=== PATIENT | male | born 1965 | race American Indian/Alaskan Native ===

== ENCOUNTER 2018-08-07 05:28 | Emergency (ER) | payer MEDICAID ==
[2018-08-07 07:33] LABS: Alanine Aminotransferase 23 units/L (7-56); Albumin 4.3 g/dL (3.9-5); BUN/Creatinine Ratio 7; Blood Urea Nitrogen 6 mg/dL (9-20); Calcium 9.1 mg/dL (8.4-10.2); Hemolysis Index 20
[2018-08-07 07:55] LABS: Basophils # (Auto) 0.1 K/mm3 (0.0-0.1); Basophils % (Auto) 1.2 % (0.0-1.8); Eosinophils # (Auto) 0.1 K/mm3 (0.0-0.4); Eosinophils % (Auto) 0.7 % (0.0-4.3); Hematocrit 39.9 % (35.5-45.6); Hemoglobin 13.3 gm/dl (11.8-15.2); Lymphocytes # (Auto) 1.2 K/mm3 (1.2-5.4); Mean Corpuscular HGB Conc 33 % (32-34); Mean Corpuscular Volume 82 fl (84-94); Monocytes # (Auto) 0.7 K/mm3 (0.0-0.8); Monocytes % (Auto) 10.1 % (0.0-7.3); Platelet Count 386 K/mm3 (140-440); Red Blood Count 4.86 M/mm3 (3.65-5.03); Red Cell Distribution Width 14.7 % (13.2-15.2)
[2018-08-07] MEDS ORDERED: ZOFRAN IV ONE (09:28)
[2018-08-07] MEDS ORDERED: NACL 0.9% 1000 ML 1,000 ML IV ONE ×2 (09:28→09:29)
[2018-08-07] MEDS ORDERED: ALUM-MAG HYDROX-SIMETH 200-200-20MG/5ML PO ONE (09:32)
[2018-08-07] MEDS ORDERED: LIDOCAINE VISCOUS 2% PO ONE (09:32)
[2018-08-07 09:58] VITALS: BP 166/115
--- NOTE | 2018-08-07 10:17 | Emergency Department Report ---
ED Abdominal Pain HPI - General Chief Complaint: Chest Pain Stated Complaint: CHEST PAIN Time Seen by Provider: 08/07/18 09:18 Source: patient, old records reviewed Mode of arrival: Ambulatory Limitations: No Limitations - History of Present Illness Initial Comments: 53-year-old male with past medical history of GERD, hypertension, H. pylori, esophagitis, gastritis, daily alcohol use presents to the hospital complaining of continued epigastric pain with nausea, vomiting and by mouth intolerance worse for the past 2-3 days. Pain is constant, worse with palpation. No alleviating factors. His previous his medical records were reviewed. He was admitted in June for similar symptoms. EGD is positive for esophagitis and gastritis. Patient also presented with significant hyponatremia thought to be due to excessive water intake as per nephrology. Patient is currently taking Protonix, nadolol, and folate. He recently presented to [facility] and was told to his pancreas was inflamed. Patient continues to drink alcohol daily with last drink yesterday. He denies history of alcohol withdrawal tremors, seizures, hematemesis, melena, fever, or previous abdominal surgeries. He has followed up with GI since initial hospital visit in May. Severity scale (0 -10): 9 - Related Data Previous Rx's Medication Instructions Recorded Last Taken Type Folic Acid [Folvite] 1 mg PO QDAY #30 tablet 06/22/18 Unknown Rx Nicotine [Habitrol] 21 mg TD DAILY #30 patch 06/22/18 Unknown Rx Pantoprazole [Protonix TAB] 40 mg PO BID #60 tablet 06/22/18 Unknown Rx chlorproMAZINE [Thorazine] 10 mg PO Q6H PRN #30 tablet 06/22/18 Unknown Rx HYDROcodone/APAP 5-325 [[place] 1 each PO Q6HR PRN #20 tablet 08/07/18 Unknown Rx 5/325] Ondansetron [Zofran Odt] 4 mg PO Q8HR PRN #20 tab.rapdis 08/07/18 Unknown Rx Sucralfate [Carafate] 1 gm PO ACHS #30 oral.liqd 08/07/18 Unknown Rx Allergies Allergy/AdvReac Type Severity Reaction Status Date / Time No Known Allergies Allergy Verified 06/20/18 16:22 ED Review of Systems ROS: Stated complaint: CHEST PAIN Other details as noted in HPI Comment: All other systems reviewed and negative ED Past Medical Hx - Past Medical History Previous Medical History?: Yes Hx Hypertension: Yes Hx Congestive Heart Failure: No Hx Diabetes: No Hx GERD: Yes Hx Asthma: No Hx COPD: No Additional medical history: Low sodium secondary to excessive water intake, low potassium, HERNIA H-PYLORIC, gastritis, esophagitis, daily alcohol use - Surgical History Past Surgical History?: No - Social History Smoking Status: Current Every Day Smoker Substance Use Type: Alcohol, Marijuana - Medications Home Medications: Home Medications Medication Instructions Recorded Confirmed Last Taken Type Folic Acid [Folvite] 1 mg PO QDAY #30 tablet 06/22/18 Unknown Rx Nicotine [Habitrol] 21 mg TD DAILY #30 patch 06/22/18 Unknown Rx Pantoprazole [Protonix TAB] 40 mg PO BID #60 tablet 06/22/18 Unknown Rx chlorproMAZINE [Thorazine] 10 mg PO Q6H PRN #30 tablet 06/22/18 Unknown Rx HYDROcodone/APAP 5-325 [[place] 1 each PO Q6HR PRN #20 tablet 08/07/18 Unknown Rx 5/325] Ondansetron [Zofran Odt] 4 mg PO Q8HR PRN #20 tab.rapdis 08/07/18 Unknown Rx Sucralfate [Carafate] 1 gm PO ACHS #30 oral.liqd 08/07/18 Unknown Rx ED Physical Exam - General Limitations: No Limitations - Other Other exam information: General: No limitations, patient is alert in no acute distress Head exam: Atraumatic, normocephalic Eyes exam: Normal appearance, pupils equal reactive to light, extraocular movements intact, nonicteric sclera ENT: Moist mucous membrane Neck exam: Normal inspection, full range of motion, no meningismus nontender Respiratory exam: Clear to auscultation bilateral, no wheezes, rales, crackles Cardiovascular: Normal rate and rhythm, normal heart sounds Abdomen: Soft, nondistended, epigastric tenderness, with normal bowel sounds, no rebound, or guarding Extremity: Full range of motion normal inspection no deformity Back: Normal Inspection, full range of motion, no tenderness Neurologic: Alert, oriented x3, cranial nerves intact, no motor or sensory deficit Psychiatric: normal affect, normal mood Skin: Warm, dry, intact ED Course Vital Signs 02/16/19 02/16/19 05:53 09:53 Temperature 97.9 F 98.3 F Pulse Rate 72 61 Respiratory 18 18 Rate Blood Pressure 146/105 166/115 Blood Pressure 166/115 [Right] O2 Sat by Pulse 97 99 Oximetry ED Medical Decision Making - Lab Data Result diagrams: 08/07/18 06:52 08/07/18 06:49 Lab Results 08/07/18 08/07/18 08/07/18 Range/Units 06:49 06:52 09:27 WBC 7.3 (4.5-11.0) K/mm3 RBC 4.86 (3.65-5.03) M/mm3 Hgb 13.3 (11.8-15.2) gm/dl Hct 39.9 (35.5-45.6) % MCV 82 L (84-94) fl MCH 27 L (28-32) pg MCHC 33 (32-34) % RDW 14.7 (13.2-15.2) % Plt Count 386 (140-440) K/mm3 Lymph % (Auto) 16.0 (13.4-35.0) % Reeves % (Auto) 10.1 H (0.0-7.3) % Eos % (Auto) 0.7 (0.0-4.3) % Baso % (Auto) 1.2 (0.0-1.8) % Lymph # 1.2 (1.2-5.4) K/mm3 Reeves # 0.7 (0.0-0.8) K/mm3 Eos # 0.1 (0.0-0.4) K/mm3 Baso # 0.1 (0.0-0.1) K/mm3 Seg Neutrophils % 72.0 H (40.0-70.0) % Seg Neutrophils # 5.3 (1.8-7.7) K/mm3 Sodium 126 L (137-145) mmol/L Potassium 4.3 (3.6-5.0) mmol/L Chloride 83.0 L (98-107) mmol/L Carbon Dioxide 26 (22-30) mmol/L Anion Gap 21 mmol/L BUN 6 L (9-20) mg/dL Creatinine 0.9 (0.8-1.5) mg/dL Estimated GFR > 60 ml/min BUN/Creatinine Ratio 7 % Glucose 67 L (75-100) mg/dL Calcium 9.1 (8.4-10.2) mg/dL Magnesium (1.7-2.3) mg/dL Total Bilirubin 0.70 (0.1-1.2) mg/dL AST 49 H (5-40) units/L ALT 23 (7-56) units/L Alkaline Phosphatase 86 (35-129) units/L Troponin T < 0.010 (0.00-0.029) ng/mL Total Protein 7.8 (6.3-8.2) g/dL Albumin 4.3 (3.9-5) g/dL Albumin/Globulin Ratio 1.2 % Lipase 53 (13-60) units/L 08/07/18 Range/Units 09:29 WBC (4.5-11.0) K/mm3 RBC (3.65-5.03) M/mm3 Hgb (11.8-15.2) gm/dl Hct (35.5-45.6) % MCV (84-94) fl MCH (28-32) pg MCHC (32-34) % RDW (13.2-15.2) % Plt Count (140-440) K/mm3 Lymph % (Auto) (13.4-35.0) % Reeves % (Auto) (0.0-7.3) % Eos % (Auto) (0.0-4.3) % Baso % (Auto) (0.0-1.8) % Lymph # (1.2-5.4) K/mm3 Reeves # (0.0-0.8) K/mm3 Eos # (0.0-0.4) K/mm3 Baso # (0.0-0.1) K/mm3 Seg Neutrophils % (40.0-70.0) % Seg Neutrophils # (1.8-7.7) K/mm3 Sodium (137-145) mmol/L Potassium (3.6-5.0) mmol/L Chloride (98-107) mmol/L Carbon Dioxide (22-30) mmol/L Anion Gap mmol/L BUN (9-20) mg/dL Creatinine (0.8-1.5) mg/dL Estimated GFR ml/min BUN/Creatinine Ratio % Glucose (75-100) mg/dL Calcium (8.4-10.2) mg/dL Magnesium 2.00 (1.7-2.3) mg/dL Total Bilirubin (0.1-1.2) mg/dL AST (5-40) units/L ALT (7-56) units/L Alkaline Phosphatase (35-129) units/L Troponin T (0.00-0.029) ng/mL Total Protein (6.3-8.2) g/dL Albumin (3.9-5) g/dL Albumin/Globulin Ratio % Lipase (13-60) units/L - EKG Data -: EKG Interpreted by Me EKG shows normal: sinus rhythm, axis (qrs 75), QRS complexes (qrsd 88), ST-T waves (no stemi) Rate: normal (64) - EKG Data When compared to previous EKG there are: no significant change - Medical Decision Making Was again patient does have hyponatremia although mild. He admits to drinking a lot of water because it helps his hiccups. Patient treated with 2 L of normal saline. He took his Protonix this a.m. He also received Maalox, viscous lidocaine and Zofran. Patient counseled that continued alcohol intake will continue to flare up his stomach symptoms and he should consider stopping his alcohol intake Patient continued to have pain with above treatment but symptoms further To morphine. Tolerating by mouth (including juice) prior to discharge. - Differential Diagnosis gastritis, esophagitis, pancreatitis Critical Care Time: No Critical care attestation.: If time is entered above; I have spent that time in minutes in the direct care of this critically ill patient, excluding procedure time. ED Disposition Clinical Impression: Gastritis, Alcohol abuse, daily use, Vomiting, Hyponatremia Disposition: DC- TO HOME OR SELFCARE Is pt being admited?: No Does the pt Need Aspirin: No Condition: Stable Instructions: Gastritis (ED), At-Risk Alcohol Use (ED), Acute Nausea and Vomiting (ED) Additional Instructions: Take the medication as prescribed. Follow up with your doctor or the clinic/doctor provided. Return if symptoms worsen as indicated by your discharge instructions Prescriptions: HYDROcodone/APAP 5-325 [[place] 5/325] 1 each PO Q6HR PRN #20 tablet PRN Reason: Pain Ondansetron [Zofran Odt] 4 mg PO Q8HR PRN #20 tab.rapdis PRN Reason: Nausea And Vomiting Sucralfate [Carafate] 1 gm PO ACHS #30 oral.liqd Referrals: SUSANA WESLEY MD [Staff Physician] - 3-5 Days (GI specialist ) Time of Disposition: 12:54
[2018-08-07] MEDS ORDERED: MORPHINE IV ONE (11:04)
== END 2018-08-07 13:15 | disposition home or self-care (01) ==
LOC: ED 05:28
DX: K29.70 Gastritis, unspecified, without bleeding (principal); F10.129 Alcohol abuse with intoxication, unspecified; E87.1 Hypo-osmolality and hyponatremia
CPT/HCPCS: 36415; 80053; 83690; 83735; 84484; 85025; 93005; 93010; 96361; 96374; 96375; 99283; J2270; J2405; J7030

== ENCOUNTER 2018-09-05 19:14 | Inpatient (IN) | payer MEDICAID ==
--- NOTE | 2018-09-05 19:53 | Emergency Department Report ---
Chief Complaint: Head Injury Stated Complaint: CHEST PAIN Time Seen by Provider: 09/05/18 19:49 - HPI History of Present Illness: RAMBLING IN TRIAGE MANY COMPLAINTS 1 FELL 2 DAYS AGO HEADACHE 2 KNEE PAIN 3 CHEST PAIN RX GERD MEDS PMH GERD VSS MSE COMPLETED RN NOTIFIED OF COMPLAINTS - Exam Vital Signs: Vital Signs 09/05/18 19:44 Temperature 99.8 F H Pulse Rate 87 Respiratory 16 Rate Blood Pressure 106/83 [Left] O2 Sat by Pulse 96 Oximetry MSE screening note: Focused history and physical exam performed. Due to findings the following was ordered: ED Disposition for MSE Condition: Stable
[2018-09-05 20:15] LABS: Hematocrit 31.3 % (35.5-45.6); Hemoglobin 10.2 gm/dl (11.8-15.2); Mean Corpuscular HGB Conc 33 % (32-34); Mean Corpuscular Volume 80 fl (84-94); Platelet Count 490 K/mm3 (140-440); Red Blood Count 3.94 M/mm3 (3.65-5.03); Red Cell Distribution Width 16.9 % (13.2-15.2)
[2018-09-05 20:23] LABS: Alanine Aminotransferase 21 units/L (7-56); BUN/Creatinine Ratio 8; Blood Urea Nitrogen 6 mg/dL (9-20); Calcium 8.2 mg/dL (8.4-10.2); Hemolysis Index 14
--- NOTE | 2018-09-05 20:41 | Cat Scan Report ---
PROCEDURE: CT HEAD/BRAIN WO CON TECHNIQUE: Computerized tomography of the head was performed without contrast material. CT DOSE LENGTH PRODUCT: mGycm HISTORY: PAIN SP FALL COMPARISONS: None . FINDINGS: Skull and scalp: Left parietotemporal scalp swelling is noted measuring 8 cm in diameter and 1 cm in thickness. . Paranasal sinuses: Normal . Ventricles and subarachnoid spaces: Unremarkable. . Cerebrum: No evidence of hemorrhage, acute infarction or mass . Cerebellum and brainstem: No evidence of hemorrhage, acute infarction or mass . Vasculature: Normal . Other: None . ASPECTS: 10 IMPRESSION: No acute intracranial abnormality Left parietotemporal scalp swelling is consistent with scalp hematoma.. This document is electronically signed by Adolph Park MD., September 05 2018 08:39:39 PM ET
[2018-09-05 21:20] LABS: Bilirubin,Urine NEG (Negative); Blood,Urine NEG (Negative); Color,Urine Yellow (Yellow); Protein,Urine <15 mg/dL mg/dL (Negative); RBC,Urine < 1.0 /HPF (0.0-6.0); Urobilinogen,Urine < 2.0 mg/dL (<2.0)
[2018-09-05] MEDS ORDERED: ZOFRAN IV ONE (21:21)
[2018-09-05] MEDS ORDERED: DILAUDID IV ONE (21:21)
[2018-09-05] MEDS ORDERED: NACL 0.9% 1000 ML 1,000 ML IV ONE (21:21)
--- NOTE | 2018-09-05 21:26 | Emergency Department Report ---
HPI - General Chief Complaint: Head Injury Time Seen by Provider: 09/05/18 19:49 - HPI HPI: Room 5 Patient is a 53-year-old male presenting with a chief complaint of abdominal pain and headache. The patient states 2 days ago while consuming alcohol he l ost his balance and fell striking his head. Patient states since then he is headache but he's also had pain in the midepigastric region. The patient states 2 weeks ago he was admitted to the hospital for pancreatitis and hyponatremia. Patient states his abdominal pain is sharp and burning in nature. Patient states the pain is constant and associated with nausea vomiting and diarrhea. Patient admits to occasional hiccups. Patient denies history of fever. The patient gets his pain a score of 10/10 Location: Head, mid epigastric region Duration: 2 days Quality: Pain Severity:10/10 Modifying factors: [see above] Context: [see above] Mode of transportation: [not driving] ED Past Medical Hx - Past Medical History Previous Medical History?: Yes Hx Hypertension: Yes Hx GERD: Yes Additional medical history: Low sodium secondary to excessive water intake, low potassium, HERNIA H-PYLORIC, gastritis, esophagitis, daily alcohol use - Surgical History Past Surgical History?: No - Family History Family history: no significant - Social History Smoking Status: Current Every Day Smoker (1/3 pack per day) Substance Use Type: None (denies illicit drug use), Alcohol (25 ounces of beer daily) - Medications Home Medications: Home Medications Medication Instructions Recorded Confirmed Last Taken Type Folic Acid [Folvite] 1 mg PO QDAY #30 tablet 06/22/18 Unknown Rx Nicotine [Habitrol] 21 mg TD DAILY #30 patch 06/22/18 Unknown Rx Pantoprazole [Protonix TAB] 40 mg PO BID #60 tablet 06/22/18 Unknown Rx chlorproMAZINE [Thorazine] 10 mg PO Q6H PRN #30 tablet 06/22/18 Unknown Rx HYDROcodone/APAP 5-325 [[place] 1 each PO Q6HR PRN #20 tablet 08/07/18 Unknown Rx 5/325] Ondansetron [Zofran Odt] 4 mg PO Q8HR PRN #20 tab.rapdis 08/07/18 Unknown Rx Sucralfate [Carafate] 1 gm PO ACHS #30 oral.liqd 08/07/18 Unknown Rx ED Review of Systems ROS: Stated complaint: CHEST PAIN Other details as noted in HPI Constitutional: denies: fever Eyes: denies: eye pain ENT: denies: throat pain Respiratory: no symptoms reported Cardiovascular: denies: chest pain Endocrine: no symptoms reported Gastrointestinal: abdominal pain, nausea, vomiting, diarrhea Genitourinary: denies: dysuria Musculoskeletal: denies: back pain Neurological: headache Physical Exam - Physical Exam Vital Signs: Vital Signs 09/05/18 09/05/18 19:44 19:51 Temperature 99.8 F H 99.8 F H Pulse Rate 87 87 Respiratory 16 20 Rate Blood Pressure 106/83 Blood Pressure 106/83 [Left] O2 Sat by Pulse 96 96 Oximetry Physical Exam: GENERAL: The patient is well-developed well-nourished male lying on stretcher appearing to be in mild discomfort. [] HEENT: Normocephalic. Atraumatic. Extraocular motions are intact. Patient has moist mucous membranes. NECK: Supple. Trachea midline CHEST/LUNGS: Clear to auscultation. There is no respiratory distress noted. HEART/CARDIOVASCULAR: Regular. There is no tachycardia. There is no gallop rub or murmur. ABDOMEN: Abdomen is soft, with tenderness to palpation in the midepigastric region. Patient has normal bowel sounds. There is no abdominal distention. SKIN: There is no rash. There is no edema. There is no diaphoresis. NEURO: The patient is awake, alert, and oriented. The patient is cooperative. The patient has no focal neurologic deficits. The patient has normal speech. Cranial nerves II 12 grossly intact MUSCULOSKELETAL: There is no evidence of acute injury. ED Course Vital Signs 09/05/18 09/05/18 19:44 19:51 Temperature 99.8 F H 99.8 F H Pulse Rate 87 87 Respiratory 16 20 Rate Blood Pressure 106/83 Blood Pressure 106/83 [Left] O2 Sat by Pulse 96 96 Oximetry ED Medical Decision Making - Lab Data Result diagrams: 09/05/18 19:57 09/05/18 19:57 Laboratory Tests 09/05/18 09/05/18 09/05/18 19:57 19:57 21:06 WBC 8.7 RBC 3.94 Hgb 10.2 L Hct 31.3 L MCV 80 L MCH 26 L MCHC 33 RDW 16.9 H Plt Count 490 H Sodium 127 L Potassium 4.1 Chloride 89.1 L Carbon Dioxide 24 Anion Gap 18 BUN 6 L Creatinine 0.8 Estimated GFR > 60 BUN/Creatinine Ratio 8 Glucose 89 Calcium 8.2 L Total Bilirubin 0.20 AST 36 ALT 21 Alkaline Phosphatase 76 Troponin T < 0.010 Total Protein 7.2 Albumin 4.0 Albumin/Globulin Ratio 1.3 Lipase 142 H Urine Color Yellow Urine Turbidity Clear Urine pH 6.0 Ur Specific [place] 1.004 Urine Protein <15 mg/dl Urine Glucose (UA) Neg Urine Ketones Neg Urine Blood Neg Urine Nitrite Neg Urine Bilirubin Neg Urine Urobilinogen < 2.0 Ur Leukocyte Esterase Neg Urine WBC (Auto) 1.0 Urine RBC (Auto) < 1.0 - EKG Data -: EKG Interpreted by Nm EKG shows normal: sinus rhythm Rate: normal - EKG Data When compared to previous EKG there are: previous EKG unavailable Interpretation: nonspecific ST-T wave denise (T-wave inversion in lead aVL) - Radiology Data Radiology results: report reviewed (CT abdomen and pelvis), image reviewed (CT abdomen and pelvis) [address] [address] Cat Scan Report Signed Patient: WENDI MORENO MR#: [id number] : 1965 Acct:[id number] Age/Sex: 53 / M ADM Date: 09/05/18 Loc: ED Attending Dr: Ordering Physician: RADHAMES BRICE Date of Service: 09/05/18 Procedure(s): CT head/brain wo con Accession Number(s): [id number] cc: RADHAMES BRICE PROCEDURE: CT HEAD/BRAIN WO CON TECHNIQUE: Computerized tomography of the head was performed without contrast material. CT DOSE LENGTH PRODUCT: mGycm HISTORY: PAIN SP FALL COMPARISONS: None . FINDINGS: Skull and scalp: Left parietotemporal scalp swelling is noted measuring 8 cm in diameter and 1 cm in thickness. . Paranasal sinuses: Normal . Ventricles and subarachnoid spaces: Unremarkable. . Cerebrum: No evidence of hemorrhage, acute infarction or mass . Cerebellum and brainstem: No evidence of hemorrhage, acute infarction or mass . Vasculature: Normal . Other: None . ASPECTS: 10 IMPRESSION: No acute intracranial abnormality Left parietotemporal scalp swelling is consistent with scalp hematoma.. This document is electronically signed by Darleen Park MD., September 05 2018 08:39:39 PM ET Transcribed By: [facility] [place] Dictated By: DARLEEN PARK Electronically Authenticated By: DARLEEN PARK Signed Date/Time: 09/05/182040 DD/ 20 TD/TT: 09/05/182021 - Differential Diagnosis pancreatitis, closed head injury, intracranial hemorrhage Critical care attestation.: If time is entered above; I have spent that time in minutes in the direct care of this critically ill patient, excluding procedure time. ED Disposition Clinical Impression: Acute pancreatitis, Closed head injury Disposition: DC-09 OP ADMIT IP TO THIS HOSP Is pt being admited?: Yes Does the pt Need Aspirin: No Condition: Fair Time of Disposition: 21:28 (hospitalist paged (Dr Knutson))
[2018-09-05 21:29] LABS: Amphetamine Screen,Urine PRESUMPTIVE NEGATIVE; Benzodiazepines Screen,Urine PRESUMPTIVE NEGATIVE; Cannabinoid Screen,Urine PRESUMPTIVE NEGATIVE; Cocaine Screen,Urine PRESUMPTIVE NEGATIVE; Methadone Screen,Urine PRESUMPTIVE NEGATIVE; Opiate Screen,Urine PRESUMPTIVE NEGATIVE
[2018-09-06] MEDS ORDERED: ZOFRAN IV PRN (01:20)
[2018-09-06] MEDS: DILAUDID IV PRN ×6 (01:46→21:44)
--- NOTE | 2018-09-06 03:59 | Cat Scan Report ---
PROCEDURE: CT ABDOMEN PELVIS W CON HISTORY: epigastric abdominal pain FINDINGS: Contrast-enhanced CT of the abdomen and pelvis was performed following the intravenous admi nistration of iodinated contrast. Data was reformatted into the sagittal and coronal planes. Comparis on is made to the prior examination of June 20, 2018. The examination is very limited by patient motion. The heart is normal in size. The lung bases appear clear. There is considerable wall thickening of the distal esophagus consistent with esophagitis, similar to prior examination of June 20. ABDOMEN: There is fatty infiltration of the liver without focal hepatic lesion. The spleen, adrenal glands, pancreas are within normal limits. There is no evidence of hydronephrosis . There is no small or large bowel obstruction. Pelvis: There is a normal appendix. There is no evidence of diverticulitis. The prostate and urinary bladder are within normal limits. There is no free air. IMPRESSION: Considerable wall thickening of distal esophagus consistent with esophagitis ABDOMEN: Fatty infiltration of the liver No bowel obstruction Pelvis: Normal appendix This document is electronically signed by Corona Garza MD., September 06 2018 03:56:59 AM ET
[2018-09-06] MEDS: NACL 0.9% 1000 ML 1,000 ML IV SCH ×2 (04:39→20:56)
[2018-09-06] MEDS ORDERED: TYLENOL PO PRN (05:53)
--- NOTE | 2018-09-06 07:27 | History and Physical Report ---
CHIEF COMPLAINT: Abdominal pain. HISTORY OF PRESENTING ILLNESS: The patient is a 53-year-old male who has been having epigastric abdominal pain going on for 2 days and there is history of associated nausea and vomiting. The patient also said that he lost his balance and fell and hit his head on the ground. The patient admitted to drinking alcohol regularly and said that the abdominal pain is burning in nature, does not radiate and there is also history of associated diarrhea and hiccups. There is no history of fever or chills and the patient put his pain level at 10/10. PAST MEDICAL HISTORY: Pertinent for hypertension, gastroesophageal reflux disease, hyponatremia, hypokalemia, hernia, gastritis, esophagitis, alcohol abuse and pancreatitis. PAST SURGICAL HISTORY: Unremarkable. FAMILY HISTORY: Family history is noncontributory. SOCIAL HISTORY: The patient drinks alcohol on daily basis, smokes cigarettes and denies use of illicit drugs. MEDICATIONS: The patient is on folic acid one by mouth daily, nicotine patch 21 mg transdermally daily, Protonix 40 mg by mouth twice daily, chlorpromazine 10 mg by mouth every 6 hours, [place] 5/325 mg by mouth every 6 hours, Zofran 4 mg by mouth every 8 hours as needed for nausea and vomiting, and Carafate 1 gram by mouth a.c. and at bedtime. ALLERGIES: There are no known drug allergies. REVIEW OF SYSTEMS: CONSTITUTIONAL: There is no fever, no chills, no diaphoresis. HEENT: There is no headache or sore throat. CARDIOVASCULAR SYSTEM: There is no chest pain or orthopnea. RESPIRATORY SYSTEM: There is no shortness of breath or cough. GASTROINTESTINAL SYSTEM: Epigastric abdominal pain noted. Nausea, vomiting and diarrhea noted. No constipation. NEUROLOGICAL SYSTEM: There is no numbness, no dizziness, no altered mental status. MUSCULOSKELETAL SYSTEM: There is no joint pain or swelling. DERMATOLOGICAL SYSTEM: There is no skin rash or itching. GENITOURINARY SYSTEM: There are no dysuria, hematuria or flank pain. Rest of system review is normal. PHYSICAL EXAMINATION: GENERAL: At the time of exam, the patient was found to be alert, oriented x 3 and in mild to moderate distress due to abdominal pain. VITAL SIGNS: At the initial time of presentation showed temperature of 99.8 degrees Fahrenheit, pulse of 87, respirations 16, blood pressure 106/83, O2 sat of 96% on room air. HEENT: Showed pupils to be equal, round, reactive to light and accommodating. Extraocular muscles are intact. NECK: Neck is supple with no JVD or carotid bruit. CARDIOVASCULAR SYSTEM: Showed normal first and second heart sounds with no gallops or murmur. RESPIRATORY SYSTEM: Show good air entry on both sides of the lungs with no abnormal breath sounds. GASTROINTESTINAL SYSTEM: Show abdomen to be full, soft with tenderness in the epigastric area, but no guarding and no rigidity. Bowel sounds normal. NEUROLOGICAL: Neuro exam shows no focal deficit. MUSCULOSKELETAL SYSTEM: Show no joint swelling. DERMATOLOGICAL SYSTEM: Show no skin rash. GENITOURINARY SYSTEM: Show no costovertebral angle tenderness. PERTINENT LABORATORY AND IMAGING STUDIES: The patient had CT of the head done that came back showing no acute intracranial abnormality. There is left shannan-temporal scalp swelling consistent with scalp hematoma. Also, the patient has a CT of the abdomen and pelvis done with contrast and it shows considerable wall thickening of distal esophagus consistent with esophagitis. There is also finding of fatty infiltration of the liver with no bowel obstruction and the appendix was found to be normal. Lab results; the patient's CBC showed normal white count, slightly low hemoglobin of 10.2 and low hematocrit of 31.3 with elevated platelet count of 490 and the patient's sodium level is low with a value of 127. Also, the patient's chloride level is low with a value of 89.2, potassium level came back normal. Renal function test is unremarkable. The patient's lipase level is elevated with a value of 142. The patient's urinalysis came back unremarkable. Urine drug screen was unremarkable as well. DIAGNOSES: 1. Acute pancreatitis. 2. Esophagitis. 3. Hematoma of the head. PLAN OF CARE: 1. The patient will be admitted to [facility]. 2. The patient will remain n.p.o. except for medications. 3. The patient will be on IV Dilaudid 1 mg every 4 hours as needed for pain and IV Zofran 4 mg every 8 hours as needed for nausea and vomiting. 4. The patient will be on IV Protonix 40 mg daily and will be on IV normal saline running at 125 mL an hour. Also the patient will be on p.r.n. medications like Tylenol 650 mg by mouth every 4 hours for fever and headache. 5. The patient will be on IV Levaquin 750 mg daily. JOB# [id number] OCN/NTS
[2018-09-06] MEDS: HEPARIN SUB-Q SCH ×2 (09:40→21:44)
[2018-09-06] MEDS ORDERED: PROTONIX IV SCH (10:00)
[2018-09-06] MEDS ORDERED: LEVAQUIN 750MG/150ML 750 MG/150 ML BAG IV SCH (10:00)
--- NOTE | 2018-09-06 15:57 | Progress Note ---
Assessment and Plan Assessment and plan: Patient is a 53 yo man with a history of alcohol pancreatitis, tobacco dependency and alcohol abuse who presents with abd pains. Patient last drink was 10am on 09/05/18. He drinks 3 [place] Ice Beer 25oz bottle. -Alcohol pancreatitis: ivf, bowel rest, iv pain meds -Alcohol abuse: Ciwa protocol, counseling done, -Esophagitis: ppi iv, bowel rest -Fatty liver from etoh: abstinence encouraged -Tobacco dependency: counseling to stop done, offered nicotine patch -Microcytic anemia: counseling on getting out patient c-scopy, will monitor cbc while inpatient -Hyponatremia, hypovolemia: treat with IVf and monitor bmp closely DVT/GI prophylaxis reviewed. prolonged inpatient services 35 minutes. History Interval history: Patient was seen and examined. Follow-up on current diagnosis pancreatitis. Overnight uneventful. Patient denies any chest pain, shortness breath, nausea/vomiting or severe headaches. Imaging, nursing note, chart, labs and old chart reviewed. Discussed with patient. Hospitalist Physical - Physical exam Narrative exam: Gen: WDWN, NAD, Awake, Alert, Orientated HEENT: NCAT, EOMI, PERRL, OP Clear Neck: supple, no adenopathy, no thyromegaly, no JVD CVS/Heart: RRR, normal S1S2, pulses present bilaterally Chest/Lungs: CTA B, Symmetrical chest expansion, good air entry bilaterally GI/Abdomen: soft, epigastric tenderness mild, good bowel sounds, no guarding or rebound /Bladder: no suprapubic tenderness, no CVA or paraspinal tenderness Extermity/Skin: no c/c/e, no obvious rash MSK: FROM x 4 Neuro: CN 2-12 grossly intact, no new focal deficits Psych: calm - Constitutional Vitals: Temp Pulse Resp BP Pulse Ox 98.4 F 66 20 157/102 98 09/06/18 12:21 09/06/18 12:21 09/06/18 12:21 09/06/18 12:21 09/06/18 12:21 Results - Labs CBC & Chem 7: 09/05/18 19:57 09/05/18 19:57 Labs: Laboratory Last Values WBC 8.7 K/mm3 (4.5-11.0) 09/05/18 19:57 RBC 3.94 M/mm3 (3.65-5.03) 09/05/18 19:57 Hgb 10.2 gm/dl (11.8-15.2) L 09/05/18 19:57 Hct 31.3 % (35.5-45.6) L 09/05/18 19:57 MCV 80 fl (84-94) L 09/05/18 19:57 MCH 26 pg (28-32) L 09/05/18 19:57 MCHC 33 % (32-34) 09/05/18 19:57 RDW 16.9 % (13.2-15.2) H 09/05/18 19:57 Plt Count 490 K/mm3 (140-440) H 09/05/18 19:57 Sodium 127 mmol/L (137-145) L 09/05/18 19:57 Potassium 4.1 mmol/L (3.6-5.0) 09/05/18 19:57 Chloride 89.1 mmol/L (98-107) L 09/05/18 19:57 Carbon Dioxide 24 mmol/L (22-30) 09/05/18 19:57 Anion Gap 18 mmol/L 09/05/18 19:57 BUN 6 mg/dL (9-20) L 09/05/18 19:57 Creatinine 0.8 mg/dL (0.8-1.5) 09/05/18 19:57 Estimated GFR > 60 ml/min 09/05/18 19:57 BUN/Creatinine Ratio 8 % 09/05/18 19:57 Glucose 89 mg/dL (75-100) 09/05/18 19:57 Calcium 8.2 mg/dL (8.4-10.2) L 09/05/18 19:57 Total Bilirubin 0.20 mg/dL (0.1-1.2) 09/05/18 19:57 AST 36 units/L (5-40) 09/05/18 19:57 ALT 21 units/L (7-56) 09/05/18 19:57 Alkaline Phosphatase 76 units/L (35-129) 09/05/18 19:57 Troponin T < 0.010 ng/mL (0.00-0.029) 09/05/18 19:57 Total Protein 7.2 g/dL (6.3-8.2) 09/05/18 19:57 Albumin 4.0 g/dL (3.9-5) 09/05/18 19:57 Albumin/Globulin Ratio 1.3 % 09/05/18 19:57 Lipase 142 units/L (13-60) H 09/05/18 19:57 Urine Color Yellow (Yellow) 09/05/18 21:06 Urine Turbidity Clear (Clear) 09/05/18 21:06 Urine pH 6.0 (5.0-7.0) 09/05/18 21:06 Ur Specific [place] 1.004 (1.003-1.030) 09/05/18 21:06 Urine Protein <15 mg/dl mg/dL (Negative) 09/05/18 21:06 Urine Glucose (UA) Neg mg/dL (Negative) 09/05/18 21:06 Urine Ketones Neg mg/dL (Negative) 09/05/18 21:06 Urine Blood Neg (Negative) 09/05/18 21:06 Urine Nitrite Neg (Negative) 09/05/18 21:06 Urine Bilirubin Neg (Negative) 09/05/18 21:06 Urine Urobilinogen < 2.0 mg/dL (<2.0) 09/05/18 21:06 Ur Leukocyte Esterase Neg (Negative) 09/05/18 21:06 Urine WBC (Auto) 1.0 /HPF (0.0-6.0) 09/05/18 21:06 Urine RBC (Auto) < 1.0 /HPF (0.0-6.0) 09/05/18 21:06 Urine Opiates Screen Presumptive negative 09/05/18 21:06 Urine Methadone Screen Presumptive negative 09/05/18 21:06 Ur Barbiturates Screen Presumptive negative 09/05/18 21:06 Ur Phencyclidine Scrn Presumptive negative 09/05/18 21:06 Ur Amphetamines Screen Presumptive negative 09/05/18 21:06 U Benzodiazepines Scrn Presumptive negative 09/05/18 21:06 Urine Cocaine Screen Presumptive negative 09/05/18 21:06 U Marijuana (THC) Screen Presumptive negative 09/05/18 21:06 Drugs of Abuse Note Disclamer 09/05/18 21:06 Active Medications - Current Medications Current Medications: Generic Name Dose Route Start Last Admin Trade Name Freq PRN Reason Stop Dose Admin Acetaminophen 650 mg 09/06/18 05:53 Tylenol PO Q4H PRN Fever >101 Heparin Sodium (Porcine) 5,000 unit 09/06/18 10:00 09/06/18 09:40 Heparin SUB-Q 5,000 unit Q12HR LEA Administration Hydromorphone HCl 1 mg 09/06/18 01:20 09/06/18 13:55 Dilaudid IV 1 mg Q4H PRN Administration Pain , Severe (7-10) Sodium Chloride 1,000 mls @ 125 mls/hr 09/06/18 02:00 09/06/18 12:39 Nacl 0.9% 1000 Ml IV Infused DIRECT LEA Infusion Levofloxacin/Dextrose 750 mg in 150 mls @ 100 mls/hr 09/06/18 10:00 09/06/18 09:40 Levaquin 750mg/150ml IV 100 mls/hr Q24HR LEA Administration Protocol Ondansetron HCl 4 mg 09/06/18 01:20 09/06/18 01:46 Zofran IV 4 mg Q8H PRN Administration Nausea And Vomiting Pantoprazole Sodium 40 mg 09/07/18 10:00 Protonix PO DAILY [facility]
--- NOTE | 2018-09-06 16:02 | Event Note ---
Date: 09/06/18 Patient is admitted is 53 yo man with a history
[2018-09-06] MEDS: HABITROL TD SCH (17:08)
[2018-09-06] MEDS: PROTONIX IV SCH (21:44)
[2018-09-07] MEDS: DILAUDID IV PRN ×3 (01:50→09:41)
[2018-09-07] MEDS: NACL 0.9% 1000 ML 1,000 ML IV SCH (04:36)
[2018-09-07 06:43] LABS: Hematocrit 30.9 % (35.5-45.6); Mean Corpuscular HGB Conc 33 % (32-34); Mean Corpuscular Volume 79 fl (84-94); Platelet Count 401 K/mm3 (140-440); Red Cell Distribution Width 16.7 % (13.2-15.2)
--- NOTE | 2018-09-07 07:02 | Progress Note ---
Assessment and Plan Assessment and plan: Patient is a 53 yo man with a history of alcohol pancreatitis, tobacco dependency and alcohol abuse who presents with abd pains. Patient last drink was ~ 10am on 09/05/18. He drinks 3 [place] Ice Beer 25oz bottle a day. -Alcohol pancreatitis: ivf, advance diet, iv pain meds -Alcohol abuse: Ciwa protocol, counseling done, -Esophagitis: ppi iv -Fatty liver from etoh: abstinence encouraged -Tobacco dependency: counseling to stop done, offered nicotine patch -Microcytic anemia: counseling on getting out patient c-scopy, will monitor cbc while inpatient -Hyponatremia, hypovolemia: treat with IVf and monitor bmp closely DVT/GI prophylaxis reviewed. bmp pending History Interval history: Patient was seen and examined. Follow-up on current diagnosis pancreatitis. Overnight uneventful. Patient denies any chest pain, shortness breath, nausea/vomiting or severe headaches. Imaging, nursing note, chart, labs and old chart reviewed. Discussed with patient. Hospitalist Physical - Physical exam Narrative exam: Gen: WDWN, NAD, Awake, Alert, Orientated HEENT: NCAT, EOMI, PERRL, OP Clear Neck: supple, no adenopathy, no thyromegaly, no JVD CVS/Heart: RRR, normal S1S2, pulses present bilaterally Chest/Lungs: CTA B, Symmetrical chest expansion, good air entry bilaterally GI/Abdomen: soft, epigastric tenderness mild, good bowel sounds, no guarding or rebound /Bladder: no suprapubic tenderness, no CVA or paraspinal tenderness Extermity/Skin: no c/c/e, no obvious rash MSK: FROM x 4 Neuro: CN 2-12 grossly intact, no new focal deficits Psych: calm - Constitutional Vitals: Temp Pulse Resp BP Pulse Ox 98.1 F 63 18 139/89 100 09/07/18 05:28 09/07/18 05:28 09/07/18 05:28 09/07/18 05:28 09/07/18 05:28 Results - Labs CBC & Chem 7: 09/07/18 04:31 09/05/18 19:57 Labs: Laboratory Last Values WBC 5.1 K/mm3 (4.5-11.0) 09/07/18 04:31 RBC 3.90 M/mm3 (3.65-5.03) 09/07/18 04:31 Hgb 10.0 gm/dl (11.8-15.2) L 09/07/18 04:31 Hct 30.9 % (35.5-45.6) L 09/07/18 04:31 MCV 79 fl (84-94) L 09/07/18 04:31 MCH 26 pg (28-32) L 09/07/18 04:31 MCHC 33 % (32-34) 09/07/18 04:31 RDW 16.7 % (13.2-15.2) H 09/07/18 04:31 Plt Count 401 K/mm3 (140-440) 09/07/18 04:31 Sodium 127 mmol/L (137-145) L 09/05/18 19:57 Potassium 4.1 mmol/L (3.6-5.0) 09/05/18 19:57 Chloride 89.1 mmol/L (98-107) L 09/05/18 19:57 Carbon Dioxide 24 mmol/L (22-30) 09/05/18 19:57 Anion Gap 18 mmol/L 09/05/18 19:57 BUN 6 mg/dL (9-20) L 09/05/18 19:57 Creatinine 0.8 mg/dL (0.8-1.5) 09/05/18 19:57 Estimated GFR > 60 ml/min 09/05/18 19:57 BUN/Creatinine Ratio 8 % 09/05/18 19:57 Glucose 89 mg/dL (75-100) 09/05/18 19:57 Calcium 8.2 mg/dL (8.4-10.2) L 09/05/18 19:57 Total Bilirubin 0.20 mg/dL (0.1-1.2) 09/05/18 19:57 AST 36 units/L (5-40) 09/05/18 19:57 ALT 21 units/L (7-56) 09/05/18 19:57 Alkaline Phosphatase 76 units/L (35-129) 09/05/18 19:57 Troponin T < 0.010 ng/mL (0.00-0.029) 09/05/18 19:57 Total Protein 7.2 g/dL (6.3-8.2) 09/05/18 19:57 Albumin 4.0 g/dL (3.9-5) 09/05/18 19:57 Albumin/Globulin Ratio 1.3 % 09/05/18 19:57 Lipase 142 units/L (13-60) H 09/05/18 19:57 Urine Color Yellow (Yellow) 09/05/18 21:06 Urine Turbidity Clear (Clear) 09/05/18 21:06 Urine pH 6.0 (5.0-7.0) 09/05/18 21:06 Ur Specific [place] 1.004 (1.003-1.030) 09/05/18 21:06 Urine Protein <15 mg/dl mg/dL (Negative) 09/05/18 21:06 Urine Glucose (UA) Neg mg/dL (Negative) 09/05/18 21:06 Urine Ketones Neg mg/dL (Negative) 09/05/18 21:06 Urine Blood Neg (Negative) 09/05/18 21:06 Urine Nitrite Neg (Negative) 09/05/18 21:06 Urine Bilirubin Neg (Negative) 09/05/18 21:06 Urine Urobilinogen < 2.0 mg/dL (<2.0) 09/05/18 21:06 Ur Leukocyte Esterase Neg (Negative) 09/05/18 21:06 Urine WBC (Auto) 1.0 /HPF (0.0-6.0) 09/05/18 21:06 Urine RBC (Auto) < 1.0 /HPF (0.0-6.0) 09/05/18 21:06 Urine Opiates Screen Presumptive negative 09/05/18 21:06 Urine Methadone Screen Presumptive negative 09/05/18 21:06 Ur Barbiturates Screen Presumptive negative 09/05/18 21:06 Ur Phencyclidine Scrn Presumptive negative 09/05/18 21:06 Ur Amphetamines Screen Presumptive negative 09/05/18 21:06 U Benzodiazepines Scrn Presumptive negative 09/05/18 21:06 Urine Cocaine Screen Presumptive negative 09/05/18 21:06 U Marijuana (THC) Screen Presumptive negative 09/05/18 21:06 Drugs of Abuse Note Disclamer 09/05/18 21:06 Active Medications - Current Medications Current Medications: Generic Name Dose Route Start Last Admin Trade Name Freq PRN Reason Stop Dose Admin Acetaminophen 650 mg 09/06/18 05:53 Tylenol PO Q4H PRN Fever >101 Heparin Sodium (Porcine) 5,000 unit 09/06/18 10:00 09/06/18 21:44 Heparin SUB-Q 5,000 unit Q12HR LEA Administration Hydromorphone HCl 1 mg 09/06/18 01:20 09/07/18 05:54 Dilaudid IV 1 mg Q4H PRN Administration Pain , Severe (7-10) Sodium Chloride 1,000 mls @ 125 mls/hr 09/06/18 02:00 09/07/18 04:36 Nacl 0.9% 1000 Ml IV 125 mls/hr DIRECT LEA Administration Levofloxacin/Dextrose 750 mg in 150 mls @ 100 mls/hr 09/06/18 10:00 09/06/18 09:40 Levaquin 750mg/150ml IV 100 mls/hr Q24HR LEA Administration Protocol Nicotine 21 mg 09/06/18 16:00 09/06/18 17:08 Habitrol TD 21 mg QDAY LEA Administration Ondansetron HCl 4 mg 09/06/18 01:20 09/06/18 01:46 Zofran IV 4 mg Q8H PRN Administration Nausea And Vomiting Pantoprazole Sodium 40 mg 09/06/18 22:00 09/06/18 21:44 Protonix IV 40 mg BID LEA Administration Nutrition/Malnutrition Assess - Dietary Evaluation Nutrition/Malnutrition Findings: Nutrition Notes Start: 09/06/18 16:31 Freq: Status: Active Protocol: Document 09/06/18 16:31 RM (Rec: 09/06/18 16:41 RM [id number]) Nutrition Notes Need for Assessment generated from: MST Initial or Follow up Assessment Current Diagnosis Hypertension Other Pertinent Diagnosis GERD, Hx gastritis, Hx ETOH abuse, Pancreatitis, Esophagitis Current Diet NPO Labs/Tests Reviewed Pertinent Medications Reviewed Height 6 ft 1 in Weight 77.6 kg Usual Body Weight 85.91 kg [place] Body Weight (kg) 83.63 BMI 22.6 Weight change and time frame 9.7% wt loss X 5 months Subjective/Other Information Screened for malnutrition. Pt NPO for bowel rest. Pt does not appear to have BMI of 38. 3. Wt in record corrected using admission wt. Pt stated that [employer] his appetite was poor and that he ate 1 meal daily for a couple months. Stated that his appetite is good now and that he would like to eat. Stated UBW was 188-190 lbs 5 months ago. No temporal or obrital wasting . Burn Absent Trauma Absent #1 Nutrition Diagnosis Inadequate oral intake Etiology pancreatitis,esophagitis As Evidenced by Signs and Symptoms pt NPO status Is patient on ventilator? No Is Patient Ambulatory and/or Out of Bed Yes REE-([facility]-ambulatory/OOB) [ 2183.844 [id number]] Calculation Used for Recommendations [facility] Additional Notes Protein Needs: 62-78g (0.8-1g/ kg) Fluid Needs: 1 ml/kcal Nutrition Intervention Change Diet Order: Advance diet when medically able Add Supplement/Snack (indicate name/kcal Ensure Enlive 1 daily once /protein ) diet advanced Provides kCal: 350 Provides Protein (gm) 20 Goal #1 Diet advancement Anticipated Discharge Needs: Unable to determine at this time Follow-Up By: 09/08/18 Additional Comments Follow for diet advancement, PO and ONS intakes
[2018-09-07 07:19] LABS: BUN/Creatinine Ratio 11; Blood Urea Nitrogen 8 mg/dL (9-20); Calcium 8.2 mg/dL (8.4-10.2); Hemolysis Index 1
[2018-09-07] MEDS: HABITROL TD SCH (09:40)
[2018-09-07] MEDS: PROTONIX IV SCH (09:41)
[2018-09-07] MEDS: HEPARIN SUB-Q SCH (09:41)
[2018-09-07] MEDS ORDERED: PROTONIX PO SCH (10:00)
[2018-09-07 12:42] VITALS: BP 144/109
--- NOTE | 2018-09-07 14:50 | Discharge Summary ---
Providers - Providers Date of Admission: 09/06/18 01:48 Date of discharge: 09/07/18 Attending physician: MATT PHOENIX [facility] Hospital[facility] Condition: Stable Hospital course: Patient is a 53 yo man with a history of alcohol pancreatitis, tobacco dependency and alcohol abuse who presents with abd pains. Patient last drink was ~ 10am on 09/05/18. He drinks 3 [place] Ice Beer 25oz bottle a day. -Alcohol pancreatitis: ivf, advance diet and he tolerated and asking to go home because he is pain free -Alcohol abuse: Ciwa protocol, counseling done, -Esophagitis: ppi iv -Fatty liver from etoh: abstinence encouraged -Tobacco dependency: counseling to stop done, offered nicotine patch -Microcytic anemia: counseling on getting out patient c-scopy, will monitor cbc while inpatient -Hyponatremia, hypovolemia: treat with IVf and monitor bmp closely DVT/GI prophylaxis reviewed. Disposition: DC-01 TO HOME OR SELFCARE Time spent for discharge: 32 minutes Core Measure Documentation - Palliative Care Palliative Care/ Comfort Measures: Not Applicable - Core Measures Any of the following diagnoses?: none - VTE Discharge Requirements Deep Vein Thrombosis/Pulmonary Embolism Present on Admission: No Has pt received <5 days of overlap therapy or INR<2.0: No Anticoagulant overlap therapy prescribed at discharge: No Contraindication No Overlap Therapy order at DC: Not Indicated Exam - Physical Exam Narrative exam: Gen: WDWN, NAD, Awake, Alert, Orientated HEENT: NCAT, EOMI, PERRL, OP Clear Neck: supple, no adenopathy, no thyromegaly, no JVD CVS/Heart: RRR, normal S1S2, pulses present bilaterally Chest/Lungs: CTA B, Symmetrical chest expansion, good air entry bilaterally GI/Abdomen: soft, no epigastric tenderness, good bowel sounds, no guarding or rebound /Bladder: no suprapubic tenderness, no CVA or paraspinal tenderness Extermity/Skin: no c/c/e, no obvious rash MSK: FROM x 4 Neuro: CN 2-12 grossly intact, no new focal deficits Psych: calm - Constitutional Vitals: Temp Pulse Resp BP Pulse Ox 97.9 F 78 16 144/109 98 09/07/18 12:40 09/07/18 12:40 09/07/18 12:40 09/07/18 12:40 09/07/18 12:40 Plan Activity: other (no strenous activity) Diet: advance as tolerated Additional Instructions: No alcohol/beer drinking Follow up with: KENDELL ALDRICH MD [Primary Care Provider] - 7 Days Prescriptions: Nicotine [Habitrol] 21 mg TD DAILY #30 patch Thiamine [Vitamin B-1] 100 mg PO QDAY #30 tablet
== END 2018-09-07 17:15 | disposition home or self-care (01) | DRG 391 ==
LOC: ED 19:14 → 3A 09-06 01:48
PROVIDERS: ADMIT Internal Medicine; ATTEND Internal Medicine
DX: K21.0 Gastro-esophageal reflux disease with esophagitis (principal); K85.20 Alcohol induced acute pancreatitis without necrosis or infection; E87.1 Hypo-osmolality and hyponatremia; F10.10 Alcohol abuse, uncomplicated; E86.1 Hypovolemia; S00.93XA Contusion of unspecified part of head, initial encounter; F17.210 Nicotine dependence, cigarettes, uncomplicated; Y90.0 Blood alcohol level of less than 20 mg/100 ml; K70.0 Alcoholic fatty liver; D50.9 Iron deficiency anemia, unspecified; W18.30XA Fall on same level, unspecified, initial encounter; Y93.89 Activity, other specified; Y92.098 Other place in other non-institutional residence as the place of occurrence of the external cause; Y99.8 Other external cause status; Z71.89 Other specified counseling; Z71.6 Tobacco abuse counseling; Z71.41 Alcohol abuse counseling and surveillance of alcoholic
CPT/HCPCS: 36415; 70450; 74177; 80048; 80053; 80307; 81001; 83690; 84484; 85027; 87116; 93005; 93010; 96374; 96375; G0378; C9113; J1170; J1644; J1956; J2405; J7030; Q9967

== ENCOUNTER 2018-09-27 17:37 | Emergency (ER) | payer MEDICAID ==
--- NOTE | 2018-09-27 18:47 | Emergency Department Report ---
Blank Doc - Documentation Documentation: This is a 53-year-old male that presents with chest pain and SOB x1 week. Den ies any radiation. Stated is in midsternum. This initial assessment/diagnostic orders/clinical plan/treatment(s) is/are subject to change based on patient's health status, clinical progression and re- assessment by fellow clinical providers in the ED. Further treatment and workup at subsequent clinical providers discretion. Patient/guardians urged not to elope from the ED as their condition may be serious if not clinically assessed and managed. Initial orders include: 1- Patient sent to [facility] for further evaluation and treatment 2- labs 3- CXR 4- EKG
--- NOTE | 2018-09-27 18:55 | Emergency Department Report ---
Blank Doc - Documentation Documentation: Patient is to be seen in the main ED.
[2018-09-27 19:34] LABS: Basophils # (Auto) 0.1 K/mm3 (0.0-0.1); Eosinophils # (Auto) 0.3 K/mm3 (0.0-0.4); Eosinophils % (Auto) 2.4 % (0.0-4.3); Hematocrit 31.3 % (35.5-45.6); Hemoglobin 10.2 gm/dl (11.8-15.2); Lymphocytes # (Auto) 3.3 K/mm3 (1.2-5.4); Lymphocytes % (Auto) 29.7 % (13.4-35.0); Mean Corpuscular HGB Conc 33 % (32-34); Mean Corpuscular Volume 77 fl (84-94); Monocytes # (Auto) 0.6 K/mm3 (0.0-0.8); Monocytes % (Auto) 5.2 % (0.0-7.3); Platelet Count 377 K/mm3 (140-440); Red Blood Count 4.07 M/mm3 (3.65-5.03); Red Cell Distribution Width 18.3 % (13.2-15.2)
[2018-09-27 19:45] LABS: INR 0.98 (0.87-1.13)
[2018-09-27 19:46] LABS: Partial Thromboplastin Time 30.6 Sec. (24.2-36.6)
[2018-09-27 20:02] LABS: Alanine Aminotransferase 12 units/L (7-56); Albumin 4.1 g/dL (3.9-5); BUN/Creatinine Ratio 12; Blood Urea Nitrogen 12 mg/dL (9-20); Calcium 8.3 mg/dL (8.4-10.2); Hemolysis Index 8
--- NOTE | 2018-09-27 21:04 | XRay Report ---
PROCEDURE: XR CHEST ROUTINE 2V TECHNIQUE: PA and lateral chest radiographs were obtained. HISTORY: Chest Pain COMPARISONS: None. FINDINGS: Heart: Normal. Mediastinum/Vessels: Normal. Lungs/Pleural space: Normal. Bony thorax: No acute osseous abnormality. IMPRESSION: Normal examination. This document is electronically signed by Adolph Park MD., September 27 2018 09:02:31 PM ET
[2018-09-27 22:03] VITALS: BP 128/86
[2018-09-28] MEDS ORDERED: ZOFRAN IV ONE (00:13)
[2018-09-28] MEDS ORDERED: MORPHINE IV ONE (00:13)
[2018-09-28] MEDS ORDERED: NACL 0.9% 1000 ML 1,000 ML IV ONE (00:13)
[2018-09-28] MEDS ORDERED: PEPCID IV ONE (00:13)
--- NOTE | 2018-09-28 01:58 | Cat Scan Report ---
PROCEDURE: CT ABDOMEN W CON TECHNIQUE: Routine axial imaging was obtained of the abdomen following the intravenous injection of IV contrast. Sagittal and coronal reconstructions were reviewed. HISTORY: epigastric pain and tenderness COMPARISONS: 09/06/2018 FINDINGS: Images through the lung bases do not show infiltrates or effusions. There is circumferential mucosal thickening in the distal esophagus. Esophagitis cannot be excluded. The liver, gallbladder, biliary tree, pancreas, spleen, and adrenal glands appear normal. The kidneys enhance normally. There is no evidence of hydronephrosis. The abdominal aorta is normal in caliber. The bowel loops appear normal. There is no evidence of free fluid or adenopathy. The skeletal structu res do not show any acute changes. IMPRESSION: Stable circumferential mucosal thickening in the distal esophagus. Esophagitis cannot be excluded. No acute process in the upper abdomen otherwise.. This document is electronically signed by Porter Epstein MD., September 28 2018 01:56:10 AM ET
--- NOTE | 2018-09-28 03:13 | Emergency Department Report ---
ED Abdominal Pain HPI - General Chief Complaint: Chest Pain Stated Complaint: CHEST PAIN/WEAK Time Seen by Provider: 09/27/18 18:44 Source: patient Mode of arrival: Ambulatory Limitations: No Limitations - History of Present Illness Initial Comments: 53-year-old -[place] male with a past medical history of GERD, pancreatitis comes in today presenting with epigastric pain and shortness of breathing for 2-3 days. Patient states he has been out of his medication. Patient does admit to drinking alcohol today. Patient reports his vomiting and nausea. MD Complaint: abdominal pain -: days(s) (2-3 days) Location: epigastric Radiation: none Migration to: no migration Severity scale (0 -10): 9 - Related Data Previous Rx's Medication Instructions Recorded Last Taken Type Folic Acid [Folvite] 1 mg PO QDAY #30 tablet 06/22/18 Unknown Rx Ondansetron [Zofran ODT TAB] 4 mg PO Q8HR PRN #20 tab.rapdis 08/07/18 Unknown Rx Nicotine [Habitrol] 21 mg TD DAILY #30 patch 09/07/18 Unknown Rx Pantoprazole [Protonix TAB] 40 mg PO DAILY #30 tablet 09/07/18 Unknown Rx Thiamine [Vitamin B-1] 100 mg PO QDAY #30 tablet 09/07/18 Unknown Rx Ondansetron [Zofran Odt] 4 mg PO Q8HR #10 tab.rapdis 09/11/18 Unknown Rx oxyCODONE /ACETAMINOPHEN [Percocet 1 tab PO Q6HR PRN #10 tablet 09/11/18 Unknown Rx 5/325] Esomeprazole Magnesium [Nexium] 40 mg PO QDAY #30 capsule. 09/28/18 Unknown Rx Famotidine [Pepcid] 20 mg PO BID #60 tablet 09/28/18 Unknown Rx Sucralfate [Carafate] 1 gm PO Q6HR 15 Days udc 09/28/18 Unknown Rx Allergies Allergy/AdvReac Type Severity Reaction Status Date / Time No Known Allergies Allergy Verified 09/11/18 15:00 ED Review of Systems ROS: Stated complaint: CHEST PAIN/WEAK Other details as noted in HPI ED Past Medical Hx - Past Medical History Previous Medical History?: Yes Hx Hypertension: Yes Hx Heart Attack/AMI: No Hx Congestive Heart Failure: No Hx Deep Vein Thrombosis: No Hx GERD: Yes Hx Renal Disease: No Hx Sickle Cell Disease: No Hx Kidney Stones: No Hx Asthma: No Hx COPD: No Hx Tuberculosis: No Hx HIV: No Additional medical history: Low sodium secondary to excessive water intake, low potassium, HERNIA H-PYLORIC, gastritis, esophagitis, daily alcohol use - Surgical History Past Surgical History?: No Hx Coronary Stent: No Hx Pacemaker: No Hx Internal Defibrillator: No - Social History Smoking Status: Current Every Day Smoker Substance Use Type: Alcohol - Medications Home Medications: Home Medications Medication Instructions Recorded Confirmed Last Taken Type Folic Acid [Folvite] 1 mg PO QDAY #30 tablet 06/22/18 09/06/18 Unknown Rx Ondansetron [Zofran ODT TAB] 4 mg PO Q8HR PRN #20 tab.rapdis 08/07/18 09/06/18 Unknown Rx Nicotine [Habitrol] 21 mg TD DAILY #30 patch 09/07/18 Unknown Rx Pantoprazole [Protonix TAB] 40 mg PO DAILY #30 tablet 09/07/18 09/06/18 Unknown Rx Thiamine [Vitamin B-1] 100 mg PO QDAY #30 tablet 09/07/18 Unknown Rx Ondansetron [Zofran Odt] 4 mg PO Q8HR #10 tab.rapdis 09/11/18 Unknown Rx oxyCODONE /ACETAMINOPHEN [Percocet 1 tab PO Q6HR PRN #10 tablet 09/11/18 Unknown Rx 5/325] Esomeprazole Magnesium [Nexium] 40 mg PO QDAY #30 capsule.dr 09/28/18 Unknown Rx Famotidine [Pepcid] 20 mg PO BID #60 tablet 09/28/18 Unknown Rx Sucralfate [Carafate] 1 gm PO Q6HR 15 Days udc 09/28/18 Unknown Rx ED Physical Exam - General Limitations: No Limitations ED Course Vital Signs 09/27/18 09/27/18 18:45 22:02 Temperature 97.6 F 97.7 F Pulse Rate 82 70 Respiratory 16 16 Rate Blood Pressure 97/58 128/86 Blood Pressure 97/58 [Right] O2 Sat by Pulse 97 100 Oximetry ED Medical Decision Making - Lab Data Result diagrams: 09/27/18 19:19 09/27/18 19:19 - Radiology Data Radiology results: report reviewed Patient: TARA MORENO MR#: [id number] 2 : 1965 Acct:[id number] Age/Sex: 53 / M ADM Date: 09/27/18 Loc: ED Attending Dr: Ordering Physician: MARC IBRAHIM Date of Service: 09/28/18 Procedure(s): CT abdomen w con Accession Number(s): [id number] cc: MARC IBRAHIM PROCEDURE: CT ABDOMEN W CON TECHNIQUE: Routine axial imaging was obtained of the abdomen following the intravenous injection of IV contrast. Sagittal and coronal reconstructions were reviewed. HISTORY: epigastric pain and tenderness COMPARISONS: 09/06/2018 FINDINGS: Images through the lung bases do not show infiltrates or effusions. There is circumferential mucosal thickening in the distal esophagus. Esophagitis cannot be excluded. The liver, gallbladder, biliary tree, pancreas, spleen, and adrenal glands appear normal. The kidneys enhance normally. There is no evidence of hydronephrosis. The abdominal aorta is normal in caliber. The bowel loops appear normal. There is no evidence of free fluid or adenopathy. The skeletal structures do not show any acute changes. IMPRESSION: Stable circumferential mucosal thickening in the distal esophagus. Esophagitis cannot be excluded. No acute process in the upper abdomen otherwise.. This document is electronically signed by Carolann Epstein MD., September 28 2018 01:56:10 AM ET Transcribed By: RB Dictated By: CAROLANN EPSTEIN MD Electronically Authenticated By: CAROLANN EPSTEIN MD Signed Date/Time: 09/28/18 0158 DD/ 0011 TD/TT: 09/28/18 015 Critical care attestation.: If time is entered above; I have spent that time in minutes in the direct care of this critically ill patient, excluding procedure time. ED Disposition Clinical Impression: Esophagitis Disposition: DC-01 TO HOME OR SELFCARE Is pt being admited?: No Does the pt Need Aspirin: No Condition: Stable Prescriptions: Sucralfate [Carafate] 1 gm PO Q6HR 15 Days udc Esomeprazole Magnesium [Nexium] 40 mg PO QDAY #30 capsule. Famotidine [Pepcid] 20 mg PO BID #60 tablet Referrals: SANJAY CHUNG MD [Primary Care Provider] - 3-5 Days
== END 2018-09-28 03:20 | disposition home or self-care (01) ==
LOC: ED 17:37
DX: K20.9 Esophagitis, unspecified (principal); I10 Essential (primary) hypertension; K21.9 Gastro-esophageal reflux disease without esophagitis; F17.200 Nicotine dependence, unspecified, uncomplicated
CPT/HCPCS: 36415; 71046; 74160; 80053; 83690; 84484; 85025; 85610; 85730; 93005; 93010; 96361; 96374; 96375; 99284; G0480; J2270; J2405; J7030; Q9967; 80320

== ENCOUNTER 2019-01-27 13:35 | Emergency (ER) | payer MEDICAID ==
[2019-01-27 13:42] VITALS: BP 148/88
--- NOTE | 2019-01-27 13:42 | Emergency Department Report ---
Blank Doc - Documentation Documentation: This is a 53-year-old male that presents with n/v and abdominal pain. This initial assessment/diagnostic orders/clinical plan/treatment(s) is/are subject to change based on patient's health status, clinical progression and re- assessment by fellow clinical providers in the ED. Further treatment and workup at subsequent clinical providers discretion. Patient/guardians urged not to elope from the ED as their condition may be serious if not clinically assessed and managed. Initial orders include: 1- Patient sent to [facility] for further evaluation and treatment 2- labs 3- UA
[2019-01-27 13:58] LABS: Hematocrit 29.6 % (35.5-45.6); Hemoglobin 9.5 gm/dl (11.8-15.2); Mean Corpuscular HGB Conc 32 % (32-34); Mean Corpuscular Volume 76 fl (84-94); Platelet Count 387 K/mm3 (140-440)
[2019-01-27 14:12] LABS: Red Cell Distribution Width 21.8 % (13.2-15.2)
[2019-01-27 14:18] LABS: Alanine Aminotransferase 9 units/L (7-56); Albumin 4.3 g/dL (3.9-5); BUN/Creatinine Ratio 9; Blood Urea Nitrogen 8 mg/dL (9-20); Calcium 8.8 mg/dL (8.4-10.2); Hemolysis Index 3
[2019-01-27 14:44] LABS: Bilirubin,Urine NEG (Negative); Blood,Urine NEG (Negative); Color,Urine Straw (Yellow); Mucus,Urine FEW /HPF; Protein,Urine <15 mg/dL mg/dL (Negative); Urobilinogen,Urine < 2.0 mg/dL (<2.0)
[2019-01-27] MEDS ORDERED: PEPCID IV ONE (15:03)
[2019-01-27] MEDS ORDERED: NACL 0.9% 1000 ML 1,000 ML IV ONE (15:05)
[2019-01-27] MEDS ORDERED: ZOFRAN IV ONE (15:05)
[2019-01-27] MEDS ORDERED: MORPHINE IV ONE (15:05)
[2019-01-27 15:08] LABS: Basophils % (Manual) 0 % (0.0-1.8); Eosinophils % (Manual) 0 % (0.0-4.3); Platelet Estimate Consistent w Auto; RBC Morphology Normal; Total Cells Counted 100
--- NOTE | 2019-01-27 15:42 | Emergency Department Report ---
HPI - General Chief Complaint: Abdominal Pain Time Seen by Provider: 01/27/19 13:41 - HPI HPI: 53-year-old -Algerian male presents to the emergency department with a complaint of a 2 to three-day history of some upper abdominal and epigastric abdominal pain and burning. He was seen for similar symptoms back on 01/15 at [facility] and says he was diagnosed with GERD. He has a past medical history of GERD, hypertension, hyponatremia, hypokalemia, gastritis, esophagitis and some regular alcohol use. The patient was here in September for similar symptoms and had a CT scan that showed some distal thickening and possible esophagitis. He has not taken anything for her symptoms prior to presentation today. ED Past Medical Hx - Past Medical History Hx Hypertension: Yes Hx Heart Attack/AMI: No Hx Congestive Heart Failure: No Hx Deep Vein Thrombosis: No Hx GERD: Yes Hx Renal Disease: No Hx Sickle Cell Disease: No Hx Kidney Stones: No Hx Asthma: No Hx COPD: No Hx Tuberculosis: No Hx HIV: No Additional medical history: Low sodium secondary to excessive water intake, low potassium, HERNIA H-PYLORIC, gastritis, esophagitis, daily alcohol use - Surgical History Hx Coronary Stent: No Hx Pacemaker: No Hx Internal Defibrillator: No - Social History Smoking Status: Current Every Day Smoker Substance Use Type: Alcohol - Medications Home Medications: Home Medications Medication Instructions Recorded Confirmed Last Taken Type Folic Acid [Folvite] 1 mg PO QDAY #30 tablet 06/22/18 09/06/18 Unknown Rx Ondansetron [Zofran ODT TAB] 4 mg PO Q8HR PRN #20 tab.rapdis 08/07/18 09/06/18 Unknown Rx Nicotine [Habitrol] 21 mg TD DAILY #30 patch 09/07/18 Unknown Rx Pantoprazole [Protonix TAB] 40 mg PO DAILY #30 tablet 09/07/18 09/06/18 Unknown Rx Thiamine [Vitamin B-1] 100 mg PO QDAY #30 tablet 09/07/18 Unknown Rx Ondansetron [Zofran Odt] 4 mg PO Q8HR #10 tab.rapdis 09/11/18 Unknown Rx oxyCODONE /ACETAMINOPHEN [Percocet 1 tab PO Q6HR PRN #10 tablet 09/11/18 Unknown Rx 5/325] Esomeprazole Magnesium [Nexium] 40 mg PO QDAY #30 capsule. 09/28/18 Unknown Rx Famotidine [Pepcid] 20 mg PO BID #60 tablet 09/28/18 Unknown Rx Sucralfate [Carafate] 1 gm PO Q6HR 15 Days udc 09/28/18 Unknown Rx Omeprazole 40 mg PO QDAY #30 capsule. 01/27/19 Unknown Rx ED Review of Systems ROS: Stated complaint: ABD PAIN X 3 DAYS Other details as noted in HPI Comment: All other systems reviewed and negative Constitutional: denies: chills, fever Eyes: denies: eye pain, vision change ENT: denies: ear pain, throat pain Respiratory: denies: cough, shortness of breath Cardiovascular: denies: chest pain, palpitations Gastrointestinal: abdominal pain, nausea. denies: vomiting Genitourinary: denies: dysuria, frequency Musculoskeletal: denies: back pain, arthralgia Skin: denies: rash, lesions Neurological: denies: headache, weakness Physical Exam - Physical Exam Vital Signs: Vital Signs 01/27/19 01/27/19 13:41 14:27 Temperature 97.9 F Pulse Rate 104 H Respiratory 18 18 Rate Blood Pressure 148/88 O2 Sat by Pulse 100 Oximetry Physical Exam: GENERAL: The patient is well-developed well-nourished. HENT: Normocephalic. Atraumatic. Patient has moist mucous membranes. EYES: Extraocular motions are intact. Pupils equal reactive to light bilaterally. NECK: Supple. Trachea is midline. CHEST/LUNGS: Clear to auscultation. There is no respiratory distress noted. HEART/CARDIOVASCULAR: Regular. There is no tachycardia. There is no murmur. ABDOMEN: Abdomen is soft. There is some epigastric tenderness to palpation. No guarding. Patient has normal bowel sounds. There is no abdominal distention. SKIN: Skin is warm and dry. NEURO: The patient is awake, alert, and oriented. The patient is cooperative. The patient has no focal neurologic deficits. The patient has normal speech. MUSCULOSKELETAL: There is no tenderness or deformity. There is no limitation range of motion. There is no evidence of acute injury. ED Course Vital Signs 01/27/19 01/27/19 13:41 14:27 Temperature 97.9 F Pulse Rate 104 H Respiratory 18 18 Rate Blood Pressure 148/88 O2 Sat by Pulse 100 Oximetry ED Medical Decision Making - Lab Data Result diagrams: 01/27/19 13:45 01/27/19 13:45 - Radiology Data Radiology results: report reviewed, image reviewed interpreted by me: abdominal x-ray shows nonspecific nonobstructive bowel gas. ULTRASOUND ABDOMEN, LIMITED (RIGHT UPPER QUADRANT) INDICATION: Upper abdominal pain. COMPARISON: None available. FINDINGS: Pancreas: Visualized portion shows no significant abnormality. Liver: Normal. Gallbladder: Normal. Bile ducts: Normal. Common Bile Duct measures 3 mm. Free fluid: None. Additional Findings: None. IMPRESSION: 1. No sonographic abnormality of the right upper quadrant. - Medical Decision Making This patient presents to the emergency department with some upper abdominal pain and nausea without vomiting. The patient has a history of daily alcohol use but he does not currently appear intoxicated and does not appear to be going through any withdrawals. He was recently seen at [facility] for similar symptoms and was diagnosed once again with GERD. The patient was here in September and was found to have esophagitis. His labs today show some hyponatremia, hypochloremia. He has a history of this in the past. I believe this is partly because of his daily beer drinking as well as him drinking water to try and treat his reflux symptoms. The patient also admits that he never filled his PPI because his insurance would not cover it but apparently they will cover omeprazole. Patient was given some IV fluid resuscitation with normal saline. His abdominal x-ray shows nonspecific nonproductive bowel gas. He had an ultrasound that showed no acute abnormalities in the pancreas, liver, gallbladder or bile ducts and no free fluid. The patient was given some PPI, Zofran and pain medication. Upon reevaluation he is feeling improved. Vital signs stable throughout his ED course. He appears safe for discharge home at this time. He has been given a prescription for the omeprazole. He has been given a referral for [place] [facility]. He will return to the ER with any worsening of his symptoms or any acute distress. - Differential Diagnosis GERD, esophagitis, gastritis, food poisoning Critical Care Time: No Critical care attestation.: If time is entered above; I have spent that time in minutes in the direct care of this critically ill patient, excluding procedure time. ED Disposition Clinical Impression: Hyponatremia, History of esophagitis GERD (gastroesophageal reflux disease) Qualifiers: Esophagitis presence: esophagitis presence not specified Qualified Code(s): K21.9 - Gastro-esophageal reflux disease without esophagitis Anemia Qualifiers: Anemia type: unspecified type Qualified Code(s): D64.9 - Anemia, unspecified Disposition: TO HOME OR SELFCARE Is pt being admited?: No Condition: Stable Instructions: Diet for Ulcers and Gastritis (ED), Hyponatremia (ED), Dalia roesophageal Reflux Disease (ED), At-Risk Alcohol Use (ED), Abdominal Pain (ED) Additional Instructions: Please follow-up with your primary care physician. I am giving you a referral for [place] [facility] to follow up regarding your abdominal pains, acid reflux and history of esophagitis. Please quit drinking alcohol. Take your medications as prescribed. Return to the emergency Department with any worsening of your symptoms or any acute distress. Prescriptions: Omeprazole 40 mg PO QDAY #30 capsule. Referrals: MAXIM GARCIA DO [Staff Physician] - 2-3 Days [facility] [Outside] - 2-3 Days [facility] [Provider Group] - 2-3 Days Time of Disposition: 16:29
--- NOTE | 2019-01-27 16:12 | Ultrasound Report ---
ULTRASOUND ABDOMEN, LIMITED (RIGHT UPPER QUADRANT) INDICATION: Upper abdominal pain. COMPARISON: None available. FINDINGS: Pancreas: Visualized portion shows no significant abnormality. Liver: Normal. Gallbladder: Normal. Bile ducts: Normal. Common Bile Duct measures 3 mm. Free fluid: None. Additional Findings: None. IMPRESSION: 1. No sonographic abnormality of the right upper quadrant. Signer Name: Hernan Palacios MD Signed: 01/27/2019 4:07 PM Workstation Name: [id number]
--- NOTE | 2019-01-27 16:12 | XRay Report ---
ABDOMEN 4 VIEW(S) INDICATION / CLINICAL INFORMATION: Abd pain. COMPARISON: Gallbladder ultrasound performed today FINDINGS: TUBES / LINES: None. BOWEL GAS PATTERN: No significant abnormality. FREE AIR / EXTRALUMINAL GAS: None seen. ADDITIONAL FINDINGS: No significant additional findings. IMPRESSION: 1. No significant abnormality. Signer Name: Hernan Palacios MD Signed: 01/27/2019 4:08 PM Workstation Name: [id number]
== END 2019-01-27 16:58 | disposition home or self-care (01) ==
LOC: ED 13:35
DX: K21.9 Gastro-esophageal reflux disease without esophagitis (principal); E87.1 Hypo-osmolality and hyponatremia; D64.9 Anemia, unspecified; I10 Essential (primary) hypertension; E87.6 Hypokalemia; F17.200 Nicotine dependence, unspecified, uncomplicated; Z79.899 Other long term (current) drug therapy; Z88.6 Allergy status to analgesic agent
CPT/HCPCS: 36415; 74019; 76705; 80053; 81001; 83690; 85007; 85025; 96374; 96375; 99285; J2270; J2405; J7030

== ENCOUNTER 2019-05-13 18:15 | Inpatient (IN) | payer MEDICAID ==
--- NOTE | 2019-05-13 18:37 | Event Note ---
ED Screening Note Date of service: 05/13/19 Time: 18:35 ED Screening Note: 53 y o male presents with ground emesis and blood in stool This initial assessment/diagnostic orders/clinical plan/treatment(s) is/are subject to change based on patients health status, clinical progression and re-assessment by fellow clinical providers in the ED. Further treatment and workup at subsequent clinical providers discretion. Patient/guardian urged not to elope from the ED as their condition may be serious if not clinically assessed and managed. Initial orders include: labs
[2019-05-13 19:28] LABS: Basophils # (Auto) 0.1 K/mm3 (0.0-0.1); Basophils % (Auto) 0.5 % (0.0-1.8); Eosinophils % (Auto) 0.2 % (0.0-4.3); Hematocrit 37.1 % (35.5-45.6); Hemoglobin 11.6 gm/dl (11.8-15.2); Lymphocytes # (Auto) 1.8 K/mm3 (1.2-5.4); Lymphocytes % (Auto) 14.2 % (13.4-35.0); Mean Corpuscular HGB Conc 31 % (32-34); Mean Corpuscular Volume 76 fl (84-94); Monocytes # (Auto) 1.1 K/mm3 (0.0-0.8); Monocytes % (Auto) 8.7 % (0.0-7.3); Platelet Count 257 K/mm3 (140-440); Red Blood Count 4.87 M/mm3 (3.65-5.03)
[2019-05-13 19:34] LABS: INR 1.09 (0.87-1.13)
[2019-05-13 19:35] LABS: Partial Thromboplastin Time 31.4 Sec. (24.2-36.6)
[2019-05-13 19:36] LABS: BUN/Creatinine Ratio 7; Blood Urea Nitrogen 8 mg/dL (9-20); Calcium 9.2 mg/dL (8.4-10.2); Hemolysis Index 11
[2019-05-13] MEDS ORDERED: PANTOPRAZOLE 40 MG INJ IV ONE (22:35)
[2019-05-13] MEDS ORDERED: THIAMINE 100 MG, FOLIC ACID 1 MG, MULTIPLE VITAMIN INJ, ADULT 10 ML in SODIUM CHLORIDE ... IV ONE (22:35)
[2019-05-13] MEDS ORDERED: SODIUM CHLORIDE 0.9% 1000 ML 1,000 ML IV ONE (22:36)
[2019-05-13] MEDS ORDERED: diphenhydrAMINE 50 MG/ML VIAL IV ONE (22:37)
[2019-05-13] MEDS ORDERED: METOCLOPRAMIDE 10 MG/2 ML INJ IV ONE (22:37)
--- NOTE | 2019-05-13 22:41 | Emergency Department Report ---
ED GI Bleed HPI - General Chief complaint: GI Bleed Stated complaint: CHEST PAIN/VOMITING/BLACK STOOL Time Seen by Provider: 05/13/19 22:24 Source: patient Mode of arrival: Ambulatory Limitations: No Limitations - History of Present Illness Initial comments: 53-year-old male with a past medical history of alcohol abuse, hypertension, peptic ulcer disease, H. pylori, and hyponatremia due to excessive water intake presents to the hospital with complaints of abdominal pain, nausea, vomiting, and hematemesis 2-3 days. Patient complains of constant burning epigastric pain radiating to his chest. Pain is rated 10/10 intensity, constant with palpation and by mouth intake. Patient having coffee ground emesis and vomiting dark red blood. He had 6 episodes vomting today. He started to have black stool today. He states his last drink was yesterday but he could not tolerated the alcohol due to vomiting. Las po intake 2-3 days. He denies history of alcohol withdrawal tremors or seizures. He reports he had an endoscopy in fall that showed peptic ulcer disease and complete a course of treatment for H. pylori. He is currently taking Protonix. He states he had a colonoscopy September 2018 and had 2 polyps removed. He denies current NSAID or aspirin use. GI doctor: Dr. Colon - Related Data Previous Rx's Medication Instructions Recorded Last Taken Type Folic Acid [Folvite] 1 mg PO QDAY #30 tablet 06/22/18 Unknown Rx Ondansetron [Zofran ODT TAB] 4 mg PO Q8HR PRN #20 tab.rapdis 08/07/18 Unknown Rx Nicotine [Habitrol] 21 mg TD DAILY #30 patch 09/07/18 Unknown Rx Pantoprazole [Protonix TAB] 40 mg PO DAILY #30 tablet 09/07/18 Unknown Rx Thiamine [Vitamin B-1] 100 mg PO QDAY #30 tablet 09/07/18 Unknown Rx Ondansetron [Zofran Odt] 4 mg PO Q8HR #10 tab.rapdis 09/11/18 Unknown Rx oxyCODONE /ACETAMINOPHEN [Percocet 1 tab PO Q6HR PRN #10 tablet 09/11/18 Unknown Rx 5/325] Esomeprazole Magnesium [Nexium] 40 mg PO QDAY #30 capsule. 09/28/18 Unknown Rx Famotidine [Pepcid] 20 mg PO BID #60 tablet 09/28/18 Unknown Rx Sucralfate [Carafate] 1 gm PO Q6HR 15 Days udc 09/28/18 Unknown Rx Omeprazole 40 mg PO QDAY #30 capsule. 01/27/19 Unknown Rx Allergies Allergy/AdvReac Type Severity Reaction Status Date / Time aspirin Allergy Bleeding Verified 05/13/19 18:16 ED Review of Systems ROS: Stated complaint: CHEST PAIN/VOMITING/BLACK STOOL Other details as noted in HPI Comment: All other systems reviewed and negative ED Past Medical Hx - Past Medical History Hx Hypertension: Yes Hx Heart Attack/AMI: No Hx Congestive Heart Failure: No Hx Deep Vein Thrombosis: No Hx GERD: Yes Hx Renal Disease: No Hx Sickle Cell Disease: No Hx Kidney Stones: No Hx Asthma: No Hx COPD: No Hx Tuberculosis: No Hx HIV: No Additional medical history: Low sodium secondary to excessive water intake, low potassium, HERNIA H-PYLORIC, gastritis, esophagitis, daily alcohol use - Surgical History Hx Coronary Stent: No Hx Pacemaker: No Hx Internal Defibrillator: No - Social History Smoking Status: Current Every Day Smoker Substance Use Type: Alcohol - Medications Home Medications: Home Medications Medication Instructions Recorded Confirmed Last Taken Type Folic Acid [Folvite] 1 mg PO QDAY #30 tablet 06/22/18 09/06/18 Unknown Rx Ondansetron [Zofran ODT TAB] 4 mg PO Q8HR PRN #20 tab.rapdis 08/07/18 09/06/18 Unknown Rx Nicotine [Habitrol] 21 mg TD DAILY #30 patch 09/07/18 Unknown Rx Pantoprazole [Protonix TAB] 40 mg PO DAILY #30 tablet 09/07/18 09/06/18 Unknown Rx Thiamine [Vitamin B-1] 100 mg PO QDAY #30 tablet 09/07/18 Unknown Rx Ondansetron [Zofran Odt] 4 mg PO Q8HR #10 tab.rapdis 09/11/18 Unknown Rx oxyCODONE /ACETAMINOPHEN [Percocet 1 tab PO Q6HR PRN #10 tablet 09/11/18 Unknow n Rx 5/325] Esomeprazole Magnesium [Nexium] 40 mg PO QDAY #30 capsule. 09/28/18 Unknown R x Famotidine [Pepcid] 20 mg PO BID #60 tablet 09/28/18 Unknown Rx Sucralfate [Carafate] 1 gm PO Q6HR 15 Days udc 09/28/18 Unknown Rx Omeprazole 40 mg PO QDAY #30 capsule. 01/27/19 Unknown Rx ED Physical Exam - General Limitations: No Limitations - Other Other exam information: General: No acute distress Head: Atraumatic Eyes: normal appearance ENT: Moist mucous membranes Neck: Normal appearance, no midline tenderness Chest: Clear to auscultation bilaterally CV: Regular rate and rhythm Abdomen: Soft, normal bowel sounds, epigastric tenderness, nondistended, no r ebound or guarding, frequent hiccups Rectal: Brown stool guaiac positive Back: Normal inspection Extremity: Normal inspection infection, full range of motion Neuro: Alert O x 3, no facial asymmetry, speech clear, no gross motor sensory deficit Psych: Appropriate behavior Skin: No rash ED Course Vital Signs 05/13/19 05/13/19 05/13/19 18:33 22:32 22:46 Temperature 98.3 F 98.1 F Pulse Rate 105 H 74 83 Respiratory 20 24 22 Rate Blood Pressure 172/103 148/92 Blood Pressure 148/92 [Left] O2 Sat by Pulse 97 94 99 Oximetry 05/13/19 05/13/19 05/13/19 23:00 23:16 23:30 Temperature Pulse Rate 71 73 75 Respiratory 19 21 26 H Rate Blood Pressure 151/97 151/97 140/89 Blood Pressure [Left] O2 Sat by Pulse 95 98 Oximetry - Consultations Consultation #1: 05/13/19 23:43 case d/w Dr mao, gi, will admit for workup and eval ED Medical Decision Making - Lab Data Result diagrams: 05/13/19 19:02 05/13/19 19:02 Lab Results 05/13/19 05/13/19 05/13/19 Range/Units 19:02 19:02 19:02 WBC 12.8 H (4.5-11.0) K/mm3 RBC 4.87 (3.65-5.03) M/mm3 Hgb 11.6 L (11.8-15.2) gm/dl Hct 37.1 (35.5-45.6) % MCV 76 L (84-94) fl MCH 24 L (28-32) pg MCHC 31 L (32-34) % RDW 20.0 H (13.2-15.2) % Plt Count 257 (140-440) K/mm3 Lymph % (Auto) 14.2 (13.4-35.0) % Jay % (Auto) 8.7 H (0.0-7.3) % Eos % (Auto) 0.2 (0.0-4.3) % Baso % (Auto) 0.5 (0.0-1.8) % Lymph # 1.8 (1.2-5.4) K/mm3 Jay # 1.1 H (0.0-0.8) K/mm3 Eos # 0.0 (0.0-0.4) K/mm3 Baso # 0.1 (0.0-0.1) K/mm3 Seg Neutrophils % 76.4 H (40.0-70.0) % Seg Neutrophils # 9.8 H (1.8-7.7) K/mm3 PT 14.0 (12.2-14.9) Sec. INR 1.09 (0.87-1.13) APTT 31.4 (24.2-36.6) Sec. Sodium 124 L (137-145) mmol/L Potassium 3.4 L (3.6-5.0) mmol/L Chloride 82.0 L (98-107) mmol/L Carbon Dioxide 24 (22-30) mmol/L Anion Gap 21 mmol/L BUN 8 L (9-20) mg/dL Creatinine 1.1 (0.8-1.5) mg/dL Estimated GFR > 60 ml/min BUN/Creatinine Ratio 7 % Glucose 88 (75-100) mg/dL Calcium 9.2 (8.4-10.2) mg/dL Magnesium (1.7-2.3) mg/dL Total Bilirubin (0.1-1.2) mg/dL Direct Bilirubin (0-0.2) mg/dL Indirect Bilirubin mg/dL AST (5-40) units/L ALT (7-56) units/L Alkaline Phosphatase (35-129) units/L Total Protein (6.3-8.2) g/dL Albumin (3.9-5) g/dL Albumin/Globulin Ratio % Lipase (13-60) units/L 05/13/19 05/13/19 Range/Units 19:02 22:53 WBC (4.5-11.0) K/mm3 RBC (3.65-5.03) M/mm3 Hgb (11.8-15.2) gm/dl Hct (35.5-45.6) % MCV (84-94) fl MCH (28-32) pg MCHC (32-34) % RDW (13.2-15.2) % Plt Count (140-440) K/mm3 Lymph % (Auto) (13.4-35.0) % Jay % (Auto) (0.0-7.3) % Eos % (Auto) (0.0-4.3) % Baso % (Auto) (0.0-1.8) % Lymph # (1.2-5.4) K/mm3 Jay # (0.0-0.8) K/mm3 Eos # (0.0-0.4) K/mm3 Baso # (0.0-0.1) K/mm3 Seg Neutrophils % (40.0-70.0) % Seg Neutrophils # (1.8-7.7) K/mm3 PT 14.1 (12.2-14.9) Sec. INR 1.10 (0.87-1.13) APTT 33.0 (24.2-36.6) Sec. Sodium (137-145) mmol/L Potassium (3.6-5.0) mmol/L Chloride (98-107) mmol/L Carbon Dioxide (22-30) mmol/L Anion Gap mmol/L BUN (9-20) mg/dL Creatinine (0.8-1.5) mg/dL Estimated GFR ml/min BUN/Creatinine Ratio % Glucose (75-100) mg/dL Calcium (8.4-10.2) mg/dL Magnesium 1.90 (1.7-2.3) mg/dL Total Bilirubin 0.50 (0.1-1.2) mg/dL Direct Bilirubin < 0.2 (0-0.2) mg/dL Indirect Bilirubin 0.3 mg/dL AST 30 (5-40) units/L ALT 15 (7-56) units/L Alkaline Phosphatase 96 (35-129) units/L Total Protein 8.1 (6.3-8.2) g/dL Albumin 4.4 (3.9-5) g/dL Albumin/Globulin Ratio 1.2 % Lipase 35 (13-60) units/L - Medical Decision Making pt started on protonix bolus + drip case d/w DR mao gi hg/hct normal at this time Vitals stable mild hypokalemia and hyponatremia tx: IV kcl, Iv protonix + drip, banana bag, normal saline, Reglan, Benadryl, and morphine Hospitalist informed for admission - Differential Diagnosis GERD, peptic ulcer disease, gastritis, esophageal varices Critical Care Time: No Critical care attestation.: If time is entered above; I have spent that time in minutes in the direct care of this critically ill patient, excluding procedure time. ED Disposition Clinical Impression: Hyponatremia, EtOH dependence, Hypokalemia, Hiccough, Hematemesis, Hx of ulcer disease Disposition: OP ADMIT IP TO THIS HOSP Is pt being admited?: Yes Condition: Stable Time of Disposition: 00:14 (Dr Arguelles/hosp)
[2019-05-13] MEDS: POTASSIUM CHLORIDE 10 MEQ 10 MEQ/100 ML BAG IV SCH (23:05)
[2019-05-13] MEDS ORDERED: MORPHINE 4 MG/1 ML INJ IV ONE (23:17)
[2019-05-13 23:59] LABS: INR 1.1 (0.87-1.13)
[2019-05-14 00:09] LABS: Alanine Aminotransferase 15 units/L (7-56); Albumin 4.4 g/dL (3.9-5)
[2019-05-14 00:10] LABS: Bilirubin,Direct < 0.2 mg/dL (0-0.2)
[2019-05-14] MEDS ORDERED: SODIUM CHLORIDE 0.9% 500 ML 500 ML ONE (00:11)
[2019-05-14] MEDS: POTASSIUM CHLORIDE 10 MEQ 10 MEQ/100 ML BAG IV SCH (00:13)
[2019-05-14] MEDS ORDERED: SODIUM CHLORIDE 0.9% 500 ML 500 ML IV ONE (00:15)
[2019-05-14] MEDS ORDERED: ONDANSETRON 4 MG/2 ML INJ IV PRN (00:47)
[2019-05-14] MEDS ORDERED: ACETAMINOPHEN 325 MG TAB PO PRN (00:47)
[2019-05-14] MEDS: PANTOPRAZOLE 80 MG in SODIUM CHLORIDE 0.9% 100 ML IV SCH ×3 (00:53→23:03)
--- NOTE | 2019-05-14 00:55 | History and Physical Report ---
History of Present Illness Date of examination: 05/14/19 History of present illness: 53-year-old man with a history of hypertension, GERD, peptic ulcer disease, emergency room complaints of vomiting black material 7 times today, also complaining of black stool. He has a history of alcohol abuse, last drink yesterday, +NSAID use Review of systems Constitutional: no weight loss, chills, fever Ears, eyes, nose, mouth and throat: no nasal congestion, no nasal discharge, no sinus pressure, no vision change, no red eye. Neck: No neck pain or rigidity. Cardiovascular: no chest pain, palpitations Respiratory: no cough, shortness of breath Gastrointestinal: no abdominal pain hematochezia Genitourinary : no frequency , no hematuria Musculoskeletal: no joint swelling or muscle ache Integumentary: no rash, no pruritis Neurological: no parathesias, no numbness, no focal weakness Endocrine: no cold or heat intolerance, no polyuria or polydipsia Hematologic/Lymphatic: no easy bruising, no easy bleeding, no gland swelling Allergic/Immunologic: no urticaria, no angioedema. PAST MEDICAL HISTORY: hypertension, GERD, peptic ulcer disease PAST SURGICAL HISTORY: None SOCIAL HISTORY: No drugs, tobacco, + beers/day FAMILY HISTORY: Hypertension Medications and Allergies Allergies Allergy/AdvReac Type Severity Reaction Status Date / Time aspirin Allergy Bleeding Verified 05/13/19 18:16 Home Medications Medication Instructions Recorded Confirmed Last Taken Type Folic Acid [Folvite] 1 mg PO QDAY #30 tablet 06/22/18 09/06/18 Unknown Rx Ondansetron [Zofran ODT TAB] 4 mg PO Q8HR PRN #20 tab.rapdis 08/07/18 09/06/18 Unknown Rx Nicotine [Habitrol] 21 mg TD DAILY #30 patch 09/07/18 Unknown Rx Pantoprazole [Protonix TAB] 40 mg PO DAILY #30 tablet 09/07/18 09/06/18 Unknown Rx Thiamine [Vitamin B-1] 100 mg PO QDAY #30 tablet 09/07/18 Unknown Rx Ondansetron [Zofran Odt] 4 mg PO Q8HR #10 tab.rapdis 09/11/18 Unknown Rx oxyCODONE /ACETAMINOPHEN [Percocet 1 tab PO Q6HR PRN #10 tablet 09/11/18 Unknown Rx 5/325] Esomeprazole Magnesium [Nexium] 40 mg PO QDAY #30 capsule. 09/28/18 Unknown Rx Famotidine [Pepcid] 20 mg PO BID #60 tablet 09/28/18 Unknown Rx Sucralfate [Carafate] 1 gm PO Q6HR 15 Days udc 09/28/18 Unknown Rx Omeprazole 40 mg PO QDAY #30 capsule. 01/27/19 Unknown Rx Active Meds: Active Medications Acetaminophen (Tylenol) 650 mg PO Q4H PRN PRN Reason: Pain MILD(1-3)/Fever >100.5/MURPHY Potassium Chloride (Kcl 10meq/100ml) 10 meq in 100 mls @ 100 mls/hr IV Q1H LEA Stop: 05/14/19 00:59 Last Admin: 05/14/19 00:13 Dose: 100 mls/hr Documented by: Pantoprazole Sodium 80 mg/ (Sodium Chloride) 100 mls @ 10 mls/hr IV DIRECT LEA Octreotide Acetate 500 mcg/ (Sodium Chloride) 101 mls @ 5.05 mls/hr IV TITR LEA; Protocol Sodium Chloride (Nacl 0.9% 1000 Ml) 1,000 mls @ 150 mls/hr IV DIRECT LEA Morphine Sulfate (Morphine) 2 mg IV Q4H PRN PRN Reason: Pain, Moderate (4-6) Ondansetron HCl (Zofran) 4 mg IV Q8H PRN PRN Reason: Nausea And Vomiting Sodium Chloride (Sodium Chloride Flush Syringe 10 Ml) 10 ml IV BID LEA Sodium Chloride (Sodium Chloride Flush Syringe 10 Ml) 10 ml IV PRN PRN PRN Reason: LINE FLUSH Exam - Physical Exam Narrative exam: Gen. appearance: Patient lying in bed, no apparent distress HEENT: Normocephalic, atraumatic, pupils equally round and reactive to light, extraocular movement intact, and no sclericterus,. No JVD or thyromegaly or nodule,neck supple, no carotid bruit ,mucous membranes moist, no exudate or erythema Heart: S1, S2, regular rate and rhythm Lungs: Clear bilaterally, breathing comfortable Abdomen: Positive bowel sounds, non-tender, nondistended, no organomegaly Extremity:no edema cyanosis, clubbing Skin: no rash, dry, warm Neuro: Oriented 3, cranial nerves II-12 intact, speech is fluent, motor and sensory intact - Constitutional Vitals: Temp Pulse Resp BP Pulse Ox 98.1 F 75 26 H 140/89 98 05/13/19 22:32 05/13/19 23:30 05/13/19 23:30 05/13/19 23:30 05/13/19 23:30 Results - Labs CBC & Chem 7: 05/14/19 00:55 05/13/19 19:02 Labs: Abnormal lab results 05/13/19 05/13/19 Range/Units 19:02 19:02 WBC 12.8 H (4.5-11.0) K/mm3 Hgb 11.6 L (11.8-15.2) gm/dl MCV 76 L (84-94) fl MCH 24 L (28-32) pg MCHC 31 L (32-34) % RDW 20.0 H (13.2-15.2) % Arroyo % (Auto) 8.7 H (0.0-7.3) % Arroyo # 1.1 H (0.0-0.8) K/mm3 Seg Neutrophils % 76.4 H (40.0-70.0) % Seg Neutrophils # 9.8 H (1.8-7.7) K/mm3 Sodium 124 L (137-145) mmol/L Potassium 3.4 L (3.6-5.0) mmol/L Chloride 82.0 L (98-107) mmol/L BUN 8 L (9-20) mg/dL Assessment and Plan Assessment Upper GI bleed, rule out ulcer Hyponatremia Hypokalemia History of peptic ulcer disease GERD Alcohol abuse Plan Admit to medicine Start IV fluids, Protonix and octreotide drip GI was consulted to see the patient, check serial hemoglobin potassium was repleted,start CIWA protocol with IV Ativan DVT prophylaxis, check xray abdomen and chest
[2019-05-14] MEDS ORDERED: LORazepam 2 MG/ML VIAL IV PRN (01:00)
[2019-05-14 01:07] LABS: Hematocrit 32.2 % (35.5-45.6); Hemoglobin 10.3 gm/dl (11.8-15.2)
[2019-05-14] MEDS: SODIUM CHLORIDE 0.9% 1000 ML 1,000 ML IV SCH ×4 (01:23→21:14)
[2019-05-14] MEDS: OCTREOTIDE 500 MCG in SODIUM CHLORIDE 0.9% 100 ML IV SCH ×2 (01:30→17:42)
[2019-05-14] MEDS ORDERED: SODIUM CHLORIDE 0.9% 1000 ML 1,000 ML ONE (01:31)
--- NOTE | 2019-05-14 01:44 | XRay Report ---
CHEST 1 VIEW, 05/14/2019 12:55 AM CLINICAL INFORMATION/INDICATION: Chest pain COMPARISON: Chest radiograph, 09/27/2018 FINDINGS: SUPPORT DEVICES: None. HEART: Cardiac silhouette is normal in size LUNGS/PLEURA: There is no focal airspace disease or significant pleural effusion ADDITIONAL FINDINGS: No additional acute findings. IMPRESSION: 1. No evidence of acute cardiopulmonary process Signer Name: Carmelina Hensley MD Signed: 05/14/2019 1:40 AM Workstation Name: [email or web address]
--- NOTE | 2019-05-14 01:48 | XRay Report ---
ABDOMEN 1 VIEW(S) INDICATION / CLINICAL INFORMATION: Abdominal distention. COMPARISON: Abdominal radiograph, 01/27/2019 FINDINGS: TUBES / LINES: None. BOWEL GAS PATTERN: The bowel gas pattern appears nonobstructive FREE AIR / EXTRALUMINAL GAS: None seen. ADDITIONAL FINDINGS: Evaluation of bony structures show no evidence of focal bony abnormality IMPRESSION: 1. No radiographic evidence of acute intra-abdominal process. Signer Name: Carmelina Hensley MD Signed: 05/14/2019 1:43 AM Workstation Name: [id number]
[2019-05-14] MEDS: LORazepam 2 MG/ML VIAL IV PRN ×2 (03:50→21:16)
[2019-05-14 05:14] LABS: Hematocrit 33.1 % (35.5-45.6); Hemoglobin 10.6 gm/dl (11.8-15.2)
[2019-05-14 09:33] LABS: Hematocrit 34.1 % (35.5-45.6); Hemoglobin 10.8 gm/dl (11.8-15.2)
--- NOTE | 2019-05-14 10:46 | Consultation ---
REFERRING PHYSICIAN: Samantha Castellano MD. INDICATION: 1. Nausea, vomiting. 2. Coffee emesis. HISTORY OF PRESENT ILLNESS: The patient is a 53-year-old white male with history of reflux, peptic ulcer disease, hypertension and chronic alcohol abuse. The patient reports last drink was yesterday. The patient presents with nausea, vomiting coffee emesis with reported black stool. The patient does report some NSAID use. Denies any bright red blood from either upper or lower gastrointestinal source. The patient subsequently came to the Emergency Room, was evaluated and admitted and GI consulted. PAST MEDICAL HISTORY: 1. Hypertension. 2. GERD. 3. Peptic ulcer disease. PAST SURGICAL HISTORY: No surgical history. MEDICATIONS: Reviewed and updated in chart. ALLERGIES: ASPIRIN. SOCIAL HISTORY: Chronic alcohol use. FAMILY HISTORY: Negative for colon cancer, IBD, or liver disease. REVIEW OF SYSTEMS: GENERAL: Reports mild weakness. HEENT: No visual complaints or tinnitus. PULMONARY: No shortness of breath. No cough. No chest pain. GASTROINTESTINAL: Reports emesis. All points of 13-point review of systems otherwise negative. PHYSICAL EXAMINATION: VITAL SIGNS: Temperature of 97.9, pulse 70, respirations 20, blood pressure 130/88. GENERAL: Fairly nourished male in no acute distress. HEENT: Pupils equal, round and reactive. PULMONARY: Clear to auscultation bilaterally. CARDIOVASCULAR: Regular rate and rhythm. Normal S1, S2. ABDOMEN: Positive bowel sounds, soft. SKIN: No obvious rashes. LABORATORY DATA: Pertinent for white count of 12.8, hemoglobin and hematocrit 11.6 and 37.1, platelet count 257. Chem-7 within normal limits except for sodium of 124. Coags within normal limits. ASSESSMENT AND PLAN: A 53-year-old male with history of chronic alcohol abuse, now presents with coffee emesis with history of peptic ulcer disease. The patient subsequently reports that since admission, he has had no further bleeding. His H and H have remained stable. Management is noted below. PLAN: 1. Follow hematocrit and transfuse as needed. 2. PPI IV drip. 3. CIWA protocol as ordered per primary team. 4. Clear liquid diet with n.p.o. after midnight. 5. We will plan for EGD in a.m. 6. Further recommendation based on progress. JOB# [id number] CAB/NTS
[2019-05-14 11:10] LABS: BUN/Creatinine Ratio 7; Blood Urea Nitrogen 5 mg/dL (9-20); Calcium 8.1 mg/dL (8.4-10.2); Hemolysis Index 11
[2019-05-14] MEDS: MORPHINE 2 MG/1 ML INJ IV PRN ×3 (11:44→23:36)
--- NOTE | 2019-05-14 12:07 | Event Note ---
Date: 05/14/19 patient seen and examined presented with upper GI bleed GI consulted, will follow recommendation
[2019-05-14 13:14] LABS: Hematocrit 34.3 % (35.5-45.6); Hemoglobin 10.7 gm/dl (11.8-15.2)
[2019-05-15] MEDS: SODIUM CHLORIDE 0.9% 1000 ML 1,000 ML IV SCH (05:56)
[2019-05-15] MEDS ORDERED: LIDOCAINE MPF (2%) 20 MG/1 ML VIAL 5 ML ONE (07:30)
[2019-05-15] MEDS ORDERED: SODIUM CHLORIDE 0.9% 1000 ML 1,000 ML ONE (07:39)
[2019-05-15] MEDS ORDERED: WATER FOR IRRIG STERILE 1,000 ML BOTTLE ONE (07:39)
[2019-05-15] MEDS ORDERED: WATER FOR IRRIG STERILE 250 ML BOTTLE IR ONE (07:39)
--- NOTE | 2019-05-15 07:59 | Anesthesia Consultation ---
Anesthesia Consult and Med Hx Date of service: 05/15/19 - Airway Anesthetic Teeth Evaluation: Good ROM Head & Neck: Adequate Mental/Hyoid Distance: Adequate Mallampati Class: Class II Intubation Access Assessment: Good - Pulmonary Exam CTA: Yes - Cardiac Exam Cardiac Exam: RRR - Pre-Operative Health Status ASA Pre-Surgery Classification: ASA3 Proposed Anesthetic Plan: MAC - Pulmonary Hx Smoking: Yes (current) Hx Asthma: No COPD: No Hx Pneumonia: No - Cardiovascular System Hx Hypertension: Yes Hx Coronary Artery Disease: No Hx Heart Attack/AMI: No Hx Angina: No Hx Percutaneous Transluminal Coronary Angioplasty (PTCA): No Hx Pacemaker: No Hx Internal Defibrillator: No Hx Valvular Heart Disease: No Hx Heart Murmur: No Hx Peripheral Vascular Disease: No - Central Nervous System Hx Psychiatric Problems: No - Endocrine Hx Renal Disease: No Hx End Stage Renal Disease: No - Hematic Hx Anemia: Yes Hx Sickle Cell Disease: No - Other Systems Hx Cancer: No
--- NOTE | 2019-05-15 07:59 | Anesthesia Day of Surgery ---
Anesthesia Day of Surgery - Day of Surgery Patient Examined: Yes Patient H&P Reviewed: Yes Patient is NPO: Yes
[2019-05-15] MEDS ORDERED: SODIUM CHLORIDE 0.9% 1000 ML 1,000 ML IV SCH (08:00)
[2019-05-15] MEDS ORDERED: PROPOFOL 200 MG/20 ML VIAL IV ONE (08:10)
--- NOTE | 2019-05-15 09:17 | Post Operative Note ---
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
--- NOTE | 2019-05-15 10:10 | Post Anesthesia Evaluation ---
- Post Anesthesia Evaluation Patient Participated: Yes Airway Patent: Yes Stable Respiratory Function: Yes Nausea/Vomiting: No Temp > 96.8F: Yes Pain Manageable: Yes Adequeate Hydration: Yes Anesthesia Complications: No Block Receding Appropriately: Not Applicable Patient on Ventilator: No
--- NOTE | 2019-05-15 10:13 | Operative Report ---
PROCEDURE: EGD with cold biopsy. INDICATION: 1. Nausea, vomiting. 2. Coffee emesis. MEDICATIONS: Propofol per BOBBIN TRUCKER. COMPLICATIONS: None. DESCRIPTION OF PROCEDURE: The patient was brought to procedure suite. The patient had the procedure discussed with him at length. All risks, complications and benefits were discussed, after which the patient signed for the procedure to be performed. The patient was placed in left lateral decubitus position. Mouth block was placed in the patient's oral cavity. After adequate sedation medication as above, endoscope was introduced into the mouth and brought to level of the second portion of duodenum. Retroflexion view was performed. The patient's vital signs remained stable throughout the procedure. FINDINGS: There was grade 2 esophagitis with long segment Patterson's approximately 5-6 cm noted in the distal third of the esophagus. Biopsies were taken and sent to pathology. There was a medium hiatal hernia noted at GE junction. Esophagus otherwise appeared to be normal. There was mild to moderate antral gastritis noted. Biopsies were taken and sent to pathology. Remaining stomach otherwise appeared to be normal. The duodenum appeared to be normal. Retroflexion view was performed in the stomach showed no other pathology other than noted above. The patient tolerated the procedure well. No complications during the procedure. IMPRESSION: 1. Hiatal hernia. 2. Long segment Patterson's with esophagitis as noted above with biopsies taken and sent to pathology. 3. The remaining esophagus otherwise appeared to be normal. 4. Gastritis, biopsies performed. 5. Otherwise normal esophagogastroduodenoscopy. RECOMMENDATIONS: 1. Follow up biopsy results. 2. If H. pylori positive, treat. 3. PPI daily. 4. Alcohol abstinence. 5. Okay to discharge from GI standpoint with followup as an outpatient in 6-12 weeks. 6. The patient will require further biopsies for Patterson's in the future. JOB# [id number] CAB/NTS
[2019-05-15 10:26] VITALS: BP 119/84
[2019-05-15 12:23] LABS: Basophils % (Auto) 0.4 % (0.0-1.8); Eosinophils # (Auto) 0.1 K/mm3 (0.0-0.4); Eosinophils % (Auto) 1.1 % (0.0-4.3); Hematocrit 34.8 % (35.5-45.6); Hemoglobin 10.8 gm/dl (11.8-15.2); Lymphocytes # (Auto) 1.2 K/mm3 (1.2-5.4); Mean Corpuscular HGB Conc 31 % (32-34); Mean Corpuscular Volume 77 fl (84-94); Monocytes # (Auto) 0.9 K/mm3 (0.0-0.8); Monocytes % (Auto) 8.8 % (0.0-7.3); Platelet Count 236 K/mm3 (140-440); Red Cell Distribution Width 19.7 % (13.2-15.2)
[2019-05-15 12:44] LABS: BUN/Creatinine Ratio 4; Blood Urea Nitrogen 3 mg/dL (9-20); Calcium 8.3 mg/dL (8.4-10.2); Hemolysis Index 8
--- NOTE | 2019-05-15 13:50 | Discharge Summary ---
Providers - Providers Date of Admission: 05/14/19 00:47 Date of discharge: 05/15/19 Attending physician: ERIC SERNA 05/13/19 23:42 Consult to Physician [CONS] Urgent Comment: Consulting Provider: CHAPARRITA LOONEY Physician Instructions: Reason For Exam: vomiting blood, hx of pud, etoh Primary care physician: GEAR LAPPER Hospitalization Condition: Stable Hospital course: Discharge daignosis: Upper GI bleed, rule out ulcer Hyponatremia Hypokalemia History of peptic ulcer disease GERD Alcohol abuse Disposition: DC-01 TO HOME OR SELFCARE Time spent for discharge: 34 minutes Core Measure Documentation - Palliative Care Palliative Care/ Comfort Measures: Not Applicable - Core Measures Any of the following diagnoses?: history only Exam - Constitutional Vitals: Temp Pulse Resp BP Pulse Ox 98.4 F 59 L 17 119/84 97 05/15/19 08:30 05/15/19 09:00 05/15/19 09:00 05/15/19 09:00 05/15/19 09:00 General appearance: Present: no acute distress, well-nourished - EENT Eyes: Present: PERRL ENT: hearing intact, clear oral mucosa - Neck Neck: Present: supple, normal ROM - Respiratory Respiratory effort: normal Respiratory: bilateral: CTA - Cardiovascular Heart Sounds: Present: S1 & S2. Absent: rub, click - Extremities Extremities: pulses symmetrical, No edema Peripheral Pulses: within normal limits - Abdominal General gastrointestinal: Present: soft, non-tender, non-distended, normal bowel sounds - Integumentary Integumentary: Present: clear, warm, dry - Musculoskeletal Musculoskeletal: gait normal, strength equal bilaterally - Psychiatric Psychiatric: appropriate mood/affect, intact judgment & insight - Neurologic Neurologic: CNII-XII intact, moves all extremities Plan Activity: advance as tolerated Weight Bearing Status: Weight Bear as Tolerated Diet: advance as tolerated Special Instructions: other (alcohol cessation ) Follow up with: CRUZITO FELIX MD [Primary Care Provider] - 7 Days CHAPARRITA LOONEY MD [Staff Physician] - 7 Days Prescriptions: Folic Acid [Folvite] 1 mg PO QDAY #30 tablet Omeprazole 40 mg PO QDAY #30 capsule. Thiamine [Vitamin B-1] 100 mg PO QDAY #30 tablet
== END 2019-05-15 14:23 | disposition home or self-care (01) | DRG 378 ==
LOC: ED 18:15 → CC1 05-14 00:47 → 4A 05-14 02:09
PROVIDERS: ADMIT Internal Medicine; ATTEND Internal Medicine
PROC: 0DB38ZX Excision of Lower Esophagus, Via Natural or Artificial Opening Endoscopic, Diagnostic (ICD-10-PCS; principal; 2019-05-15)
PROC: 0DB68ZX Excision of Stomach, Via Natural or Artificial Opening Endoscopic, Diagnostic (ICD-10-PCS; 2019-05-15)
DX: K29.71 Gastritis, unspecified, with bleeding (principal); E87.1 Hypo-osmolality and hyponatremia; E87.6 Hypokalemia; F17.210 Nicotine dependence, cigarettes, uncomplicated; K22.70 Barrett's esophagus without dysplasia; K21.0 Gastro-esophageal reflux disease with esophagitis; K44.9 Diaphragmatic hernia without obstruction or gangrene; Y90.9 Presence of alcohol in blood, level not specified; F10.20 Alcohol dependence, uncomplicated; I10 Essential (primary) hypertension; Z79.899 Other long term (current) drug therapy; Z71.6 Tobacco abuse counseling; Z88.8 Allergy status to other drugs, medicaments and biological substances; Z87.11 Personal history of peptic ulcer disease; Z82.49 Family history of ischemic heart disease and other diseases of the circulatory system
CPT/HCPCS: 36415; 71045; 74018; 80048; 80076; 82271; 82962; 83690; 83735; 85014; 85018; 85025; 85610; 85730; 86850; 86900; 86901; 88305; 88312; 88342; 93005; 93010; 96365; 96366; 96367; 96375; 99406; G0378; C9113; J1200; J2060; J2270; J2354; J2704; J2765; J3411; J3480; J7030; J7040

== ENCOUNTER 2019-10-15 13:31 | Emergency (ER) | payer MEDICAID ==
[2019-10-15] MEDS ORDERED: SODIUM CHLORIDE 0.9% 1000 ML 1,000 ML IV ONE (14:09)
[2019-10-15] MEDS ORDERED: MORPHINE 2 MG/1 ML INJ IV ONE (14:09)
[2019-10-15] MEDS ORDERED: PANTOPRAZOLE 40 MG INJ IV ONE (14:09)
[2019-10-15] MEDS ORDERED: ONDANSETRON 4 MG/2 ML INJ IV ONE (14:09)
--- NOTE | 2019-10-15 14:12 | Emergency Department Report ---
ED Abdominal Pain HPI - General Chief Complaint: Chest Pain Stated Complaint: CHEST PAIN Time Seen by Provider: 10/15/19 14:07 Source: EMS Mode of arrival: Stretcher Limitations: No Limitations - History of Present Illness Initial Comments: 54-year-old male with history of alcohol abuse presents to ED with chest pain, nausea and vomiting. Patient states it feels like previous episodes of pancreatitis that he has experienced in the past. He reports onset of pain this morning. Patient reports that he drinks daily. States his emesis was dark in color and he has been having dark-colored stools as well. Patient has history of GI bleeding. MD Complaint: abdominal pain -: This morning Location: epigastric Radiation: other (diffuse abdomen) Migration to: no migration Severity: moderate Severity scale (0 -10): 1 Quality: sharp Consistency: constant Improves With: nothing Worsens With: nothing Context: other (alcohol abuse) Associated Symptoms: nausea, vomiting, melena - Related Data Previous Rx's Medication Instructions Recorded Last Taken Type Pantoprazole [Protonix] 40 mg PO BID #60 tablet 09/13/19 Unknown Rx Dicyclomine [Bentyl] 20 mg PO QID PRN #20 tablet 10/15/19 Unknown Rx Ondansetron [Zofran Odt] 4 mg PO Q8HR PRN #20 tab.rapdis 10/15/19 Unknown Rx Allergies Allergy/AdvReac Type Severity Reaction Status Date / Time aspirin Allergy Bleeding Verified 10/15/19 13:58 ED Review of Systems ROS: Stated complaint: CHEST PAIN Other details as noted in HPI Comment: All other systems reviewed and negative Constitutional: denies: chills, fever Gastrointestinal: abdominal pain, vomiting, melena ED Past Medical Hx - Past Medical History Previous Medical History?: Yes Hx Hypertension: Yes Hx Heart Attack/AMI: No Hx Congestive Heart Failure: No Hx Deep Vein Thrombosis: No Hx GERD: Yes Hx Renal Disease: No Hx Sickle Cell Disease: No Hx Kidney Stones: No Hx Asthma: No Hx COPD: No Hx Tuberculosis: No Hx HIV: No Additional medical history: Low sodium secondary to excessive water intake, low potassium, HERNIA H-PYLORIC, gastritis, esophagitis, daily alcohol use, pancreatitis - Surgical History Hx Coronary Stent: No Hx Pacemaker: No Hx Internal Defibrillator: No - Social History Smoking Status: Never Smoker - Medications Home Medications: Home Medications Medication Instructions Recorded Confirmed Last Taken Type Pantoprazole [Protonix] 40 mg PO BID #60 tablet 09/13/19 Unknown Rx Dicyclomine [Bentyl] 20 mg PO QID PRN #20 tablet 10/15/19 Unknown Rx Ondansetron [Zofran Odt] 4 mg PO Q8HR PRN #20 tab.rapdis 10/15/19 Unknown Rx ED Physical Exam - General Limitations: No Limitations General appearance: alert, in no apparent distress, appears intoxicated - Head Head exam: Present: atraumatic, normocephalic - Eye Eye exam: Present: normal appearance - ENT ENT exam: Present: mucous membranes moist - Neck Neck exam: Present: normal inspection - Respiratory Respiratory exam: Present: normal lung sounds bilaterally. Absent: respiratory distress - Cardiovascular Cardiovascular Exam: Present: regular rate, normal rhythm - GI/Abdominal GI/Abdominal exam: Present: soft, tenderness (diffuse tenderness, worse in epigastric area). Absent: distended - Rectal Rectal exam: Present: heme (+) stool, other (stool is brown) - Extremities Exam Extremities exam: Present: normal inspection - Neurological Exam Neurological exam: Present: alert, oriented X3 - Psychiatric Psychiatric exam: Present: normal affect, normal mood - Skin Skin exam: Present: warm, dry, intact, normal color ED Course Vital Signs 10/15/19 10/15/19 10/15/19 13:48 14:00 14:06 Temperature 98.2 F Pulse Rate 75 72 Respiratory 21 15 Rate Blood Pressure 139/87 Blood Pressure 139/87 [Right] O2 Sat by Pulse 95 95 95 Oximetry 10/15/19 10/15/19 10/15/19 14:15 14:31 14:41 Temperature Pulse Rate 79 68 Respiratory 23 12 18 Rate Blood Pressure 139/87 139/87 Blood Pressure [Right] O2 Sat by Pulse 94 90 Oximetry 10/15/19 10/15/19 10/15/19 14:45 15:01 15:11 Temperature Pulse Rate 70 74 Respiratory 16 25 H 18 Rate Blood Pressure 139/87 139/87 Blood Pressure [Right] O2 Sat by Pulse 86 86 Oximetry 10/15/19 10/15/19 10/15/19 15:15 15:31 15:45 Temperature Pulse Rate 81 70 71 Respiratory 25 H 27 H 17 Rate Blood Pressure 139/87 139/87 134/86 Blood Pressure [Right] O2 Sat by Pulse 88 92 81 L Oximetry 10/15/19 10/15/19 10/15/19 16:01 16:15 16:31 Temperature Pulse Rate 68 67 83 Respiratory 21 18 21 Rate Blood Pressure 134/86 134/86 134/86 Blood Pressure [Right] O2 Sat by Pulse 91 94 95 Oximetry 10/15/19 10/15/19 10/15/19 16:45 17:01 17:15 Temperature Pulse Rate 69 70 Respiratory 23 14 Rate Blood Pressure 141/89 141/89 141/89 Blood Pressure [Right] O2 Sat by Pulse 92 93 90 Oximetry 10/15/19 10/15/19 10/15/19 17:30 17:45 18:01 Temperature Pulse Rate 84 71 71 Respiratory 17 14 24 Rate Blood Pressure 134/92 134/92 143/76 Blood Pressure [Right] O2 Sat by Pulse 87 93 87 Oximetry 10/15/19 18:15 Temperature Pulse Rate 69 Respiratory 14 Rate Blood Pressure 143/76 Blood Pressure [Right] O2 Sat by Pulse 93 Oximetry ED Medical Decision Making - Lab Data Result diagrams: 10/15/19 14:48 10/15/19 14:48 - EKG Data -: EKG Interpreted by [facility] EKG shows normal: sinus rhythm, axis, intervals, QRS complexes, ST-T waves Rate: normal - EKG Data Interpretation: no acute changes - Radiology Data Radiology results: report reviewed, image reviewed - Medical Decision Making - CT A/P from 1 month ago shows thickening of distal esophagus and gastric fundus - abdominal series unremarkable today - current symptoms likely due to alcoholic gastritis and mild pancreatitis, lipase mild elevation of 83 - no gross melena on exam, but stool guiac is trace positive - hemoglobin is stable - vitals are stable, pt not tachycardic or hypotensive - sodium likely low due to pt's alcohol abuse; pt given 1L bolus NS and banana bag; states his sodium has been low in the past and he has sodium tablets at h ome that he can take; pt instructed to do so - no emesis while here in the ED - EKG shows no ST changes; troponin negative x 2 - will d/c home at this time; states he will call someone to pick him up - 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 ED Disposition Clinical Impression: Gastritis, Hyponatremia syndrome Disposition: TO HOME OR SELFCARE Is pt being admited?: No Condition: Stable Instructions: Gastritis (ED), Hyponatremia (ED), Abuse of Alcohol (ED) Prescriptions: Dicyclomine [Bentyl] 20 mg PO QID PRN #20 tablet PRN Reason: abdominal pain Ondansetron [Zofran Odt] 4 mg PO Q8HR PRN #20 tab.rapdis PRN Reason: Vomiting Referrals: YAN COLON MD [Staff Physician] - 2-3 Days Time of Disposition: 18:50
--- NOTE | 2019-10-15 14:33 | XRay Report ---
CHEST 1 VIEW INDICATION / CLINICAL INFORMATION: chest pain. COMPARISON: 05/14/2019 FINDINGS: SUPPORT DEVICES: None. HEART / MEDIASTINUM: No significant abnormality. LUNGS / PLEURA: No significant pulmonary or pleural abnormality. No pneumothorax. ADDITIONAL FINDINGS: No significant additional findings. IMPRESSION: 1. No acute findings. Signer Name: Ibrahima Singh MD Signed: 10/15/2019 2:29 PM Workstation Name: [id number]
[2019-10-15 15:33] LABS: INR 1.08 (0.87-1.13)
[2019-10-15 15:34] LABS: Partial Thromboplastin Time 32.6 Sec. (24.2-36.6)
[2019-10-15 15:38] LABS: Alanine Aminotransferase 47 units/L (7-56); Albumin 4.3 g/dL (3.9-5); BUN/Creatinine Ratio 7; Blood Urea Nitrogen 5 mg/dL (9-20); Calcium 8.2 mg/dL (8.4-10.2); Hemolysis Index 2
[2019-10-15 15:45] LABS: Bilirubin,Direct < 0.2 mg/dL (0-0.2); Hematocrit 33.3 % (35.5-45.6); Hemoglobin 10.6 gm/dl (11.8-15.2); Mean Corpuscular HGB Conc 32 % (32-34); Mean Corpuscular Volume 73 fl (84-94); Platelet Count 280 K/mm3 (140-440); Red Blood Count 4.56 M/mm3 (3.65-5.03); Red Cell Distribution Width 19.7 % (13.2-15.2)
[2019-10-15 16:33] LABS: Basophils % (Manual) 0 % (0.0-1.8); Eosinophils % (Manual) 0 % (0.0-4.3); Total Cells Counted 100
[2019-10-15 16:34] LABS: Hypochromasia 1+; Platelet Estimate Consistent w Auto; Target Cells 1+
--- NOTE | 2019-10-15 16:59 | XRay Report ---
SUPINE ABDOMEN 10/15/2019 INDICATION / CLINICAL INFORMATION: abd pain. COMPARISON: None available. FINDINGS: Intestinal gas pattern is normal in appearance. No evidence of pneumoperitoneum. Vascular calcifications are identified in the left side of the pelvis. Lung bases are clear. Signer Name: Ibrahima Singh MD Signed: 10/15/2019 4:54 PM Workstation Name: [id number]
[2019-10-15] MEDS ORDERED: THIAMINE 100 MG, FOLIC ACID 1 MG, MULTIPLE VITAMIN INJ, ADULT 10 ML in SODIUM CHLORIDE ... IV ONE (17:00)
[2019-10-15 19:28] VITALS: BP 133/85
== END 2019-10-15 19:28 | disposition home or self-care (01) ==
LOC: ED 13:31
DX: K29.70 Gastritis, unspecified, without bleeding (principal); E87.1 Hypo-osmolality and hyponatremia; I10 Essential (primary) hypertension; K21.9 Gastro-esophageal reflux disease without esophagitis; Z79.899 Other long term (current) drug therapy; Z88.8 Allergy status to other drugs, medicaments and biological substances
CPT/HCPCS: 36415; 71045; 74018; 80048; 80076; 83690; 84484; 85007; 85025; 85610; 85730; 93005; 96361; 96365; 96375; 99284; C9113; J2270; J2405; J3411; J7030

== ENCOUNTER 2019-11-16 20:15 | Observation (INO) | payer MEDICAID ==
--- NOTE | 2019-11-16 21:20 | XRay Report ---
CHEST 2 VIEWS INDICATION / CLINICAL INFORMATION: Chest Pain. COMPARISON: 10/15/2019 FINDINGS: SUPPORT DEVICES: None. HEART / MEDIASTINUM: No significant abnormality. LUNGS / PLEURA: No significant pulmonary or pleural abnormality. No pneumothorax. ADDITIONAL FINDINGS: No significant additional findings. IMPRESSION: No significant abnormality or change from 10/15/2019 Signer Name: Sergio Parry MD FACR Signed: 11/16/2019 9:15 PM Workstation Name: [id number]
[2019-11-16] MEDS ORDERED: MORPHINE 4 MG/1 ML INJ IV ONE (21:37)
[2019-11-16] MEDS ORDERED: ONDANSETRON 4 MG/2 ML INJ IV ONE (21:37)
[2019-11-16] MEDS ORDERED: SODIUM CHLORIDE 0.9% 1000 ML 1,000 ML IV ONE (21:37)
[2019-11-16] MEDS ORDERED: PANTOPRAZOLE 40 MG INJ IV ONE (21:37)
--- NOTE | 2019-11-16 21:42 | Emergency Department Report ---
<KLEVER COLE - Last Filed: 11/17/19 01:00> ED General Adult HPI - General Chief complaint: Chest Pain Stated complaint: CHEST BURNING Time Seen by Provider: 11/16/19 21:31 Source: patient Mode of arrival: Ambulatory Limitations: No Limitations - History of Present Illness Initial comments: 54-year-old -[place] male presents to the emergency room for reporting that chest hurts and back burning x2 days. Patient states that he is ran out of his Protonix and had a beer today which made it worse. Patient states that he has been vomiting up black emesis. Patient states that he is currently takes iron. Patient reports he has had a decreased appetite and is had some bright red stool. Patient has a history of GERD pancreatitis esophagitis low potassium H pyloric and daily alcohol use. Onset/Timin -: days(s) Location: chest, back Radiation: back Severity scale (0 -10): 10 Quality: burning, sharp Consistency: constant Improves with: none Worsens with: none Associated Symptoms: loss of appetite, nausea/vomiting Treatments Prior to Arrival: none - Related Data Previous Rx's Medication Instructions Recorded Last Taken Type Pantoprazole [Protonix] 40 mg PO BID #60 tablet 09/13/19 Unknown Rx Dicyclomine [Bentyl] 20 mg PO QID PRN #20 tablet 10/15/19 Unknown Rx Ondansetron [Zofran Odt] 4 mg PO Q8HR PRN #20 tab.rapdis 10/15/19 Unknown Rx Allergies Allergy/AdvReac Type Severity Reaction Status Date / Time aspirin Allergy Bleeding Verified 10/15/19 13:58 ED Past Medical Hx - Past Medical History Previous Medical History?: Yes Hx Hypertension: Yes Hx Heart Attack/AMI: No Hx Congestive Heart Failure: No Hx Deep Vein Thrombosis: No Hx GERD: Yes Hx Renal Disease: No Hx Sickle Cell Disease: No Hx Kidney Stones: No Hx Asthma: No Hx COPD: No Hx Tuberculosis: No Hx HIV: No Additional medical history: Low sodium secondary to excessive water intake, low potassium, HERNIA H-PYLORIC, gastritis, esophagitis, daily alcohol use, pancreatitis - Surgical History Past Surgical History?: No Hx Coronary Stent: No Hx Pacemaker: No Hx Internal Defibrillator: No - Social History Smoking Status: Current Every Day Smoker Substance Use Type: Alcohol - Medications Home Medications: Home Medications Medication Instructions Recorded Confirmed Last Taken Type Pantoprazole [Protonix] 40 mg PO BID #60 tablet 09/13/19 Unknown Rx Dicyclomine [Bentyl] 20 mg PO QID PRN #20 tablet 10/15/19 Unknown Rx Ondansetron [Zofran Odt] 4 mg PO Q8HR PRN #20 tab.rapdis 10/15/19 Unknown Rx ED Physical Exam - General Limitations: No Limitations General appearance: alert, in distress - Head Head exam: Present: atraumatic, normocephalic - Eye Eye exam: Present: normal appearance - Neck Neck exam: Present: normal inspection - Respiratory Respiratory exam: Present: normal lung sounds bilaterally. Absent: respiratory distress - Cardiovascular Cardiovascular Exam: Present: regular rate, normal rhythm. Absent: systolic murmur, diastolic murmur, rubs, gallop - GI/Abdominal GI/Abdominal exam: Present: soft, tenderness, normal bowel sounds - Rectal Rectal exam: Present: deferred - Extremities Exam Extremities exam: Present: normal inspection - Back Exam Back exam: Present: normal inspection - Neurological Exam Neurological exam: Present: alert, oriented X3, normal gait - Psychiatric Psychiatric exam: Present: normal affect, normal mood - Skin Skin exam: Present: warm, dry, intact, normal color. Absent: rash ED Medical Decision Making - Lab Data Result diagrams: 11/16/19 21:31 11/16/19 21:31 - Radiology Data Radiology results: report reviewed Referring Physician:JOSH MARCOSPatient Name:TARA MORENOPatient ID:[id number] of :[id number]:MaleAccession:[id number] Date:6788-48-17Xqvvsq Status:Finalized Findings [facility] [address] [place] [address] XRay Report Signed Patient: TARA MORENO MR#: [id number] 2 : 1965 Acct:[id number] Age/Sex: 54 / M ADM Date: 11/16/19 Loc: ED Attending Dr: Ordering Physician: JOSH MARCOS MD Date of Service: 11/16/19 Procedure(s): XR chest routine 2V Accession Number(s): [id number] cc: JOSH MARCOS MD Fluoro Time In Minutes: CHEST 2 VIEWS INDICATION / CLINICAL INFORMATION: Chest Pain. COMPARISON: 10/15/2019 FINDINGS: SUPPORT DEVICES: None. HEART / MEDIASTINUM: No significant abnormality. LUNGS / PLEURA: No significant pulmonary or pleural abnormality. No pneumothorax. ADDITIONAL FINDINGS: No significant additional findings. IMPRESSION: No significant abnormality or change from 10/15/2019 Signer Name: Sergio Parry MD FACR Signed: 11/16/2019 9:15 PM Workstation Name: [id number] Transcribed By: MS Dictated By: Sergio Parry MD Electronically Authenticated By: Sergio Parry MD Signed Date/Time: 11/16/192114 DD/ 14 TD/TT: Print Report Referring Physician:KLEVER COLEPatient Name:TARA MORENOPatient ID:[id number] of :[id number]:MaleAccession:[id number] Date:4457-42-24Depcwe Status:[place] [address] Cat Scan Report Signed Patient: TARA MORENO MR#: [id number] 2 : 1965 Acct:[id number] Age/Sex: 54 / M ADM Date: 11/16/19 Loc: ED Attending Dr: Ordering Physician: MARC IBRAHIM Date of Service: 11/16/19 Procedure(s): CT abdomen pelvis w con Accession Number(s): [id number] cc: MARC IBRAHIM CT CHEST, ABDOMEN AND PELVIS WITH IV CONTRAST INDICATION: Midepigastric pain. Chest pain. TECHNIQUE: Following the administration of intravenous contrast, multiple axial CT images of the abdomen and pelvis were acquired. Sagittal and coronal reformats were obtained. All CT performed at this facility utilize dose reduction techniques including automated exposure control, iterative reconstruction and weight based dosing when appropriate to reduce patient radiation dose to as low as reasonably achievable. COMPARISON: CT of the abdomen and pelvis, 09/13/2019. Chest radiograph, 11/16/2019 FINDINGS: Chest: The heart is normal in size. There are a few moderately prominent but not pathologically enlarged pretracheal lymph nodes. There is diffuse concentric thickening of the mid and distal esophagus, appearing similar to the previous study. Evaluation of the lung parenchyma demonstrates mild emphysematous change. There is no focal airspace disease or pleural effusion. Abdomen: The appearance of the stomach is abnormal with diffuse wall thickening and multiple foci of air within the wall of the fundus. No extraluminal air is identified. The liver, gallbladder, spleen, pancreas, bilateral adrenal glands and bilateral kidneys show no evidence of acute abnormality. There is mild fluid-filled distention and hyperenhancement of the duodenum. There also appears to be mild compression of the third portion of the duodenum by the proximal superior mesenteric artery. The abdominal aorta is normal in caliber with scattered atherosclerotic calcification. The appendix is visualized and appears normal. Pelvis: No free fluid is seen within the pelvis. The urinary bladder is distended but appears within normal limits. Bones and Soft Tissues: Evaluation of bony structures demonstrates a nonspecific 1.1 cm lytic lesion in the right ilium. Evaluation of soft tissue structures demonstrates no evidence of acute soft tissue abnormality. IMPRESSION: 1. Abnormal appearance of the stomach with diffuse gastric wall thickening and scattered foci of air within the fundal wall. Findings are suggestive of emphysematous gastritis or gastric ulcer. There is also diffuse concentric thickening of the distal esophagus. 2. Moderate fluid-filled distention and enhancement of the duodenum that may be suggestive of duodenitis. There is focal caliber narrowing of the third portion of the duodenum. While this could be secondary to transient bowel narrowing, this configuration could suggest possible superior mesenteric compression syndrome. Short-term follow-up is suggested. Signer Name: Carmelina Hensley MD Signed: 11/16/2019 11:08 PM Workstation Name: [id number] - Medical Decision Making 54-year-old -[place] male presents to the emergency room for reporting that chest hurts and back burning x2 days. Patient states that he is ran out of his Protonix and had a beer today which made it worse. Patient states that he has been vomiting up black emesis. Patient states that he is currently takes iron. Patient reports he has had a decreased appetite and is had some bright red stool. Patient has a history of GERD pancreatitis esophagitis low potassium H pyloric and daily alcohol use. CBC, CMP, lipase, troponin, blood alcohol and PT PTT. CT of chest abdomen and pelvis to rule out a AAA. Patient will be started on normal saline, IV Protonix IV Zofran IV morphine. - Differential Diagnosis Esophagitis, AAA, TN, exacerbation of GERD ED Disposition Clinical Impression: Hyponatremia, Emphysematous gastritis, Abdominal pain, Elevated lipase, Hyponatremia syndrome EtOH dependence Qualifiers: Substance use status: unspecified alcohol-induced disorder Qualified Code(s): F10.29 - Alcohol dependence with unspecified alcohol-induced disorder Gastric ulcer Qualifiers: Gastric ulcer chronicity: acute Gastric ulcer complication status: unspecified whether hemorrhage or perforation present Qualified Code(s): K25.3 - Acute gastric ulcer without hemorrhage or perforation Anemia Qualifiers: Anemia type: unspecified type Qualified Code(s): D64.9 - Anemia, unspecified HTN (hypertension) Qualifiers: Hypertension type: essential hypertension Qualified Code(s): I10 - Essential (primary) hypertension Gastritis Qualifiers: Gastritis type: alcoholic Chronicity: acute Gastritis bleeding: with bleeding Qualified Code(s): K29.21 - Alcoholic gastritis with bleeding Acute alcohol intoxication Qualifiers: Complication of substance-induced condition: uncomplicated Qualified Code(s): F10.920 - Alcohol use, unspecified with intoxication, uncomplicated Hematemesis Qualifiers: Nausea presence: with nausea Qualified Code(s): K92.0 - Hematemesis Disposition: DC-09 OP ADMIT IP TO THIS HOSP Is pt being admited?: Yes Does the pt Need Aspirin: No Condition: Critical Time of Disposition: 00:07 <JERRY ROSE III - Last Filed: 11/17/19 01:01> ED Review of Systems ROS: Stated complaint: CHEST BURNING Other details as noted in HPI ED Physical Exam - General General appearance: alert, in no apparent distress - Head Head exam: Present: atraumatic, normocephalic - Eye Eye exam: Present: normal appearance - ENT ENT exam: Present: mucous membranes moist - Neck Neck exam: Present: normal inspection - Respiratory Respiratory exam: Present: normal lung sounds bilaterally. Absent: respiratory distress - Cardiovascular Cardiovascular Exam: Present: regular rate, normal rhythm. Absent: systolic murmur, diastolic murmur, rubs, gallop - GI/Abdominal GI/Abdominal exam: Present: soft, tenderness, normal bowel sounds - Rectal Rectal exam: Present: deferred - Extremities Exam Extremities exam: Present: normal inspection - Back Exam Back exam: Present: normal inspection - Neurological Exam Neurological exam: Present: alert, oriented X3 - Psychiatric Psychiatric exam: Present: normal affect, normal mood - Skin Skin exam: Present: warm, dry, intact, normal color. Absent: rash ED Course Vital Signs 11/16/19 11/17/19 20:38 00:51 Temperature 98.3 F 98.1 F Pulse Rate 104 H 75 Respiratory 18 18 Rate Blood Pressure 165/119 Blood Pressure 142/97 [Left] O2 Sat by Pulse 97 97 Oximetry - Reevaluation(s) Reevaluation #1: I examined the patient. Patient has epigastric tenderness to palpation. I discussed all results with patient. I discussed plan of care with patient. Patient agrees with plan of care and admission. Patient to be admitted to the hospitalist service. 11/17/19 00:37 - Consultations Consultation #1: I discussed case with Dr. Palafox, gastroenterology. Dr. Palafox wants patient to have a proton pump inhibitor drip and n.p.o. and admitted to the hospitalist service. 11/17/19 00:01 Consultation #2: Hospitalist consulted for admission. Hospitalist to admit patient. 11/17/19 00:37 ED Medical Decision Making - Lab Data Result diagrams: 11/16/19 21:31 11/16/19 21:31 Critical care attestation.: If time is entered above; I have spent that time in minutes in the direct care of this critically ill patient, excluding procedure time. ED Disposition Is pt being admited?: Yes Does the pt Need Aspirin: No ()
[2019-11-16 21:57] LABS: Hematocrit 32.1 % (35.5-45.6); Hemoglobin 10.3 gm/dl (11.8-15.2); Mean Corpuscular HGB Conc 32 % (32-34); Mean Corpuscular Volume 77 fl (84-94); Platelet Count 333 K/mm3 (140-440); Red Cell Distribution Width 21.8 % (13.2-15.2)
[2019-11-16 22:00] LABS: INR 1.09 (0.87-1.13)
[2019-11-16 22:01] LABS: Partial Thromboplastin Time 32.5 Sec. (24.2-36.6)
[2019-11-16 22:15] LABS: Alanine Aminotransferase 15 units/L (7-56); Albumin 4.1 g/dL (3.9-5); BUN/Creatinine Ratio 10; Blood Urea Nitrogen 9 mg/dL (9-20); Calcium 8.6 mg/dL (8.4-10.2); Hemolysis Index 0
[2019-11-16 22:31] LABS: Anisocytosis 1+; Eosinophils % (Manual) 0 % (0.0-4.3); Hypochromasia 1+; Total Cells Counted 100
[2019-11-16 22:32] LABS: Macrocytosis Few; Platelet Estimate Consistent w Auto; Target Cells Few
--- NOTE | 2019-11-16 23:13 | Cat Scan Report ---
CT CHEST, ABDOMEN AND PELVIS WITH IV CONTRAST INDICATION: Midepigastric pain. Chest pain. TECHNIQUE: Following the administration of intravenous contrast, multiple axial CT images of the abdo men and pelvis were acquired. Sagittal and coronal reformats were obtained. All CT performed at this facility utilize dose reduction techniques including automated exposure control, iterative reconstru ction and weight based dosing when appropriate to reduce patient radiation dose to as low as reasonab ly achievable. COMPARISON: CT of the abdomen and pelvis, 09/13/2019. Chest radiograph, 11/16/2019 FINDINGS: Chest: The heart is normal in size. There are a few moderately prominent but not pathologically enlar ged pretracheal lymph nodes. There is diffuse concentric thickening of the mid and distal esophagus, appearing similar to the previous study. Evaluation of the lung parenchyma demonstrates mild emphysem atous change. There is no focal airspace disease or pleural effusion. Abdomen: The appearance of the stomach is abnormal with diffuse wall thickening and multiple foci of air within the wall of the fundus. No extraluminal air is identified. The liver, gallbladder, spleen, pancreas, bilateral adrenal glands and bilateral kidneys show no evidence of acute abnormality. Ther e is mild fluid-filled distention and hyperenhancement of the duodenum. There also appears to be mild compression of the third portion of the duodenum by the proximal superior mesenteric artery. The abd ominal aorta is normal in caliber with scattered atherosclerotic calcification. The appendix is visua lized and appears normal. Pelvis: No free fluid is seen within the pelvis. The urinary bladder is distended but appears within normal limits. Bones and Soft Tissues: Evaluation of bony structures demonstrates a nonspecific 1.1 cm lytic lesion in the right ilium. Evaluation of soft tissue structures demonstrates no evidence of acute soft tissu e abnormality. IMPRESSION: 1. Abnormal appearance of the stomach with diffuse gastric wall thickening and scattered foci of air within the fundal wall. Findings are suggestive of emphysematous gastritis or gastric ulcer. There is also diffuse concentric thickening of the distal esophagus. 2. Moderate fluid-filled distention and enhancement of the duodenum that may be suggestive of duodeni tis. There is focal caliber narrowing of the third portion of the duodenum. While this could be secon chacho to transient bowel narrowing, this configuration could suggest possible superior mesenteric comp ression syndrome. Short-term follow-up is suggested. Signer Name: Carmelina Hensley MD Signed: 11/16/2019 11:08 PM Workstation Name: [id number]
[2019-11-17] MEDS ORDERED: PIPERACILLIN/TAZOBACTAM 3.375 3.375 GM/50 ML BAG IV ONE (00:02)
[2019-11-17] MEDS ORDERED: PANTOPRAZOLE 80 MG in SODIUM CHLORIDE 0.9% 100 ML IV SCH (01:00)
[2019-11-17] MEDS ORDERED: ACETAMINOPHEN 325 MG TAB PO PRN (01:23)
--- NOTE | 2019-11-17 01:39 | History and Physical Report ---
History of Present Illness Date of examination: 11/17/19 Date of admission: 11/17/19 00:39 Chief complaint: Nausea and vomiting Abdominal pain History of present illness: 54-year-old -Citizen Of The [place] male presenting to the emergency room today complaining of abdominal pain. Abdominal pain is said to be more in the epigastric region and radiating towards the mid chest. He has known history of GERD , hypertension, gastritis and pancreatitis in the past. He also indicates that he ran out of his Protonix and had some beer today which made his abdominal pain worse. He has been having some nausea and vomiting. Emesis is said to be coffee-ground. He also had some bright red blood in his stool. He denies any diarrhea, no fever or chills, no headache or dizziness. Review of his record shows a significant drop in his hemoglobin in the past few months. Work-up in the emergency room including CT scan of the abdomen shows emphysematous gastritis. [employer] Dr. Palafox was notified by the ER physician and recommendation was to place patient on IV Protonix. He is also made to be made n.p.o. Past History Past Medical History: GERD, hypertension, other (History of H. pylori, gastritis) Past Surgical History: No surgical history Social history: smoking (Daily smoker), alcohol abuse (Daily alcohol use) Medications and Allergies Allergies Allergy/AdvReac Type Severity Reaction Status Date / Time aspirin Allergy Bleeding Verified 10/15/19 13:58 Home Medications Medication Instructions Recorded Confirmed Last Taken Type Pantoprazole [Protonix] 40 mg PO BID #60 tablet 09/13/19 11/17/19 Unknown Rx Dicyclomine [Bentyl] 20 mg PO QID PRN #20 tablet 10/15/19 11/17/19 Unknown Rx Ondansetron [Zofran Odt] 4 mg PO Q8HR PRN #20 tab.rapdis 10/15/19 11/17/19 Unknown Rx Active Meds: Active Medications Acetaminophen (Tylenol) 650 mg PO Q4H PRN PRN Reason: Pain MILD(1-3)/Fever >100.5/MURPHY Pantoprazole Sodium 80 mg/ (Sodium Chloride) 100 mls @ 10 mls/hr IV DIRECT LEA Sodium Chloride (Nacl 0.9% 1000 Ml) 1,000 mls @ 125 mls/hr IV DIRECT LEA Morphine Sulfate (Morphine) 2 mg IV Q4H PRN PRN Reason: Pain, Moderate (4-6) Ondansetron HCl (Zofran) 4 mg IV Q8H PRN PRN Reason: Nausea And Vomiting Sodium Chloride (Sodium Chloride Flush Syringe 10 Ml) 10 ml IV BID LEA Sodium Chloride (Sodium Chloride Flush Syringe 10 Ml) 10 ml IV PRN PRN PRN Reason: LINE FLUSH Review of Systems Constitutional: no fever, no chills, no weakness Cardiovascular: chest pain, no palpitations Respiratory: no cough, no shortness of breath Gastrointestinal: abdominal pain, nausea, vomiting, hematemesis, coffee ground emesis, hematochezia Genitourinary Male: no dysuria, no hematuria Musculoskeletal: no neck pain, no low back pain Integumentary: no rash, no pruritis Neurological: no headaches, no confusion Exam - Constitutional Vitals: Temp Pulse Resp BP Pulse Ox 98.1 F 75 18 142/97 97 11/17/19 00:51 11/17/19 00:51 11/17/19 00:51 11/17/19 00:51 11/17/19 00:51 General appearance: Present: no acute distress, well-nourished - EENT Eyes: Present: PERRL, EOM intact ENT: hearing intact, clear oral mucosa, dentition normal - Neck Neck: Present: supple, normal ROM - Respiratory Respiratory effort: normal Respiratory: bilateral: CTA - Cardiovascular Rhythm: regular Heart Sounds: Present: S1 & S2 - Extremities Extremities: no ischemia, pulses intact, pulses symmetrical, No edema, Full ROM Peripheral Pulses: within normal limits - Abdominal General gastrointestinal: Present: soft, tender (Tenderness in the epigastric region with minimal guarding, no rebound tenderness), non-distended, normal bowel sounds - Integumentary Integumentary: Present: clear, warm, dry - Musculoskeletal Musculoskeletal: strength equal bilaterally - Psychiatric Psychiatric: appropriate mood/affect, intact judgment & insight, cooperative - Neurologic Neurologic: CNII-XII intact, moves all extremities HEART Score - HEART Score Troponin: Troponin T < 0.010 ng/mL (0.00-0.029) 11/16/19 23:36 Results - Labs CBC & Chem 7: 11/16/19 21:31 11/16/19 21:31 Labs: Abnormal lab results 11/16/19 11/16/19 11/16/19 Range/Units 21:31 21:31 21:31 WBC 11.8 H (4.5-11.0) K/mm3 Hgb 10.3 L (11.8-15.2) gm/dl Hct 32.1 L (35.5-45.6) % MCV 77 L (84-94) fl MCH 25 L (28-32) pg RDW 21.8 H (13.2-15.2) % Seg Neuts % (Manual) 83.0 H (40.0-70.0) % Lymphocytes % (Manual) 12.0 L (13.4-35.0) % Nucleated RBC % 1.0 H (0.0-0.9) % Seg Neutrophils # Man 9.8 H (1.8-7.7) K/mm3 Sodium (137-145) mmol/L Chloride (98-107) mmol/L Lipase 101 H (13-60) units/L Plasma/Serum Alcohol 0.12 H (0-0.07) % 11/16/19 Range/Units 21:31 WBC (4.5-11.0) K/mm3 Hgb (11.8-15.2) gm/dl Hct (35.5-45.6) % MCV (84-94) fl MCH (28-32) pg RDW (13.2-15.2) % Seg Neuts % (Manual) (40.0-70.0) % Lymphocytes % (Manual) (13.4-35.0) % Nucleated RBC % (0.0-0.9) % Seg Neutrophils # Man (1.8-7.7) K/mm3 Sodium 130 L (137-145) mmol/L Chloride 85.1 L (98-107) mmol/L Lipase (13-60) units/L Plasma/Serum Alcohol (0-0.07) % Assessment and Plan - Patient Problems (1) Emphysematous gastritis Current Visit: Yes Status: Acute Plan to address problem: Patient placed on Protonix drip and will be promptly evaluated by the alcohol and drug counselor. Meanwhile he is made n.p.o. (2) Anemia Current Visit: Yes Status: Acute Qualifiers: Anemia type: unspecified type Qualified Code(s): D64.9 - Anemia, unspecified Plan to address problem: Probably secondary to GI bleed. Will monitor CBC. (3) EtOH dependence Current Visit: Yes Status: Acute Qualifiers: Substance use status: unspecified alcohol-induced disorder Qualified Code(s): F10.29 - Alcohol dependence with unspecified alcohol-induced disorder Plan to address problem: Counseled on quitting alcohol abuse. (4) DVT prophylaxis Current Visit: No Status: Acute Plan to address problem: Patient placed on sequential compression device. (5) Full code status Current Visit: Yes Status: Acute
[2019-11-17] MEDS: MORPHINE 2 MG/1 ML INJ IV PRN ×3 (02:03→15:36)
[2019-11-17] MEDS: ONDANSETRON 4 MG/2 ML INJ IV PRN ×2 (02:04→10:19)
[2019-11-17] MEDS: SODIUM CHLORIDE 0.9% 1000 ML 1,000 ML IV SCH ×2 (02:04→22:16)
[2019-11-17] MEDS: metroNIDAZOLE/NS 500 MG/100 ML 500 MG/100 ML BAG IV SCH ×3 (10:20→22:17)
--- NOTE | 2019-11-17 13:11 | Event Note ---
Date: 11/17/19 Patient seen and examined, No new complaints, Awaiting GI. Continue Abx
[2019-11-17] MEDS ORDERED: MORPHINE 2 MG/1 ML INJ IV PRN (17:41)
[2019-11-17] MEDS ORDERED: DICYCLOMINE 10 MG CAP PO PRN (17:41)
--- NOTE | 2019-11-17 17:46 | Gastroenterology Progress Note ---
Assessment and Plan - Patient Problems (1) Emphysematous gastritis Current Visit: Yes Status: Acute Plan to address problem: - Generally benign, and can be seen with severe retching (EtOH pancreatitis) and underlying gastropathy. - OK to advance diet, and resume PO protonix. - If tolerates PO diet, and no further emesis, OK to d/c home without EGD. - Patient should avoid all NSAIDs at home, and refrain from smoking. Subjective Date of service: 11/17/19 Principal diagnosis: Gastritis (emphysematous) Interval history: The patient was admitted with sharp epigastric pain, causing N/V, after an EtOH binge. This pain was similar to an admit in April, when he was dx with gastritis/esophagitis at EGD by Dr Funez. The patient had run out of his dicyclomine and protonix in the last 4 days. Of note, his lipase was also mildly elevated both times (both occurred after EtOH binge). Imaging shows no chronic pancreatitis. The patient has no CP or SOB, and his N/V/abdominal pain now has resolved and he wants to eat. He denies excess NSAID use. Objective - Constitutional Vitals: Temp Pulse Resp BP Pulse Ox 98.0 F 64 18 146/100 99 11/17/19 11:23 11/17/19 11:23 11/17/19 11:23 11/17/19 11:23 11/17/19 11:23 General appearance: no acute distress - EENT Eyes: PERRL, EOM intact ENT: hearing intact, clear oral mucosa, no thrush - Neck Neck: supple, normal ROM - Respiratory Respiratory effort: normal Respiratory: bilateral: CTA - Cardiovascular Rhythm: regular Heart Sounds: Present: S1 & S2 - Extremities Extremities: no ischemia, No edema - Gastrointestinal General gastrointestinal: Present: soft, non-tender, non-distended - Integumentary Integumentary: Present: clear, warm, dry - Labs CBC & Chem 7: 11/16/19 21:31 11/16/19 21:31 Labs: Laboratory Results - last 24 hr 11/16/19 11/16/19 11/16/19 21:31 21:31 21:31 WBC 11.8 H RBC 4.20 Hgb 10.3 L Hct 32.1 L MCV 77 L MCH 25 L MCHC 32 RDW 21.8 H Plt Count 333 Add Manual Diff Complete Total Counted 100 Seg Neuts % (Manual) 83.0 H Band Neutrophils % 0 Lymphocytes % (Manual) 12.0 L Reactive Lymphs % (Man) 0 Monocytes % (Manual) 4.0 Eosinophils % (Manual) 0 Basophils % (Manual) 1.0 Metamyelocytes % 0 Myelocytes % 0 Promyelocytes % 0 Blast Cells % 0 Nucleated RBC % 1.0 H Seg Neutrophils # Man 9.8 H Band Neutrophils # 0.0 Lymphocytes # (Manual) 1.4 Abs React Lymphs (Man) 0.0 Monocytes # (Manual) 0.5 Eosinophils # (Manual) 0.0 Basophils # (Manual) 0.1 Metamyelocytes # 0.0 Myelocytes # 0.0 Promyelocytes # 0.0 Blast Cells # 0.0 WBC Morphology Not Reportable Hypersegmented Neuts Not Reportable Hyposegmented Neuts Not Reportable Hypogranular Neuts Not Reportable Smudge Cells Not Reportable Toxic Granulation Not Reportable Toxic Vacuolation Not Reportable Dohle Bodies Not Reportable Pelger-Huet Anomaly Not Reportable [place] Rods Not Reportable Platelet Estimate Consistent w auto Clumped Platelets Not Reportable Plt Clumps, EDTA Not Reportable Large Platelets Not Reportable Giant Platelets Not Reportable Platelet Satelliting Not Reportable Plt Morphology Comment Not Reportable RBC Morphology Not Reportable Dimorphic RBCs Not Reportable Polychromasia Rare Hypochromasia 1+ Poikilocytosis Not Reportable Anisocytosis 1+ Microcytosis 1+ Macrocytosis Few Spherocytes Not Reportable Pappenheimer Bodies Not Reportable Sickle Cells Not Reportable Target Cells Few Tear Drop Cells Not Reportable Ovalocytes Not Reportable Helmet Cells Not Reportable Can[place]pe Bodies Not Reportable Arley Rings Not Reportable Hutto Cells Not Reportable Bite Cells Not Reportable Crenated Cell Not Reportable Elliptocytes Not Reportable Acanthocytes (Spur) Not Reportable Rouleaux Not Reportable Hemoglobin C Crystals Not Reportable Schistocytes Not Reportable Malaria parasites Not Reportable Osiel Bodies Not Reportable Hem Pathologist Commnt No PT INR APTT Sodium Potassium Chloride Carbon Dioxide Anion Gap BUN Creatinine Estimated GFR BUN/Creatinine Ratio Glucose POC Glucose Calcium Total Bilirubin AST ALT Alkaline Phosphatase Troponin T < 0.010 Total Protein Albumin Albumin/Globulin Ratio Lipase 101 H Plasma/Serum Alcohol Blood Type Antibody Screen 11/16/19 11/16/19 11/16/19 21:31 21:31 21:36 WBC RBC Hgb Hct MCV MCH MCHC RDW Plt Count Add Manual Diff Total Counted Seg Neuts % (Manual) Band Neutrophils % Lymphocytes % (Manual) Reactive Lymphs % (Man) Monocytes % (Manual) Eosinophils % (Manual) Basophils % (Manual) Metamyelocytes % Myelocytes % Promyelocytes % Blast Cells % Nucleated RBC % Seg Neutrophils # Man Band Neutrophils # Lymphocytes # (Manual) Abs React Lymphs (Man) Monocytes # (Manual) Eosinophils # (Manual) Basophils # (Manual) Metamyelocytes # Myelocytes # Promyelocytes # Blast Cells # WBC Morphology Hypersegmented Neuts Hyposegmented Neuts Hypogranular Neuts Smudge Cells Toxic Granulation Toxic Vacuolation Dohle Bodies Pelger-Huet Anomaly Ninos[place] Rods Platelet Estimate Clumped Platelets Plt Clumps, EDTA Large Platelets Giant Platelets Platelet Satelliting Plt Morphology Comment RBC Morphology Dimorphic RBCs Polychromasia Hypochromasia Poikilocytosis Anisocytosis Microcytosis Macrocytosis Spherocytes Pappenheimer Bodies Sickle Cells Target Cells Tear Drop Cells Ovalocytes Helmet Cells [place] Bodies Arley Rings Hutto Cells Bite Cells Crenated Cell Elliptocytes Acanthocytes (Spur) Rouleaux Hemoglobin C Crystals Schistocytes Malaria parasites Osiel Bodies Hem Pathologist Commnt PT 13.9 INR 1.09 APTT 32.5 Sodium 130 L Potassium 4.1 Chloride 85.1 L Carbon Dioxide 26 Anion Gap 23 BUN 9 Creatinine 0.9 Estimated GFR > 60 BUN/Creatinine Ratio 10 Glucose 85 POC Glucose Calcium 8.6 Total Bilirubin 0.20 AST 29 ALT 15 Alkaline Phosphatase 91 Troponin T Total Protein 7.9 Albumin 4.1 Albumin/Globulin Ratio 1.1 Lipase Plasma/Serum Alcohol 0.12 H Blood Type Antibody Screen 11/16/19 11/17/19 11/17/19 23:36 02:17 02:20 WBC RBC Hgb Hct MCV MCH MCHC RDW Plt Count Add Manual Diff Total Counted Seg Neuts % (Manual) Band Neutrophils % Lymphocytes % (Manual) Reactive Lymphs % (Man) Monocytes % (Manual) Eosinophils % (Manual) Basophils % (Manual) Metamyelocytes % Myelocytes % Promyelocytes % Blast Cells % Nucleated RBC % Seg Neutrophils # Man Band Neutrophils # Lymphocytes # (Manual) Abs React Lymphs (Man) Monocytes # (Manual) Eosinophils # (Manual) Basophils # (Manual) Metamyelocytes # Myelocytes # Promyelocytes # Blast Cells # WBC Morphology Hypersegmented Neuts Hyposegmented Neuts Hypogranular Neuts Smudge Cells Toxic Granulation Toxic Vacuolation Dohle Bodies Pelger-Huet Anomaly Ninoska Rods Platelet Estimate Clumped Platelets Plt Clumps, EDTA Large Platelets Giant Platelets Platelet Satelliting Plt Morphology Comment RBC Morphology Dimorphic RBCs Polychromasia Hypochromasia Poikilocytosis Anisocytosis Microcytosis Macrocytosis Spherocytes Pappenheimer Bodies Sickle Cells Target Cells Tear Drop Cells Ovalocytes Helmet Cells Can[place]pe Bodies Arley Rings Hutto Cells Bite Cells Crenated Cell Elliptocytes Acanthocytes (Spur) Rouleaux Hemoglobin C Crystals Schistocytes Malaria parasites Osiel Bodies Hem Pathologist Commnt PT INR APTT Sodium Potassium Chloride Carbon Dioxide Anion Gap BUN Creatinine Estimated GFR BUN/Creatinine Ratio Glucose POC Glucose Calcium Total Bilirubin AST ALT Alkaline Phosphatase Troponin T < 0.010 < 0.010 Total Protein Albumin Albumin/Globulin Ratio Lipase Plasma/Serum Alcohol Blood Type O POSITIVE Antibody Screen Negative 11/17/19 11/17/19 12:26 17:21 WBC RBC Hgb Hct MCV MCH MCHC RDW Plt Count Add Manual Diff Total Counted Seg Neuts % (Manual) Band Neutrophils % Lymphocytes % (Manual) Reactive Lymphs % (Man) Monocytes % (Manual) Eosinophils % (Manual) Basophils % (Manual) Metamyelocytes % Myelocytes % Promyelocytes % Blast Cells % Nucleated RBC % Seg Neutrophils # Man Band Neutrophils # Lymphocytes # (Manual) Abs React Lymphs (Man) Monocytes # (Manual) Eosinophils # (Manual) Basophils # (Manual) Metamyelocytes # Myelocytes # Promyelocytes # Blast Cells # WBC Morphology Hypersegmented Neuts Hyposegmented Neuts Hypogranular Neuts Smudge Cells Toxic Granulation Toxic Vacuolation Dohle Bodies Pelger-Huet Anomaly Ninoska Rods Platelet Estimate Clumped Platelets Plt Clumps, EDTA Large Platelets Giant Platelets Platelet Satelliting Plt Morphology Comment RBC Morphology Dimorphic RBCs Polychromasia Hypochromasia Poikilocytosis Anisocytosis Microcytosis Macrocytosis Spherocytes Pappenheimer Bodies Sickle Cells Target Cells Tear Drop Cells Ovalocytes Helmet Cells Canas-[place]rappe Bodies Arley Rings Deshawn Cells Bite Cells Crenated Cell Elliptocytes Acanthocytes (Spur) Rouleaux Hemoglobin C Crystals Schistocytes Malaria parasites Osiel Bodies Hem Pathologist Commnt PT INR APTT Sodium Potassium Chloride Carbon Dioxide Anion Gap BUN Creatinine Estimated GFR BUN/Creatinine Ratio Glucose POC Glucose 83 73 Calcium Total Bilirubin AST ALT Alkaline Phosphatase Troponin T Total Protein Albumin Albumin/Globulin Ratio Lipase Plasma/Serum Alcohol Blood Type Antibody Screen
[2019-11-17] MEDS ORDERED: hydrALAZINE 20 MG/1 ML INJ IV PRN (21:23)
[2019-11-17] MEDS ORDERED: PANTOPRAZOLE 40 MG INJ IV SCH (22:00)
[2019-11-18 04:37] LABS: Hematocrit 32.5 % (35.5-45.6); Hemoglobin 10.3 gm/dl (11.8-15.2); Mean Corpuscular HGB Conc 32 % (32-34); Mean Corpuscular Volume 78 fl (84-94); Platelet Count 306 K/mm3 (140-440); Red Blood Count 4.18 M/mm3 (3.65-5.03)
[2019-11-18 04:39] LABS: Red Cell Distribution Width 21.6 % (13.2-15.2)
[2019-11-18 04:49] LABS: INR 1.15 (0.87-1.13)
[2019-11-18 04:54] LABS: BUN/Creatinine Ratio 11; Blood Urea Nitrogen 9 mg/dL (9-20); Calcium 8.8 mg/dL (8.4-10.2); Hemolysis Index 2
[2019-11-18] MEDS: metroNIDAZOLE/NS 500 MG/100 ML 500 MG/100 ML BAG IV SCH ×2 (05:52→13:20)
[2019-11-18 05:55] LABS: Anisocytosis 1+; Basophils % (Manual) 0 % (0.0-1.8); Hypochromasia Few; Target Cells Few; Total Cells Counted 100
[2019-11-18 05:56] LABS: Platelet Estimate Consistent w Auto
[2019-11-18] MEDS: SODIUM CHLORIDE 0.9% 1000 ML 1,000 ML IV SCH (05:57)
[2019-11-18] MEDS ORDERED: hydrALAZINE 20 MG/1 ML INJ IV PRN (07:58)
[2019-11-18] MEDS: hydrALAZINE 25 MG TAB PO SCH ×2 (09:55→13:20)
[2019-11-18] MEDS ORDERED: PANTOPRAZOLE 40 MG TAB PO SCH (10:00)
--- NOTE | 2019-11-18 12:00 | Discharge Summary ---
Providers - Providers Date of Admission: 11/17/19 00:39 Attending physician: SULTANA PIZANO MD 11/17/19 00:36 Consult to Physician [CONS] Routine Comment: Consulting Provider: CHRISTOPHER PALAFOX Physician Instructions: Reason For Exam: gi bleed Primary care physician: MEDICAL BILLING COORDINATOR Hospitalization Reason for admission: abdominal pain Condition: Stable Hospital course: 54-year-old -[place] male presenting to the emergency room today complaining of abdominal pain. Abdominal pain is said to be more in the epigastric region and radiating towards the mid chest. He has known history of GERD , hypertension, gastritis and pancreatitis in the past. He also indicates that he ran out of his Protonix and had some beer today which made his abdominal pain worse. He has been having some nausea and vomiting. Emesis is said to be coffee-ground. He also had some bright red blood in his stool. He denies any diarrhea, no fever or chills, no headache or dizziness. Review of his record shows a significant drop in his hemoglobin in the past few months. Work-up in the emergency room including CT scan of the abdomen shows emphysem atous gastritis. Truck Manager Dr. Palafox was notified by the ER physician and recommendation was to place patient on IV Protonix. He is also made to be made n.p.o. He was evaluated by GI and per GI The patient was admitted with sharp epigastric pain, causing N/V, after an EtOH binge. This pain was similar to an admit in April, when he was dx with gastritis/esophagitis at EGD by Dr Funez. The patient had run out of his dicyclomine and protonix in the last 4 days. Of note, his lipase was also mildly elevated both times (both occurred after EtOH binge). Imaging shows no chronic pancreatitis. The patient has no CP or SOB, and his N/V/abdominal pain now has resolved and he wants to eat. He denies excess NSAID use. (1) Emphysematous gastritis Current Visit: Yes Status: Acute Plan to address problem: - Generally benign, and can be seen with severe retching (EtOH pancreatitis) and underlying gastropathy. - OK to advance diet, and resume PO protonix. - If tolerates PO diet, and no further emesis, OK to d/c home without EGD. - Patient should avoid all NSAIDs at home, and refrain from smoking. (2) Anemia Current Visit: Yes Status: Acute Qualifiers: Anemia type: unspecified type Qualified Code(s): D64.9 - Anemia, unspecified Plan to address problem: Probably secondary to GI bleed. Will monitor CBC. (3) EtOH dependence Current Visit: Yes Status: Acute Qualifiers: Substance use status: unspecified alcohol-induced disorder Qualified Code(s): F10.29 - Alcohol dependence with unspecified alcohol-induced disorder Plan to address problem: Counseled on quitting alcohol abuse. Disposition: - TO HOME OR SELFCARE Time spent for discharge: 35 mins Core Measure Documentation - Palliative Care Palliative Care/ Comfort Measures: Not Applicable - Core Measures Any of the following diagnoses?: none Exam - Physical Exam Narrative exam: VITAL SIGNS: Reviewed. GENERAL: The patient appears normally developed, Vital signs as documented. HEAD: No signs of head trauma. EYES: Pupils are equal. Extraocular motions intact. EARS: Hearing grossly intact. MOUTH: Oropharynx is normal. NECK: No adenopathy, no JVD. CHEST: Chest with clear breath sounds bilaterally. No wheezes, rales, or rhonchi. CARDIAC: Regular rate and rhythm. S1 and S2, without murmurs, gallops, or rubs. VASCULAR: No Edema. Peripheral pulses normal and equal in all extremities. ABDOMEN: Soft, non tender and non distended. No rebound or guarding, and no masses palpated. Bowel Sounds normal. MUSCULOSKELETAL: Good range of motion of all major joints. Extremities without clubbing, cyanosis or edema. NEUROLOGIC EXAM: Alert and oriented x 3 No focal sensory or strength deficits. Speech normal. Follows commands. PSYCHIATRIC: Mood normal. SKIN: detial exam as documented in skin assessment - Constitutional Vitals: Temp Pulse Resp BP Pulse Ox 98.7 F 67 20 140/99 99 11/18/19 07:04 11/18/19 09:55 11/18/19 07:04 11/18/19 09:55 11/18/19 07:04 Plan Activity: advance as tolerated, fall precautions Diet: low fat, no red dye, no straws, no carbonated beverages, advance as tolerated (Following GIs guidance.) Special Instructions: smoking cessation Durable Medical Equipment Needed Upon Discharge: other (quit ETOH) Follow up with: CRUZITO FELIX MD [Primary Care Provider] - 3-5 Days DIANE STEWART MD [Staff Physician] - 7 Days Prescriptions: hydrALAZINE [Apresoline TAB] 50 mg PO Q8HR #90 tablet Dicyclomine [Bentyl] 20 mg PO QID PRN #20 tablet PRN Reason: abdominal pain Pantoprazole [Protonix TAB] 40 mg PO BID #60 tablet Ondansetron [Zofran ODT TAB] 4 mg PO Q8HR PRN #20 tab.rapdis PRN Reason: Vomiting
[2019-11-18 12:42] VITALS: BP 147/101
== END 2019-11-18 15:20 | disposition home or self-care (01) ==
LOC: ED 20:15 → 4A 11-17 00:39 → INTOOBSV 11-17 00:39 → 4A 11-17 02:07
PROVIDERS: ADMIT Internal Medicine Geriatric Medicine; ATTEND Internal Medicine
DX: K29.60 Other gastritis without bleeding (principal); K25.3 Acute gastric ulcer without hemorrhage or perforation; D64.9 Anemia, unspecified; F10.20 Alcohol dependence, uncomplicated; Y90.9 Presence of alcohol in blood, level not specified; R11.2 Nausea with vomiting, unspecified; I10 Essential (primary) hypertension; K21.9 Gastro-esophageal reflux disease without esophagitis; F17.210 Nicotine dependence, cigarettes, uncomplicated; E87.1 Hypo-osmolality and hyponatremia; E78.41 Elevated Lipoprotein(a); Z79.899 Other long term (current) drug therapy
CPT/HCPCS: 36415; 71046; 71260; 74177; 80048; 80053; 82962; 83690; 84484; 85007; 85025; 85610; 85730; 86850; 86900; 86901; 93005; 96361; 96365; 96366; 96367; 96368; 96375; 96376; 99285; 99406; C9113; G0378; J0360; J1956; J2270; J2405; J2543; J7030; Q9967; 80320; G0480

== ENCOUNTER 2019-12-19 15:54 | Emergency (ER) | payer MEDICAID ==
[2019-12-19 17:18] VITALS: BP 123/88
--- NOTE | 2019-12-19 17:19 | Event Note ---
ED Screening Note Date of service: 12/19/19 Time: 17:17 ED Screening Note: Patient complains of burning epigastric pain x3 days. Patient has history of pancreatitis, PUD, and heavy alcohol use States next GI appointment is 01/11/2020, patient unsure of GI doctors name He rates his pain as a 10/10 in severity +melena Denies hematemesis/coffee-ground emesis This initial assessment/diagnostic orders/clinical plan/treatment(s) is/are subject to change based on patients health status, clinical progression and re- assessment by fellow clinical providers in the ED. Further treatment and workup at subsequent clinical providers discretion. Patient/guardian urged not to elope from the ED as their condition may be serious if not clinically assessed and managed. Initial orders include: labs
[2019-12-19 17:36] LABS: Bilirubin,Urine NEG (Negative); Blood,Urine NEG (Negative); Color,Urine Yellow (Yellow); Protein,Urine <15 mg/dL mg/dL (Negative); RBC,Urine < 1.0 /HPF (0.0-6.0); Urobilinogen,Urine < 2.0 mg/dL (<2.0)
[2019-12-19 18:21] LABS: Hematocrit 42.8 % (35.5-45.6); Hemoglobin 13.9 gm/dl (11.8-15.2); Mean Corpuscular HGB Conc 32 % (32-34); Mean Corpuscular Volume 87 fl (84-94); Platelet Count 313 K/mm3 (140-440); Red Blood Count 4.91 M/mm3 (3.65-5.03)
[2019-12-19 18:23] LABS: Red Cell Distribution Width 24.7 % (13.2-15.2)
[2019-12-19 18:30] LABS: INR 1.11 (0.87-1.13)
[2019-12-19 18:31] LABS: Partial Thromboplastin Time 30.5 Sec. (24.2-36.6)
[2019-12-19 18:55] LABS: BUN/Creatinine Ratio 10; Blood Urea Nitrogen 8 mg/dL (9-20)
[2019-12-19 18:56] LABS: Alanine Aminotransferase 10 units/L (7-56); Albumin 4.3 g/dL (3.9-5); Calcium 9.3 mg/dL (8.4-10.2)
[2019-12-19 19:07] LABS: Anisocytosis 1+; Band Neutrophils # (Manual) 0.6 K/mm3; Hypochromasia 1+; Target Cells Few; Total Cells Counted 100
[2019-12-19] MEDS ORDERED: SODIUM CHLORIDE 0.9% 1000 ML 1,000 ML IV ONE (19:48)
--- NOTE | 2019-12-19 19:53 | Emergency Department Report ---
HPI - General Chief Complaint: Abdominal Pain Time Seen by Provider: 12/19/19 17:16 - HPI HPI: 54-year-old male presents to the emergency department with complaint of a 3 days of upper abdominal and epigastric pain. He says it is mostly a burning sensati on but will occasionally have some sharp pains. The pains worsen with eating or drinking. He had one episode of nausea with vomiting earlier today. He denies any constipation, diarrhea, fever, dysuria. The patient does have a history of acid reflux and has been out of his Protonix. He has not taken anything for his symptoms prior to presentation. No recent travel or sick contacts at home. ED Past Medical Hx - Past Medical History Previous Medical History?: Yes Hx Hypertension: Yes Hx Heart Attack/AMI: No Hx Congestive Heart Failure: No Hx Diabetes: No Hx Deep Vein Thrombosis: No Hx GERD: Yes Hx Renal Disease: No Hx Sickle Cell Disease: No Hx Kidney Stones: No Hx Asthma: No Hx COPD: No Hx Tuberculosis: No Hx HIV: No Additional medical history: Low sodium secondary to excessive water intake, low potassium, HERNIA H-PYLORIC, gastritis, esophagitis, daily alcohol use, pancreatitis - Surgical History Hx Coronary Stent: No Hx Pacemaker: No Hx Internal Defibrillator: No - Social History Smoking Status: Current Every Day Smoker Substance Use Type: Alcohol - Medications Home Medications: Home Medications Medication Instructions Recorded Confirmed Last Taken Type Pantoprazole [Protonix TAB] 40 mg PO BID #60 tablet 11/18/19 Unknown Rx hydrALAZINE [Apresoline TAB] 50 mg PO Q8HR #90 tablet 11/18/19 Unknown Rx Dicyclomine [Bentyl] 20 mg PO QID PRN #20 tablet 11/21/19 Unknown Rx Ondansetron [Zofran ODT TAB] 4 mg PO Q8HR PRN #20 tab.rapdis 11/21/19 Unknown Rx Pantoprazole [Protonix] 40 mg PO QDAY #20 tablet 12/19/19 Unknown Rx ED Review of Systems ROS: Stated complaint: ABD PAIN Other details as noted in HPI Comment: All other systems reviewed and negative Constitutional: denies: chills, fever Eyes: denies: eye pain, vision change ENT: denies: ear pain, throat pain Respiratory: denies: cough, shortness of breath Cardiovascular: denies: chest pain, palpitations Gastrointestinal: abdominal pain, nausea, vomiting Genitourinary: denies: dysuria, discharge Musculoskeletal: denies: back pain, arthralgia Skin: denies: rash, lesions Neurological: denies: headache, weakness Physical Exam - Physical Exam Vital Signs: Vital Signs 12/19/19 17:15 Temperature 98 F Pulse Rate 98 H Respiratory 18 Rate Blood Pressure 123/88 O2 Sat by Pulse 98 Oximetry Physical Exam: GENERAL: The patient is well-developed well-nourished. HENT: Normocephalic. Atraumatic. Patient has moist mucous membranes. EYES: Extraocular motions are intact. NECK: Supple. Trachea is midline. CHEST/LUNGS: Clear to auscultation. There is no respiratory distress noted. HEART/CARDIOVASCULAR: Regular. There is no tachycardia. ABDOMEN: Abdomen is soft. Upper abdominal tenderness to palpation. No guarding. No rebound tenderness. Patient has normal bowel sounds. There is no abdominal distention. SKIN: Skin is warm and dry. NEURO: The patient is awake, alert, and oriented. The patient is cooperative. The patient has no focal neurologic deficits. Normal speech. MUSCULOSKELETAL: There is no tenderness or deformity. There is no evidence of acute injury. ED Course Vital Signs 12/19/19 17:15 Temperature 98 F Pulse Rate 98 H Respiratory 18 Rate Blood Pressure 123/88 O2 Sat by Pulse 98 Oximetry ED Medical Decision Making - Lab Data Result diagrams: 12/19/19 17:38 12/19/19 17:38 - Radiology Data Radiology results: report reviewed CT ABDOMEN AND PELVIS WITH CONTRAST INDICATION: Epigastric pain, uncontrollable hiccups CONTRAST: 100 cc Omnipaque 300 IV COMPARISON: 11/16/[address] scans at this location are performed using CT dose reduction for ALARA by means of automated exposure control. Note: Study is noticeably marred by artifact from motion. FINDINGS: Lung bases are blurred by motion but no obvious acute infiltrates are seen. No obvious pneumoperitoneum is seen. Moderate hiatal hernia is noted and is more noticeable. Distal esophageal wall thickening is not obvious in the minimal portion of the esophagus seen today compared with prior study. Gastric wall thickening is difficult to assess due to lack of distention but does not appear to be as prominent as prior study. There is a question of mild thickening in the antral wall similar to prior study. No duodenal dilatation is noted. No evidence of bowel obstruction is seen. Appendix appears within normal limits. No urinary obstructive changes are seen. Hepatomegaly is noted. Hepatic length measures 20.3 cm. Spleen appears within normal limits. Gallbladder and bile ducts show no abnormalities. No lymphadenopathy is seen. No definite focal inflammatory changes are noted. No pelvic masses are seen. No free fluid is noted. IMPRESSION: No definite new findings are seen in a somewhat compromised study due to motion. Appearance of the stomach and duodenum is improved from prior study with possible mild wall thickening remaining in the distal stomach. The esophagus is not well seen but no wall thickening is noted which is improved from prior examination. The moderate hiatal hernia is mildly more prominent today. No other acute findings are noted. - Medical Decision Making This patient presents to the emergency department with a complaint of some epigastric and/or upper abdominal pain, as well as one episode of nausea and vomiting. He says that this is been going on since the patient ran out of his Protonix. Labs have been mostly unremarkable except for some elevation in the lipase level. On examination he does have reproducible tenderness to palpation but his abdomen is soft, nondistended and nontoxic in appearance. He was given some IV fluid resuscitation and a dose of IV analgesia. CT of the abdomen and pelvis shows a chronic hiatal hernia, signs of gastritis, but mostly everything is unchanged from previous studies and there are no other acute findings noted. Vital signs been stable throughout his ED course. The patient is feeling improved and able to pass an oral challenge. He has good outpatient follow-up with both primary care and gastroenterology. We discussed smoking and alcohol cessation. He has been given a refill of his Protonix. He will return to the ER with any worsening of his symptoms or any acute distress. Critical Care Time: No Critical care attestation.: If time is entered above; I have spent that time in minutes in the direct care of this critically ill patient, excluding procedure time. ED Disposition Clinical Impression: Hiatal hernia Gastritis Qualifiers: Gastritis type: unspecified gastritis Chronicity: unspecified Gastritis bleeding: without bleeding Qualified Code(s): K29.70 - Gastritis, unspecified, without bleeding Abdominal pain Qualifiers: Abdominal location: epigastric Qualified Code(s): R10.13 - Epigastric pain Disposition: TO HOME OR SELFCARE Is pt being admited?: No Condition: Stable Instructions: Hiatal Hernia (ED), Gastritis (ED), Diet for Ulcers and Gastritis (ED), Abdominal Pain (ED) Additional Instructions: Please follow-up with your guest relations agent in the next few days. Please follow-up with a primary care physician. Please try to avoid any tobacco or alcohol use. Take your medications as prescribed. Return to the emergency department with any worsening of your symptoms or any acute distress. Prescriptions: Pantoprazole [Protonix] 40 mg PO QDAY #20 tablet Referrals: [facility] [Provider Group] - 3-5 Days Time of Disposition: 21:57
--- NOTE | 2019-12-19 21:15 | Cat Scan Report ---
CT ABDOMEN AND PELVIS WITH CONTRAST INDICATION: Epigastric pain, uncontrollable hiccups CONTRAST: 100 cc Omnipaque 300 IV COMPARISON: 11/16/[address] scans at this location are performed using CT dose reduction for ALARA by means of automated e xposure control. Note: Study is noticeably marred by artifact from motion. FINDINGS: Lung bases are blurred by motion but no obvious acute infiltrates are seen. No obvious pneu moperitoneum is seen. Moderate hiatal hernia is noted and is more noticeable. Distal esophageal wall thickening is not obvious in the minimal portion of the esophagus seen today compared with prior stud y. Gastric wall thickening is difficult to assess due to lack of distention but does not appear to be as prominent as prior study. There is a question of mild thickening in the antral wall similar to pr ior study. No duodenal dilatation is noted. No evidence of bowel obstruction is seen. Appendix appear s within normal limits. No urinary obstructive changes are seen. Hepatomegaly is noted. Hepatic lengt h measures 20.3 cm. Spleen appears within normal limits. Gallbladder and bile ducts show no abnormali ties. No lymphadenopathy is seen. No definite focal inflammatory changes are noted. No pelvic masses are seen. No free fluid is noted. IMPRESSION: No definite new findings are seen in a somewhat compromised study due to motion. Appearan ce of the stomach and duodenum is improved from prior study with possible mild wall thickening remain ing in the distal stomach. The esophagus is not well seen but no wall thickening is noted which is im proved from prior examination. The moderate hiatal hernia is mildly more prominent today. No other ac circle findings are noted. Signer Name: Hernan Cole MD Signed: 12/19/2019 9:11 PM Workstation Name: [id number]
[2019-12-19] MEDS ORDERED: LIDOCAINE VISCOUS 2% 15 ML ORAL LIQD PO ONE (21:20)
[2019-12-19] MEDS ORDERED: ALUM-MAG HYDROXIDE-SIMETHICONE 200-200-20MG/5ML ORAL LIQD 30 ML PO ONE (21:20)
== END 2019-12-19 22:32 | disposition home or self-care (01) ==
LOC: EDUNIT# → ED 15:54
DX: K44.9 Diaphragmatic hernia without obstruction or gangrene (principal); K29.70 Gastritis, unspecified, without bleeding; R10.13 Epigastric pain; R11.2 Nausea with vomiting, unspecified; I10 Essential (primary) hypertension; K21.9 Gastro-esophageal reflux disease without esophagitis; F17.200 Nicotine dependence, unspecified, uncomplicated; Z79.899 Other long term (current) drug therapy; Z88.8 Allergy status to other drugs, medicaments and biological substances
CPT/HCPCS: 36415; 74177; 80053; 81001; 83690; 84484; 85007; 85025; 85610; 85730; 96360; 96361; 99284; J7030; Q9967

== ENCOUNTER 2019-12-28 03:50 | Observation (INO) | payer MEDICAID ==
--- NOTE | 2019-12-28 04:32 | XRay Report ---
CHEST 1 VIEW 4:25 AM INDICATION / CLINICAL INFORMATION: Chest pain/pressure. Difficulty breathing and cough. COMPARISON: 11/16/19. FINDINGS: SUPPORT DEVICES: None. HEART / MEDIASTINUM: The heart size and pulmonary vasculature are normal. The aorta is normal in alethea bhavana. LUNGS / PLEURA: The lungs are mildly hyperinflated, but clear. No pneumothorax. ADDITIONAL FINDINGS: No significant additional findings. IMPRESSION: Emphysema. No acute abnormality or significant change. Signer Name: Porter Gonzalez MD Signed: 12/28/2019 4:28 AM Workstation Name: [id number]
[2019-12-28 06:30] LABS: Basophils % (Auto) 0.8 % (0.0-1.8); Eosinophils % (Auto) 0.7 % (0.0-4.3); Hematocrit 41.5 % (35.5-45.6); Hemoglobin 13.6 gm/dl (11.8-15.2); Lymphocytes # (Auto) 1.3 K/mm3 (1.2-5.4); Lymphocytes % (Auto) 21.6 % (13.4-35.0); Mean Corpuscular HGB Conc 33 % (32-34); Mean Corpuscular Volume 86 fl (84-94); Monocytes # (Auto) 0.8 K/mm3 (0.0-0.8); Monocytes % (Auto) 12.7 % (0.0-7.3); Platelet Count 268 K/mm3 (140-440); Red Blood Count 4.81 M/mm3 (3.65-5.03)
[2019-12-28 06:35] LABS: Red Cell Distribution Width 21.2 % (13.2-15.2)
[2019-12-28] MEDS ORDERED: FAMOTIDINE 20 MG/2 ML INJ IV ONE (06:41)
[2019-12-28] MEDS ORDERED: SODIUM CHLORIDE 0.9% 1000 ML 1,000 ML IV ONE ×2 (06:41→07:25)
[2019-12-28] MEDS ORDERED: ONDANSETRON 4 MG/2 ML INJ IV ONE (06:41)
[2019-12-28] MEDS ORDERED: DICYCLOMINE 20 MG/2 ML INJ IM ONE (06:42)
--- NOTE | 2019-12-28 06:43 | Emergency Department Report ---
ED General Adult HPI - General Chief complaint: Chest Pain Stated complaint: NECK AND ABDOMINAL PAIN PUI?: No Time Seen by Provider: 12/28/19 06:12 Source: patient, EMS ( EMS documentation not available at time of chart d ictation ), RN notes reviewed, old records reviewed Mode of arrival: Ambulatory Limitations: No Limitations - History of Present Illness Initial comments: This is a 54-year-old gentleman. He has a history of endoscopically proven emphysematous gastritis, anemia, alcoholism and alcohol dependence. He presents to the ER today with 3 to 4 days of central and left-sided chest pain, left-sided neck pain, left-sided trapezius pain, and diffuse abdominal pain, and reports nausea, vomiting and diarrhea. Denies headache and neck pain. Denies irritative and obstructive urinary symptoms. Denies muscle cramps. Denies homicidality and suicidality. States last alcoholic beverage was within the past 24 hours. Chest pain neck pain and back pain throbbing and intermittent, achy. Abdominal pain throbbing and achy. -: Gradual, days(s) Location: neck, chest, back, abdomen Quality: aching Consistency: intermittent Improves with: none Worsens with: none - Related Data Previous Rx's Medication Instructions Recorded Last Taken Type Pantoprazole [Protonix TAB] 40 mg PO BID #60 tablet 11/18/19 Unknown Rx hydrALAZINE [Apresoline TAB] 50 mg PO Q8HR #90 tablet 11/18/19 Unknown Rx Dicyclomine [Bentyl] 20 mg PO QID PRN #20 tablet 11/21/19 Unknown Rx Ondansetron [Zofran ODT TAB] 4 mg PO Q8HR PRN #20 tab.rapdis 11/21/19 Unknown Rx Pantoprazole [Protonix] 40 mg PO QDAY #20 tablet 12/19/19 Unknown Rx Allergies Allergy/AdvReac Type Severity Reaction Status Date / Time aspirin Allergy Bleeding Verified 10/15/19 13:58 ED Review of Systems ROS: Stated complaint: NECK AND ABDOMINAL PAIN Other details as noted in HPI Constitutional: denies: fever Eyes: denies: eye discharge ENT: denies: epistaxis Respiratory: denies: cough Cardiovascular: chest pain Gastrointestinal: abdominal pain, nausea, vomiting, diarrhea Genitourinary: denies: dysuria Musculoskeletal: arthralgia, myalgia Neurological: weakness Psychiatric: anxiety. denies: homicidal thoughts, suicidal thoughts ED Past Medical Hx - Past Medical History Previous Medical History?: Yes Hx Hypertension: Yes Hx Heart Attack/AMI: No Hx Congestive Heart Failure: No Hx Diabetes: No Hx Deep Vein Thrombosis: No Hx GERD: Yes Hx Renal Disease: No Hx Sickle Cell Disease: No Hx Kidney Stones: No Hx Asthma: No Hx COPD: No Hx Tuberculosis: No Hx HIV: No Additional medical history: Low sodium secondary to excessive water intake, low potassium, HERNIA H-PYLORIC, gastritis, esophagitis, daily alcohol use, pa ncreatitis - Surgical History Past Surgical History?: No Hx Coronary Stent: No Hx Pacemaker: No Hx Internal Defibrillator: No - Social History Smoking Status: Current Every Day Smoker Substance Use Type: Alcohol - Medications Home Medications: Home Medications Medication Instructions Recorded Confirmed Last Taken Type Pantoprazole [Protonix TAB] 40 mg PO BID #60 tablet 11/18/19 Unknown Rx hydrALAZINE [Apresoline TAB] 50 mg PO Q8HR #90 tablet 11/18/19 Unknown Rx Dicyclomine [Bentyl] 20 mg PO QID PRN #20 tablet 11/21/19 Unknown Rx Ondansetron [Zofran ODT TAB] 4 mg PO Q8HR PRN #20 tab.rapdis 11/21/19 Unknown Rx Pantoprazole [Protonix] 40 mg PO QDAY #20 tablet 12/19/19 Unknown Rx ED Physical Exam - General Limitations: No Limitations General appearance: alert, anxious - Head Head exam: Present: atraumatic, normocephalic - Eye Eye exam: Present: normal appearance, EOMI - ENT ENT exam: Present: normal exam, normal orophraynx, mucous membranes moist, normal external ear exam - Neck Neck exam: Present: normal inspection, full ROM. Absent: tenderness, meningismus - Respiratory Respiratory exam: Present: normal lung sounds bilaterally. Absent: respiratory distress, chest wall tenderness - Cardiovascular Cardiovascular Exam: Present: regular rate, normal rhythm, normal heart sounds. Absent: bradycardia, tachycardia, irregular rhythm, systolic murmur, diastolic murmur, rubs, gallop - GI/Abdominal GI/Abdominal exam: Present: soft, tenderness, normal bowel sounds. Absent: dis tended, guarding, rebound, rigid, pulsatile mass - Rectal Rectal exam: Present: deferred - Extremities Exam Extremities exam: Present: normal inspection, full ROM, other (2+ pulses noted in the bilateral upper and lower extremities. There is no palpable cord. negative Homans sign. Muscular compartments are soft. The pelvis is stable.). Absent: pedal edema, calf tenderness - Back Exam Back exam: Present: normal inspection, full ROM, paraspinal tenderness. Absent: tenderness, CVA tenderness (R), CVA tenderness (L), vertebral tenderness - Neurological Exam Neurological exam: Present: alert, oriented X3, other (No facial droop. Tongue midline. Extraocular movements intact bilaterally. Facial sensation intact to light touch in V1, V2, V3 distribution bilaterally. 5 and a 5 strength in 4 extremities. Sensation intact to light touch in 4 extremities.). Absent: motor sensory deficit - Psychiatric Psychiatric exam: Present: anxious. Absent: homicidal ideation, suicidal ideation - Skin Skin exam: Present: warm, dry, intact, normal color. Absent: rash ED Course Vital Signs 12/28/19 12/28/19 12/28/19 03:54 07:03 08:38 Temperature 97.9 F Pulse Rate 88 73 74 Respiratory 18 18 12 Rate Blood Pressure 134/88 Blood Pressure 138/96 119/76 [Left] O2 Sat by Pulse 100 97 100 Oximetry - Reevaluation(s) Reevaluation #1: 12/28/19 07:23 Differential diagnosis, including but not limited to: GERD, gastritis, hiatal hernia, Jaz-Tee tear, Boerhaave syndrome, pulmonary embolism, acute coronary syndrome, pancreatitis, colitis, diverticulitis, alcoholism, electrolyte derangement Assessment and plan: 54-year-old gentleman with complaint of chest pain, neck pain, back trapezius pain, diffuse abdominal pain, known history of emp hysematous gastritis, alcoholism On my initial assessment the patient is afebrile with reassuring vital signs, resting comfortably in his stretcher, and playing on a cellular phone. Given his numerous complaints, and concomitant medical comorbidities, we will obtain CT scan of the chest to exclude emergent pathology. Patient reports no DVT or pulmonary embolism risk factors, and I find her to be low risk by Wells criteria. CT scan of the abdomen pelvis will be obtained given history, mild di ffuse abdominal tenderness, and known pancreatitis. Laboratory studies today demonstrate new onset hyponatremia, new onset hypochloremia. I suspect that this is a hypovolemic hyponatremia, likely se condary to beer podomania. Contacted nephrology on-call, Dr. Moiz Cole, and discussed the p atient's history, physical, and pertinent laboratory studies. He recommends normal saline at 75 cc/h, and indicates he will evaluate the patient and make further recommendations. Hyponatremia labs ordered. We will reassess after initial data points, anticipate admission for hyponatremia. EKG unchanged from prior. This is unlikely to be acute coronary syndrome. Assuming negative troponin, I find the patient to be low risk for major adverse cardiac event as per heart score. He presents frequently with chest pain to this department. 12/28/19 07:26 12/28/19 07:29 Reevaluation #2: 12/28/19 09:31 CT scan of the chest negative for acute pathology. CT scan of the abdomen pelvis is reviewed and appreciated. Do not suspect any significant clinical significance to reported potential intussusception No active vomiting at this time. Hospital physician, Dr. Pantera Castellano to admit - Consultations Consultation #1: 12/28/19 09:41 CT scan abdomen pelvis is reviewed and appreciated. No active vomiting at this time. Patient resting comfortably at this time, and in no acute distress. I contacted our general surgeon on-call, Dr. Elliott, and we discussed the patient's history, physical, pertinent laboratory studies and imaging findings. We are of the opinion that the suspected potential intussusception on CT scan a bdomen pelvis is likely an incidental finding, and unlikely to be the causative diagnosis for the patient's initial presentation. We both agree that no emergent surgical intervention or consultation is recommended. Supportive care by the medical team will be continued. Dr. Elliott indicates that the patient has a change in his clinical condition, or if the patient's medical team has a specific question, the general surgery team can be contacted if the inpatient team so desires ED Medical Decision Making - Lab Data Result diagrams: 12/28/19 04:54 12/28/19 04:54 Vital Signs 12/28/19 12/28/19 03:54 07:03 Temperature 97.9 F Pulse Rate 88 73 Respiratory 18 18 Rate Blood Pressure 134/88 Blood Pressure 138/96 [Left] O2 Sat by Pulse 100 97 Oximetry Lab Results 12/28/19 12/28/19 12/28/19 Range/Units 04:54 04:54 04:54 WBC 5.9 (4.5-11.0) K/mm3 RBC 4.81 (3.65-5.03) M/mm3 Hgb 13.6 (11.8-15.2) gm/dl Hct 41.5 (35.5-45.6) % MCV 86 (84-94) fl MCH 28 (28-32) pg MCHC 33 (32-34) % RDW 21.2 H (13.2-15.2) % Plt Count 268 (140-440) K/mm3 Lymph % (Auto) 21.6 (13.4-35.0) % Kemper % (Auto) 12.7 H (0.0-7.3) % Eos % (Auto) 0.7 (0.0-4.3) % Baso % (Auto) 0.8 (0.0-1.8) % Lymph # 1.3 (1.2-5.4) K/mm3 Kemper # 0.8 (0.0-0.8) K/mm3 Eos # 0.0 (0.0-0.4) K/mm3 Baso # 0.0 (0.0-0.1) K/mm3 Seg Neutrophils % 64.2 (40.0-70.0) % Seg Neutrophils # 3.8 (1.8-7.7) K/mm3 Sodium 118 L* (137-145) mmol/L Potassium 4.2 (3.6-5.0) mmol/L Chloride 76.5 L (98-107) mmol/L Carbon Dioxide 23 (22-30) mmol/L Anion Gap 23 mmol/L BUN 3 L (9-20) mg/dL Creatinine 0.6 L (0.8-1.5) mg/dL Estimated GFR > 60 ml/min BUN/Creatinine Ratio 5 % Glucose 77 (75-100) mg/dL Calcium 8.7 (8.4-10.2) mg/dL Total Bilirubin 0.40 (0.1-1.2) mg/dL AST 54 H (5-40) units/L ALT 28 (7-56) units/L Alkaline Phosphatase 78 (35-129) units/L Troponin T < 0.010 (0.00-0.029) ng/mL Total Protein 7.1 (6.3-8.2) g/dL Albumin 4.4 (3.9-5) g/dL Albumin/Globulin Ratio 1.6 % - EKG Data -: EKG Interpreted by Me EKG shows normal: sinus rhythm Rate: normal - EKG Data 12/28/19 07:22 This is a sinus rhythm, 84 bpm, normal axis, left ventricular hypertrophy, repolarization changes, motion artifact, abnormal EKG, not a STEMI, SC interval, QTC within normal limits, grossly unchanged from prior EKG from October 2019 - Radiology Data Radiology results: pending, report reviewed, image reviewed Print Report Referring Physician: KATJA CHAUDHRY Patient Name: TARA MORENO Date of : 1965 Sex: Male Report Date: 2019-12-19 Report Status: Finalized Findings [facility] [address] [place] [address] Cat Scan Report Signed Patient: TARA MORENO MR#: [id number] 2 : 1965 Acct:[id number] Age/Sex: 54 / M ADM Date: 12/19/19 Loc: ED Attending Dr: Ordering Physician: KATJA CHAUDHRY DO Date of Service: 12/19/19 Procedure(s): CT abdomen pelvis w con Accession Number(s): [id number] cc: KATJA CHAUDHRY DO CT ABDOMEN AND PELVIS WITH CONTRAST INDICATION: Epigastric pain, uncontrollable hiccups CONTRAST: 100 cc Omnipaque 300 IV COMPARISON: 11/16/[address] scans at this location are performed using CT dose reduction for ALARA by means of automated exposure control. Note: Study is noticeably marred by artifact from motion. FINDINGS: Lung bases are blurred by motion but no obvious acute infiltrates are seen. No obvious pneumoperitoneum is seen. Moderate hiatal hernia is noted and is more noticeable. Distal esophageal wall thickening is not obvious in the minimal portion of the esophagus seen today compared with prior study. Gastric wall thickening is difficult to assess due to lack of distention but does not appear to be as prominent as prior study. There is a question of mild thickening in the antral wall similar to prior study. No duodenal dilatation is noted. No evidence of bowel obstruction is seen. Appendix appears within normal limits. No urinary obstructive changes are seen. Hepatomegaly is noted. Hepatic length measures 20.3 cm. Spleen appears within normal limits. Gallbladder and bile ducts show no abnormalities. No lymphadenopathy is seen. No definite focal inflammatory changes are noted. No pelvic masses are seen. No free fluid is noted. IMPRESSION: No definite new findings are seen in a somewhat compromised study due to motion. Appearance of the stomach and duodenum is improved from prior study with possible mild wall thickening remaining in the distal stomach. The esophagus is not well seen but no wall thickening is noted which is improved from prior examination. The moderate hiatal hernia is mildly more prominent today. No other acute findings are noted. Signer Name: Hernan Cole MD Signed: 12/19/2019 9:11 PM Workstation Name: [id number] Transcribed By: GJ Dictated By: Hernan Cole MD Electronically Authenticated By: Hernan Cole MD Signed Date/Time: 12/19/192110 DD/ 04 TD/TT: Print Report Referring Physician: MUSHTAQ GAGE Patient Name: TARA MROENO Date of : 1965 Sex: Male Report Date: 2019-12-28 Report Status: Finalized Findings [facility] [address] [place] [address] Cat Scan Report Signed Patient: TARA MORENO MR#: [id number] 2 : 1965 Acct:[id number] Age/Sex: 54 / M ADM Date: 12/28/19 Loc: ED Attending Dr: Ordering Physician: MUSHTAQ GAGE MD Date of Service: 12/28/19 Procedure(s): CT angio chest Accession Number(s): [id number] cc: MUSHTAQ GAGE MD CTA CHEST WITH IV CONTRAST INDICATION: cp back pain neck pain, known hx of gastropathy. TECHNIQUE: Axial CT images were obtained through the chest after injection of 100 cc Omnipaque 350 IV contrast. 3 plane MIP reconstructions were produced. All CT scans at this location are performed using CT dose reduction for ALARA by means of automated exposure control. COMPARISON: None available. FINDINGS: Images degraded by respiratory motion. PULMONARY ARTERIES: No pulmonary emboli. THORACIC AORTA: No acute abnormality. HEART: Normal. CORONARY ARTERIES: No significant calcification. PLEURA: No pleural effusion. No pneumothorax. LYMPH NODES: No significant adenopathy. LUNGS: No acute air space or interstitial disease. Mild subpleural emphysema. ADDITIONAL FINDINGS: Slightly dilated thoracic esophagus with air-fluid level. UPPER ABDOMEN: No acute findings. SKELETAL STRUCTURES: No significant osseous abnormality. IMPRESSION: 1. No CT evidence for pulmonary embolism. 2. Slightly dilated thoracic esophagus containing air-fluid level characteristic for known history of gastropathy. Signer Name: Hernan Palacios MD Signed: 12/28/2019 9:12 AM Workstation Name: [id number] Transcribed By: TL Dictated By: Hernan Palacios MD Electronically Authenticated By: Hernan Palacios MD Signed Date/Time: 12/28/19911 DD/ 7 TD/TT: Print Report Referring Physician: MUSHTAQ GAGE Patient Name: TARA MORENO Date of : 1965 Sex: Male Report Date: 2019-12-28 Report Status: [place] [address] Cat Scan Report Signed Patient: TARA MORENO MR#: [id number] 2 : 1965 Acct:[id number] Age/Sex: 54 / M ADM Date: 12/28/19 Loc: ED Attending Dr: Ordering Physician: MUSHTAQ GAGE MD Date of Service: 12/28/19 Procedure(s): CT abdomen pelvis w con Accession Number(s): [id number] cc: MUSHTAQ GAGE MD CT ABDOMEN AND PELVIS WITH CONTRAST INDICATION: acute abd pain poancreatitis. TECHNIQUE: Axial CT images were obtained through the abdomen and pelvis after 100 cc Omnipaque [address] scans at this location are performed using CT dose reduction for ALARA by means of automated exposure control. COMPARISON: CT abdomen pelvis 12/19/2019 FINDINGS: LOWER CHEST: No significant abnormality. LIVER: No significant abnormality. GALLBLADDER: No significant abnormality. BILE DUCTS: No significant abnormality. PANCREAS: No significant abnormality. SPLEEN: No significant abnormality. ADRENALS: No significant abnormality. RIGHT KIDNEY and URETER: No significant abnormality. LEFT KIDNEY and URETER: No significant abnormality. STOMACH and SMALL BOWEL: Small sliding hiatal hernia, decreased in size since previous study. Enteroenteric intussusception within the proximal to mid jejunum images 68 through 74 likely transient, commonly seen and of doubtful clinical significance No significant abnormality. COLON: No significant abnormality. APPENDIX: No significant abnormality. PERITONEUM: No free fluid. No free air. No fluid collection. LYMPH NODES: No significant adenopathy. AORTA and ARTERIES: No significant abnormality. IVC and VEINS: No significant abnormality. URINARY BLADDER: No significant abnormality. REPRODUCTIVE ORGANS: No significant abnormality. ADDITIONAL FINDINGS: None. SKELETAL SYSTEM: No significant abnormality. IMPRESSION: 1. No significant abnormality. Signer Name: Hernan Palacios MD Signed: 12/28/2019 9:17 AM Workstation Name: [id number] Transcribed By: TL Dictated By: Hernan Palacios MD Electronically Authenticated By: Hernan Palacios MD Signed Date/Time: 12/28/19916 DD/ 1 Critical Care Time: Yes Critical care time in (mins) excluding proc time.: 35 Critical care attestation.: If time is entered above; I have spent that time in minutes in the direct care of this critically ill patient, excluding procedure time. ED Disposition Clinical Impression: Acute abdominal pain, Acute chest pain, Acute hyponatremia, Alcohol dependence Disposition: OP ADMIT IP TO THIS HOSP Is pt being admited?: Yes Does the pt Need Aspirin: No (Aspirin to be held given history of gastritis and upper GI bleed) Condition: Stable Instructions: Chest Pain (ED) Referrals: PRIMARY CARE, [Primary Care Provider] - 3-5 Days
[2019-12-28 06:45] LABS: Alanine Aminotransferase 28 units/L (7-56); Albumin 4.4 g/dL (3.9-5); BUN/Creatinine Ratio 5; Blood Urea Nitrogen 3 mg/dL (9-20); Calcium 8.7 mg/dL (8.4-10.2); Hemolysis Index 3
[2019-12-28] MEDS ORDERED: D5W/0.45% NACL 1,000 ML IV SCH (07:00)
[2019-12-28] MEDS ORDERED: diazePAM 10 MG/2 ML SYRINGE IV ONE ×3 (07:20→12:00)
[2019-12-28] MEDS ORDERED: DEXTROSE 50% IN WATER (25GM) 50 ML VIAL IV PRN (07:28)
[2019-12-28] MEDS ORDERED: THIAMINE 100 MG, FOLIC ACID 1 MG, MULTIPLE VITAMIN INJ, ADULT 10 ML in SODIUM CHLORIDE ... IV ONE (08:30)
--- NOTE | 2019-12-28 08:49 | Consultation ---
History of Present Illness - Reason for Consult Consult date: 12/28/19 hypokalemia Requesting physician: MUSHTAQ GAGE - History of Present Illness This is a 54-year-old gentleman. He has a history of endoscopically proven emphysematous gastritis, anemia, alcoholism and alcohol dependence. He presents to the ER today with 3 to 4 days of central and left-sided chest pain, left-sided neck pain, left-sided trapezius pain, and diffuse abdominal pain, and reports nausea, vomiting and diarrhea. Denies headache and neck pain. Denies irritative and obstructive urinary symptoms. Denies muscle cramps. Denies homicidality and suicidality. States last alcoholic beverage was within the past 24 hours. Chest pain neck pain and back pain throbbing and intermittent, achy. Abdominal pain throbbing and achy. -: Gradual, days(s) Location: neck, chest, back, abdomen Quality: aching Consistency: intermittent Improves with: none Worsens with: none ROS: Stated complaint: NECK AND ABDOMINAL PAIN Other details as noted in HPI Constitutional: denies: fever Eyes: denies: eye discharge ENT: denies: epistaxis Respiratory: denies: cough Cardiovascular: chest pain Gastrointestinal: abdominal pain, nausea, vomiting, diarrhea Genitourinary: denies: dysuria Musculoskeletal: arthralgia, myalgia Neurological: weakness Psychiatric: anxiety. denies: homicidal thoughts, suicidal thoughts - Past Medical History Previous Medical History?: Yes Hx Hypertension: Yes Hx Heart Attack/AMI: No Hx Congestive Heart Failure: No Hx Diabetes: No Hx Deep Vein Thrombosis: No Hx GERD: Yes Hx Renal Disease: No Hx Sickle Cell Disease: No Hx Kidney Stones: No Hx Asthma: No Hx COPD: No Hx Tuberculosis: No Hx HIV: No Additional medical history: Low sodium secondary to excessive water intake, low potassium, HERNIA H-PYLORIC, gastritis, esophagitis, daily alcohol use, pancreatitis - Surgical History Past Surgical History?: No Hx Coronary Stent: No Hx Pacemaker: No Hx Internal Defibrillator: No - Social History Smoking Status: Current Every Day Smoker Substance Use Type: Alcohol Medications and Allergies Allergies Allergy/AdvReac Type Severity Reaction Status Date / Time aspirin Allergy Bleeding Verified 10/15/19 13:58 Home Medications Medication Instructions Recorded Confirmed Last Taken Type Pantoprazole [Protonix TAB] 40 mg PO BID #60 tablet 05/29/20 Unknown Rx hydrALAZINE [Apresoline TAB] 50 mg PO Q8HR #90 tablet 11/18/19 Unknown Rx Dicyclomine [Bentyl] 20 mg PO QID PRN #20 tablet 11/21/19 Unknown Rx Ondansetron [Zofran ODT TAB] 4 mg PO Q8HR PRN #20 tab.rapdis 11/21/19 Unknown Rx Pantoprazole [Protonix] 40 mg PO QDAY #20 tablet 12/19/19 Unknown Rx Active Meds: Active Medications Dextrose (D50w (25gm) Vial) 50 gm IV Q30MIN PRN; Protocol PRN Reason: Hypoglycemia Thiamine HCl 100 mg/ Folic Acid 1 mg/ Multivitamins/Minerals 10 ml/ Sodium Chloride 1,011.2 mls @ 250 mls/hr IV ONCE ONE Stop: 12/28/19 12:32 Dextrose/Sodium Chloride (D5ns) 1,000 mls @ 75 mls/hr IV DIRECT LEA Sodium Chloride (Sodium Chloride) 1 gm PO TID LEA Exam - Vital Signs Vital signs: Vital Signs Temp Pulse Resp BP Pulse Ox 97.9 F 88 18 134/88 100 12/28/19 03:54 12/28/19 03:54 12/28/19 03:54 12/28/19 03:54 12/28/19 03:54 - Physical Exam Narrative exam: - General Limitations: No Limitations General appearance: alert, anxious - Head Head exam: Present: atraumatic, normocephalic - Eye Eye exam: Present: normal appearance, EOMI - ENT ENT exam: Present: normal exam, normal orophraynx, mucous membranes moist, javier l external ear exam - Neck Neck exam: Present: normal inspection, full ROM. Absent: tenderness, meningismus - Respiratory Respiratory exam: Present: normal lung sounds bilaterally. Absent: respiratory distress, chest wall tenderness - Cardiovascular Cardiovascular Exam: Present: regular rate, normal rhythm, normal heart sounds. Absent: bradycardia, tachycardia, irregular rhythm, systolic murmur, diastolic murmur, rubs, gallop - GI/Abdominal GI/Abdominal exam: Present: soft, tenderness, normal bowel sounds. Absent: distended, guarding, rebound, rigid, pulsatile mass - Rectal Rectal exam: Present: deferred - Extremities Exam Extremities exam: Present: normal inspection, full ROM, other (2+ pulses noted in the bilateral upper and lower extremities. There is no palpable cord. negative Homans sign. Muscular compartments are soft. The pelvis is stable.). Absent: pedal edema, calf tenderness - Back Exam Back exam: Present: normal inspection, full ROM, paraspinal tenderness. Absent: tenderness, CVA tenderness (R), CVA tenderness (L), vertebral tenderness - Neurological Exam Neurological exam: Present: alert, oriented X3, other (No facial droop. Tongue midline. Extraocular movements intact bilaterally. Facial sensation intact to light touch in V1, V2, V3 distribution bilaterally. 5 and a 5 strength in 4 extremities. Sensation intact to light touch in 4 extremities.). Absent: motor sensory deficit - Psychiatric Psychiatric exam: Present: anxious. Absent: homicidal ideation, suicidal ideation - Skin Skin exam: Present: warm, dry, intact, normal color. Absent: rash Results - Lab Results 12/28/19 04:54 12/28/19 04:54 Most recent lab results Calcium 8.7 mg/dL (8.4-10.2) 12/28/19 04:54 Magnesium 1.90 mg/dL (1.7-2.3) 12/28/19 07:51 Assessment and Plan Impression: * Hyponatremia * Etoh abuse * Hypoglycemia * Volume depletion Plan: * gentle isotonic ivfs * give salt tabs * follow up Na levels q 6 hrs * ok to dc once Na greater than 30 * hyponatremia due to potomania and siadh * vaptans contraindicated in liver disease
--- NOTE | 2019-12-28 09:17 | Cat Scan Report ---
CTA CHEST WITH IV CONTRAST INDICATION: cp back pain neck pain, known hx of gastropathy. TECHNIQUE: Axial CT images were obtained through the chest after injection of 100 cc Omnipaque 350 IV contrast. 3 plane MIP reconstructions were produced. All CT scans at this location are performed using CT dose reduction for ALARA by means of automated exposure control. COMPARISON: None available. FINDINGS: Images degraded by respiratory motion. PULMONARY ARTERIES: No pulmonary emboli. THORACIC AORTA: No acute abnormality. HEART: Normal. CORONARY ARTERIES: No significant calcification. PLEURA: No pleural effusion. No pneumothorax. LYMPH NODES: No significant adenopathy. LUNGS: No acute air space or interstitial disease. Mild subpleural emphysema. ADDITIONAL FINDINGS: Slightly dilated thoracic esophagus with air-fluid level. UPPER ABDOMEN: No acute findings. SKELETAL STRUCTURES: No significant osseous abnormality. IMPRESSION: 1. No CT evidence for pulmonary embolism. 2. Slightly dilated thoracic esophagus containing air-fluid level characteristic for known history of gastropathy. Signer Name: Hernan Palacios MD Signed: 12/28/2019 9:12 AM Workstation Name: [id number]
--- NOTE | 2019-12-28 09:21 | Cat Scan Report ---
CT ABDOMEN AND PELVIS WITH CONTRAST INDICATION: acute abd pain poancreatitis. TECHNIQUE: Axial CT images were obtained through the abdomen and pelvis after 100 cc Omnipaque [address] scans at this location are performed using CT dose reduction for ALARA by means of automated exposure control. COMPARISON: CT abdomen pelvis 12/19/2019 FINDINGS: LOWER CHEST: No significant abnormality. LIVER: No significant abnormality. GALLBLADDER: No significant abnormality. BILE DUCTS: No significant abnormality. PANCREAS: No significant abnormality. SPLEEN: No significant abnormality. ADRENALS: No significant abnormality. RIGHT KIDNEY and URETER: No significant abnormality. LEFT KIDNEY and URETER: No significant abnormality. STOMACH and SMALL BOWEL: Small sliding hiatal hernia, decreased in size since previous study. Enteroe nteric intussusception within the proximal to mid jejunum images 68 through 74 likely transient, comm only seen and of doubtful clinical significance No significant abnormality. COLON: No significant abnormality. APPENDIX: No significant abnormality. PERITONEUM: No free fluid. No free air. No fluid collection. LYMPH NODES: No significant adenopathy. AORTA and ARTERIES: No significant abnormality. IVC and VEINS: No significant abnormality. URINARY BLADDER: No significant abnormality. REPRODUCTIVE ORGANS: No significant abnormality. ADDITIONAL FINDINGS: None. SKELETAL SYSTEM: No significant abnormality. IMPRESSION: 1. No significant abnormality. Signer Name: Hernan Palacios MD Signed: 12/28/2019 9:17 AM Workstation Name: [id number]
--- NOTE | 2019-12-28 09:45 | History and Physical Report ---
History of Present Illness Date of examination: 12/28/19 Date of admission: 12/28/19 History of present illness: This is a 54-year-old gentleman. He has a history of endoscopically proven emp hysematous gastritis, anemia, alcoholism and alcohol dependence. He presents to the ER today with 3 to 4 days of central and left-sided chest pain, left-sided neck pain, left-sided trapezius pain, and diffuse abdominal pain, and reports nausea, vomiting and diarrhea. Denies headache and neck pain. Denies irritative and obstructive urinary symptoms. Denies muscle cramps. Denies homicidality and suicidality. States last alcoholic beverage was within the past 24 hours. Past History Past Medical History: GERD, hypertension, other (PUD) Past Surgical History: No surgical history, Other (EGD) Social history: single, + smoking, + alcohol abuse Family history: hypertension Review of System: Constitutional: no fever, no chills, no weight loss Ears, eyes, nose, mouth and throat: no nasal congestion, no nasal discharge, no sinus pressure, no vision change, no red eye. Neck: + neck pain, no rigidity. Cardiovascular: + Heartburn, no orthopnea, no palpitations, no leg swelling Respiratory: No shortness of breath, no cough, no congestion, no wheezing Gastrointestinal: no abdominal pain, no nausea, no vomiting Genitourinary : no dysuria, no hematuria Musculoskeletal: no joint swelling, + muscle ache Integumentary: no rash, no pruritis Neurological: no parathesias, no numbness, no tingling Endocrine: no cold or heat intolerance, no polyuria or polydipsia Hematologic/Lymphatic: no easy bruising, no easy bleeding, no gland swelling Allergic/Immunologic: no urticaria, no angioedema. Medications and Allergies Allergies Allergy/AdvReac Type Severity Reaction Status Date / Time aspirin Allergy Bleeding Verified 10/15/19 13:58 Home Medications Medication Instructions Recorded Confirmed Last Taken Type hydrALAZINE [Apresoline TAB] 50 mg PO Q8HR #90 tablet 11/18/19 12/28/19 12/27/19 09:00 Rx Dicyclomine [Bentyl] 20 mg PO QID PRN #20 tablet 11/21/19 12/28/19 12/27/19 09:00 Rx Ondansetron [Zofran ODT TAB] 4 mg PO Q8HR PRN #20 tab.rapdis 11/21/19 12/28/19 12/27/19 09:00 Rx Pantoprazole [Protonix] 40 mg PO QDAY #20 tablet 12/19/19 12/28/19 12/27/19 09: 00 Rx Active Meds: Active Medications Dextrose (D50w (25gm) Vial) 50 gm IV Q30MIN PRN; Protocol PRN Reason: Hypoglycemia Thiamine HCl 100 mg/ Folic Acid 1 mg/ Multivitamins/Minerals 10 ml/ Sodium Chloride 1,011.2 mls @ 250 mls/hr IV ONCE ONE Stop: 12/28/19 12:32 Dextrose/Sodium Chloride (D5ns) 1,000 mls @ 75 mls/hr IV DIRECT LEA Sodium Chloride (Sodium Chloride) 1 gm PO TID LEA Exam - Constitutional Vitals: Temp Pulse Resp BP Pulse Ox 97.9 F 74 12 119/76 100 12/28/19 03:54 12/28/19 08:38 12/28/19 08:38 12/28/19 08:38 12/28/19 08:38 HEART Score - HEART Score Troponin: Troponin T < 0.010 ng/mL (0.00-0.029) 12/28/19 07:51 Results - Labs CBC & Chem 7: 12/28/19 04:54 12/29/19 07:03 Labs: Abnormal lab results 12/28/19 12/28/19 Range/Units 04:54 04:54 RDW 21.2 H (13.2-15.2) % [place] % (Auto) 12.7 H (0.0-7.3) % Sodium 118 L* (137-145) mmol/L Chloride 76.5 L (98-107) mmol/L BUN 3 L (9-20) mg/dL Creatinine 0.6 L (0.8-1.5) mg/dL AST 54 H (5-40) units/L Assessment and Plan Hyponatremia Tobacco abuse Alcohol abuse Volume depletion with severe dehydration -Continue IV fluid hydration, nephrology consulted -Follow BMP, monitor for alcohol withdrawal -DVT prophylaxis with Lovenox
[2019-12-28 10:07] LABS: Bilirubin,Urine NEG (Negative); Blood,Urine NEG (Negative); Color,Urine Colorless (Yellow); Protein,Urine <15 mg/dL mg/dL (Negative); Urobilinogen,Urine < 2.0 mg/dL (<2.0); WBC,Urine < 1.0 /HPF (0.0-6.0)
[2019-12-28 10:10] LABS: RBC,Urine < 1.0 /HPF (0.0-6.0)
[2019-12-28] MEDS: SODIUM CHLORIDE 1 GM TAB PO SCH ×3 (10:44→21:26)
[2019-12-28] MEDS: PANTOPRAZOLE 40 MG INJ IV SCH (10:49)
[2019-12-28] MEDS ORDERED: MIDAZOLAM 5 MG/5 ML INJ MDV IV ONE (10:55)
[2019-12-28] MEDS ORDERED: D5W/0.9% NACL 1,000 ML IV ONE (15:36)
[2019-12-28] MEDS: D5W/0.9% NACL 1,000 ML IV SCH (15:39)
[2019-12-28 16:35] LABS: Creatinine,Urine 15.2 mg/dL (0.1-20.0)
[2019-12-29] MEDS: D5W/0.9% NACL 1,000 ML IV SCH (05:41)
[2019-12-29 06:38] VITALS: BP 127/88
[2019-12-29] MEDS ORDERED: LORazepam 2 MG/ML VIAL IV PRN (07:26)
[2019-12-29 07:58] LABS: BUN/Creatinine Ratio 8; Blood Urea Nitrogen 5 mg/dL (9-20); Calcium 8.4 mg/dL (8.4-10.2); Hemolysis Index 20
[2019-12-29] MEDS: PANTOPRAZOLE 40 MG INJ IV SCH (09:54)
[2019-12-29] MEDS: SODIUM CHLORIDE 1 GM TAB PO SCH (09:54)
--- NOTE | 2019-12-29 10:22 | Progress Note ---
Assessment and Plan Impression: * Hyponatremia * Etoh abuse * Hypoglycemia * Volume depletion Plan: * gentle isotonic ivfs * stop salt tabs today * NA is 132 and better * follow up Na levels q 6 hrs * ok to dc once since Na greater than 130 * hyponatremia due to potomania and siadh * vaptans contraindicated in liver disease * ok to dc home, will see prn Subjective Date of service: 12/29/19 Principal diagnosis: hyponatremia Interval history: resting in bed Objective - Exam Narrative Exam: - General Limitations: No Limitations General appearance: alert, anxious - Head Head exam: Present: atraumatic, normocephalic - Eye Eye exam: Present: normal appearance, EOMI - ENT ENT exam: Present: normal exam, normal orophraynx, mucous membranes moist, normal external ear exam - Neck Neck exam: Present: normal inspection, full ROM. Absent: tenderness, meningismus - Respiratory Respiratory exam: Present: normal lung sounds bilaterally. Absent: respiratory distress, chest wall tenderness - Cardiovascular Cardiovascular Exam: Present: regular rate, normal rhythm, normal heart sounds. Absent: bradycardia, tachycardia, irregular rhythm, systolic murmur, diastolic murmur, rubs, gallop - GI/Abdominal GI/Abdominal exam: Present: soft, tenderness, normal bowel sounds. Absent: distended, guarding, rebound, rigid, pulsatile mass - Rectal Rectal exam: Present: deferred - Extremities Exam Extremities exam: Present: normal inspection, full ROM, other (2+ pulses noted in the bilateral upper and lower extremities. There is no palpable cord. negative Homans sign. Muscular compartments are soft. The pelvis is stable.). Absent: pedal edema, calf tenderness - Back Exam Back exam: Present: normal inspection, full ROM, paraspinal tenderness. Absent: tenderness, CVA tenderness (R), CVA tenderness (L), vertebral tenderness - Neurological Exam Neurological exam: Present: alert, oriented X3, other (No facial droop. Tongue midline. Extraocular movements intact bilaterally. Facial sensation intact to light touch in V1, V2, V3 distribution bilaterally. 5 and a 5 strength in 4 extremities. Sensation intact to light touch in 4 extremities.). Absent: motor sensory deficit - Psychiatric Psychiatric exam: Present: anxious. Absent: homicidal ideation, suicidal ideation - Skin Skin exam: Present: warm, dry, intact, normal color. Absent: rash - Vital Signs Vital signs: Vital Signs - 12hr 12/29/19 12/29/19 01:27 05:08 Temperature 98.0 F Pulse Rate 65 Respiratory 18 19 Rate Blood Pressure 127/88 O2 Sat by Pulse 97 Oximetry - Lab 12/28/19 04:54 12/29/19 07:03 Most recent lab results Calcium 8.4 mg/dL (8.4-10.2) 12/29/19 07:03 Magnesium 1.90 mg/dL (1.7-2.3) 12/28/19 07:51 Urine Creatinine 15.2 mg/dL (0.1-20.0) 12/28/19 08:48 Urine Sodium 10 mmol/L 12/28/19 08:48 Medications & Allergies - Medications Allergies/Adverse Reactions: Allergies aspirin Allergy (Verified 10/15/19 13:58) Bleeding Home Medications: Home Medications Medication Instructions Recorded Confirmed Last Taken Type hydrALAZINE [Apresoline TAB] 50 mg PO Q8HR #90 tablet 11/18/19 12/28/19 12/27/19 09:00 Rx Dicyclomine [Bentyl] 20 mg PO QID PRN #20 tablet 11/21/19 12/28/19 12/27/19 09:00 Rx Ondansetron [Zofran ODT TAB] 4 mg PO Q8HR PRN #20 tab.rapdis 11/21/19 12/28/19 12/27/19 09:00 Rx Pantoprazole [Protonix] 40 mg PO QDAY #20 tablet 12/19/19 12/28/19 12/27/19 09:00 Rx Active Medications: Generic Name Dose Route Start Last Admin Trade Name Freq PRN Reason Stop Dose Admin Dextrose 50 gm 12/28/19 07:28 D50w (25gm) Vial IV Q30MIN PRN Hypoglycemia Protocol Enoxaparin Sodium 40 mg 12/29/19 22:00 Enoxaparin SUB-Q QDAY@2200 LEA Dextrose/Sodium Chloride 1,000 mls @ 75 mls/hr 12/28/19 09:00 12/29/19 05:41 D5ns IV 75 mls/hr DIRECT LEA Administration Lorazepam 2 mg 12/29/19 07:26 Ativan IV Q1H PRN Agitation Pantoprazole Sodium 40 mg 12/28/19 10:00 12/29/19 09:54 Protonix IV 12/29/19 13:00 40 mg QDAY LEA Administration Pantoprazole Sodium 40 mg 12/30/19 10:00 Protonix PO DAILY LEA
--- NOTE | 2019-12-29 10:43 | Discharge Summary ---
Providers - Providers Date of Admission: 12/28/19 09:33 Date of discharge: 12/29/19 Attending physician: ERIC SERNA 12/28/19 07:10 Consult to Physician [CONS] Urgent Comment: HE PAULO Gonzalez/DR DHALIWAL @0723 Consulting Provider: JONAH DEL CID Physician Instructions: Reason For Exam: hyponatremia Primary care physician: COUNTER CONTROL OPERATOR Hospitalization Condition: Stable Hospital course: Discharge diagnosis: Atypical chest pain, likely due to GERD Hyponatremia, repleted with IV fluid History of peptic ulcer disease and GERD, continue PPI Alcohol abuse, counseled for cessation Disposition: DC-01 TO HOME OR SELFCARE Time spent for discharge: 32 minutes Core Measure Documentation - Palliative Care Palliative Care/ Comfort Measures: Not Applicable - Core Measures Any of the following diagnoses?: none Exam - Physical Exam Narrative exam: GENERAL: well-developed and well-nourished -Serbian male lying on bed appeared to be in no discomfort. HEENT: Normocephalic. Atraumatic. No conjunctival congestion or icterus. Patient has moist mucous membranes. NECK: Supple. Trachea midline. CHEST/LUNGS: Clear to auscultated bilaterally, breathing nonlabored. No wheezes crackles or rhonchi. HEART/CARDIOVASCULAR: Regular in rate and rhythm. S1 and S2 positive. ABDOMEN: Abdomen is soft, nontender. Patient has normal bowel sounds. SKIN: There is no rash. Warm and dry. NEURO: No focal motor deficit. Follows command. MUSCULOSKELETAL: No joint effusion or tenderness. EXTRIMITY: No edema, no cyanosis or clubbing. PSYCH: Cooperative. - Constitutional Vitals: Temp Pulse Resp BP Pulse Ox 98.0 F 65 19 127/88 97 12/29/19 05:08 12/29/19 05:08 12/29/19 05:08 12/29/19 05:08 12/29/19 05:08 Plan Activity: advance as tolerated Weight Bearing Status: Weight Bear as Tolerated Diet: low fat Special Instructions: smoking cessation, other (Abstinence from alcohol) Follow up with: CRUZITO FELIX MD [Primary Care Provider] - 3-5 Days WESLEY EMERY MD [Staff Physician] - 7 Days Prescriptions: Pantoprazole [Protonix TAB] 40 mg PO QDAY #30 tablet Ondansetron [Zofran ODT TAB] 4 mg PO Q8HR PRN #20 tab.rapdis PRN Reason: Vomiting
[2019-12-29] MEDS ORDERED: ENOXAPARIN 40 MG/0.4 ML INJ SUB-Q SCH (22:00)
[2019-12-30] MEDS ORDERED: PANTOPRAZOLE 40 MG TAB PO SCH (10:00)
== END 2019-12-29 13:50 | disposition home or self-care (01) ==
LOC: ED 03:50 → INTOOBSV 09:33 → 3A 09:33
PROVIDERS: ADMIT Internal Medicine; ATTEND Internal Medicine
DX: E87.1 Hypo-osmolality and hyponatremia (principal); E86.0 Dehydration; R11.2 Nausea with vomiting, unspecified; R19.7 Diarrhea, unspecified; E16.2 Hypoglycemia, unspecified; E87.70 Fluid overload, unspecified; K21.9 Gastro-esophageal reflux disease without esophagitis; I10 Essential (primary) hypertension; F17.200 Nicotine dependence, unspecified, uncomplicated; F10.10 Alcohol abuse, uncomplicated; Z71.6 Tobacco abuse counseling; Z87.11 Personal history of peptic ulcer disease; Z79.899 Other long term (current) drug therapy; Z88.6 Allergy status to analgesic agent
CPT/HCPCS: 36415; 71045; 71275; 74177; 80048; 80053; 81001; 82550; 82570; 83690; 83735; 83935; 84300; 84443; 84484; 84550; 85025; 85379; 93005; 96361; 96365; 96366; 96372; 96375; 96376; 99291; 99406; C9113; G0378; J0500; J2405; J3360; J3411; J7030; J7042; Q9967; 80320; G0480; J2250; J7050

== ENCOUNTER 2020-03-03 17:10 | Emergency (ER) | payer MEDICAID ==
[2020-03-03 17:18] VITALS: BP 117/79
[2020-03-03] MEDS ORDERED: KETOROLAC 30 MG/1 ML INJ IM ONE (20:37)
[2020-03-03] MEDS ORDERED: dexAMETHasone 20 MG/5 ML VIAL IM ONE (20:37)
--- NOTE | 2020-03-03 20:41 | Emergency Department Report ---
ED Back Pain/Injury HPI - General Chief Complaint: Back Pain/Injury Stated Complaint: LOWER BACK PAIN Time Seen by Provider: 03/03/20 20:36 Source: patient Limitations: No Limitations - History of Present Illness Initial Comments: 54-year-old -Guyanese male presents to the emergency room complaining of back pain and rib pain on the right side status post moving furniture. Patient states that the pain is burning and it travels up and down his right side. Patient denies any urinary or bowel incontinent. Patient states that he took Advil 600 mg around 12:00. MD Complaint: back pain - Related Data Home Medications Medication Instructions Recorded Confirmed Last Taken Famotidine [Acid Controller] 20 mg PO DAILY 01/13/20 01/13/20 Unknown Ferrous Sulfate [Iron 325 MG] 325 mg PO DAILY 01/13/20 01/13/20 Unknown Folic Acid [Folvite] 1 mg PO QDAY 01/13/20 01/13/20 Unknown Multivitamin with Folic Acid [[facility] 400 mcg PO DAILY 01/13/20 01/13/20 Unknown One Daily Essential Tablet] NIFEdipine [Nifedipine ER] 60 mg PO DAILY 01/13/20 01/13/20 Unknown Sucralfate [Carafate] 1 gm PO QID 01/13/20 01/13/20 Unknown Thiamine Mononitrate (Vit B1) 100 gm PO DAILY 01/13/20 01/13/20 Unknown [Cyto B-1] Previous Rx's Medication Instructions Recorded Last Taken Type HYDROcodone/APAP 5-325 [[place] 1 each PO Q6HR PRN #14 tablet 01/13/20 Unknown Rx 5/325] Ondansetron [Zofran ODT TAB] 4 mg PO Q6HR PRN #30 tab.rapdis 01/26/20 Unknown Rx Pantoprazole [Protonix TAB] 40 mg PO BID 15 Days #30 tablet 01/26/20 Unknown Rx Methocarbamol [Robaxin] 500 mg PO Q8H PRN #15 tablet 03/03/20 Unknown Rx Allergies Allergy/AdvReac Type Severity Reaction Status Date / Time aspirin Allergy Bleeding Verified 03/03/20 17:14 ED Review of Systems ROS: Stated complaint: LOWER BACK PAIN Other details as noted in HPI ED Past Medical Hx - Past Medical History Hx Hypertension: Yes Hx Heart Attack/AMI: No Hx Congestive Heart Failure: No Hx Diabetes: No Hx Deep Vein Thrombosis: No Hx GERD: Yes Hx Renal Disease: No Hx Sickle Cell Disease: No Hx Kidney Stones: No Hx Asthma: No Hx COPD: No Hx Tuberculosis: No Hx HIV: No Additional medical history: Low sodium secondary to excessive water intake, low potassium, HERNIA H-PYLORIC, gastritis, esophagitis, daily alcohol use, pancreatitis - Surgical History Hx Coronary Stent: No Hx Pacemaker: No Hx Internal Defibrillator: No - Social History Smoking Status: Current Every Day Smoker Substance Use Type: None - Medications Home Medications: Home Medications Medication Instructions Recorded Confirmed Last Taken Type Famotidine [Acid Controller] 20 mg PO DAILY 01/13/20 01/13/20 Unknown History Ferrous Sulfate [Iron 325 MG] 325 mg PO DAILY 01/13/20 01/13/20 Unknown History Folic Acid [Folvite] 1 mg PO QDAY 01/13/20 01/13/20 Unknown History HYDROcodone/APAP 5-325 [[place] 1 each PO Q6HR PRN #14 tablet 01/13/20 Unknown Rx 5/325] Multivitamin with Folic Acid [[facility] 400 mcg PO DAILY 01/13/20 01/13/20 Unknown History One Daily Essential Tablet] NIFEdipine [Nifedipine ER] 60 mg PO DAILY 01/13/20 01/13/20 Unknown History Sucralfate [Carafate] 1 gm PO QID 01/13/20 01/13/20 Unknown History Thiamine Mononitrate (Vit B1) 100 gm PO DAILY 01/13/20 01/13/20 Unknown History [Cyto B-1] Ondansetron [Zofran ODT TAB] 4 mg PO Q6HR PRN #30 tab.rapdis 01/26/20 Unknown Rx Pantoprazole [Protonix TAB] 40 mg PO BID 15 Days #30 tablet 01/26/20 Unknown Rx Methocarbamol [Robaxin] 500 mg PO Q8H PRN #15 tablet 03/03/20 Unknown Rx ED Physical Exam - General Limitations: No Limitations General appearance: alert, in no apparent distress - Head Head exam: Present: atraumatic, normocephalic - Eye Eye exam: Present: normal appearance - ENT ENT exam: Present: mucous membranes moist - Respiratory Respiratory exam: Present: normal lung sounds bilaterally, chest wall tenderness (right side flank) - Cardiovascular Cardiovascular Exam: Present: regular rate - GI/Abdominal GI/Abdominal exam: Present: soft. Absent: distended, tenderness - Rectal Rectal exam: Present: deferred - Back Exam Back exam: Present: full ROM, tenderness, muscle spasm - Neurological Exam Neurological exam: Present: alert, oriented X3, normal gait - Psychiatric Psychiatric exam: Present: normal affect, normal mood - Skin Skin exam: Present: warm, dry, intact, normal color. Absent: rash ED Course Vital Signs 03/03/20 17:16 Temperature 98.1 F Pulse Rate 103 H Respiratory 18 Rate Blood Pressure 117/79 O2 Sat by Pulse 96 Oximetry ED Medical Decision Making - Medical Decision Making 54-year-old -Guyanese male presents to the emergency room complaining of back pain and rib pain on the right side status post moving furniture. Patient states that the pain is burning and it travels up and down his right side. Patient denies any urinary or bowel incontinent. Patient states that he took Advil 600 mg around 12:00. Patient be given Toradol 30 mg dexamethasone 10 mg and discharged home on Robaxin and recommendation take [id number] Tylenol or ibuprofen for pain. Critical care attestation.: If time is entered above; I have spent that time in minutes in the direct care of this critically ill patient, excluding procedure time. ED Disposition Clinical Impression: Back strain Disposition: DC-01 TO HOME OR SELFCARE Is pt being admited?: No Does the pt Need Aspirin: No Condition: Stable Instructions: Muscle Strain (ED) Additional Instructions: Take [id number] ibuprofen or Tylenol for pain management. Take the Robaxin for muscle strain and spasm. Increase your water intake. Continue to stay away from alcohol. Follow-up with your primary care provider if symptoms persist or gets worse Prescriptions: Methocarbamol [Robaxin] 500 mg PO Q8H PRN #15 tablet PRN Reason: Muscle Spasm Referrals: KENDELL ALDRICH MD [Primary Care Provider] - 3-5 Days Forms: Work/School Release Form(ED)
== END 2020-03-03 21:58 | disposition home or self-care (01) ==
LOC: ED 17:10
DX: S39.012A Strain of muscle, fascia and tendon of lower back, initial encounter (principal); I10 Essential (primary) hypertension; K21.9 Gastro-esophageal reflux disease without esophagitis; F17.200 Nicotine dependence, unspecified, uncomplicated; Z79.899 Other long term (current) drug therapy; Z88.6 Allergy status to analgesic agent; X58.XXXA Exposure to other specified factors, initial encounter; Y93.89 Activity, other specified; Y92.89 Other specified places as the place of occurrence of the external cause; Y99.8 Other external cause status
CPT/HCPCS: 96372; 99282; J1100; J1885

== ENCOUNTER 2020-07-08 18:21 | Emergency (ER) | payer MEDICAID ==
[2020-07-08] MEDS ORDERED: FAMOTIDINE 20 MG/2 ML INJ IV ONE (19:59)
[2020-07-08] MEDS ORDERED: SODIUM CHLORIDE 0.9% 1000 ML 1,000 ML IV ONE (19:59)
[2020-07-08] MEDS ORDERED: ONDANSETRON 4 MG/2 ML INJ IV ONE (20:05)
--- NOTE | 2020-07-08 20:05 | Event Note ---
ED Screening Note Date of service: 07/08/20 Time: 20:03 ED Screening Note: 54-year-old -[place] male presents to the emergency room for severe epigastric pain that radiates to his chest. Patient reports he has bad heartburn. Patient states that this started today. He denies any fever no chills but admits to nausea and vomiting up black coffee ground emesis. Patient has a history of chronic alcohol use, pancreatitis, H pyloric, gastritis. Patient also has a history of diabetes. Patient complains of burping. Reports that the epigastric and chest pain is worse with lying down. Patient is noted to have tachycardic of 119. This initial assessment/diagnostic orders/clinical plan/treatment(s) is/are subject to change based on patients health status, clinical progression and re- assessment by fellow clinical providers in the ED. Further treatment and workup at subsequent clinical providers discretion. Patient/guardian urged not to elope from the ED as their condition may be serious if not clinically assessed and managed. Initial orders include: CBC CMP lipase chest x-ray troponin IV, normal saline, Pepcid and Zofran.
--- NOTE | 2020-07-08 20:34 | XRay Report ---
CHEST 2 VIEWS INDICATION / CLINICAL INFORMATION: sob,cough and rales. COMPARISON: 01/25/2020. FINDINGS: SUPPORT DEVICES: None. HEART / MEDIASTINUM: No significant abnormality. LUNGS / PLEURA: No significant pulmonary or pleural abnormality. No pneumothorax. ADDITIONAL FINDINGS: No significant additional findings. IMPRESSION: 1. No acute findings. No significant interval change since 01/25/2020. Signer Name: Charli George MD Signed: 07/08/2020 8:29 PM Workstation Name: [id number]
[2020-07-08 20:56] LABS: Basophils % (Auto) 0.4 % (0.0-1.8); Eosinophils % (Auto) 0.4 % (0.0-4.3); Hematocrit 43.4 % (35.5-45.6); Hemoglobin 14.5 gm/dl (11.8-15.2); Lymphocytes # (Auto) 1.8 K/mm3 (1.2-5.4); Lymphocytes % (Auto) 16.5 % (13.4-35.0); Mean Corpuscular HGB Conc 33 % (32-34); Mean Corpuscular Volume 94 fl (84-94); Monocytes # (Auto) 0.7 K/mm3 (0.0-0.8); Monocytes % (Auto) 6.7 % (0.0-7.3); Platelet Count 310 K/mm3 (140-440); Red Blood Count 4.64 M/mm3 (3.65-5.03)
[2020-07-08 21:07] LABS: Alanine Aminotransferase 24 units/L (7-56); Albumin 4.6 g/dL (3.9-5); BUN/Creatinine Ratio 13; Blood Urea Nitrogen 14 mg/dL (9-20); Calcium 9.3 mg/dL (8.4-10.2); Hemolysis Index 31
--- NOTE | 2020-07-08 22:57 | Cat Scan Report ---
CT ABDOMEN AND PELVIS WITH CONTRAST INDICATION / CLINICAL INFORMATION: Epigastric pain coffee-ground emesis. TECHNIQUE: Axial CT images were obtained through the abdomen and pelvis after IV contrast. All CT scans at this location are performed using CT dose reduction for ALARA by means of automated exposure control. COMPARISON: 01/26/2020. FINDINGS: LOWER CHEST: No significant abnormality. LIVER: Mild hepatic steatosis and hepatomegaly stable since prior exam. GALLBLADDER: No significant abnormality. BILE DUCTS: No significant abnormality. PANCREAS: No significant abnormality. SPLEEN: No significant abnormality. ADRENALS: No significant abnormality. RIGHT KIDNEY / URETER: No significant abnormality. LEFT KIDNEY / URETER: No significant abnormality. STOMACH / SMALL BOWEL: Minimally limited evaluation of the distal stomach and proximal small bowel se condary to motion artifact. Moderate hiatal hernia. No definitive mechanical bowel obstruction. COLON: No significant abnormality. APPENDIX: No significant abnormality. PERITONEUM: No free fluid. No free air. No fluid collection. LYMPH NODES: No significant adenopathy. AORTA / ARTERIES: Mild atherosclerotic calcification without acute abnormality. IVC / VEINS: No significant abnormality. URINARY BLADDER: No significant abnormality. REPRODUCTIVE ORGANS: No significant abnormality. ADDITIONAL FINDINGS: Persistent small fat-containing umbilical hernia. SKELETAL SYSTEM: Moderate multilevel degenerative changes are again noted. Sacralization is again not ed of L5 level. No aggressive osseous lesions. IMPRESSION: 1. No definite acute process of the abdomen or pelvis on this minimally limited exam. Specifically, n o definitive pneumoperitoneum. 2. Persistent hiatal hernia unchanged from prior exam. 3. Persistent mild hepatic steatosis and hepatomegaly. Signer Name: Charli George MD Signed: 07/08/2020 10:52 PM Workstation Name: [id number]
[2020-07-09 03:09] VITALS: BP 150/107
--- NOTE | 2020-07-09 09:35 | Emergency Department Report ---
ED Chest Pain HPI - General Chief Complaint: Abdominal Pain Stated Complaint: CHEST PAIN Time Seen by Provider: 07/09/20 09:31 Source: patient Mode of arrival: Ambulatory Limitations: No Limitations - History of Present Illness Initial Comments: This is a 54-year-old male who complains of epigastric pain which does somewhat radiate like heartburn to his chest. He states "I have bad heartburn". He has had previous endoscopy by Dr. Funez demonstrating Patterson's esophagus. He states he is followed up with Ramila MOSELEY on his esophageal and stomach biopsies which "came out all right". He states he was last seen by Ramila MOSELEY in March. He is run out of his Protonix. He states he is given samples of something else that starts with an L. However, Medicaid did not approve it. 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 His symptoms are quite recurrent and include hiccuping. He has presented to this facility and been admitted at least twice for similar symptoms. He does not actually complain of chest pain per se nor dyspnea nor sweating nor nausea or vomiting. 11/09 Hospitalization: Hospitalization Reason for admission: abdominal pain Condition: Stable Hospital course: 54-year-old -[place] male presenting to the emergency room today complaining of abdominal pain. Abdominal pain is said to be more in the epigastric region and radiating towards the mid chest. He has known history of GERD , hypertension, gastritis and pancreatitis in the past. He also indicates that he ran out of his Protonix and had some beer today which made his abdominal pain worse. He has been having some nausea and vomiting. Emesis is said to be coffee-ground. He also had some bright red blood in his stool. He denies any diarrhea, no fever or chills, no headache or dizziness. Review of his record shows a significant drop in his hemoglobin in the past few months. Work-up in the emergency room including CT scan of the abdomen shows emphysematous gastritis. Director Of Fundraising Dr. Palafox was notified by the ER physician and recommendation was to place patient on IV Protonix. He is also made to be made n.p.o. He was evaluated by GI and per GI The patient was admitted with sharp epigastric pain, causing N/V, after an EtOH binge. This pain was similar to an admit in April, when he was dx with gastritis/esophagitis at EGD by Dr Funez. The patient had run out of his dicyc lomine and protonix in the last 4 days. Of note, his lipase was also mildly elevated both times (both occurred after EtOH binge). Imaging shows no chronic pancreatitis. The patient has no CP or SOB, and his N/V/abdominal pain now has resolved and he wants to eat. He denies excess NSAID use. (1) Emphysematous gastritis Current Visit: Yes Status: Acute Plan to address problem: - Generally benign, and can be seen with severe retching (EtOH pancreatitis) and underlying gastropathy. - OK to advance diet, and resume PO protonix. - If tolerates PO diet, and no further emesis, OK to d/c home without EGD. - Patient should avoid all NSAIDs at home, and refrain from smoking. (2) Anemia Current Visit: Yes Status: Acute Qualifiers: Anemia type: unspecified type Qualified Code(s): D64.9 - Anemia, unspecified Plan to address problem: Probably secondary to GI bleed. Will monitor CBC. (3) EtOH dependence Current Visit: Yes Status: Acute Qualifiers: Substance use status: unspecified alcohol-induced disorder Qualified Code(s): F10.29 - Alcohol dependence with unspecified alcohol-induced disorder Plan to address problem: Counseled on quitting alcohol abuse. MD Complaint: other ("Heartburn" hiccuping and epigastric pain) -: month(s) Onset: during rest Pain Location: epigastric Pain Radiation: none (Above indicated) Severity: moderate Quality: other (Burning) Consistency: intermittent Improves With: nothing Worsens With: nothing re: other (Hiccuping). denies: nausea, vomting, diaphoresis, dyspnea, sense of impending doom Other Symptoms: denies: cough, fever, syncope Treatments Prior to Arrival: none - Related Data Home Medications Medication Instructions Recorded Confirmed Last Taken Famotidine [Acid Controller] 20 mg PO DAILY 01/13/20 01/13/20 Unknown Ferrous Sulfate [Iron 325 MG] 325 mg PO DAILY 01/13/20 01/13/20 Unknown Folic Acid [Folvite] 1 mg PO QDAY 01/13/20 01/13/20 Unknown Multivitamin with Folic Acid [[facility] 400 mcg PO DAILY 01/13/20 01/13/20 Unknown One Daily Essential Tablet] NIFEdipine [Nifedipine ER] 60 mg PO DAILY 01/13/20 01/13/20 Unknown Thiamine Mononitrate (Vit B1) 100 gm PO DAILY 01/13/20 01/13/20 Unknown [Cyto B-1] Previous Rx's Medication Instructions Recorded Last Taken Type HYDROcodone/APAP 5-325 [[place] 1 each PO Q6HR PRN #14 tablet 01/13/20 Unknown Rx 5/325] Ondansetron [Zofran ODT TAB] 4 mg PO Q6HR PRN #30 tab.rapdis 01/26/20 Unknown Rx Methocarbamol [Robaxin] 500 mg PO Q8H PRN #15 tablet 03/03/20 Unknown Rx Pantoprazole [Protonix TAB] 40 mg PO BID 60 Days #30 tablet 07/09/20 Unknown Rx Sucralfate [Carafate] 1 gm PO QID #120 07/09/20 Unknown Rx traMADoL [Ultram] 50 mg PO Q6HR PRN #10 tablet 07/09/20 Unknown Rx Allergies Allergy/AdvReac Type Severity Reaction Status Date / Time aspirin Allergy Bleeding Verified 07/09/20 10:24 Heart Score - HEART Score History: Slightly suspicious EKG: Normal Age: < 45 Risk factors: 1-2 risk factors Troponin: < normal limit HEART Score: 1 - Critical Actions Critical Actions: 0-3 pts:0.9-1.7%risk of adverse cardiac event.Candidate for discharge ED Review of Systems ROS: Stated complaint: CHEST PAIN Other details as noted in HPI Constitutional: denies: chills, fever Eyes: denies: eye pain, eye discharge, vision change ENT: denies: ear pain, throat pain Respiratory: denies: cough, shortness of breath, wheezing Cardiovascular: denies: chest pain, palpitations Endocrine: no symptoms reported Gastrointestinal: abdominal pain, other (Reflux symptoms, hiccuping). denies: nausea, vomiting, diarrhea Genitourinary: denies: urgency, dysuria Musculoskeletal: denies: back pain, joint swelling, arthralgia Skin: denies: rash, lesions Neurological: denies: headache, weakness, paresthesias Psychiatric: denies: anxiety, depression Hematological/Lymphatic: denies: easy bleeding, easy bruising ED Past Medical Hx - Past Medical History Previous Medical History?: Yes Hx Hypertension: Yes Hx Heart Attack/AMI: No Hx Congestive Heart Failure: No Hx Diabetes: No Hx Deep Vein Thrombosis: No Hx GERD: Yes Hx Renal Disease: No Hx Sickle Cell Disease: No Hx Kidney Stones: No Hx Asthma: No Hx COPD: No Hx Tuberculosis: No Hx HIV: No Additional medical history: Low sodium secondary to excessive water intake, low potassium, HERNIA H-PYLORIC, gastritis, esophagitis, daily alcohol use, pancreatitis - Surgical History Past Surgical History?: No Hx Coronary Stent: No Hx Pacemaker: No Hx Internal Defibrillator: No - Social History Smoking Status: Current Every Day Smoker Substance Use Type: Alcohol, Prescribed - Medications Home Medications: Home Medications Medication Instructions Recorded Confirmed Last Taken Type Famotidine [Acid Controller] 20 mg PO DAILY 01/13/20 01/13/20 Unknown History Ferrous Sulfate [Iron 325 MG] 325 mg PO DAILY 01/13/20 01/13/20 Unknown History Folic Acid [Folvite] 1 mg PO QDAY 01/13/20 01/13/20 Unknown History HYDROcodone/APAP 5-325 [[place] 1 each PO Q6HR PRN #14 tablet 01/13/20 Unknown Rx 5/325] Multivitamin with Folic Acid [[facility] 400 mcg PO DAILY 01/13/20 01/13/20 Unknown History One Daily Essential Tablet] NIFEdipine [Nifedipine ER] 60 mg PO DAILY 01/13/20 01/13/20 Unknown History Thiamine Mononitrate (Vit B1) 100 gm PO DAILY 01/13/20 01/13/20 Unknown History [Cyto B-1] Ondansetron [Zofran ODT TAB] 4 mg PO Q6HR PRN #30 tab.rapdis 01/26/20 Unknown Rx Methocarbamol [Robaxin] 500 mg PO Q8H PRN #15 tablet 03/03/20 Unknown Rx Pantoprazole [Protonix TAB] 40 mg PO BID 60 Days #30 tablet 07/09/20 Unknown Rx Sucralfate [Carafate] 1 gm PO QID #120 07/09/20 Unknown Rx traMADoL [Ultram] 50 mg PO Q6HR PRN #10 tablet 07/09/20 Unknown Rx ED Physical Exam - General Limitations: No Limitations General appearance: alert, in no apparent distress - Head Head exam: Present: atraumatic, normocephalic - Eye Eye exam: Present: normal appearance. Absent: scleral icterus - ENT ENT exam: Present: mucous membranes moist - Neck Neck exam: Present: normal inspection - Respiratory Respiratory exam: Present: normal lung sounds bilaterally. Absent: respiratory distress - Cardiovascular Cardiovascular Exam: Present: regular rate, normal rhythm. Absent: systolic murmur, diastolic murmur, rubs, gallop - GI/Abdominal GI/Abdominal exam: Present: soft, normal bowel sounds. Absent: distended, tenderness, guarding, rebound - Rectal Rectal exam: Present: deferred - Extremities Exam Extremities exam: Present: normal inspection - Back Exam Back exam: Present: normal inspection - Neurological Exam Neurological exam: Present: alert, oriented X3, CN II-XII intact. Absent: motor sensory deficit - Psychiatric Psychiatric exam: Present: normal affect, normal mood - Skin Skin exam: Present: warm, dry, intact, normal color. Absent: rash ED Course Vital Signs 07/08/20 07/09/20 18:37 03:08 Temperature 98.2 F 98.2 F Pulse Rate 119 H 88 Respiratory 20 18 Rate Blood Pressure 134/94 150/107 O2 Sat by Pulse 98 98 Oximetry ED Medical Decision Making - Lab Data Result diagrams: 07/08/20 20:04 07/08/20 20:04 Laboratory Results - last 24 hr 07/08/20 07/08/20 07/08/20 20:04 20:04 20:04 WBC 10.9 RBC 4.64 Hgb 14.5 Hct 43.4 MCV 94 MCH 31 MCHC 33 RDW 14.0 Plt Count 310 Lymph % (Auto) 16.5 [place] % (Auto) 6.7 Eos % (Auto) 0.4 Baso % (Auto) 0.4 Lymph # (Auto) 1.8 [place] # (Auto) 0.7 Eos # (Auto) 0.0 Baso # (Auto) 0.0 Seg Neutrophils % 76.0 H Seg Neutrophils # 8.3 H Sodium 134 L Potassium 4.4 Chloride 93.3 L Carbon Dioxide 25 Anion Gap 20 BUN 14 Creatinine 1.1 Estimated GFR > 60 BUN/Creatinine Ratio 13 Glucose 70 L Calcium 9.3 Total Bilirubin 0.20 AST 38 ALT 24 Alkaline Phosphatase 105 Troponin T < 0.010 Total Protein 7.5 Albumin 4.6 Albumin/Globulin Ratio 1.6 Lipase 30 - EKG Data -: EKG Interpreted by Al EKG shows normal: sinus rhythm, axis, intervals, QRS complexes, ST-T waves Rate: normal - EKG Data Interpretation: other (Possible left atrial abnormality) - Radiology Data Radiology results: report reviewed (CT shows nothing acute) Critical care attestation.: If time is entered above; I have spent that time in minutes in the direct care of this critically ill patient, excluding procedure time. ED Disposition Clinical Impression: Hiccoughs Barretts esophagus Qualifiers: Patterson's esophagus type: with dysplasia of unspecified degree Qualified Code(s): K22.719 - Patterson's esophagus with dysplasia, unspecified; K22.71 - Patterson's esophagus with dysplasia GERD (gastroesophageal reflux disease) Qualifiers: Esophagitis presence: with esophagitis Esophagitis bleeding: without hemorrhage Qualified Code(s): K21.00 - Gastro-esophageal reflux disease with esophagitis, without bleeding Disposition: TO HOME OR SELFCARE Is pt being admited?: No Does the pt Need Aspirin: No Condition: Stable Additional Instructions: Avoid alcohol. Avoid aspirin and [id number] nonsteroidal anti- inflammatory medications. Rx as directed. Follow-up with your GI doctor. Return any acute change or problem. Prescriptions: Sucralfate [Carafate] 1 gm PO QID #120 Pantoprazole [Protonix TAB] 40 mg PO BID 60 Days #30 tablet traMADoL [Ultram] 50 mg PO Q6HR PRN #10 tablet PRN Reason: Pain Referrals: PRIMARY CARE, [Primary Care Provider] - 3-5 Days [facility] [Provider Group] - 3-5 Days Time of Disposition: 10:28
[2020-07-09] MEDS ORDERED: PANTOPRAZOLE 40 MG TAB PO ONE (10:21)
[2020-07-09] MEDS ORDERED: diphenhydrAMINE 25 MG CAP PO ONE (10:21)
[2020-07-09] MEDS ORDERED: chlorproMAZINE 25 MG TAB PO ONE (10:21)
== END 2020-07-09 11:05 | disposition home or self-care (01) ==
LOC: ED 18:21
DX: K22.70 Barrett's esophagus without dysplasia (principal); R06.6 Hiccough; K21.9 Gastro-esophageal reflux disease without esophagitis; I10 Essential (primary) hypertension; F17.200 Nicotine dependence, unspecified, uncomplicated; Z79.899 Other long term (current) drug therapy; Z88.6 Allergy status to analgesic agent
CPT/HCPCS: 36415; 71046; 74177; 80053; 83690; 84484; 85025; 93005; 96361; 96374; 96375; 99284; J2405; J7030; Q0161; Q9967

== ENCOUNTER 2020-08-18 18:22 | Emergency (ER) | payer MEDICAID ==
--- NOTE | 2020-08-18 19:14 | Event Note ---
ED Screening Note Date of service: 08/18/20 Time: 19:11 ED Screening Note: Pt c/o coffeeground emesis and abdominal chronic alcoholism hx of pancreatitis This initial assessment/diagnostic orders/clinical plan/treatment(s) is/are subject to change based on patients health status, clinical progression and re- assessment by fellow clinical providers in the ED. Further treatment and workup at subsequent clinical providers discretion. Patient/guardian urged not to elope from the ED as their condition may be serious if not clinically assessed and managed. Initial orders include: labs CT
[2020-08-18 19:45] LABS: Basophils % (Auto) 0.9 % (0.0-1.8); Eosinophils # (Auto) 0.1 K/mm3 (0.0-0.4); Eosinophils % (Auto) 1.4 % (0.0-4.3); Hemoglobin 13.5 gm/dl (11.8-15.2); Lymphocytes % (Auto) 39.4 % (13.4-35.0); Mean Corpuscular HGB Conc 34 % (32-34); Mean Corpuscular Volume 92 fl (84-94); Monocytes # (Auto) 0.5 K/mm3 (0.0-0.8); Monocytes % (Auto) 9.7 % (0.0-7.3); Platelet Count 227 K/mm3 (140-440); Red Blood Count 4.34 M/mm3 (3.65-5.03); Red Cell Distribution Width 14.2 % (13.2-15.2)
[2020-08-18 19:55] LABS: INR 1.02 (0.87-1.13)
[2020-08-18 19:56] LABS: Partial Thromboplastin Time 34.1 Sec. (24.2-36.6)
[2020-08-18] MEDS ORDERED: ONDANSETRON 4 MG/2 ML INJ IV ONE (19:57)
[2020-08-18] MEDS ORDERED: MORPHINE 4 MG/1 ML INJ IV ONE ×3 (19:57→23:43)
[2020-08-18] MEDS ORDERED: PANTOPRAZOLE 40 MG INJ IV ONE (19:57)
[2020-08-18] MEDS ORDERED: SODIUM CHLORIDE 0.9% 1000 ML 1,000 ML IV ONE ×2 (19:57→20:29)
[2020-08-18 20:02] LABS: Alanine Aminotransferase 24 units/L (7-56); Albumin 4.2 g/dL (3.9-5); BUN/Creatinine Ratio 8; Blood Urea Nitrogen 7 mg/dL (9-20); Calcium 8.3 mg/dL (8.4-10.2); Hemolysis Index 5
--- NOTE | 2020-08-18 20:44 | Cat Scan Report ---
CT ABDOMEN AND PELVIS WITH IV CONTRAST INDICATION: abdominal pain, coffee ground emesis. COMPARISON: CT 07/08/2020. TECHNIQUE: All CT scans at this facility use dose modulation, automated exposure control, iterative reconstructi on or weight based dosing, when appropriate, to reduce radiation dose to as low as reasonably achieva ble. FINDINGS: Lung Bases: No significant abnormality. Skeletal System: No acute abnormality. ABDOMEN: Liver: Mild steatosis. Gallbladder: No significant abnormality. Bile Ducts: No significant abnormality. Pancreas: No significant abnormality. Spleen: No significant abnormality. Adrenals: No significant abnormality. Right Kidney: No significant abnormality. Left Kidney: No significant abnormality. Upper GI tract: Small hiatal hernia is again noted. There is thickening of the included distal esopha trixie. There is mild gastric wall thickening. Upper GI tract is otherwise unremarkable. Lymph Nodes: No significant adenopathy. Aorta: No significant abnormality. Additional Findings: No significant abnormality. PELVIS: Colon: No acute abnormality. Diverticulosis is noted. Urinary Bladder and Distal Ureters: No significant abnormality. Appendix: No significant abnormality. Lymph Nodes: No significant adenopathy. Additional Findings: None. IMPRESSION: 1. Probable gastritis. The included distal esophagus is thick-walled suggesting esophagitis. Endosco py should be considered. Findings are similar to the prior CT. 2. Incidental findings, as above. Signer Name: Justin Allen MD Signed: 08/18/2020 8:39 PM Workstation Name: [id number]
[2020-08-18] MEDS ORDERED: chlorproMAZINE 25 MG TAB PO ONE (22:29)
[2020-08-18] MEDS ORDERED: ALUM-MAG HYDROXIDE-SIMETHICONE 200-200-20MG/5ML ORAL LIQD 30 ML PO ONE (22:29)
[2020-08-18] MEDS ORDERED: LIDOCAINE VISCOUS 2% 15 ML ORAL LIQD PO ONE (22:29)
--- NOTE | 2020-08-18 22:41 | Emergency Department Report ---
ED GI Bleed HPI - General Chief complaint: GI Bleed Stated complaint: ABD PAIN/GI BLEED Time Seen by Provider: 08/18/20 19:11 Source: patient Mode of arrival: Ambulatory Limitations: No Limitations - History of Present Illness Initial comments: Chief complaint: I hurt so bad. I have the hiccups. I'm throwing up blood." HPI: This is a 55-year-old male with history of esophagitis, gastritis, alcohol dependence, hyponatremia, H. pylori, pancreatitis, hypertension, intractable hiccups who presents with heartburn, hiccups, bloody vomitus. Symptoms began yesterday. Burning in his chest worsened with vomiting. He has dark emesis without gross blood. Patient's PCP attempted to prescribe Prevacid. Without Medicaid prior authorization, the prescription was not affordable. He has ran out of his PPI medication. He was initially given samples. He denies bloody stools. He drinks approximately 120 ounces of beer per day. He states that he wakes up in the morning and begins to drink beer. He notes that "smoking and drinking" make his symptoms worse. He had establish care with a new PCP. Patient has had multiple CT scans of the abdomen pelvis all revealing esophagitis gastritis. Patient has had a total of 7 CT scans over the past year. 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 Patient has had mostly stable hemoglobin hematocrit over his several ED encounters. However he has had 3 occasions over the years where his hemoglobin had dropped from 13-10. Patient had EGD as an inpatient while admitted to this hospital. EGD revealed gastritis, esophagitis and Patterson's esophagus. MD complaint: coffee ground emesis -: Gradual, days(s) (1) Severity scale (0 -10): 0 Quality: burning Consistency: constant, now resolved Improves with: none Worsens with: movement Context: history of GI bleed, alcohol abuse Associated Symptoms: other (Heartburn, hiccups, vomiting) - Related Data Home Medications Medication Instructions Recorded Confirmed Last Taken Famotidine [Acid Controller] 20 mg PO DAILY 01/13/20 01/13/20 Unknown Ferrous Sulfate [Iron 325 MG] 325 mg PO DAILY 01/13/20 01/13/20 Unknown Folic Acid [Folvite] 1 mg PO QDAY 01/13/20 01/13/20 Unknown Multivitamin with Folic Acid [[facility] 400 mcg PO DAILY 01/13/20 01/13/20 Unknown One Daily Essential Tablet] NIFEdipine [Nifedipine ER] 60 mg PO DAILY 01/13/20 01/13/20 Unknown Thiamine Mononitrate (Vit B1) 100 gm PO DAILY 01/13/20 01/13/20 Unknown [Cyto B-1] Previous Rx's Medication Instructions Recorded Last Taken Type HYDROcodone/APAP 5-325 [[place] 1 each PO Q6HR PRN #14 tablet 01/13/20 Unknown Rx 5/325] Ondansetron [Zofran ODT TAB] 4 mg PO Q6HR PRN #30 tab.rapdis 01/26/20 Unknown Rx Methocarbamol [Robaxin] 500 mg PO Q8H PRN #15 tablet 03/03/20 Unknown Rx Pantoprazole [Protonix TAB] 40 mg PO BID 60 Days #30 tablet 07/09/20 Unknown Rx Sucralfate [Carafate] 1 gm PO QID #120 07/09/20 Unknown Rx traMADoL [Ultram] 50 mg PO Q6HR PRN #10 tablet 07/09/20 Unknown Rx Pantoprazole [Protonix] 40 mg PO BID 90 Days #180 tablet 08/18/20 Unknown Rx Allergies Allergy/AdvReac Type Severity Reaction Status Date / Time aspirin Allergy Bleeding Verified 07/09/20 10:24 ED Review of Systems ROS: Stated complaint: ABD PAIN/GI BLEED Other details as noted in HPI Comment: All other systems reviewed and negative Constitutional: denies: chills, fever, malaise Respiratory: denies: cough, shortness of breath Cardiovascular: chest pain Gastrointestinal: nausea, vomiting. denies: abdominal pain ED Past Medical Hx - Past Medical History Previous Medical History?: Yes Hx Hypertension: Yes Hx Heart Attack/AMI: No Hx Congestive Heart Failure: No Hx Diabetes: No Hx Deep Vein Thrombosis: No Hx GERD: Yes Hx Renal Disease: No Hx Sickle Cell Disease: No Hx Kidney Stones: No Hx Asthma: No Hx COPD: No Hx Tuberculosis: No Hx HIV: No Additional medical history: Low sodium secondary to excessive water intake, low potassium, HERNIA H-PYLORIC, gastritis, esophagitis, daily alcohol use, pancreatitis - Surgical History Past Surgical History?: Yes Hx Coronary Stent: No Hx Pacemaker: No Hx Internal Defibrillator: No Additional Surgical History: Left index finger surgery - Social History Smoking Status: Current Every Day Smoker Substance Use Type: Alcohol - Medications Home Medications: Home Medications Medication Instructions Recorded Confirmed Last Taken Type Famotidine [Acid Controller] 20 mg PO DAILY 01/13/20 01/13/20 Unknown History Ferrous Sulfate [Iron 325 MG] 325 mg PO DAILY 01/13/20 01/13/20 Unknown History Folic Acid [Folvite] 1 mg PO QDAY 01/13/20 01/13/20 Unknown History HYDROcodone/APAP 5-325 [[place] 1 each PO Q6HR PRN #14 tablet 01/13/20 Unknown Rx 5/325] Multivitamin with Folic Acid [[facility] 400 mcg PO DAILY 01/13/20 01/13/20 Unknown History One Daily Essential Tablet] NIFEdipine [Nifedipine ER] 60 mg PO DAILY 01/13/20 01/13/20 Unknown History Thiamine Mononitrate (Vit B1) 100 gm PO DAILY 01/13/20 01/13/20 Unknown History [Cyto B-1] Ondansetron [Zofran ODT TAB] 4 mg PO Q6HR PRN #30 tab.rapdis 01/26/20 Unknown Rx Methocarbamol [Robaxin] 500 mg PO Q8H PRN #15 tablet 03/03/20 Unknown Rx Pantoprazole [Protonix TAB] 40 mg PO BID 60 Days #30 tablet 07/09/20 Unknown Rx Sucralfate [Carafate] 1 gm PO QID #120 07/09/20 Unknown Rx traMADoL [Ultram] 50 mg PO Q6HR PRN #10 tablet 07/09/20 Unknown Rx Pantoprazole [Protonix] 40 mg PO BID 90 Days #180 tablet 08/18/20 Unknown Rx ED Physical Exam - General Limitations: No Limitations General appearance: alert, in no apparent distress - Head Head exam: Present: atraumatic, normocephalic - Eye Eye exam: Present: conjunctival injection - ENT ENT exam: Present: mucous membranes moist - Neck Neck exam: Present: normal inspection, full ROM - Respiratory Respiratory exam: Present: normal lung sounds bilaterally. Absent: respiratory distress, wheezes, rales, rhonchi - Cardiovascular Cardiovascular Exam: Present: regular rate, normal rhythm, normal heart sounds. Absent: systolic murmur, diastolic murmur, rubs, gallop - GI/Abdominal GI/Abdominal exam: Present: soft, normal bowel sounds. Absent: distended, tenderness, guarding, rebound - Rectal Rectal exam: Present: deferred, normal rectal tone, heme (-) stool, other (Brown stool no gross blood) - Extremities Exam Extremities exam: Present: normal inspection - Neurological Exam Neurological exam: Present: alert, oriented X3 - Psychiatric Psychiatric exam: Present: normal affect, normal mood - Skin Skin exam: Present: warm, dry, intact, normal color. Absent: rash ED Course Vital Signs 08/18/20 08/18/20 08/18/20 18:24 18:27 20:26 Temperature 98.3 F 98.3 F Pulse Rate 106 H 100 H 82 Respiratory 20 20 18 Rate Blood Pressure 153/111 153/111 Blood Pressure 145/100 [Left] O2 Sat by Pulse 98 98 100 Oximetry 08/18/20 22:30 Temperature Pulse Rate 88 Respiratory 18 Rate Blood Pressure Blood Pressure 144/88 [Left] O2 Sat by Pulse 100 Oximetry ED Medical Decision Making - Lab Data Result diagrams: 08/18/20 19:25 08/18/20 19:25 Laboratory Results - last 24 hr 08/18/20 08/18/20 08/18/20 19:25 19:25 19:25 WBC 5.0 RBC 4.34 Hgb 13.5 Hct 40.0 MCV 92 MCH 31 MCHC 34 RDW 14.2 Plt Count 227 Lymph % (Auto) 39.4 H Darke % (Auto) 9.7 H Eos % (Auto) 1.4 Baso % (Auto) 0.9 Lymph # (Auto) 2.0 Darke # (Auto) 0.5 Eos # (Auto) 0.1 Baso # (Auto) 0.0 Seg Neutrophils % 48.6 Seg Neutrophils # 2.4 PT 13.3 INR 1.02 APTT 34.1 Sodium 127 L Potassium 3.7 Chloride 89.4 L Carbon Dioxide 28 Anion Gap 13 BUN 7 L Creatinine 0.9 Estimated GFR > 60 BUN/Creatinine Ratio 8 Glucose 80 Calcium 8.3 L Total Bilirubin 0.20 AST 37 ALT 24 Alkaline Phosphatase 98 Troponin T < 0.010 Total Protein 7.4 Albumin 4.2 Albumin/Globulin Ratio 1.3 Lipase 134 H - Radiology Data Radiology results: report reviewed, image reviewed CT ABDOMEN AND PELVIS WITH IV CONTRAST INDICATION: abdominal pain, coffee ground emesis. COMPARISON: CT 07/08/2020. TECHNIQUE: All CT scans at this facility use dose modulation, automated exposure control, iterative reconstruction or weight based dosing, when appropriate, to reduce radiation dose to as low as reasonably achievable. FINDINGS: Lung Bases: No significant abnormality. Skeletal System: No acute abnormality. ABDOMEN: Liver: Mild steatosis. Gallbladder: No significant abnormality. Bile Ducts: No significant abnormality. Pancreas: No significant abnormality. Spleen: No significant abnormality. Adrenals: No significant abnormality. Right Kidney: No significant abnormality. Left Kidney: No significant abnormality. Upper GI tract: Small hiatal hernia is again noted. There is thickening of the included distal esophagus. There is mild gastric wall thickening. Upper GI tract is otherwise unremarkable. Lymph Nodes: No significant adenopathy. Aorta: No significant abnormality. Additional Findings: No significant abnormality. PELVIS: Colon: No acute abnormality. Diverticulosis is noted. Urinary Bladder and Distal Ureters: No significant abnormality. Appendix: No significant abnormality. Lymph Nodes: No significant adenopathy. Additional Findings: None. IMPRESSION: 1. Probable gastritis. The included distal esophagus is thick-walled suggesting esophagitis. Endoscopy should be considered. Findings are similar to the prior CT. [facility] [address] [place] [address] P [phone] F [phone] [facility] - Report exported on Sat, Aug 18, 2020 22:45:56 -0600 - Page 2 of 2 2. Incidental findings, as above. - Medical Decision Making 1. Hematemesis: Suspect blood-streaked emesis due to known esophagitis. No vomiting occurred in the emergency department. Normal hemoglobin hematocrit. No cardiovascular instability. Patient received IV PPI Protonix. 2. Heartburn chest discomfort due to known esophagitis GERD: Patient given IV PPI IV with Zofran to prevent vomiting, gastritis esophagitis again seen on CT ordered by physician in triage 3. Mild hyponatremia due to beer potomania: Patient given normal saline boluses 4. Recurrent hiccups Can be attributed to reflux esophagitis given Thorazine in the emergency department. Recommended compliance with PPI. Patient did not have any vomiting emergency department. He did have nausea and continued hiccups. I have prescribed Reglan address hiccups in vomiting. 5. Medication refill: Patient was unable to receive Prevacid due to require Medicaid prior authorization by PCP.On previous occasion patient was prescribed Protonix 40 mg p.o. twice daily. I have provided 90-day prescription. 6. Alcohol dependence. Patient is well aware that his symptoms are related to tobacco and alcohol use. He has attempted to stop drinking in the morning. I asked him to at least cut down his intake. Critical care attestation.: If time is entered above; I have spent that time in minutes in the direct care of this critically ill patient, excluding procedure time. ED Disposition Clinical Impression: Intractable hiccups, Gastritis, EtOH dependence, Hyponatremia, Esophagitis Disposition: TO HOME OR SELFCARE Is pt being admited?: No Does the pt Need Aspirin: No Condition: Stable Instructions: Hiccups, Esophagitis, Gastritis, Adult, [id number], Alcohol Abuse and Dependence Information, Adult, Finding Treatment for Addiction Prescriptions: Pantoprazole [Protonix] 40 mg PO BID 90 Days #180 tablet Referrals: PRIMARY CARE, [Primary Care Provider] - 3-5 Days
[2020-08-18] MEDS ORDERED: METOCLOPRAMIDE 10 MG/2 ML INJ IV ONE (23:43)
[2020-08-19 01:05] VITALS: BP 136/76
== END 2020-08-19 01:08 | disposition home or self-care (01) ==
LOC: ED 18:22
DX: K20.90 Esophagitis, unspecified without bleeding (principal); K29.70 Gastritis, unspecified, without bleeding; F10.20 Alcohol dependence, uncomplicated; E87.1 Hypo-osmolality and hyponatremia; R06.6 Hiccough; I10 Essential (primary) hypertension; K21.9 Gastro-esophageal reflux disease without esophagitis; F17.200 Nicotine dependence, unspecified, uncomplicated; Z98.890 Other specified postprocedural states; Z79.899 Other long term (current) drug therapy; Z88.6 Allergy status to analgesic agent
CPT/HCPCS: 36415; 74177; 80053; 83690; 84484; 85025; 85610; 85730; 96361; 96374; 96375; 96376; 99284; C9113; J2270; J2405; J2765; J7030; Q0161; Q9967

== ENCOUNTER 2020-10-12 09:28 | Emergency (ER) | payer MEDICAID ==
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
[2020-10-12] MEDS ORDERED: HYDROcodone/ACETAMINOPHEN 5-325 MG TAB PO ONE (11:58)
[2020-10-12 12:53] VITALS: BP 128/69
== END 2020-10-12 12:53 | disposition home or self-care (01) ==
LOC: ED 09:28
DX: S27.0XXA Traumatic pneumothorax, initial encounter (principal); S22.32XA Fracture of one rib, left side, initial encounter for closed fracture; S09.92XA Unspecified injury of nose, initial encounter; I10 Essential (primary) hypertension; K21.9 Gastro-esophageal reflux disease without esophagitis; F17.200 Nicotine dependence, unspecified, uncomplicated; Z98.890 Other specified postprocedural states; Z79.899 Other long term (current) drug therapy; Z88.8 Allergy status to other drugs, medicaments and biological substances; Y04.8XXA Assault by other bodily force, initial encounter; Y93.89 Activity, other specified; Y92.89 Other specified places as the place of occurrence of the external cause; Y99.8 Other external cause status
CPT/HCPCS: 70150

== ENCOUNTER 2020-10-12 22:06 | Inpatient (IN) | payer MEDICAID ==
--- NOTE | 2020-10-12 23:49 | Event Note ---
ED Screening Note ED Screening Note: Patient diagnosed with a rib fracture and small apical pneumothorax presents for worsening pain and shortness of breath He states he was given a prescription for Tylenol 3 but it is not helping He states his pain is increased with laying on that side, coughing, burping This initial assessment/diagnostic orders/clinical plan/treatment(s) is/are subject to change based on patients health status, clinical progression and re- assessment by fellow clinical providers in the ED. Further treatment and workup at subsequent clinical providers discretion. Patient/guardian urged not to elope from the ED as their condition may be serious if not clinically assessed and managed. Initial orders include: xr, labs
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
[2020-10-13 00:53] LABS: Hematocrit 38.1 % (35.5-45.6); Hemoglobin 12.8 gm/dl (11.8-15.2); Mean Corpuscular HGB Conc 34 % (32-34); Mean Corpuscular Volume 94 fl (84-94); Platelet Count 285 K/mm3 (140-440); Red Blood Count 4.05 M/mm3 (3.65-5.03); Red Cell Distribution Width 14.6 % (13.2-15.2)
[2020-10-13 01:18] LABS: Alanine Aminotransferase 18 units/L (7-56); Albumin 4.6 g/dL (3.9-5); Blood Urea Nitrogen 7 mg/dL (9-20); Calcium 8.5 mg/dL (8.4-10.2); Hemolysis Index 49
[2020-10-13 01:36] LABS: BUN/Creatinine Ratio 12
[2020-10-13] MEDS ORDERED: ONDANSETRON 4 MG/2 ML INJ IV ONE (03:50)
[2020-10-13] MEDS ORDERED: SODIUM CHLORIDE 0.9% 1000 ML 1,000 ML IV ONE (03:50)
[2020-10-13] MEDS ORDERED: fentaNYL 100 MCG/2 ML INJ IV ONE (03:50)
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
[2020-10-13 04:00] LABS: Total Cells Counted 100
[2020-10-13 04:01] LABS: Anisocytosis 1+; Platelet Estimate Consistent w Auto
[2020-10-13] MEDS ORDERED: ACETAMINOPHEN 325 MG TAB PO PRN (04:36)
[2020-10-13] MEDS ORDERED: ONDANSETRON 4 MG/2 ML INJ IV PRN (04:36)
[2020-10-13] MEDS ORDERED: hydrALAZINE 20 MG/1 ML INJ IV PRN (04:37)
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
[2020-10-13] MEDS ORDERED: SODIUM CHLORIDE 0.9% 1000 ML 1,000 ML IV SCH (04:45)
[2020-10-13] MEDS: MORPHINE 2 MG/1 ML INJ IV PRN ×4 (06:36→20:06)
[2020-10-13] MEDS: HEPARIN 5,000 UNIT/1 ML VIAL SUB-Q SCH ×3 (06:37→21:54)
[2020-10-13] MEDS: IPRATROPIUM/ALBUTEROL SULFATE 3 ML AMPUL.NEB IH SCH ×3 (08:43→20:37)
[2020-10-13 08:58] LABS: BUN/Creatinine Ratio 8; Blood Urea Nitrogen 6 mg/dL (9-20); Calcium 8.3 mg/dL (8.4-10.2); Hemolysis Index 5
[2020-10-13] MEDS: FOLIC ACID 1 MG TAB PO SCH (08:59)
[2020-10-13] MEDS: NIFEdipine XL 60 MG TAB PO SCH (08:59)
[2020-10-13] MEDS: SUCRALFATE 1 GM TAB PO SCH ×4 (09:00→21:54)
[2020-10-13] MEDS: THIAMINE 100 MG TAB PO SCH (09:00)
[2020-10-13] MEDS: PANTOPRAZOLE 40 MG TAB PO SCH ×2 (09:00→21:54)
[2020-10-13] MEDS: FERROUS SULFATE 325 MG TAB PO SCH (09:00)
[2020-10-13] MEDS: MULTIVITAMINS ,THERAPEUTIC TAB PO SCH (09:00)
[2020-10-13] MEDS ORDERED: NON-FORMULARY EACH (Nifedipine [Nifedipine Er] 60 MG Tablet.Er) PO SCH (10:00)
[2020-10-13] MEDS ORDERED: FAMOTIDINE 20 MG TAB PO SCH (10:00)
[2020-10-13] MEDS ORDERED: THIAMINE MONONITRATE PO SCH (10:00)
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
--- NOTE | 2020-10-13 13:17 | Consultation ---
History of Present Illness - Reason for Consult Consult date: 10/13/20 hyponatremia - History of Present Illness 55 year old M with PMH of hypertension, GERD, history of hyponatremia low potassium gastritis esophagitis Daily alcohol abuse and pancreatitis admitted with left rib pain and found to have rib fractures and hyponatremia. Pt's Na level is 116. Pt has had some SHOB. He currently denies fever, chills. ROS: As in HPI otherwise 12 point review of systems -ve Past History Past Medical History: GERD, hypertension, other (Hyponatremia low potassium pancreatitis gastritis) Medications and Allergies Allergies Allergy/AdvReac Type Severity Reaction Status Date / Time aspirin Allergy Bleeding Verified 07/09/20 10:24 Home Medications Medication Instructions Recorded Confirmed Last Taken Type Famotidine [Acid Controller] 20 mg PO DAILY 01/13/20 01/13/20 Unknown History Ferrous Sulfate [Iron 325 MG] 325 mg PO DAILY 01/13/20 01/13/20 Unknown History Folic Acid [Folvite] 1 mg PO QDAY 01/13/20 01/13/20 Unknown History HYDROcodone/APAP 5-325 [[place] 1 each PO Q6HR PRN #14 tablet 01/13/20 Unknown Rx 5/325] Multivitamin with Folic Acid [[facility] 400 mcg PO DAILY 01/13/20 01/13/20 Unknown History One Daily Essential Tablet] NIFEdipine [Nifedipine ER] 60 mg PO DAILY 01/13/20 01/13/20 Unknown History Thiamine Mononitrate (Vit B1) 100 gm PO DAILY 01/13/20 01/13/20 Unknown History [Cyto B-1] Ondansetron [Zofran ODT TAB] 4 mg PO Q6HR PRN #30 tab.rapdis 01/26/20 Unknown Rx Methocarbamol [Robaxin] 500 mg PO Q8H PRN #15 tablet 03/03/20 Unknown Rx Pantoprazole [Protonix TAB] 40 mg PO BID 60 Days #30 tablet 07/09/20 Unknown Rx Sucralfate [Carafate] 1 gm PO QID #120 07/09/20 Unknown Rx traMADoL [Ultram] 50 mg PO Q6HR PRN #10 tablet 07/09/20 Unknown Rx Pantoprazole [Protonix] 40 mg PO BID 90 Days #180 tablet 08/18/20 Unknown Rx Metoclopramide [Reglan] 10 mg PO TID 10 Days #30 tab 02/28/21 Unknown Rx Acetaminophen/Codeine [Tylenol 1 tab PO Q8H PRN #10 tab 10/12/20 Unknown Rx /Codeine # 3 tab] Active Meds: Active Medications Acetaminophen (Acetaminophen 325 Mg Tab) 650 mg PO Q4H PRN PRN Reason: Pain MILD(1-3)/Fever >100.5/MURPHY Albuterol/Ipratropium (Ipratropium/Albuterol Sulfate 3 Ml Ampul.Neb) 1 ampul IH Q6HRT [facility] Last Admin: 10/13/20 08:43 Dose: 1 ampul Documented by: Ferrous Sulfate (Ferrous Sulfate 325 Mg Tab) 325 mg PO DAILY [facility] Last Admin: 10/13/20 09:00 Dose: 325 mg Documented by: Folic Acid (Folic Acid 1 Mg Tab) 1 mg PO QDAY [facility] Last Admin: 10/13/20 08:59 Dose: 1 mg Documented by: Heparin Sodium (Porcine) (Heparin 5,000 Unit/1 Ml Vial) 5,000 unit SUB-Q Q8HR [facility] Last Admin: 10/13/20 06:37 Dose: 5,000 unit Documented by: Hydralazine HCl (Hydralazine 20 Mg/1 Ml Inj) 10 mg IV Q6H PRN PRN Reason: htn Sodium Chloride (Nacl 0.9% 1000 Ml) 1,000 mls @ 50 mls/hr IV DIRECT [facility] Methocarbamol (Methocarbamol 500 Mg Tab) 500 mg PO Q8H PRN PRN Reason: Muscle Spasm Morphine Sulfate (Morphine 2 Mg/1 Ml Inj) 2 mg IV Q4H PRN PRN Reason: Pain, Moderate (4-6) Last Admin: 10/13/20 10:58 Dose: 2 mg Documented by: Multivitamins (Multivitamins ,Therapeutic Tab) 1 each PO DAILY [facility] Last Admin: 10/13/20 09:00 Dose: 1 each Documented by: Nifedipine (Nifedipine Xl 60 Mg Tab) 60 mg PO QDAY [facility] Last Admin: 10/13/20 08:59 Dose: 60 mg Documented by: Ondansetron HCl (Ondansetron 4 Mg/2 Ml Inj) 4 mg IV Q8H PRN PRN Reason: Nausea And Vomiting Pantoprazole Sodium (Pantoprazole 40 Mg Tab) 40 mg PO BID [facility] Last Admin: 10/13/20 09:00 Dose: 40 mg Documented by: Sodium Chloride (Sodium Chloride 0.9% 10 Ml Flush Syringe) 10 ml IV BID [facility] Last Admin: 10/13/20 09:00 Dose: 10 ml Documented by: Sodium Chloride (Sodium Chloride 0.9% 10 Ml Flush Syringe) 10 ml IV PRN PRN PRN Reason: LINE FLUSH Sucralfate (Sucralfate 1 Gm Tab) 1 gm PO QID [facility] Last Admin: 10/13/20 09:00 Dose: 1 gm Documented by: Thiamine HCl (Thiamine 100 Mg Tab) 100 mg PO QDAY [facility] Last Admin: 10/13/20 09:00 Dose: 100 mg Documented by: Tramadol HCl (Tramadol 50 Mg Tab) 50 mg PO Q6HR PRN PRN Reason: PAIN Exam - Vital Signs Vital signs: Vital Signs Temp Pulse Resp BP Pulse Ox 98.1 F 87 18 147/116 100 10/12/20 23:05 10/12/20 23:05 10/12/20 23:05 10/12/20 23:05 10/12/20 23:05 - Physical Exam Narrative exam: General appearance: Present: no acute distress, well-nourished - EENT Eyes: Present: PERRL ENT: hearing intact, clear oral mucosa - Neck Neck: Present: supple, normal ROM - Respiratory Respiratory effort: normal Respiratory: bilateral: diminished - Cardiovascular Heart Sounds: Present: S1 & S2. Absent: rub, click - Extremities Extremities: pulses symmetrical, No edema Peripheral Pulses: within normal limits - Abdominal General gastrointestinal: Present: soft, non-tender, non-distended, normal bowel sounds Male genitourinary: Present: normal - Integumentary Integumentary: Present: clear, warm, dry - Musculoskeletal Musculoskeletal: gait normal, strength equal bilaterally - Psychiatric Psychiatric: appropriate mood/affect, intact judgment & insight - Neurologic Neurologic: CNII-XII intact, moves all extremities Results - Lab Results 10/13/20 00:21 10/13/20 13:24 Most recent lab results Calcium 8.3 mg/dL (8.4-10.2) L 10/13/20 08:08 Assessment and Plan Hyponatremia: Rib fractures: Alcoholism: HTN: Gastritis: -Admitted with Na of 116 -D/C NS, D5W 1L bolus and then D5W at 150 cc/hr to prevent Na overcorrection -Monitor BMP q4H -Target rise in Na <8 meq/24 hours to prevent ODS -Strict I/Os Charlie Patel MD [phone]
[2020-10-13 14:30] LABS: BUN/Creatinine Ratio 8; Blood Urea Nitrogen 6 mg/dL (9-20); Calcium 8.4 mg/dL (8.4-10.2); Hemolysis Index 5
[2020-10-13] MEDS ORDERED: DEXTROSE 5% IN WATER 1,000 ML IV SCH ×2 (16:00→22:00)
[2020-10-13 18:54] LABS: BUN/Creatinine Ratio 8; Blood Urea Nitrogen 6 mg/dL (9-20); Calcium 8.1 mg/dL (8.4-10.2); Hemolysis Index 10
[2020-10-13] MEDS: LOSARTAN 50 MG TAB PO SCH (20:09)
[2020-10-13 21:25] LABS: Blood Urea Nitrogen 6 mg/dL (9-20); Calcium 8.2 mg/dL (8.4-10.2); Hemolysis Index 2
[2020-10-13 21:26] LABS: BUN/Creatinine Ratio 9
[2020-10-14] MEDS: MORPHINE 2 MG/1 ML INJ IV PRN ×5 (00:15→19:06)
[2020-10-14] MEDS: IPRATROPIUM/ALBUTEROL SULFATE 3 ML AMPUL.NEB IH SCH ×3 (01:29→15:33)
[2020-10-14 02:30] LABS: Blood Urea Nitrogen 5 mg/dL (9-20); Calcium 8.4 mg/dL (8.4-10.2); Hemolysis Index 8
[2020-10-14 02:36] LABS: BUN/Creatinine Ratio 7
[2020-10-14] MEDS: HEPARIN 5,000 UNIT/1 ML VIAL SUB-Q SCH ×3 (06:01→22:01)
[2020-10-14 06:13] LABS: Basophils % (Auto) 0.5 % (0.0-1.8); Eosinophils % (Auto) 0.2 % (0.0-4.3); Hematocrit 37.2 % (35.5-45.6); Hemoglobin 12.5 gm/dl (11.8-15.2); Lymphocytes # (Auto) 0.7 K/mm3 (1.2-5.4); Lymphocytes % (Auto) 9.3 % (13.4-35.0); Mean Corpuscular HGB Conc 34 % (32-34); Mean Corpuscular Volume 95 fl (84-94); Monocytes # (Auto) 0.9 K/mm3 (0.0-0.8); Monocytes % (Auto) 12.1 % (0.0-7.3); Platelet Count 235 K/mm3 (140-440); Red Blood Count 3.93 M/mm3 (3.65-5.03); Red Cell Distribution Width 14.4 % (13.2-15.2)
[2020-10-14 06:32] LABS: Blood Urea Nitrogen 4 mg/dL (9-20); Calcium 8.4 mg/dL (8.4-10.2); Hemolysis Index 14
[2020-10-14 06:33] LABS: BUN/Creatinine Ratio 6
[2020-10-14] MEDS: DEXTROSE 5% IN WATER 1,000 ML IV SCH ×3 (07:00→21:59)
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
[2020-10-14] MEDS: MULTIVITAMINS ,THERAPEUTIC TAB PO SCH (10:28)
[2020-10-14] MEDS: FERROUS SULFATE 325 MG TAB PO SCH (10:41)
[2020-10-14] MEDS: PANTOPRAZOLE 40 MG TAB PO SCH ×2 (10:41→22:00)
[2020-10-14] MEDS: LOSARTAN 50 MG TAB PO SCH (10:42)
[2020-10-14] MEDS: NIFEdipine XL 60 MG TAB PO SCH (10:42)
[2020-10-14] MEDS: FOLIC ACID 1 MG TAB PO SCH (10:42)
[2020-10-14] MEDS: THIAMINE 100 MG TAB PO SCH (10:42)
[2020-10-14] MEDS: SUCRALFATE 1 GM TAB PO SCH ×4 (10:43→22:00)
--- NOTE | 2020-10-14 13:38 | Progress Note ---
Assessment and Plan Hyponatremia: Rib fractures: Alcoholism: HTN: Gastritis: -Admitted with Na of 116 -Has been on D5W to prevent Na overcorrection -Monitor BMP q6H -Target rise in Na <8 meq/24 hours to prevent ODS -Strict I/Os Charlie Patel MD [phone] Subjective Date of service: 10/14/20 Interval history: Making urine. Objective - Exam Narrative Exam: General appearance: Present: no acute distress, well-nourished - EENT Eyes: Present: PERRL ENT: hearing intact, clear oral mucosa - Neck Neck: Present: supple, normal ROM - Respiratory Respiratory effort: normal Respiratory: bilateral: diminished - Cardiovascular Heart Sounds: Present: S1 & S2. Absent: rub, click - Extremities Extremities: pulses symmetrical, No edema Peripheral Pulses: within normal limits - Abdominal General gastrointestinal: Present: soft, non-tender, non-distended, normal bowel sounds Male genitourinary: Present: normal - Integumentary Integumentary: Present: clear, warm, dry - Musculoskeletal Musculoskeletal: gait normal, strength equal bilaterally - Psychiatric Psychiatric: appropriate mood/affect, intact judgment & insight - Neurologic Neurologic: CNII-XII intact, moves all extremities - Vital Signs Vital signs: Vital Signs - 12hr 10/14/20 10/14/20 10/14/20 05:46 06:02 07:07 Temperature 97.7 F 98.0 F Pulse Rate 70 81 Pulse Rate [ Anterior Bilateral Throughout] Respiratory 20 20 20 Rate Respiratory Rate [Anterior Bilateral Throughout] Blood Pressure 136/88 147/94 O2 Sat by Pulse 97 96 Oximetry 10/14/20 10/14/20 08:00 10:55 Temperature 98.2 F Pulse Rate 78 Pulse Rate [ 54 L Anterior Bilateral Throughout] Respiratory 18 Rate Respiratory 18 Rate [Anterior Bilateral Throughout] Blood Pressure 133/94 O2 Sat by Pulse 97 Oximetry - Lab 10/14/20 05:28 10/14/20 16:58 Most recent lab results Calcium 8.4 mg/dL (8.4-10.2) 10/14/20 05:28 Medications & Allergies - Medications Allergies/Adverse Reactions: Allergies aspirin Allergy (Verified 07/09/20 10:24) Bleeding Home Medications: Home Medications Medication Instructions Recorded Confirmed Last Taken Type Famotidine [Acid Controller] 20 mg PO DAILY 01/13/20 01/13/20 Unknown History Ferrous Sulfate [Iron 325 MG] 325 mg PO DAILY 01/13/20 01/13/20 Unknown History Folic Acid [Folvite] 1 mg PO QDAY 01/13/20 01/13/20 Unknown History HYDROcodone/APAP 5-325 [[place] 1 each PO Q6HR PRN #14 tablet 01/13/20 Unknown Rx 5/325] Multivitamin with Folic Acid [[facility] 400 mcg PO DAILY 01/13/20 01/13/20 Unknown History One Daily Essential Tablet] NIFEdipine [Nifedipine ER] 60 mg PO DAILY 01/13/20 01/13/20 Unknown History Thiamine Mononitrate (Vit B1) 100 gm PO DAILY 01/13/20 01/13/20 Unknown History [Cyto B-1] Ondansetron [Zofran ODT TAB] 4 mg PO Q6HR PRN #30 tab.rapdis 01/26/20 Unknown Rx Methocarbamol [Robaxin] 500 mg PO Q8H PRN #15 tablet 03/03/20 Unknown Rx Pantoprazole [Protonix TAB] 40 mg PO BID 60 Days #30 tablet 07/09/20 Unknown Rx Sucralfate [Carafate] 1 gm PO QID #120 07/09/20 Unknown Rx traMADoL [Ultram] 50 mg PO Q6HR PRN #10 tablet 07/09/20 Unknown Rx Pantoprazole [Protonix] 40 mg PO BID 90 Days #180 tablet 08/18/20 Unknown Rx Metoclopramide [Reglan] 10 mg PO TID 10 Days #30 tab 08/19/20 Unknown Rx Acetaminophen/Codeine [Tylenol 1 tab PO Q8H PRN #10 tab 10/12/20 Unknown Rx /Codeine # 3 tab] Active Medications: Generic Name Dose Route Start Last Admin Trade Name Freq PRN Reason Stop Dose Admin Acetaminophen 650 mg 10/13/20 04:36 Acetaminophen 325 Mg Tab PO Q4H PRN Pain MILD(1-3)/Fever >100.5/MURPHY Albuterol/Ipratropium 1 ampul 10/13/20 08:00 10/14/20 11:20 Ipratropium/Albuterol Sulfate 3 Ml Ampul.Neb IH 1 ampul Q6HRT LEA Administration Ferrous Sulfate 325 mg 10/13/20 10:00 10/14/20 10:41 Ferrous Sulfate 325 Mg Tab PO 325 mg DAILY LEA Administration Folic Acid 1 mg 10/13/20 08:00 10/14/20 10:42 Folic Acid 1 Mg Tab PO 1 mg QDAY LEA Administration Heparin Sodium (Porcine) 5,000 unit 10/13/20 06:00 10/14/20 06:01 Heparin 5,000 Unit/1 Ml Vial SUB-Q 5,000 unit Q8HR LEA Administration Hydralazine HCl 10 mg 10/13/20 04:37 Hydralazine 20 Mg/1 Ml Inj IV Q6H PRN htn Dextrose 1,000 mls @ 150 mls/hr 10/14/20 07:00 10/14/20 10:20 D5w IV 150 mls/hr DIRECT LEA Administration Losartan Potassium 50 mg 10/13/20 19:00 10/14/20 10:42 Losartan 50 Mg Tab PO 50 mg QDAY LEA Administration Methocarbamol 500 mg 10/13/20 04:34 Methocarbamol 500 Mg Tab PO Q8H PRN Muscle Spasm Morphine Sulfate 2 mg 10/13/20 04:36 10/14/20 10:18 Morphine 2 Mg/1 Ml Inj IV 2 mg Q4H PRN Administration Pain, Moderate (4-6) Multivitamins 1 each 10/13/20 10:00 10/13/20 09:00 Multivitamins ,Therapeutic Tab PO 1 each DAILY LEA Administration Nifedipine 60 mg 10/13/20 08:00 10/14/20 10:42 Nifedipine Xl 60 Mg Tab PO 60 mg QDAY LEA Administration Ondansetron HCl 4 mg 10/13/20 04:36 Ondansetron 4 Mg/2 Ml Inj IV Q8H PRN Nausea And Vomiting Pantoprazole Sodium 40 mg 10/13/20 08:00 10/14/20 10:41 Pantoprazole 40 Mg Tab PO 40 mg BID LEA Administration Sodium Chloride 10 ml 10/13/20 08:00 10/14/20 10:43 Sodium Chloride 0.9% 10 Ml Flush Syringe IV 10 ml BID LEA Administration Sodium Chloride 10 ml 10/13/20 04:36 Sodium Chloride 0.9% 10 Ml Flush Syringe IV PRN PRN LINE FLUSH Sucralfate 1 gm 10/13/20 10:00 10/14/20 10:43 Sucralfate 1 Gm Tab PO 1 gm QID LEA Administration Thiamine HCl 100 mg 10/13/20 08:00 10/14/20 10:42 Thiamine 100 Mg Tab PO 100 mg QDAY LEA Administration Tramadol HCl 50 mg 10/13/20 04:34 Tramadol 50 Mg Tab PO Q6HR PRN PAIN
[2020-10-14 14:39] LABS: BUN/Creatinine Ratio 6; Blood Urea Nitrogen 5 mg/dL (9-20); Calcium 8.3 mg/dL (8.4-10.2); Hemolysis Index 2
[2020-10-14] MEDS: LIDOCAINE 5% 1 EACH PATCH TD SCH (15:12)
[2020-10-14 18:23] LABS: Blood Urea Nitrogen 5 mg/dL (9-20); Calcium 8.7 mg/dL (8.4-10.2); Hemolysis Index 78
[2020-10-14 18:25] LABS: BUN/Creatinine Ratio 7
[2020-10-14] MEDS: traMADol 50 MG TAB PO PRN (22:00)
[2020-10-14 22:02] LABS: Blood Urea Nitrogen 4 mg/dL (9-20); Calcium 7.3 mg/dL (8.4-10.2); Hemolysis Index 6
[2020-10-14 22:25] LABS: BUN/Creatinine Ratio 6
[2020-10-14 23:44] LABS: Blood Urea Nitrogen 5 mg/dL (9-20); Calcium 8.3 mg/dL (8.4-10.2); Hemolysis Index 0
[2020-10-14 23:45] LABS: BUN/Creatinine Ratio 7
[2020-10-15] MEDS: MORPHINE 2 MG/1 ML INJ IV PRN ×2 (02:36→08:32)
[2020-10-15] MEDS: DEXTROSE 5% IN WATER 1,000 ML IV SCH (02:39)
[2020-10-15] MEDS: IPRATROPIUM/ALBUTEROL SULFATE 3 ML AMPUL.NEB IH SCH (03:13)
[2020-10-15] MEDS ORDERED: ALBUTEROL 2.5 MG/3 ML NEBU IH PRN (03:38)
[2020-10-15] MEDS: traMADol 50 MG TAB PO PRN (05:39)
[2020-10-15] MEDS: HEPARIN 5,000 UNIT/1 ML VIAL SUB-Q SCH (05:41)
[2020-10-15 06:09] LABS: Blood Urea Nitrogen 4 mg/dL (9-20); Calcium 8.4 mg/dL (8.4-10.2); Hemolysis Index 4
[2020-10-15 06:17] LABS: BUN/Creatinine Ratio 6
[2020-10-15] MEDS: LOSARTAN 50 MG TAB PO SCH (08:35)
[2020-10-15] MEDS: FOLIC ACID 1 MG TAB PO SCH (08:35)
[2020-10-15] MEDS: LIDOCAINE 5% 1 EACH PATCH TD SCH (08:35)
[2020-10-15] MEDS: NIFEdipine XL 60 MG TAB PO SCH (08:36)
[2020-10-15] MEDS: THIAMINE 100 MG TAB PO SCH (08:36)
[2020-10-15] MEDS: PANTOPRAZOLE 40 MG TAB PO SCH (08:36)
[2020-10-15 08:37] VITALS: BP 118/83
[2020-10-15] MEDS: SUCRALFATE 1 GM TAB PO SCH (09:00)
[2020-10-15] MEDS: FERROUS SULFATE 325 MG TAB PO SCH (09:00)
[2020-10-15] MEDS: MULTIVITAMINS ,THERAPEUTIC TAB PO SCH (09:00)
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
[2020-10-15 10:58] LABS: Blood Urea Nitrogen 4 mg/dL (9-20); Calcium 8.3 mg/dL (8.4-10.2); Hemolysis Index 30
[2020-10-15 10:59] LABS: BUN/Creatinine Ratio 6
--- NOTE | 2020-10-15 11:54 | Progress Note ---
Assessment and Plan Assessment: Hyponatremia: Rib fractures: Alcoholism: HTN: Gastritis: Plan: -Recent sodium level today was 131, yesterday's was 132Admitted with Na of 116 -Has been on D5W@ 150 ml/hr to prevent sodium overcorrection -Target rise in Na <8 meq/24 hours to prevent ODS -Now on BMP checks daily -Strict I/O's monitoring -Obtain daily weights -F/u in office in 7 days of discharge for outpatient monitoring Subjective Date of service: 10/15/20 Principal diagnosis: Hyponatremia Interval history: Patient seen walking in room. Reviewed sodium levels. Objective - Vital Signs Vital signs: Vital Signs - 12hr 10/15/20 10/15/20 10/15/20 05:54 07:23 08:32 Temperature 98.3 F 98.0 F Pulse Rate 62 67 Respiratory 18 16 10 L Rate Blood Pressure 119/80 Blood Pressure 118/77 [Left] O2 Sat by Pulse 97 95 Oximetry 10/15/20 10/15/20 08:35 10:34 Temperature Pulse Rate 68 Respiratory 18 Rate Blood Pressure 118/83 Blood Pressure [Left] O2 Sat by Pulse Oximetry - General Appearance General appearance: well-developed, appears stated age EENT: ATNC, PERRL, hearing intact, vision intact Neck: no JVD, supple Respiratory: Present: Decreased Breath Sounds Cardiology: S1S2 Gastrointestinal: normoactive bowel sounds Integumentary: warm and dry Neurologic: alert and oriented x3 Musculoskeletal: other (No edema) - Lab 10/14/20 05:28 10/15/20 10:09 Most recent lab results Calcium 8.3 mg/dL (8.4-10.2) L 10/15/20 10:09 Medications & Allergies - Medications Allergies/Adverse Reactions: Allergies aspirin Allergy (Verified 07/09/20 10:24) Bleeding Home Medications: Home Medications Medication Instructions Recorded Confirmed Last Taken Type Famotidine [Acid Controller] 20 mg PO DAILY 01/13/20 01/13/20 Unknown History Ferrous Sulfate [Iron 325 MG] 325 mg PO DAILY 01/13/20 01/13/20 Unknown History Folic Acid [Folvite] 1 mg PO QDAY 01/13/20 01/13/20 Unknown History Multivitamin with Folic Acid [[facility] 400 mcg PO DAILY 01/13/20 01/13/20 Unknown History One Daily Essential Tablet] NIFEdipine [Nifedipine ER] 60 mg PO DAILY 01/13/20 01/13/20 Unknown History Thiamine Mononitrate (Vit B1) 100 gm PO DAILY 01/13/20 01/13/20 Unknown History [Cyto B-1] Ondansetron [Zofran ODT TAB] 4 mg PO Q6HR PRN #30 tab.rapdis 01/26/20 Unknown Rx Methocarbamol [Robaxin] 500 mg PO Q8H PRN #15 tablet 03/03/20 Unknown Rx Pantoprazole [Protonix TAB] 40 mg PO BID 60 Days #30 tablet 07/09/20 Unknown Rx Sucralfate [Carafate] 1 gm PO QID #120 07/09/20 Unknown Rx Pantoprazole [Protonix TAB] 40 mg PO BID 90 Days #180 tablet 08/18/20 Unknown Rx Metoclopramide [Reglan TAB] 10 mg PO TID 10 Days #30 tab 08/19/20 Unknown Rx HYDROcodone/APAP 5-325 [[place] 1 each PO Q6HR PRN #14 tablet 10/15/20 Unknown Rx 5-325 mg TAB] Losartan [Cozaar] 50 mg PO QDAY #30 tablet 10/15/20 Unknown Rx Active Medications: Generic Name Dose Route Start Last Admin Trade Name Freq PRN Reason Stop Dose Admin Acetaminophen 650 mg 10/13/20 04:36 Acetaminophen 325 Mg Tab PO Q4H PRN Pain MILD(1-3)/Fever >100.5/MURPHY Albuterol 2.5 mg 10/15/20 03:38 Albuterol 2.5 Mg/3 Ml Nebu IH Q4HRT PRN Shortness Of Breath Ferrous Sulfate 325 mg 10/13/20 10:00 10/15/20 09:00 Ferrous Sulfate 325 Mg Tab PO 325 mg DAILY LEA Administration Folic Acid 1 mg 10/13/20 08:00 10/15/20 08:35 Folic Acid 1 Mg Tab PO 1 mg QDAY LEA Administration Heparin Sodium (Porcine) 5,000 unit 10/13/20 06:00 10/15/20 05:41 Heparin 5,000 Unit/1 Ml Vial SUB-Q 5,000 unit Q8HR LEA Administration Hydralazine HCl 10 mg 10/13/20 04:37 Hydralazine 20 Mg/1 Ml Inj IV Q6H PRN htn Dextrose 1,000 mls @ 150 mls/hr 10/14/20 07:00 10/15/20 02:39 D5w IV 150 mls/hr DIRECT LEA Administration Lidocaine 1 each 10/14/20 15:00 10/15/20 08:35 Lidocaine 5% 1 Each Patch TD 1 each QDAY LEA Administration Losartan Potassium 50 mg 10/13/20 19:00 10/15/20 08:35 Losartan 50 Mg Tab PO Not Given QDAY LEA Methocarbamol 500 mg 10/13/20 04:34 Methocarbamol 500 Mg Tab PO Q8H PRN Muscle Spasm Morphine Sulfate 2 mg 10/13/20 04:36 10/15/20 08:32 Morphine 2 Mg/1 Ml Inj IV 2 mg Q4H PRN Administration Pain, Moderate (4-6) Multivitamins 1 each 10/13/20 10:00 10/15/20 09:00 Multivitamins ,Therapeutic Tab PO 1 each DAILY LEA Administration Nifedipine 60 mg 10/13/20 08:00 10/15/20 08:36 Nifedipine Xl 60 Mg Tab PO Not Given QDAY LEA Ondansetron HCl 4 mg 10/13/20 04:36 10/14/20 22:01 Ondansetron 4 Mg/2 Ml Inj IV 4 mg Q8H PRN Administration Nausea And Vomiting Pantoprazole Sodium 40 mg 10/13/20 08:00 10/15/20 08:36 Pantoprazole 40 Mg Tab PO 40 mg BID LEA Administration Sodium Chloride 10 ml 10/13/20 08:00 10/15/20 08:36 Sodium Chloride 0.9% 10 Ml Flush Syringe IV 10 ml BID LEA Administration Sodium Chloride 10 ml 10/13/20 04:36 Sodium Chloride 0.9% 10 Ml Flush Syringe IV PRN PRN LINE FLUSH Sucralfate 1 gm 10/13/20 10:00 10/15/20 09:00 Sucralfate 1 Gm Tab PO 1 gm QID LEA Administration Thiamine HCl 100 mg 10/13/20 08:00 10/15/20 08:36 Thiamine 100 Mg Tab PO 100 mg QDAY LEA Administration Tramadol HCl 50 mg 10/13/20 04:34 10/15/20 05:39 Tramadol 50 Mg Tab PO 50 mg Q6HR PRN Administration PAIN
== END 2020-10-15 14:13 | disposition home or self-care (01) | DRG 200 ==
LOC: ED 22:06 → 3B 10-13 03:56
PROVIDERS: ADMIT Hospitalist; ATTEND Internal Medicine
DX: S27.0XXA Traumatic pneumothorax, initial encounter (principal); E87.1 Hypo-osmolality and hyponatremia; S22.32XA Fracture of one rib, left side, initial encounter for closed fracture; X58.XXXA Exposure to other specified factors, initial encounter; F17.210 Nicotine dependence, cigarettes, uncomplicated; K29.70 Gastritis, unspecified, without bleeding; I10 Essential (primary) hypertension; F10.20 Alcohol dependence, uncomplicated; Y93.89 Activity, other specified; Y92.89 Other specified places as the place of occurrence of the external cause; Y99.8 Other external cause status; Z79.899 Other long term (current) drug therapy; Z87.898 Personal history of other specified conditions; Z88.8 Allergy status to other drugs, medicaments and biological substances
CPT/HCPCS: 36415; 70150; 71046; 80048; 80053; 82962; 85007; 85025; 94640; 96365; 96375; G0378; J1644; J2270; J2405; J3010; J7030; J7070

== ENCOUNTER 2020-10-27 12:27 | Emergency (ER) | payer MEDICAID ==
[2020-10-27 13:14] VITALS: BP 137/99
--- NOTE | 2020-10-27 14:16 | Emergency Department Report ---
Chief Complaint: Pain General Stated Complaint: RIB PAIN Time Seen by Provider: 10/27/20 14:01 - HPI History of Present Illness: This is a 55-year-old male who presents to the ED today complaining of left- sided arm pain with lifting his arm. Patient states he was seen here couple weeks ago for left-sided rib fracture. Patient states since then he has been taking his medication and using the spirometer. Patient states that he is feeling pain with movement and lifting his arm up. Patient states he was not sure where he was from so he presents here for evaluation. Patient denies any new or recent injuries. Denies chest pain or shortness of breath. Patient sta amari he ran out of his pain medication. - ROS Review of Systems: As noted in HPI. All systems reviewed and negative - Exam Vital Signs: Vital Signs 10/27/20 13:10 Temperature 98.4 F Pulse Rate 107 H Respiratory 15 Rate Blood Pressure 137/99 O2 Sat by Pulse 99 Oximetry Physical Exam: GENERAL: Alert and oriented x3, no apparent distress, Normal Gait, atraumatic. HEAD: Head is normocephalic and a-traumatic. LUNGS: Symetrical with respiration, No wheezing, no rales or crackles, CTAB. Nontender to palpation EXTREMITIES/MUSCULOSKELETAL: No cyanosis, clubbing, rash, lesions or edema. Full ROM bilaterally. UE/LE Pulses 2+ bilaterally. LE and UE 5+ strength bilat erally, straight leg raise negative bilaterally NEUROLOGIC: The patient is cooperative with no focal neurologic deficits. Cranial nerves II through XII are grossly intact. Normal speech. Normal sens ation in bilateral upper and lower extremities, No loss of sensation, No facial droop, Negative rhomberg. SKIN: Warm and dry, No lesions, No ulceration or induration present. MSE screening note: Focused history and physical exam performed. Due to findings the following was ordered: ED Medical Decision Making - Medical Decision Making 55-year-old male presents with referred pain of the arm. Patient was in no acute or respiratory distress throughout ED stay. Discussed with patient that pain is experiencing is from chest wall pain. Patient is in no life-threatening injuries and will follow up with the primary care physician. Patient states that he has an appointment on Thursday. Discussed with follow-up ED Disposition for MSE Clinical Impression: Myalgia Disposition: TO HOME OR SELFCARE Is pt being admited?: No Does the pt Need Aspirin: No Condition: Stable Instructions: Musculoskeletal Pain Prescriptions: Acetaminophen/Codeine [Tylenol /Codeine # 3 tab] 1 tab PO Q6H #12 tab Forms: Work/School Release Form(ED) Time of Disposition: 14:21
== END 2020-10-27 14:50 | disposition home or self-care (01) ==
LOC: ED 12:27
DX: M79.10 Myalgia, unspecified site (principal); Z88.6 Allergy status to analgesic agent
CPT/HCPCS: 99282

== ENCOUNTER 2020-11-18 20:10 | Emergency (ER) | payer MEDICAID ==
--- NOTE | 2020-11-18 22:00 | XRay Report ---
LEFT SHOULDER 3 VIEWS INDICATION / CLINICAL INFORMATION: Left shoulder pain. COMPARISON: None available. FINDINGS: BONES / JOINT(S): There are mild degenerative changes involving the acromioclavicular joint. There is mild irregularity of the superolateral margin of the humeral head on the externally rotated view whi ch could be related to posttraumatic change rather than degenerative change. SOFT TISSUES: No significant abnormality. ADDITIONAL FINDINGS: The visualized left lung is clear. Signer Name: Porter Gonzalez MD Signed: 11/18/2020 9:56 PM Workstation Name: [id number]
[2020-11-19] MEDS ORDERED: ACETAMINOPHEN 500 MG TAB PO ONE (01:53)
[2020-11-19] MEDS ORDERED: IBUPROFEN 600 MG TAB PO ONE (01:53)
[2020-11-19] MEDS ORDERED: FAMOTIDINE 20 MG TAB PO ONE (01:55)
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
[2020-11-19 04:08] VITALS: BP 118/76
== END 2020-11-19 03:20 | disposition home or self-care (01) ==
LOC: ED 20:10
DX: S43.492A Other sprain of left shoulder joint, initial encounter (principal); S46.812A Strain of other muscles, fascia and tendons at shoulder and upper arm level, left arm, initial encounter; M19.012 Primary osteoarthritis, left shoulder; I10 Essential (primary) hypertension; F17.200 Nicotine dependence, unspecified, uncomplicated; K21.9 Gastro-esophageal reflux disease without esophagitis; Z72.89 Other problems related to lifestyle; Z88.6 Allergy status to analgesic agent; Z79.899 Other long term (current) drug therapy; Y04.8XXA Assault by other bodily force, initial encounter; Y93.89 Activity, other specified; Y92.89 Other specified places as the place of occurrence of the external cause; Y99.8 Other external cause status
CPT/HCPCS: 99283

== ENCOUNTER 2020-12-31 15:03 | Observation (INO) | payer MEDICAID ==
[2020-12-31 18:10] LABS: Bilirubin,Urine NEG (Negative); Blood,Urine SM (Negative); Color,Urine Straw (Yellow); Mucus,Urine FEW /HPF; Protein,Urine <15 mg/dL mg/dL (Negative); Urobilinogen,Urine < 2.0 mg/dL (<2.0)
[2020-12-31] MEDS ORDERED: MORPHINE 4 MG/1 ML INJ IV ONE (18:37)
[2020-12-31] MEDS ORDERED: ONDANSETRON 4 MG/2 ML INJ IV ONE (18:37)
[2020-12-31] MEDS ORDERED: SODIUM CHLORIDE 0.9% 1000 ML 1,000 ML IV ONE ×2 (18:37→18:52)
[2020-12-31 18:42] LABS: Alanine Aminotransferase 18 units/L (7-56); Albumin 4.6 g/dL (3.9-5); BUN/Creatinine Ratio 8; Blood Urea Nitrogen 6 mg/dL (9-20); Calcium 8.6 mg/dL (8.4-10.2); Hemolysis Index 15
[2020-12-31] MEDS ORDERED: SODIUM CHLORIDE 0.9% 1000 ML 2,000 ML IV ONE (18:47)
[2020-12-31 18:55] LABS: Basophils % (Auto) 0.8 % (0.0-1.8); Eosinophils % (Auto) 0.6 % (0.0-4.3); Hematocrit 42.8 % (35.5-45.6); Hemoglobin 14.9 gm/dl (11.8-15.2); Lymphocytes # (Auto) 1.3 K/mm3 (1.2-5.4); Lymphocytes % (Auto) 22.2 % (13.4-35.0); Mean Corpuscular HGB Conc 35 % (32-34); Mean Corpuscular Volume 91 fl (84-94); Monocytes # (Auto) 0.6 K/mm3 (0.0-0.8); Monocytes % (Auto) 9.8 % (0.0-7.3); Platelet Count 307 K/mm3 (140-440); Red Blood Count 4.71 M/mm3 (3.65-5.03); Red Cell Distribution Width 12.8 % (13.2-15.2)
[2020-12-31 19:35] LABS: INR 0.92 (0.87-1.13); Partial Thromboplastin Time 36.3 Sec. (24.2-36.6)
--- NOTE | 2020-12-31 19:35 | Emergency Department Report ---
ED Abdominal Pain HPI - General Chief Complaint: Abdominal Pain Stated Complaint: LT SHOULDER/ABDOMINAL PAIN/VOMITING Time Seen by Provider: 12/31/20 18:03 Source: patient Mode of arrival: Ambulatory Limitations: No Limitations - History of Present Illness Initial Comments: This is a 55-year-old male nontoxic, well nourished in appearance, no acute sign s of distress presents to the ED with c/o of nausea and vomiting and abdominal pain several days. Patient has history of alcohol induced pancreatitis. Patient stated still drinks alcohol daily with last alcohol consumption was earlier today. Patient describes vomiting as food content and yellow gastric acid. Patient describes abdominal pain as cramping and aching with level of 8/10 diffuse with worse to right lower abdomen area. Patient denies chest pain, short of breath, fever, hemoptysis, blood in stool, chills, headache, stiff neck, numbness or tingling. Patient denies any diarrhea or constipation. Denies any blood in stool. Patient denies any recent travels. Patient stated allergies to aspirin. MD Complaint: abdominal pain -: days(s) Location: diffuse Radiation: none Migration to: no migration Severity: mild Severity scale (0 -10): 8 Quality: cramping, aching Consistency: constant Improves With: nothing Worsens With: nothing Associated Symptoms: nausea, vomiting. denies: diarrhea, fever, chills, constipation, dysuria, hematemesis, hematochezia, melena, hematuria, anorexia, syncope - Related Data Home Medications Medication Instructions Recorded Confirmed Last Taken Famotidine [Acid Controller] 20 mg PO DAILY 01/13/20 01/13/20 Unknown Ferrous Sulfate [Iron 325 MG] 325 mg PO DAILY 01/13/20 01/13/20 Unknown Folic Acid [Folvite] 1 mg PO QDAY 01/13/20 01/13/20 Unknown Multivitamin with Folic Acid [[facility] 400 mcg PO DAILY 01/13/20 01/13/20 Unknown One Daily Essential Tablet] NIFEdipine [Nifedipine ER] 60 mg PO DAILY 01/13/20 01/13/20 Unknown Thiamine Mononitrate (Vit B1) 100 gm PO DAILY 01/13/20 01/13/20 Unknown [Cyto B-1] Previous Rx's Medication Instructions Recorded Last Taken Type Ondansetron [Zofran ODT TAB] 4 mg PO Q6HR PRN #30 tab.rapdis 01/26/20 Unknown Rx Methocarbamol [Robaxin] 500 mg PO Q8H PRN #15 tablet 03/03/20 Unknown Rx Pantoprazole [Protonix TAB] 40 mg PO BID 60 Days #30 tablet 07/09/20 Unknown Rx Sucralfate [Carafate] 1 gm PO QID #120 07/09/20 Unknown Rx Pantoprazole [Protonix TAB] 40 mg PO BID 90 Days #180 tablet 08/18/20 Unknown Rx Metoclopramide [Reglan TAB] 10 mg PO TID 10 Days #30 tab 08/19/20 Unknown Rx HYDROcodone/APAP 5-325 [[place] 1 each PO Q6HR PRN #14 tablet 10/15/20 Unknown Rx 5-325 mg TAB] Losartan [Cozaar] 50 mg PO QDAY #30 tablet 10/15/20 Unknown Rx Acetaminophen/Codeine [Tylenol 1 tab PO Q6H #12 tab 10/27/20 Unknown Rx /Codeine # 3 tab] Baclofen 20 mg PO Q12H PRN #20 tablet 11/19/20 Unknown Rx Ibuprofen [Motrin] 600 mg PO Q8H PRN #30 tablet 11/19/20 Unknown Rx traMADoL [Ultram] 50 mg PO Q6HR PRN #12 tablet 11/19/20 Unknown Rx Allergies Allergy/AdvReac Type Severity Reaction Status Date / Time aspirin Allergy Bleeding Verified 07/09/20 10:24 ED Review of Systems ROS: Stated complaint: LT SHOULDER/ABDOMINAL PAIN/VOMITING Other details as noted in HPI Comment: All other systems reviewed and negative Constitutional: denies: chills, fever Eyes: denies: eye pain, eye discharge, vision change ENT: denies: ear pain, throat pain Respiratory: denies: cough, shortness of breath, wheezing Cardiovascular: denies: chest pain, palpitations Endocrine: no symptoms reported Gastrointestinal: abdominal pain, nausea, vomiting. denies: diarrhea, constipation, hematemesis, melena, hematochezia Genitourinary: denies: urgency, dysuria Musculoskeletal: denies: back pain, joint swelling, arthralgia Skin: denies: rash, lesions Neurological: denies: headache, weakness, paresthesias Psychiatric: denies: anxiety, depression Hematological/Lymphatic: denies: easy bleeding, easy bruising ED Past Medical Hx - Past Medical History Hx Hypertension: Yes Hx Heart Attack/AMI: No Hx Congestive Heart Failure: No Hx Diabetes: No Hx Deep Vein Thrombosis: No Hx GERD: Yes Hx Renal Disease: No Hx Sickle Cell Disease: No Hx Kidney Stones: No Hx Asthma: No Hx COPD: No Hx Tuberculosis: No Hx HIV: No Additional medical history: Low sodium secondary to excessive water intake, low potassium, HERNIA H-PYLORIC, gastritis, esophagitis, daily alcohol use, pancreatitis - Surgical History Hx Coronary Stent: No Hx Pacemaker: No Hx Internal Defibrillator: No Additional Surgical History: Left index finger surgery - Social History Smoking Status: Current Every Day Smoker - Medications Home Medications: Home Medications Medication Instructions Recorded Confirmed Last Taken Type Famotidine [Acid Controller] 20 mg PO DAILY 01/13/20 01/13/20 Unknown History Ferrous Sulfate [Iron 325 MG] 325 mg PO DAILY 01/13/20 01/13/20 Unknown History Folic Acid [Folvite] 1 mg PO QDAY 01/13/20 01/13/20 Unknown History Multivitamin with Folic Acid [[facility] 400 mcg PO DAILY 01/13/20 01/13/20 Unknown Hi story One Daily Essential Tablet] NIFEdipine [Nifedipine ER] 60 mg PO DAILY 01/13/20 01/13/20 Unknown History Thiamine Mononitrate (Vit B1) 100 gm PO DAILY 01/13/20 01/13/20 Unknown History [Cyto B-1] Ondansetron [Zofran ODT TAB] 4 mg PO Q6HR PRN #30 tab.rapdis 01/26/20 Unknown Rx Methocarbamol [Robaxin] 500 mg PO Q8H PRN #15 tablet 03/03/20 Unknown Rx Pantoprazole [Protonix TAB] 40 mg PO BID 60 Days #30 tablet 07/09/20 Unknown Rx Sucralfate [Carafate] 1 gm PO QID #120 07/09/20 Unknown Rx Pantoprazole [Protonix TAB] 40 mg PO BID 90 Days #180 tablet 08/18/20 Unknown Rx Metoclopramide [Reglan TAB] 10 mg PO TID 10 Days #30 tab 08/19/20 Unknown Rx HYDROcodone/APAP 5-325 [R[place] 1 each PO Q6HR PRN #14 tablet 10/15/20 Unknown Rx 5-325 mg TAB] Losartan [Cozaar] 50 mg PO QDAY #30 tablet 10/15/20 Unknown Rx Acetaminophen/Codeine [Tylenol 1 tab PO Q6H #12 tab 10/27/20 Unknown Rx /Codeine # 3 tab] Baclofen 20 mg PO Q12H PRN #20 tablet 11/19/20 Unknown Rx Ibuprofen [Motrin] 600 mg PO Q8H PRN #30 tablet 11/19/20 Unknown Rx traMADoL [Ultram] 50 mg PO Q6HR PRN #12 tablet 11/19/20 Unknown Rx ED Physical Exam - General Limitations: No Limitations General appearance: alert, in no apparent distress - Head Head exam: Present: atraumatic, normocephalic - Eye Eye exam: Present: normal appearance, PERRL, EOMI - Neck Neck exam: Present: normal inspection, full ROM. Absent: tenderness, meningismus, lymphadenopathy - Respiratory Respiratory exam: Present: normal lung sounds bilaterally. Absent: respiratory distress, wheezes, rales, rhonchi, stridor, chest wall tenderness, accessory mu scle use, decreased breath sounds, prolonged expiratory - Cardiovascular Cardiovascular Exam: Present: regular rate, normal rhythm, normal heart sounds. Absent: bradycardia, tachycardia, irregular rhythm, systolic murmur, diastolic murmur, rubs, gallop - GI/Abdominal GI/Abdominal exam: Present: soft, tenderness (diffuse to primarily right lower abdomen), normal bowel sounds. Absent: distended, guarding, rebound, rigid, diminished bowel sounds - Extremities Exam Extremities exam: Present: normal inspection, full ROM - Back Exam Back exam: Present: normal inspection, full ROM. Absent: tenderness, CVA tenderness (R), CVA tenderness (L), muscle spasm, paraspinal tenderness, vertebral tenderness, rash noted - Neurological Exam Neurological exam: Present: alert, oriented X3, normal gait - Psychiatric Psychiatric exam: Present: normal affect, normal mood - Skin Skin exam: Present: warm, dry, intact, normal color. Absent: rash ED Course Vital Signs 12/31/20 16:48 Temperature 98.4 F Pulse Rate 90 Respiratory 20 Rate Blood Pressure 149/101 O2 Sat by Pulse 99 Oximetry - Reevaluation(s) Reevaluation #1: 12/31/20 19:35 Patient is speaking in full sentences with no signs of distress noted. - Consultations Consultation #1: 12/31/20 19:35 Patient has been consulted with John Otero about patient history, physical exam, and labs and agrees to the ED plan of care and admission. ED Medical Decision Making - Lab Data Result diagrams: 12/31/20 18:08 12/31/20 18:08 Lab Results 12/31/20 12/31/20 12/31/20 Range/Units 17:50 18:08 18:08 WBC 5.8 (4.5-11.0) K/mm3 RBC 4.71 (3.65-5.03) M/mm3 Hgb 14.9 (11.8-15.2) gm/dl Hct 42.8 (35.5-45.6) % MCV 91 (84-94) fl MCH 32 (28-32) pg MCHC 35 H (32-34) % RDW 12.8 L (13.2-15.2) % Plt Count 307 (140-440) K/mm3 Lymph % (Auto) 22.2 (13.4-35.0) % [place] % (Auto) 9.8 H (0.0-7.3) % Eos % (Auto) 0.6 (0.0-4.3) % Baso % (Auto) 0.8 (0.0-1.8) % Lymph # (Auto) 1.3 (1.2-5.4) K/mm3 [place] # (Auto) 0.6 (0.0-0.8) K/mm3 Eos # (Auto) 0.0 (0.0-0.4) K/mm3 Baso # (Auto) 0.0 (0.0-0.1) K/mm3 Seg Neutrophils % 66.6 (40.0-70.0) % Seg Neutrophils # 3.9 (1.8-7.7) K/mm3 PT (12.2-14.9) Sec. INR (0.87-1.13) APTT (24.2-36.6) Sec. Sodium 116 L* (137-145) mmol/L Potassium 4.4 (3.6-5.0) mmol/L Chloride 75.2 L (98-107) mmol/L Carbon Dioxide 23 (22-30) mmol/L Anion Gap 22 mmol/L BUN 6 L (9-20) mg/dL Creatinine 0.8 (0.8-1.3) mg/dL Estimated GFR > 60 ml/min BUN/Creatinine Ratio 8 % Glucose 74 L (75-100) mg/dL Calcium 8.6 (8.4-10.2) mg/dL Total Bilirubin 0.60 (0.1-1.2) mg/dL AST 29 (5-40) units/L ALT 18 (7-56) units/L Alkaline Phosphatase 131 H (35-129) units/L Troponin T (0.00-0.029) ng/mL Total Protein 8.1 (6.3-8.2) g/dL Albumin 4.6 (3.9-5) g/dL Albumin/Globulin Ratio 1.3 % Lipase 32 (13-60) units/L Urine Color Straw (Yellow) Urine Turbidity Clear (Clear) Urine pH 6.0 (5.0-7.0) Ur Specific [place] 1.003 (1.003-1.030) Urine Protein <15 mg/dl (Negative) mg/dL Urine Glucose (UA) Neg (Negative) mg/dL Urine Ketones Tr (Negative) mg/dL Urine Blood Sm (Negative) Urine Nitrite Neg (Negative) Urine Bilirubin Neg (Negative) Urine Urobilinogen < 2.0 (<2.0) mg/dL Ur Leukocyte Esterase Neg (Negative) Urine WBC (Auto) 1.0 (0.0-6.0) /HPF Urine RBC (Auto) 1.0 (0.0-6.0) /HPF Urine Mucus Few /HPF 12/31/20 12/31/20 Range/Units 19:07 19:07 WBC (4.5-11.0) K/mm3 RBC (3.65-5.03) M/mm3 Hgb (11.8-15.2) gm/dl Hct (35.5-45.6) % MCV (84-94) fl MCH (28-32) pg MCHC (32-34) % RDW (13.2-15.2) % Plt Count (140-440) K/mm3 Lymph % (Auto) (13.4-35.0) % [place] % (Auto) (0.0-7.3) % Eos % (Auto) (0.0-4.3) % Baso % (Auto) (0.0-1.8) % Lymph # (Auto) (1.2-5.4) K/mm3 [place] # (Auto) (0.0-0.8) K/mm3 Eos # (Auto) (0.0-0.4) K/mm3 Baso # (Auto) (0.0-0.1) K/mm3 Seg Neutrophils % (40.0-70.0) % Seg Neutrophils # (1.8-7.7) K/mm3 PT 12.9 (12.2-14.9) Sec. INR 0.92 (0.87-1.13) APTT 36.3 (24.2-36.6) Sec. Sodium (137-145) mmol/L Potassium (3.6-5.0) mmol/L Chloride (98-107) mmol/L Carbon Dioxide (22-30) mmol/L Anion Gap mmol/L BUN (9-20) mg/dL Creatinine (0.8-1.3) mg/dL Estimated GFR ml/min BUN/Creatinine Ratio % Glucose (75-100) mg/dL Calcium (8.4-10.2) mg/dL Total Bilirubin (0.1-1.2) mg/dL AST (5-40) units/L ALT (7-56) units/L Alkaline Phosphatase (35-129) units/L Troponin T < 0.010 (0.00-0.029) ng/mL Total Protein (6.3-8.2) g/dL Albumin (3.9-5) g/dL Albumin/Globulin Ratio % Lipase (13-60) units/L Urine Color (Yellow) Urine Turbidity (Clear) Urine pH (5.0-7.0) Ur Specific [place] (1.003-1.030) Urine Protein (Negative) mg/dL Urine Glucose (UA) (Negative) mg/dL Urine Ketones (Negative) mg/dL Urine Blood (Negative) Urine Nitrite (Negative) Urine Bilirubin (Negative) Urine Urobilinogen (<2.0) mg/dL Ur Leukocyte Esterase (Negative) Urine WBC (Auto) (0.0-6.0) /HPF Urine RBC (Auto) (0.0-6.0) /HPF Urine Mucus /HPF - Radiology Data [facility] [address] [place] [address] Cat Scan Report Signed Patient: WENDI MORENO MR#: [id number] : 1965 Acct:[id number] Age/Sex: 55 / M ADM Date: 12/31/20 Loc: ED Attending Dr: Taryn heck Physician: CAROLYN SHANE NP Date of Service: 12/31/20 Procedure(s): CT abdomen pelvis w con Accession Number(s): [id number] cc: CAROLYN SHANE NP CT ABDOMEN AND PELVIS WITH CONTRAST INDICATION / CLINICAL INFORMATION: RLQ pain with n/v--PO AND IV CONTRAST PLS. TECHNIQUE: Axial CT images were obtained through the abdomen and pelvis after 100 cc of Omnipaque [address] scans at this location are performed using CT dose reduction for ALARA by means of automated exposure control. COMPARISON: 08/18/2020 FINDINGS: LOWER CHEST: There is a hiatal hernia. LIVER: No significant abnormality. GALLBLADDER: No significant abnormality. BILE DUCTS: No significant abnormality. PANCREAS: No significant abnormality. SPLEEN: No significant abnormality. ADRENALS: No significant abnormality. RIGHT KIDNEY / URETER: No significant abnormality. LEFT KIDNEY / URETER: No significant abnormality. STOMACH / SMALL BOWEL: No significant abnormality. COLON: No significant abnormality. APPENDIX: No signif icant abnormality. PERITONEUM: No free fluid. No free air. No fluid collection. LYMPH NODES: No significant adenopathy. AORTA / ARTERIES: Mild atherosclerotic calcification without acute abnormality. IVC / VEINS: No significant abnormality. URINARY BLADDER: No significant abnormality. REPRODUCTIVE ORGANS: No significant abnormality. ADDITIONAL FINDINGS: None. SKELETAL SYSTEM: No acute abnormality IMPRESSION: 1. There is no obstruction, inflammation, or free air. There are no abnormal fluid collections. The appendix is unremarkable. Signer Name: Robby Santiago MD Signed: 12/31/2020 7:48 PM Workstation Name: [id number] Transcribed By: Dictated By: Robby Santiago MD Electronically Authent icated By: Robby Santiago MD Signed Date/Time: 12/31/201947 DD/ 44 TD/TT: - Medical Decision Making This is a 55-year-old male that presents with abdominal pain, n/v and hyponatremia. Patient is stable and was examined by me. Labs obtained. UA obtained. CT of abdomen obtained and dictated by the radiologist. Patient is notified of the report with no questions noted by the patient. Vital signs are stable prior to admission. Patient consulted with my attending which agrees for admission for hyponatremia. Patient received medical treatment in the ED which patient stated symptoms has improved. Patient admitted to hospitalist Dr. Valenzuela. At time of admission, the patient does not seem toxic or ill in appearance. No acute signs of distress noted. Patient agrees to admission treatment plan of care. No further questions noted by the patient. Critical care attestation.: If time is entered above; I have spent that time in minutes in the direct care of this critically ill patient, excluding procedure time. ED Disposition Clinical Impression: Hyponatremia Abdominal pain Qualifiers: Abdominal location: right lower quadrant Qualified Code(s): R10.31 - Right lower quadrant pain Nausea & vomiting Qualifiers: Vomiting type: unspecified Vomiting Intractability: non-intractable Qualified Code(s): R11.2 - Nausea with vomiting, unspecified Disposition: 09 OP ADMIT IP TO THIS HOSP Is pt being admited?: Yes Condition: Stable
--- NOTE | 2020-12-31 19:53 | Cat Scan Report ---
CT ABDOMEN AND PELVIS WITH CONTRAST INDICATION / CLINICAL INFORMATION: RLQ pain with n/v--PO AND IV CONTRAST PLS. TECHNIQUE: Axial CT images were obtained through the abdomen and pelvis after 100 cc of Omnipaque [address] scans at this location are performed using CT dose reduction for ALARA by means of automated exposure control. COMPARISON: 08/18/2020 FINDINGS: LOWER CHEST: There is a hiatal hernia. LIVER: No significant abnormality. GALLBLADDER: No significant abnormality. BILE DUCTS: No significant abnormality. PANCREAS: No significant abnormality. SPLEEN: No significant abnormality. ADRENALS: No significant abnormality. RIGHT KIDNEY / URETER: No significant abnormality. LEFT KIDNEY / URETER: No significant abnormality. STOMACH / SMALL BOWEL: No significant abnormality. COLON: No significant abnormality. APPENDIX: No significant abnormality. PERITONEUM: No free fluid. No free air. No fluid collection. LYMPH NODES: No significant adenopathy. AORTA / ARTERIES: Mild atherosclerotic calcification without acute abnormality. IVC / VEINS: No significant abnormality. URINARY BLADDER: No significant abnormality. REPRODUCTIVE ORGANS: No significant abnormality. ADDITIONAL FINDINGS: None. SKELETAL SYSTEM: No acute abnormality IMPRESSION: 1. There is no obstruction, inflammation, or free air. There are no abnormal fluid collections. The a ppendix is unremarkable. Signer Name: Robby Santiago MD Signed: 12/31/2020 7:48 PM Workstation Name: [id number]
[2020-12-31] MEDS ORDERED: ACETAMINOPHEN 325 MG TAB PO PRN (21:24)
[2020-12-31] MEDS ORDERED: ONDANSETRON 4 MG/2 ML INJ IV PRN (21:24)
[2020-12-31] MEDS ORDERED: THIAMINE 100 MG, FOLIC ACID 1 MG, MULTIPLE VITAMIN INJ, ADULT 10 ML in SODIUM CHLORIDE ... IV ONE (21:27)
[2020-12-31] MEDS ORDERED: hydrALAZINE 20 MG/1 ML INJ IV PRN (21:27)
[2020-12-31] MEDS ORDERED: SODIUM CHLORIDE 0.9% 1000 ML 1,000 ML IV SCH (21:30)
--- NOTE | 2020-12-31 21:33 | History and Physical Report ---
History of Present Illness Date of examination: 12/31/20 Date of admission: 12/31/20 Chief complaint: Abdominal pain Nausea vomiting History of present illness: 55-year-old male with past medical history of alcohol abuse pancreatitis, H. pylori, gastritis esophagitis was brought to the emergency room because of nausea and vomiting and abdominal pain several days. Patient stated still drinks alcohol daily with last alcohol consumption was earlier today. Patient describes vomiting as food content and yellow gastric acid. Patient describes abdominal pain as cramping and aching with level of 8/10 diffuse with worse to right lower abdomen area. Patient denies chest pain, short of breath, fever, hemoptysis, blood in stool, chills, headache, stiff neck, numbness or tingling. Patient denies any diarrhea or constipation. Denies any blood in stool. Patie nt denies any recent travels. Patient stated allergies to aspirin. In the emergency room CT scan of the abdomen showed there is no obstruction, inflammation or free air. There is no abdominal fluid collection. The appendix is unremarkable. Patient sodium is 116 Past History Past Medical History: other (Gastritis, esophagitis, pancreatitis, alcohol abus e) Medications and Allergies Allergies Allergy/AdvReac Type Severity Reaction Status Date / Time aspirin Allergy Bleeding Verified 07/09/20 10:24 Home Medications Medication Instructions Recorded Confirmed Last Taken Type Famotidine [Acid Controller] 20 mg PO DAILY 01/13/20 01/13/20 Unknown History Ferrous Sulfate [Iron 325 MG] 325 mg PO DAILY 01/13/20 01/13/20 Unknown History Folic Acid [Folvite] 1 mg PO QDAY 01/13/20 01/13/20 Unknown History Multivitamin with Folic Acid [Cvs 400 mcg PO DAILY 01/13/20 01/13/20 Unknown History One Daily Essential Tablet] NIFEdipine [Nifedipine ER] 60 mg PO DAILY 01/13/20 01/13/20 Unknown History Thiamine Mononitrate (Vit B1) 100 gm PO DAILY 01/13/20 01/13/20 Unknown History [Cyto B-1] Ondansetron [Zofran ODT TAB] 4 mg PO Q6HR PRN #30 tab.rapdis 01/26/20 Unknown Rx Methocarbamol [Robaxin] 500 mg PO Q8H PRN #15 tablet 03/03/20 Unknown Rx Pantoprazole [Protonix TAB] 40 mg PO BID 60 Days #30 tablet 07/09/20 Unknown Rx Sucralfate [Carafate] 1 gm PO QID #120 07/09/20 Unknown Rx Pantoprazole [Protonix TAB] 40 mg PO BID 90 Days #180 tablet 08/18/20 Unknown Rx Metoclopramide [Reglan TAB] 10 mg PO TID 10 Days #30 tab 08/19/20 Unknown Rx HYDROcodone/APAP 5-325 [Blev[place] 1 each PO Q6HR PRN #14 tablet 10/15/20 Unknown Rx 5-325 mg TAB] Losartan [Cozaar] 50 mg PO QDAY #30 tablet 10/15/20 Unknown Rx Acetaminophen/Codeine [Tylenol 1 tab PO Q6H #12 tab 10/27/20 Unknown Rx /Codeine # 3 tab] Baclofen 20 mg PO Q12H PRN #20 tablet 11/19/20 Unknown Rx Ibuprofen [Motrin] 600 mg PO Q8H PRN #30 tablet 11/19/20 Unknown Rx traMADoL [Ultram] 50 mg PO Q6HR PRN #12 tablet 11/19/20 Unknown Rx Active Meds: Active Medications Acetaminophen (Acetaminophen 325 Mg Tab) 650 mg PO Q4H PRN PRN Reason: Pain MILD(1-3)/Fever >100.5/MURPHY Heparin Sodium (Porcine) (Heparin 5,000 Unit/1 Ml Vial) 5,000 unit SUB-Q Q8HR [facility] Hydralazine HCl (Hydralazine 20 Mg/1 Ml Inj) 10 mg IV Q6H PRN PRN Reason: Blood Pressure Sodium Chloride (Nacl 0.9% 1000 Ml) 1,000 mls @ 100 mls/hr IV DIRECT LEA Thiamine HCl 100 mg/ Folic Acid 1 mg/ Multivitamins/Minerals 10 ml/ Sodium Chloride 1,011.2 mls @ 250 mls/hr IV ONCE ONE Stop: 01/01/21 01:29 Morphine Sulfate (Morphine 4 Mg/1 Ml Inj) 2 mg IV Q4H PRN PRN Reason: Pain , Severe (7-10) Ondansetron HCl (Ondansetron 4 Mg/2 Ml Inj) 4 mg IV Q8H PRN PRN Reason: Nausea And Vomiting Pantoprazole Sodium (Pantoprazole 40 Mg Inj) 40 mg IV BID LEA Sodium Chloride (Sodium Chloride 0.9% 10 Ml Flush Syringe) 10 ml IV BID LEA Sodium Chloride (Sodium Chloride 0.9% 10 Ml Flush Syringe) 10 ml IV PRN PRN PRN Reason: LINE FLUSH Review of Systems Gastrointestinal: abdominal pain, nausea, vomiting, diarrhea Exam - Constitutional Vitals: Temp Pulse Resp BP Pulse Ox 98.4 F 90 20 149/101 99 12/31/20 16:48 12/31/20 16:48 12/31/20 16:48 12/31/20 16:48 12/31/20 16:48 General appearance: Present: no acute distress, well-nourished - EENT Eyes: Present: PERRL ENT: hearing intact, clear oral mucosa - Neck Neck: Present: supple, normal ROM - Respiratory Respiratory effort: normal Respiratory: bilateral: CTA - Cardiovascular Heart Sounds: Present: S1 & S2. Absent: rub, click - Extremities Extremities: pulses symmetrical, No edema Peripheral Pulses: within normal limits - Abdominal General gastrointestinal: Present: soft, tender, non-distended, normal bowel sounds Male genitourinary: Present: normal - Integumentary Integumentary: Present: clear, warm, dry - Musculoskeletal Musculoskeletal: gait normal, strength equal bilaterally - Psychiatric Psychiatric: appropriate mood/affect, intact judgment & insight - Neurologic Neurologic: CNII-XII intact, moves all extremities HEART Score - HEART Score Troponin: Troponin T < 0.010 ng/mL (0.00-0.029) 12/31/20 19:07 Results - Labs CBC & Chem 7: 12/31/20 18:08 12/31/20 18:08 Labs: Laboratory Last Values WBC 5.8 K/mm3 (4.5-11.0) 12/31/20 18:08 RBC 4.71 M/mm3 (3.65-5.03) 12/31/20 18:08 Hgb 14.9 gm/dl (11.8-15.2) 12/31/20 18:08 Hct 42.8 % (35.5-45.6) 12/31/20 18:08 MCV 91 fl (84-94) 12/31/20 18:08 MCH 32 pg (28-32) 12/31/20 18:08 MCHC 35 % (32-34) H 12/31/20 18:08 RDW 12.8 % (13.2-15.2) L 12/31/20 18:08 Plt Count 307 K/mm3 (140-440) 12/31/20 18:08 Lymph % (Auto) 22.2 % (13.4-35.0) 12/31/20 18:08 [place] % (Auto) 9.8 % (0.0-7.3) H 12/31/20 18:08 Eos % (Auto) 0.6 % (0.0-4.3) 12/31/20 18:08 Baso % (Auto) 0.8 % (0.0-1.8) 12/31/20 18:08 Lymph # (Auto) 1.3 K/mm3 (1.2-5.4) 12/31/20 18:08 [place] # (Auto) 0.6 K/mm3 (0.0-0.8) 12/31/20 18:08 Eos # (Auto) 0.0 K/mm3 (0.0-0.4) 12/31/20 18:08 Baso # (Auto) 0.0 K/mm3 (0.0-0.1) 12/31/20 18:08 Seg Neutrophils % 66.6 % (40.0-70.0) 12/31/20 18:08 Seg Neutrophils # 3.9 K/mm3 (1.8-7.7) 12/31/20 18:08 PT 12.9 Sec. (12.2-14.9) 12/31/20 19:07 INR 0.92 (0.87-1.13) 12/31/20 19:07 APTT 36.3 Sec. (24.2-36.6) 12/31/20 19:07 Sodium 116 mmol/L (137-145) L* 12/31/20 18:08 Potassium 4.4 mmol/L (3.6-5.0) 12/31/20 18:08 Chloride 75.2 mmol/L (98-107) L 12/31/20 18:08 Carbon Dioxide 23 mmol/L (22-30) 12/31/20 18:08 Anion Gap 22 mmol/L 12/31/20 18:08 BUN 6 mg/dL (9-20) L 12/31/20 18:08 Creatinine 0.8 mg/dL (0.8-1.3) 12/31/20 18:08 Estimated GFR > 60 ml/min 12/31/20 18:08 BUN/Creatinine Ratio 8 % 12/31/20 18:08 Glucose 74 mg/dL (75-100) L 12/31/20 18:08 Calcium 8.6 mg/dL (8.4-10.2) 12/31/20 18:08 Total Bilirubin 0.60 mg/dL (0.1-1.2) 12/31/20 18:08 AST 29 units/L (5-40) 12/31/20 18:08 ALT 18 units/L (7-56) 12/31/20 18:08 Alkaline Phosphatase 131 units/L (35-129) H 12/31/20 18:08 Troponin T < 0.010 ng/mL (0.00-0.029) 12/31/20 19:07 Total Protein 8.1 g/dL (6.3-8.2) 12/31/20 18:08 Albumin 4.6 g/dL (3.9-5) 12/31/20 18:08 Albumin/Globulin Ratio 1.3 % 12/31/20 18:08 Lipase 32 units/L (13-60) 12/31/20 18:08 Urine Color Straw (Yellow) 12/31/20 17:50 Urine Turbidity Clear (Clear) 12/31/20 17:50 Urine pH 6.0 (5.0-7.0) 12/31/20 17:50 Ur Specific [place] 1.003 (1.003-1.030) 12/31/20 17:50 Urine Protein <15 mg/dl mg/dL (Negative) 12/31/20 17:50 Urine Glucose (UA) Neg mg/dL (Negative) 12/31/20 17:50 Urine Ketones Tr mg/dL (Negative) 12/31/20 17:50 Urine Blood Sm (Negative) 12/31/20 17:50 Urine Nitrite Neg (Negative) 12/31/20 17:50 Urine Bilirubin Neg (Negative) 12/31/20 17:50 Urine Urobilinogen < 2.0 mg/dL (<2.0) 12/31/20 17:50 Ur Leukocyte Esterase Neg (Negative) 12/31/20 17:50 Urine WBC (Auto) 1.0 /HPF (0.0-6.0) 12/31/20 17:50 Urine RBC (Auto) 1.0 /HPF (0.0-6.0) 12/31/20 17:50 Urine Mucus Few /HPF 12/31/20 17:50 - Imaging and Cardiology CT scan - abdomen: report reviewed Assessment and Plan VTE prophylaxis?: Chemical Plan of care discussed with patient/family: Yes - Patient Problems (1) Abdominal pain Current Visit: Yes Status: Acute Qualifiers: Abdominal location: right lower quadrant Qualified Code(s): R10.31 - Right lower quadrant pain Plan to address problem: Admit the patient to the medical floor. We will put the patient on regular diet. Protonix 40 mg IV every 12 hours. Morphine 1 to 2 mg IV every 4 hours as needed. Zofran 4 million IV every 6 hours as needed. We will recheck CBC CMP in the morning (2) Hyponatremia Current Visit: Yes Status: Acute Plan to address problem: We will put the patient on normal saline at the rate of 100 cc/h. We counseled patient regarding quit drinking recheck CBC BMP in the morning (3) Nausea & vomiting Current Visit: Yes Status: Acute Qualifiers: Vomiting type: unspecified Vomiting Intractability: non-intractable Qualified Code(s): R11.2 - Nausea with vomiting, unspecified Plan to address problem: Protonix 40 mg IV every 12 hours. Zofran 4 mg IV every 6 hours as needed. We counseled the patient regarding quit drinking alcohol. Consult GI in the [facility] if needed (4) Acute alcohol intoxication Current Visit: No Status: Acute Qualifiers: Complication of substance-induced condition: uncomplicated Qualified Code(s): F10.920 - Alcohol use, unspecified with intoxication, uncomplicated Plan to address problem: We will put the patient on banana bag daily. We will put the patient on thiamine folic acid. We counseled the patient regarding quit drinking (5) EtOH dependence Current Visit: No Status: Acute Qualifiers: Plan to address problem: We will put the patient on banana bag daily. We will put the patient on thiamine folic acid. We counseled the patient regarding quit drinking (6) Gastritis Current Visit: No Status: Acute Plan to address problem: Protonix 40 mg IV every 12 hours. Sucralfate 1 g p.o. 4 times daily. Zofran 4 million IV every 6 hours as needed. If needed will consult GI in the morning (7) HTN (hypertension) Current Visit: No Status: Acute Plan to address problem: Hydralazine 10 mg IV every 6 hours as needed. Losartan 50 mg p.o. daily. Nifedipine ER 60 mg p.o. daily. We will continue the home medication. We will monitor the blood pressure closely (8) DVT prophylaxis Current Visit: No Status: Acute Plan to address problem: Heparin 5000 units subcu every 8 hours for DVT prophylaxis. Protonix 40 mg IV every 12 hours for GI prophylaxis. Patient is a full code
[2020-12-31] MEDS ORDERED: BACLOFEN 10 MG TAB PO PRN (21:37)
[2020-12-31] MEDS: HEPARIN 5,000 UNIT/1 ML VIAL SUB-Q SCH (23:07)
[2020-12-31] MEDS: PANTOPRAZOLE 40 MG INJ IV SCH (23:07)
[2021-01-01] MEDS ORDERED: MORPHINE 2 MG/1 ML INJ IV PRN (00:09)
[2021-01-01] MEDS: SUCRALFATE 1 GM TAB PO SCH ×2 (00:13→10:32)
[2021-01-01] MEDS: MORPHINE 2 MG/1 ML INJ IV PRN ×3 (00:13→12:58)
[2021-01-01] MEDS ORDERED: ACETAMINOPHEN 325 MG TAB PO PRN ×4 (02:25→03:11)
[2021-01-01] MEDS ORDERED: ONDANSETRON 4 MG/2 ML INJ IV PRN ×4 (02:25→03:11)
[2021-01-01 04:13] LABS: Basophils % (Auto) 0.4 % (0.0-1.8); Eosinophils % (Auto) 0.3 % (0.0-4.3); Hematocrit 41.1 % (35.5-45.6); Hemoglobin 14.2 gm/dl (11.8-15.2); Lymphocytes % (Auto) 15.5 % (13.4-35.0); Mean Corpuscular HGB Conc 35 % (32-34); Mean Corpuscular Volume 92 fl (84-94); Monocytes # (Auto) 0.8 K/mm3 (0.0-0.8); Monocytes % (Auto) 12.6 % (0.0-7.3); Platelet Count 264 K/mm3 (140-440); Red Blood Count 4.48 M/mm3 (3.65-5.03)
[2021-01-01 04:36] LABS: BUN/Creatinine Ratio 8; Blood Urea Nitrogen 6 mg/dL (9-20); Calcium 9.2 mg/dL (8.4-10.2); Hemolysis Index 52
[2021-01-01] MEDS: HEPARIN 5,000 UNIT/1 ML VIAL SUB-Q SCH (07:22)
[2021-01-01] MEDS ORDERED: METOCLOPRAMIDE 10 MG TAB PO SCH (08:00)
[2021-01-01] MEDS ORDERED: FERROUS SULFATE 325 MG TAB PO SCH (10:00)
[2021-01-01] MEDS ORDERED: FOLIC ACID 1 MG TAB PO SCH (10:00)
[2021-01-01] MEDS ORDERED: NIFEdipine XL 60 MG TAB PO SCH (10:00)
[2021-01-01] MEDS ORDERED: MULTIVITAMINS ,THERAPEUTIC TAB PO SCH (10:00)
[2021-01-01] MEDS ORDERED: LOSARTAN 50 MG TAB PO SCH (10:00)
[2021-01-01] MEDS ORDERED: THIAMINE 100 MG TAB PO SCH (10:00)
[2021-01-01] MEDS: PANTOPRAZOLE 40 MG INJ IV SCH (10:33)
--- NOTE | 2021-01-01 10:55 | Electrocardiograph Report ---
[facility] Test Date: 2020-12-31 Test Time: 21:02:07 Pat Name: WENDI MORENO Department: ED Room: [place] [address] Gender: M Health Physicist: BILL : [id number] Requested By: CAROLYN SHANE Order Number: [id number] Reading MD: Matthew Jones Measurements Intervals [place] Rate: 95 P: 84 UT: 170 QRS: 60 QRSD: 76 T: 66 QT: 376 QTc: 473 Interpretive Statements Sinus rhythm Probable left atrial enlargement Consider anteroseptal infarct No previous ECG available for comparison Electronically Signed On 01-01-2021 10:55:11 EDT by Matthew Jones
[2021-01-01] MEDS ORDERED: chlorproMAZINE 25 MG TAB PO PRN (12:51)
[2021-01-01] MEDS ORDERED: FAMOTIDINE 20 MG TAB PO SCH (13:00)
--- NOTE | 2021-01-01 13:42 | Event Note ---
Date: 01/01/21 Patient was seen and evaluated this morning. Patient is complaining hiccups. No other complaints. Please continue management as outlined in HPI.
[2021-01-01 15:15] VITALS: BP 114/78
--- NOTE | 2021-01-03 07:36 | Discharge Summary ---
Providers - Providers Date of Admission: 01/01/21 03:13 Date of discharge: 01/03/21 Attending physician: ANEESH CROWDER MD Primary care physician: CEMENTER HELPER Hospitalization Reason for admission: Intractable nausea and vomiting, abdominal pain, hyponatremia, alcohol use Condition: Stable Hospital course: 55-year-old male with past medical history of alcohol abuse pancreatitis, H. pylori, gastritis esophagitis was brought to the emergency room because of nausea and vomiting and abdominal pain several days. Patient stated still drinks alcohol daily with last alcohol consumption was earlier today. Patient describes vomiting as food content and yellow gastric acid. Patient describes abdominal pain as cramping and aching with level of 8/10 diffuse with worse to right lower abdomen area. Patient denies chest pain, short of breath, fever, hemoptysis, blood in stool, chills, headache, stiff neck, numbness or tingling. Patient denies any diarrhea or constipation. Denies any blood in stool. Patient denies any recent travels. Patient stated allergies to aspirin. In the emergency room CT scan of the abdomen showed there is no obstruction, inflammation or free air. There is no abdominal fluid collection. The appendix is unremarkable. Patient sodium is 116. Hospital course Patient was admitted to the floor for the management of intractable nausea and vomiting, abdominal pain, hypertension, alcohol abuse. Patient was treated symptomatically and nausea and vomiting stopped. The plan was to monitor him overnight for management of alcohol abuse but patient signed AMA and went home. Risk-benefit was explained to the patient. Disposition: DC-07 LEFT AGAINST MED ADVICE Final Discharge Diagnosis (Prints w/discharge instructions): Hyponatremia. Alcohol use. Hypertension. Intractable nausea and vomiting Time spent for discharge: 25 minutes - Discharge Diagnoses (1) Abdominal pain Status: Acute Qualifiers: Abdominal location: right lower quadrant Qualified Code(s): R10.31 - Right lower quadrant pain (2) Acute abdominal pain Status: Acute (3) Acute alcohol intoxication Status: Acute Qualifiers: Complication of substance-induced condition: uncomplicated Qualified C ode(s): F10.920 - Alcohol use, unspecified with intoxication, uncomplicated (4) Acute chest pain Status: Acute (5) Anemia Status: Acute Qualifiers: Anemia type: unspecified type Qualified Code(s): D64.9 - Anemia, unspecified Core Measure Documentation - Palliative Care Palliative Care/ Comfort Measures: Not Applicable - Core Measures Any of the following diagnoses?: none Exam - Physical Exam Narrative exam: Not in cardiopulmonary distress. The patient appeared well nourished and normally developed. Vital signs as documented. Head exam is unremarkable. No scleral icterus . Neck is without jugular venous distension, thyromegaly, or carotid bruits. Lungs are clear to auscultation. Cardiac exam reveals regular rate and Rhythm. Abdominal exam reveals normal bowel sounds, nontender, no organomegaly. Extremities are nonedematous and both femoral and pedal pulses are normal. ABORIGINAL EDUCATION WORKER COORDINATOR: Alert and oriented 3. No focal weakness. - Constitutional Vitals: Temp Pulse Resp BP Pulse Ox 98.4 F 99 H 16 114/78 99 12/31/20 16:48 01/01/21 15:14 01/01/21 15:14 01/01/21 15:14 01/01/21 15:14 Plan Activity: no restrictions Weight Bearing Status: Full Weight Bearing Diet: advance as tolerated Follow up with: PRIMARY CAREMD [Primary Care Provider] - 3-5 Days
== END 2021-01-02 07:00 | disposition left against medical advice (07) ==
LOC: ED 15:03 → 3A 01-01 03:13
PROVIDERS: ADMIT Hospitalist; ATTEND Internal Medicine
DX: K29.70 Gastritis, unspecified, without bleeding (principal); I10 Essential (primary) hypertension; E87.1 Hypo-osmolality and hyponatremia; F10.920 Alcohol use, unspecified with intoxication, uncomplicated; K21.9 Gastro-esophageal reflux disease without esophagitis; F17.210 Nicotine dependence, cigarettes, uncomplicated; R10.31 Right lower quadrant pain; D64.9 Anemia, unspecified
CPT/HCPCS: 36415; 74177; 80048; 80053; 81001; 83690; 84484; 85025; 85610; 85730; 93005; 96361; 96365; 96366; 96372; 96375; 96376; 99285; C9113; G0378; J1644; J2270; J2405; J3411; J7030; Q0161; Q9967

== ENCOUNTER 2021-05-08 13:07 | Emergency (ER) | payer MEDICAID ==
[2021-05-08] MEDS ORDERED: PANTOPRAZOLE 40 MG INJ IV ONE (15:24)
[2021-05-08] MEDS ORDERED: SODIUM CHLORIDE 0.9% 1000 ML 1,000 ML IV ONE (15:24)
[2021-05-08] MEDS ORDERED: MORPHINE 4 MG/1 ML INJ IV ONE (15:24)
[2021-05-08] MEDS ORDERED: ONDANSETRON 4 MG/2 ML INJ IV ONE (15:24)
--- NOTE | 2021-05-08 15:27 | Event Note ---
ED Screening Note Date of service: 05/08/21 Time: 15:25 ED Screening Note: Patient presents with complaints of mid/upper abdominal pain starting 04/30/2021 Describes the pain as burning and states it radiates into his chest Admits to nausea and vomiting Patient also admits to daily alcohol intake No history of pancreatitis per patient Rates pain as a 9/10 in severity Significant tenderness to palpation of the epigastrium/periumbilical region of abdomen on exam This initial assessment/diagnostic orders/clinical plan/treatment(s) is/are subject to change based on patients health status, clinical progression and re- assessment by fellow clinical providers in the ED. Further treatment and workup at subsequent clinical providers discretion. Patient/guardian urged not to elope from the ED as their condition may be serious if not clinically assessed and managed. Initial orders include: Labs EKG Chest x-ray Meds CT abdomen
[2021-05-08 15:31] LABS: Basophils # (Auto) 0.1 K/mm3 (0.0-0.1); Eosinophils # (Auto) 0.1 K/mm3 (0.0-0.4); Eosinophils % (Auto) 1.9 % (0.0-4.3); Hematocrit 40.4 % (35.5-45.6); Lymphocytes # (Auto) 1.4 K/mm3 (1.2-5.4); Lymphocytes % (Auto) 21.7 % (13.4-35.0); Mean Corpuscular HGB Conc 32 % (32-34); Mean Corpuscular Volume 89 fl (84-94); Monocytes # (Auto) 0.6 K/mm3 (0.0-0.8); Monocytes % (Auto) 8.7 % (0.0-7.3); Platelet Count 369 K/mm3 (140-440); Red Blood Count 4.52 M/mm3 (3.65-5.03); Red Cell Distribution Width 13.3 % (13.2-15.2)
[2021-05-08 15:49] LABS: Alanine Aminotransferase 20 units/L (7-56); Albumin 4.2 g/dL (3.9-5); BUN/Creatinine Ratio 8; Blood Urea Nitrogen 6 mg/dL (9-20); Calcium 9.3 mg/dL (8.4-10.2); Hemolysis Index 9
[2021-05-08 15:51] LABS: Bilirubin,Direct < 0.2 mg/dL (0-0.2)
--- NOTE | 2021-05-08 16:02 | XRay Report ---
CHEST 2 VIEWS INDICATION / CLINICAL INFORMATION: chest pain. COMPARISON: 10/13/20 FINDINGS: SUPPORT DEVICES: None. HEART / MEDIASTINUM: No significant abnormality. LUNGS / PLEURA: No significant pulmonary or pleural abnormality. No pneumothorax. ADDITIONAL FINDINGS: Multiple healed left rib fractures. No acute skeletal abnormality. IMPRESSION: 1. No acute findings. Signer Name: Pantera Redd MD Signed: 05/08/2021 3:57 PM Workstation Name: [id number]
--- NOTE | 2021-05-08 16:59 | Cat Scan Report ---
CT abdomen pelvis w con INDICATION / CLINICAL INFORMATION: Mid/upper abdominal pain.. TECHNIQUE: Axial CT images were obtained through the abdomen and pelvis after 100 cc of Omnipaque [address] scans at this location are performed using CT dose reduction for ALARA by means of automated exposure control. COMPARISON: 12/31/2020. FINDINGS: LOWER CHEST: There are mild patchy groundglass opacities within the right middle lobe and right lower lobe. Left lung base is clear. LIVER: No significant abnormality GALLBLADDER/BILIARY TREE: No significant abnormality PANCREAS: No significant abnormality SPLEEN: No significant abnormality ADRENALS: No significant abnormality KIDNEYS / URETER: No significant abnormality URINARY BLADDER: No significant abnormality REPRODUCTIVE ORGANS: No significant abnormality STOMACH / BOWEL:Small-moderate hiatal hernia. No evidence of bowel obstruction or inflammation. The a ppendix is normal in caliber. LYMPH NODES: No significant adenopathy. VASCULATURE: No significant abnormality. OTHER: No free air, free fluid, or focal fluid collection is identified. SKELETAL SYSTEM: No acute osseous findings. IMPRESSION: 1. Mild patchy groundglass opacities within the right middle lobe and right lower lobe, concerning fo r atypical infectious or inflammatory process. 2. No acute intra-abdominal abnormality. No evidence of bowel inflammation or obstruction. 3. Small to moderate hiatal hernia. Signer Name: Walker Espino MD Signed: 05/08/2021 4:55 PM Workstation Name: [id number]
[2021-05-08 18:23] VITALS: BP 132/82
--- NOTE | 2021-05-08 18:24 | Emergency Department Report ---
ED Abdominal Pain HPI - General Chief Complaint: Abdominal Pain Stated Complaint: ABD PAIN Time Seen by Provider: 05/08/21 15:23 Source: patient Mode of arrival: Ambulatory Limitations: No Limitations - History of Present Illness Initial Comments: 55-year-old male presents to ED with epigastric abdominalpain x1 month, worsening over the last week. He also reports associated hiccups for greater than 1 month. Patient states he has been told in the past that he had a gastric ulcer. Patient admits to tobacco use and alcohol use as well. Patient reports some associated nausea, vomiting. States he has previously been told that he had pancreatitis. Patient describes his abdominal pain is burning. MD Complaint: abdominal pain -: week(s) (1) Location: epigastric Radiation: chest Severity scale (0 -10): 9 Quality: burning Consistency: intermittent Improves With: nothing Worsens With: nothing Associated Symptoms: nausea, vomiting, diarrhea. denies: fever - Related Data Home Medications Medication Instructions Recorded Confirmed Last Taken Famotidine [Acid Controller] 20 mg PO DAILY 01/13/20 01/13/20 Unknown Ferrous Sulfate [Iron 325 MG] 325 mg PO DAILY 01/13/20 01/13/20 Unknown Folic Acid [Folvite] 1 mg PO QDAY 01/13/20 01/13/20 Unknown Multivitamin with Folic Acid [[facility] 400 mcg PO DAILY 01/13/20 01/13/20 Unknown One Daily Essential Tablet] NIFEdipine [Nifedipine ER] 60 mg PO DAILY 01/13/20 01/13/20 Unknown Thiamine Mononitrate (Vit B1) 100 gm PO DAILY 01/13/20 01/13/20 Unknown [Cyto B-1] Previous Rx's Medication Instructions Recorded Last Taken Type Ondansetron [Zofran ODT TAB] 4 mg PO Q6HR PRN #30 tab.rapdis 01/26/20 Unknown Rx Methocarbamol [Robaxin] 500 mg PO Q8H PRN #15 tablet 03/03/20 Unknown Rx Pantoprazole [Protonix TAB] 40 mg PO BID 60 Days #30 tablet 07/09/20 Unknown Rx Sucralfate [Carafate] 1 gm PO QID #120 07/09/20 Unknown Rx Pantoprazole [Protonix TAB] 40 mg PO BID 90 Days #180 tablet 08/18/20 Unknown Rx Metoclopramide [Reglan TAB] 10 mg PO TID 10 Days #30 tab 08/19/20 Unknown Rx HYDROcodone/APAP 5-325 [[place] 1 each PO Q6HR PRN #14 tablet 10/15/20 Unknown Rx 5-325 mg TAB] Losartan [Cozaar] 50 mg PO QDAY #30 tablet 10/15/20 Unknown Rx Acetaminophen/Codeine [Tylenol 1 tab PO Q6H #12 tab 10/27/20 Unknown Rx /Codeine # 3 tab] Baclofen 20 mg PO Q12H PRN #20 tablet 11/19/20 Unknown Rx Ibuprofen [Motrin] 600 mg PO Q8H PRN #30 tablet 11/19/20 Unknown Rx traMADoL [Ultram] 50 mg PO Q6HR PRN #12 tablet 11/19/20 Unknown Rx Azithromycin [Zithromax TAB] 500 mg PO QDAY 4 Days #4 tablet 05/08/21 Unknown Rx traMADoL [Ultram] 50 mg PO Q6HR PRN #7 tablet 05/08/21 Unknown Rx Allergies Allergy/AdvReac Type Severity Reaction Status Date / Time aspirin Allergy Bleeding Verified 05/08/21 13:28 ED Review of Systems ROS: Stated complaint: ABD PAIN Other details as noted in HPI Comment: All other systems reviewed and negative Constitutional: denies: chills, fever Gastrointestinal: abdominal pain, nausea, vomiting, diarrhea ED Past Medical Hx - Past Medical History Hx Hypertension: Yes Hx Heart Attack/AMI: No Hx Congestive Heart Failure: No Hx Diabetes: No Hx Deep Vein Thrombosis: No Hx GERD: Yes Hx Renal Disease: No Hx Sickle Cell Disease: No Hx Kidney Stones: No Hx Asthma: No Hx COPD: No Hx Tuberculosis: No Hx HIV: No Additional medical history: Low sodium secondary to excessive water intake, low potassium, HERNIA H-PYLORIC, gastritis, esophagitis, daily alcohol use, pancreatitis - Surgical History Hx Coronary Stent: No Hx Pacemaker: No Hx Internal Defibrillator: No Additional Surgical History: Left index finger surgery - Social History Smoking Status: Current Every Day Smoker - Medications Home Medications: Home Medications Medication Instructions Recorded Confirmed Last Taken Type Famotidine [Acid Controller] 20 mg PO DAILY 01/13/20 01/13/20 Unknown History Ferrous Sulfate [Iron 325 MG] 325 mg PO DAILY 01/13/20 01/13/20 Unknown History Folic Acid [Folvite] 1 mg PO QDAY 01/13/20 01/13/20 Unknown History Multivitamin with Folic Acid [[facility] 400 mcg PO DAILY 01/13/20 01/13/20 Unknown History One Daily Essential Tablet] NIFEdipine [Nifedipine ER] 60 mg PO DAILY 01/13/20 01/13/20 Unknown History Thiamine Mononitrate (Vit B1) 100 gm PO DAILY 01/13/20 01/13/20 Unknown History [Cyto B-1] Ondansetron [Zofran ODT TAB] 4 mg PO Q6HR PRN #30 tab.rapdis 01/26/20 Unknown Rx Methocarbamol [Robaxin] 500 mg PO Q8H PRN #15 tablet 03/03/20 Unknown Rx Pantoprazole [Protonix TAB] 40 mg PO BID 60 Days #30 tablet 07/09/20 Unknown Rx Sucralfate [Carafate] 1 gm PO QID #120 07/09/20 Unknown Rx Pantoprazole [Protonix TAB] 40 mg PO BID 90 Days #180 tablet 08/18/20 Unknown Rx Metoclopramide [Reglan TAB] 10 mg PO TID 10 Days #30 tab 08/19/20 Unknown Rx HYDROcodone/APAP 5-325 [[place] 1 each PO Q6HR PRN #14 tablet 10/15/20 Unknown Rx 5-325 mg TAB] Losartan [Cozaar] 50 mg PO QDAY #30 tablet 10/15/20 Unknown Rx Acetaminophen/Codeine [Tylenol 1 tab PO Q6H #12 tab 10/27/20 Unknown Rx /Codeine # 3 tab] Baclofen 20 mg PO Q12H PRN #20 tablet 11/19/20 Unknown Rx Ibuprofen [Motrin] 600 mg PO Q8H PRN #30 tablet 11/19/20 Unknown Rx traMADoL [Ultram] 50 mg PO Q6HR PRN #12 tablet 11/19/20 Unknown Rx Azithromycin [Zithromax TAB] 500 mg PO QDAY 4 Days #4 tablet 05/08/21 Unknown Rx traMADoL [Ultram] 50 mg PO Q6HR PRN #7 tablet 05/08/21 Unknown Rx ED Physical Exam - General Limitations: No Limitations General appearance: alert, in no apparent distress - Head Head exam: Present: atraumatic, normocephalic - Eye Eye exam: Present: normal appearance, EOMI - ENT ENT exam: Present: mucous membranes moist - Neck Neck exam: Present: normal inspection - Respiratory Respiratory exam: Present: normal lung sounds bilaterally. Absent: respiratory distress - Cardiovascular Cardiovascular Exam: Present: regular rate, normal rhythm - GI/Abdominal GI/Abdominal exam: Present: soft, tenderness (Epigastric). Absent: distended - Extremities Exam Extremities exam: Present: normal inspection - Neurological Exam Neurological exam: Present: alert, oriented X3 - Psychiatric Psychiatric exam: Present: normal affect, normal mood - Skin Skin exam: Present: warm, dry, intact, normal color ED Course Vital Signs 05/08/21 13:29 Temperature 98.0 F Pulse Rate 122 H Respiratory 16 Rate Blood Pressure 117/81 O2 Sat by Pulse 94 Oximetry ED Medical Decision Making - Lab Data Result diagrams: 05/08/21 15:13 05/08/21 15:13 - EKG Data -: EKG Interpreted by Vt EKG shows normal: sinus rhythm, axis, intervals, QRS complexes, ST-T waves Rate: normal - EKG Data Interpretation: no acute changes, LVH - Radiology Data Radiology results: report reviewed, image reviewed Critical care attestation.: If time is entered above; I have spent that time in minutes in the direct care of this critically ill patient, excluding procedure time. ED Disposition Clinical Impression: Abdominal pain, Pneumonia, Hiccups Disposition: HOME / SELF CARE / HOMELESS Is pt being admited?: No Condition: Stable Instructions: Bacterial Pneumonia (ED), Community-Acquired Pneumonia, Adult, [id number], Abdominal Pain, Adult, Hiccups Prescriptions: Azithromycin [Zithromax TAB] 500 mg PO QDAY 4 Days #4 tablet Referrals: PRIMARY CARE [Primary Care Provider] - 3-5 Days [facility] [Provider Group] - 3-5 Days [facility] [Provider Group] - 3-5 Days Time of Disposition: 18:29
[2021-05-08] MEDS ORDERED: ALUM-MAG HYDROXIDE-SIMETHICONE 200-200-20MG/5ML ORAL LIQD 30 ML PO ONE (18:27)
[2021-05-08] MEDS ORDERED: LIDOCAINE VISCOUS 2% 15 ML ORAL LIQD PO ONE (18:27)
[2021-05-08] MEDS ORDERED: cefTRIAXone/NS 1 GM/50 ML 1 GM/50 ML BAG IV ONE (18:28)
[2021-05-08] MEDS ORDERED: AZITHROMYCIN 250 MG TAB PO ONE (18:28)
--- NOTE | 2021-05-09 10:44 | Electrocardiograph Report ---
[facility] Test Date: 2021-05-08 Test Time: 16:50:58 Pat Name: WENDI MORENO Department: Room: Gender: M [employer]: JUN[birth year] : 1965 Requested By: KERLINE PAYNE Order Number: [id number] Reading MD: Huey Francois Measurements Intervals [place] Rate: 95 P: 60 OK: 161 QRS: 78 QRSD: 79 T: 69 QT: 324 QTc: 406 Interpretive Statements Sinus rhythm Consider left ventricular hypertrophy Compared to ECG 12/31/2020 21:02:07 Myocardial infarct finding no longer present Electronically Signed On 05-09-2021 10:43:51 EST by Huey Francois
== END 2021-05-08 19:50 | disposition home or self-care (01) ==
LOC: ED 13:07
DX: R10.13 Epigastric pain (principal); J18.9 Pneumonia, unspecified organism; R06.6 Hiccough; I10 Essential (primary) hypertension; F17.200 Nicotine dependence, unspecified, uncomplicated; Z88.6 Allergy status to analgesic agent; Z79.899 Other long term (current) drug therapy
CPT/HCPCS: 36415; 71046; 74177; 80048; 80076; 83690; 84484; 85025; 93005; 96361; 96365; 96375; 99284; C9113; J0696; J2270; J2405; J7030; Q9967; Q0162

== ENCOUNTER 2021-07-07 11:37 | Emergency (ER) | payer MEDICAID ==
[2021-07-07] MEDS ORDERED: ALUM-MAG HYDROXIDE-SIMETHICONE 200-200-20MG/5ML ORAL LIQD 30 ML PO ONE (13:16)
[2021-07-07] MEDS ORDERED: LIDOCAINE VISCOUS 2% 15 ML ORAL LIQD PO ONE (13:16)
[2021-07-07] MEDS ORDERED: FAMOTIDINE 20 MG TAB PO ONE (13:20)
--- NOTE | 2021-07-07 14:51 | XRay Report ---
XR chest routine 2V INDICATION / CLINICAL INFORMATION: Chest pain. COMPARISON: 05/08/2021 FINDINGS: SUPPORT DEVICES: None. HEART /PULMONARY VASCULATURE: No significant abnormality. LUNGS / PLEURA: No significant pulmonary or pleural abnormality. No pneumothorax. ADDITIONAL FINDINGS: No significant additional findings. IMPRESSION: 1. No acute findings. Signer Name: Walker Espino MD Signed: 07/07/2021 2:47 PM Workstation Name: [id number]
[2021-07-07 15:23] LABS: Basophils # (Auto) 0.1 K/mm3 (0.0-0.1); Basophils % (Auto) 1.6 % (0.0-1.8); Eosinophils # (Auto) 0.3 K/mm3 (0.0-0.4); Eosinophils % (Auto) 5.5 % (0.0-4.3); Hematocrit 42.3 % (35.5-45.6); Hemoglobin 13.6 gm/dl (11.8-15.2); Lymphocytes # (Auto) 1.6 K/mm3 (1.2-5.4); Lymphocytes % (Auto) 24.8 % (13.4-35.0); Mean Corpuscular HGB Conc 32 % (32-34); Mean Corpuscular Volume 92 fl (84-94); Monocytes # (Auto) 0.4 K/mm3 (0.0-0.8); Platelet Count 381 K/mm3 (140-440); Red Cell Distribution Width 16.7 % (13.2-15.2)
[2021-07-07 15:46] LABS: Alanine Aminotransferase 14 units/L (7-56); Albumin 4.2 g/dL (3.9-5); BUN/Creatinine Ratio 8; Blood Urea Nitrogen 6 mg/dL (9-20); Calcium 9.2 mg/dL (8.4-10.2); Hemolysis Index 16
--- NOTE | 2021-07-07 16:32 | Emergency Department Report ---
ED General Adult HPI - General Chief complaint: Nausea/Vomiting/Diarrhea Stated complaint: ABDOMINAL PAIN Source: patient Mode of arrival: Ambulatory Limitations: No Limitations - History of Present Illness Initial comments: epigastric pain , drinks daily had 2 X 25 oz beer today -: Gradual, days(s) Severity scale (0 -10): 6 Quality: burning Consistency: intermittent - Related Data Home Medications Medication Instructions Recorded Confirmed Last Taken Famotidine [Acid Controller] 20 mg PO DAILY 01/13/20 01/13/20 Unknown Ferrous Sulfate [Iron 325 MG] 325 mg PO DAILY 01/13/20 01/13/20 Unknown Folic Acid [Folvite] 1 mg PO QDAY 01/13/20 01/13/20 Unknown Multivitamin with Folic Acid [[facility] 400 mcg PO DAILY 01/13/20 01/13/20 Unknown One Daily Essential Tablet] NIFEdipine [Nifedipine ER] 60 mg PO DAILY 01/13/20 01/13/20 Unknown Thiamine Mononitrate (Vit B1) 100 gm PO DAILY 01/13/20 01/13/20 Unknown [Cyto B-1] Previous Rx's Medication Instructions Recorded Last Taken Type Ondansetron [Zofran ODT TAB] 4 mg PO Q6HR PRN #30 tab.rapdis 01/26/20 Unknown Rx Methocarbamol [Robaxin] 500 mg PO Q8H PRN #15 tablet 03/03/20 Unknown Rx Pantoprazole [Protonix TAB] 40 mg PO BID 60 Days #30 tablet 07/09/20 Unknown Rx Sucralfate [Carafate] 1 gm PO QID #120 07/09/20 Unknown Rx Pantoprazole [Protonix TAB] 40 mg PO BID 90 Days #180 tablet 08/18/20 Unknown Rx Metoclopramide [Reglan TAB] 10 mg PO TID 10 Days #30 tab 08/19/20 Unknown Rx HYDROcodone/APAP 5-325 [[place] 1 each PO Q6HR PRN #14 tablet 10/15/20 Unknown Rx 5-325 mg TAB] Losartan [Cozaar] 50 mg PO QDAY #30 tablet 10/15/20 Unknown Rx Acetaminophen/Codeine [Tylenol 1 tab PO Q6H #12 tab 10/27/20 Unknown Rx /Codeine # 3 tab] Baclofen 20 mg PO Q12H PRN #20 tablet 11/19/20 Unknown Rx Ibuprofen [Motrin] 600 mg PO Q8H PRN #30 tablet 11/19/20 Unknown Rx traMADoL [Ultram] 50 mg PO Q6HR PRN #12 tablet 11/19/20 Unknown Rx Azithromycin [Zithromax TAB] 500 mg PO QDAY 4 Days #4 tablet 05/08/21 Unknown Rx traMADoL [Ultram] 50 mg PO Q6HR PRN #7 tablet 05/08/21 Unknown Rx Omeprazole 40 mg PO DAILY #30 07/07/21 Unknown Rx Ondansetron [Zofran Odt] 4 mg PO Q8HR #14 tab.rapdis 07/07/21 Unknown Rx Allergies Allergy/AdvReac Type Severity Reaction Status Date / Time aspirin Allergy Bleeding Verified 05/08/21 13:28 ED Review of Systems ROS: Stated complaint: ABDOMINAL PAIN Other details as noted in HPI Constitutional: denies: chills, fever Eyes: denies: eye pain, eye discharge, vision change ENT: denies: ear pain, throat pain Respiratory: denies: cough, shortness of breath, wheezing Cardiovascular: denies: chest pain, palpitations Endocrine: no symptoms reported Gastrointestinal: denies: abdominal pain, nausea, diarrhea Genitourinary: denies: urgency, dysuria Musculoskeletal: denies: back pain, joint swelling, arthralgia Skin: denies: rash, lesions Neurological: denies: headache, weakness, paresthesias Psychiatric: denies: anxiety, depression Hematological/Lymphatic: denies: easy bleeding, easy bruising ED Past Medical Hx - Past Medical History Hx Hypertension: Yes Hx Heart Attack/AMI: No Hx Congestive Heart Failure: No Hx Diabetes: No Hx Deep Vein Thrombosis: No Hx GERD: Yes Hx Renal Disease: No Hx Sickle Cell Disease: No Hx Kidney Stones: No Hx Asthma: No Hx COPD: No Hx Tuberculosis: No Hx HIV: No Additional medical history: Low sodium secondary to excessive water intake, low potassium, HERNIA H-PYLORIC, gastritis, esophagitis, daily alcohol use, pancreatitis - Surgical History Hx Coronary Stent: No Hx Pacemaker: No Hx Internal Defibrillator: No Additional Surgical History: Left index finger surgery - Social History Smoking Status: Current Every Day Smoker - Medications Home Medications: Home Medications Medication Instructions Recorded Confirmed Last Taken Type Famotidine [Acid Controller] 20 mg PO DAILY 01/13/20 01/13/20 Unknown History Ferrous Sulfate [Iron 325 MG] 325 mg PO DAILY 01/13/20 01/13/20 Unknown History Folic Acid [Folvite] 1 mg PO QDAY 01/13/20 01/13/20 Unknown History Multivitamin with Folic Acid [Cvs 400 mcg PO DAILY 01/13/20 01/13/20 Unknown Hi story One Daily Essential Tablet] NIFEdipine [Nifedipine ER] 60 mg PO DAILY 01/13/20 01/13/20 Unknown History Thiamine Mononitrate (Vit B1) 100 gm PO DAILY 01/13/20 01/13/20 Unknown History [Cyto B-1] Ondansetron [Zofran ODT TAB] 4 mg PO Q6HR PRN #30 tab.rapdis 01/26/20 Unknown Rx Methocarbamol [Robaxin] 500 mg PO Q8H PRN #15 tablet 03/03/20 Unknown Rx Pantoprazole [Protonix TAB] 40 mg PO BID 60 Days #30 tablet 07/09/20 Unknown Rx Sucralfate [Carafate] 1 gm PO QID #120 07/09/20 Unknown Rx Pantoprazole [Protonix TAB] 40 mg PO BID 90 Days #180 tablet 08/18/20 Unknown Rx Metoclopramide [Reglan TAB] 10 mg PO TID 10 Days #30 tab 08/19/20 Unknown Rx HYDROcodone/APAP 5-325 [[place] 1 each PO Q6HR PRN #14 tablet 10/15/20 Unknown Rx 5-325 mg TAB] Losartan [Cozaar] 50 mg PO QDAY #30 tablet 10/15/20 Unknown Rx Acetaminophen/Codeine [Tylenol 1 tab PO Q6H #12 tab 10/27/20 Unknown Rx /Codeine # 3 tab] Baclofen 20 mg PO Q12H PRN #20 tablet 11/19/20 Unknown Rx Ibuprofen [Motrin] 600 mg PO Q8H PRN #30 tablet 11/19/20 Unknown Rx traMADoL [Ultram] 50 mg PO Q6HR PRN #12 tablet 11/19/20 Unknown Rx Azithromycin [Zithromax TAB] 500 mg PO QDAY 4 Days #4 tablet 05/08/21 Unknown Rx traMADoL [Ultram] 50 mg PO Q6HR PRN #7 tablet 05/08/21 Unknown Rx Omeprazole 40 mg PO DAILY #30 07/07/21 Unknown Rx Ondansetron [Zofran Odt] 4 mg PO Q8HR #14 tab.rapdis 07/07/21 Unknown Rx ED Physical Exam - General Limitations: No Limitations General appearance: alert, appears intoxicated - Head Head exam: Present: atraumatic, normocephalic - Eye Eye exam: Present: normal appearance - ENT ENT exam: Present: mucous membranes moist - Neck Neck exam: Present: normal inspection - Respiratory Respiratory exam: Present: normal lung sounds bilaterally. Absent: respiratory distress - Cardiovascular Cardiovascular Exam: Present: regular rate, normal rhythm. Absent: systolic murmur, diastolic murmur, rubs, gallop - GI/Abdominal GI/Abdominal exam: Present: soft, normal bowel sounds - Rectal Rectal exam: Present: deferred - Extremities Exam Extremities exam: Present: normal inspection - Back Exam Back exam: Present: normal inspection - Neurological Exam Neurological exam: Present: alert, oriented X3 - Psychiatric Psychiatric exam: Present: normal affect, normal mood - Skin Skin exam: Present: warm, dry, intact, normal color. Absent: rash ED Course Vital Signs 07/07/21 13:17 Temperature 98.8 F Pulse Rate 89 Respiratory 20 Rate Blood Pressure 157/120 [Right] O2 Sat by Pulse 97 Oximetry - Reevaluation(s) Reevaluation #1: 07/07/21 16:29 vss no dsitress ,inotxciated fluids given no apncreattis no ekg of stemi or trop ED Medical Decision Making - Lab Data Result diagrams: 07/07/21 13:59 07/07/21 13:59 - EKG Data -: EKG Interpreted by Me EKG shows normal: sinus rhythm Rate: normal - EKG Data Interpretation: LVH Critical care attestation.: If time is entered above; I have spent that time in minutes in the direct care of this critically ill patient, excluding procedure time. ED Disposition Clinical Impression: Alcohol abuse, EtOH dependence Disposition: HOME / SELF CARE / HOMELESS Is pt being admited?: No Does the pt Need Aspirin: No Condition: Stable Instructions: Alcohol Use Disorder, Alcohol Abuse and Nutrition Referrals: PRIMARY CARE,MD [Primary Care Provider] - 3-5 Days
[2021-07-07 16:51] VITALS: BP 166/106
== END 2021-07-07 17:19 | disposition home or self-care (01) ==
LOC: ED 11:37
DX: F10.20 Alcohol dependence, uncomplicated (principal); Y90.9 Presence of alcohol in blood, level not specified; K21.9 Gastro-esophageal reflux disease without esophagitis; Z98.890 Other specified postprocedural states; Z79.899 Other long term (current) drug therapy
CPT/HCPCS: 36415; 71046; 80053; 83690; 83735; 84484; 85025; 93005; 99283; 99284

== ENCOUNTER 2021-07-12 14:33 | Observation (INO) | payer MEDICAID ==
[2021-07-12] MEDS ORDERED: SODIUM CHLORIDE 0.9% 1000 ML 1,000 ML IV ONE (16:30)
[2021-07-12] MEDS ORDERED: ONDANSETRON 4 MG/2 ML INJ IV ONE (16:30)
--- NOTE | 2021-07-12 16:33 | Emergency Department Report ---
ED General Adult HPI - General Chief complaint: Fall Stated complaint: FALL/HEAD LAC PUI?: No Time Seen by Provider: 07/12/21 16:28 Source: patient, EMS Mode of arrival: Stretcher Limitations: Altered Mental Status - History of Present Illness Initial comments: Patient is a 55-year-old male that presents emergency room with complaints of fall, headache, head laceration, abdominal pain, nausea, vomiting, hematemesis. Patient states that he was drinking and he fell and hit the back of his head. Patient states that he is not sure if he lost consciousness. Patient states his last drink was just prior to the fall and is not sure when that was. Patient at this time is alert and oriented x2. Patient is oriented to person and place. Patient is disoriented to time and situation. Patient complains of abdominal pain. Patient dates the abdominal pain is severe. He states that 10 out of 10. Patient does not know when it started. Patient states the abdominal pain is in the epigastric region and in the left upper quadrant. Patient states the pain is not radiating. Patient denies fever and chills. Patient also complains of nausea and vomiting and hematemesis. Patient states he has had blood in his vomitus. Patient states he has a history of pancreatitis. Patient states he has a history of upper GI bleed. Patient states he is not supposed to be drinking. Patient states he drinks anyway. Patient states he is taking multiple medications for his stomach. Patient denies recent travel. Patient denies recent international travel. Patient denies exposure to the novel coronavirus. Patient denies sick contacts. Patient denies fever and chills. Patient denies cough. Patient denies diarrhea. Patient denies coming in contact with anybody with symptoms of the novel coronavirus. -: Sudden Location: head, abdomen Severity scale (0 -10): 10 Quality: stabbing Consistency: constant Improves with: rest Worsens with: movement Associated Symptoms: confusion, headaches, nausea/vomiting. denies: chest pain, cough, diaphoresis, fever/chills, seizure Treatments Prior to Arrival: none - Related Data Home Medications Medication Instructions Recorded Confirmed Last Taken Famotidine [Acid Controller] 20 mg PO DAILY 01/13/20 01/13/20 Unknown Ferrous Sulfate [Iron 325 MG] 325 mg PO DAILY 01/13/20 01/13/20 Unknown Folic Acid [Folvite] 1 mg PO QDAY 01/13/20 01/13/20 Unknown Multivitamin with Folic Acid [[facility] 400 mcg PO DAILY 01/13/20 01/13/20 Unknown One Daily Essential Tablet] NIFEdipine [Nifedipine ER] 60 mg PO DAILY 01/13/20 01/13/20 Unknown Thiamine Mononitrate (Vit B1) 100 gm PO DAILY 01/13/20 01/13/20 Unknown [Cyto B-1] Previous Rx's Medication Instructions Recorded Last Taken Type Ondansetron [Zofran ODT TAB] 4 mg PO Q6HR PRN #30 tab.rapdis 01/26/20 Unknown Rx Methocarbamol [Robaxin] 500 mg PO Q8H PRN #15 tablet 03/03/20 Unknown Rx Pantoprazole [Protonix TAB] 40 mg PO BID 60 Days #30 tablet 07/09/20 Unknown Rx Sucralfate [Carafate] 1 gm PO QID #120 07/09/20 Unknown Rx Pantoprazole [Protonix TAB] 40 mg PO BID 90 Days #180 tablet 08/18/20 Unknown Rx Metoclopramide [Reglan TAB] 10 mg PO TID 10 Days #30 tab 08/19/20 Unknown Rx HYDROcodone/APAP 5-325 [[place] 1 each PO Q6HR PRN #14 tablet 10/15/20 Unknown Rx 5-325 mg TAB] Losartan [Cozaar] 50 mg PO QDAY #30 tablet 10/15/20 Unknown Rx Acetaminophen/Codeine [Tylenol 1 tab PO Q6H #12 tab 10/27/20 Unknown Rx /Codeine # 3 tab] Baclofen 20 mg PO Q12H PRN #20 tablet 11/19/20 Unknown Rx Ibuprofen [Motrin] 600 mg PO Q8H PRN #30 tablet 11/19/20 Unknown Rx traMADoL [Ultram] 50 mg PO Q6HR PRN #12 tablet 11/19/20 Unknown Rx Azithromycin [Zithromax TAB] 500 mg PO QDAY 4 Days #4 tablet 05/08/21 Unknown Rx traMADoL [Ultram] 50 mg PO Q6HR PRN #7 tablet 05/08/21 Unknown Rx Omeprazole 40 mg PO DAILY #30 07/07/21 Unknown Rx Ondansetron [Zofran Odt] 4 mg PO Q8HR #14 tab.rapdis 07/07/21 Unknown Rx Allergies Allergy/AdvReac Type Severity Reaction Status Date / Time aspirin Allergy Bleeding Verified 07/12/21 19:59 ED Review of Systems ROS: Stated complaint: FALL/HEAD LAC Other details as noted in HPI Constitutional: denies: chills, fever Eyes: denies: eye pain, eye discharge, vision change ENT: denies: ear pain, throat pain Respiratory: denies: cough, shortness of breath, wheezing Cardiovascular: denies: chest pain, palpitations Endocrine: no symptoms reported Gastrointestinal: abdominal pain, nausea, vomiting, hematemesis. denies: diarrhea Genitourinary: denies: urgency, dysuria Musculoskeletal: denies: back pain, joint swelling, arthralgia Skin: denies: rash, lesions Neurological: as per HPI, headache. denies: weakness, paresthesias Psychiatric: denies: anxiety, depression Hematological/Lymphatic: denies: easy bleeding, easy bruising ED Past Medical Hx - Past Medical History Previous Medical History?: Yes Hx Hypertension: Yes Hx Heart Attack/AMI: No Hx Congestive Heart Failure: No Hx Diabetes: No Hx Deep Vein Thrombosis: No Hx GERD: Yes Hx Renal Disease: No Hx Sickle Cell Disease: No Hx Kidney Stones: No Hx Asthma: No Hx COPD: No Hx Tuberculosis: No Hx HIV: No Additional medical history: Low sodium secondary to excessive water intake, low potassium, HERNIA H-PYLORIC, gastritis, esophagitis, daily alcohol use, pancreatitis - Surgical History Past Surgical History?: Yes Hx Coronary Stent: No Hx Pacemaker: No Hx Internal Defibrillator: No Additional Surgical History: Left index finger surgery - Family History Family history: no significant - Social History Smoking Status: Current Every Day Smoker Substance Use Type: Alcohol - Medications Home Medications: Home Medications Medication Instructions Recorded Confirmed Last Taken Type Famotidine [Acid Controller] 20 mg PO DAILY 01/13/20 01/13/20 Unknown History Ferrous Sulfate [Iron 325 MG] 325 mg PO DAILY 01/13/20 01/13/20 Unknown History Folic Acid [Folvite] 1 mg PO QDAY 01/13/20 01/13/20 Unknown History Multivitamin with Folic Acid [[facility] 400 mcg PO DAILY 01/13/20 01/13/20 Unknown Hi story One Daily Essential Tablet] NIFEdipine [Nifedipine ER] 60 mg PO DAILY 01/13/20 01/13/20 Unknown History Thiamine Mononitrate (Vit B1) 100 gm PO DAILY 01/13/20 01/13/20 Unknown History [Cyto B-1] Ondansetron [Zofran ODT TAB] 4 mg PO Q6HR PRN #30 tab.rapdis 01/26/20 Unknown Rx Methocarbamol [Robaxin] 500 mg PO Q8H PRN #15 tablet 03/03/20 Unknown Rx Pantoprazole [Protonix TAB] 40 mg PO BID 60 Days #30 tablet 07/09/20 Unknown Rx Sucralfate [Carafate] 1 gm PO QID #120 07/09/20 Unknown Rx Pantoprazole [Protonix TAB] 40 mg PO BID 90 Days #180 tablet 08/18/20 Unknown Rx Metoclopramide [Reglan TAB] 10 mg PO TID 10 Days #30 tab 08/19/20 Unknown Rx HYDROcodone/APAP 5-325 [[place] 1 each PO Q6HR PRN #14 tablet 10/15/20 Unknown Rx 5-325 mg TAB] Losartan [Cozaar] 50 mg PO QDAY #30 tablet 10/15/20 Unknown Rx Acetaminophen/Codeine [Tylenol 1 tab PO Q6H #12 tab 10/27/20 Unknown Rx /Codeine # 3 tab] Baclofen 20 mg PO Q12H PRN #20 tablet 11/19/20 Unknown Rx Ibuprofen [Motrin] 600 mg PO Q8H PRN #30 tablet 11/19/20 Unknown Rx traMADoL [Ultram] 50 mg PO Q6HR PRN #12 tablet 11/19/20 Unknown Rx Azithromycin [Zithromax TAB] 500 mg PO QDAY 4 Days #4 tablet 05/08/21 Unknown Rx traMADoL [Ultram] 50 mg PO Q6HR PRN #7 tablet 05/08/21 Unknown Rx Omeprazole 40 mg PO DAILY #30 07/07/21 Unknown Rx Ondansetron [Zofran Odt] 4 mg PO Q8HR #14 tab.rapdis 07/07/21 Unknown Rx ED Physical Exam - General Limitations: Altered Mental Status General appearance: alert, in no apparent distress - Head Head exam: Present: normocephalic, other (Abrasion noted to posterior head.) - Eye Eye exam: Present: normal appearance, PERRL Pupils: Present: normal accommodation - ENT ENT exam: Present: mucous membranes moist - Neck Neck exam: Present: normal inspection, full ROM. Absent: tenderness, meningismus - Respiratory Respiratory exam: Present: normal lung sounds bilaterally. Absent: respiratory distress - Cardiovascular Cardiovascular Exam: Present: regular rate, normal rhythm. Absent: systolic murmur, diastolic murmur, rubs, gallop - GI/Abdominal GI/Abdominal exam: Present: soft, tenderness, normal bowel sounds. Absent: distended, guarding - Rectal Rectal exam: Present: deferred - Extremities Exam Extremities exam: Present: normal inspection - Back Exam Back exam: Present: normal inspection - Neurological Exam Neurological exam: Present: alert, altered - Skin Skin exam: Present: warm, dry, intact, normal color. Absent: rash ED Course Vital Signs 07/12/21 07/12/21 07/12/21 14:37 15:47 17:03 Temperature 98 F Pulse Rate 94 H 78 88 Respiratory 16 18 14 Rate Blood Pressure 164/110 144/98 125/99 [Right] O2 Sat by Pulse 95 100 98 Oximetry 07/12/21 07/12/21 19:17 19:45 Temperature Pulse Rate 108 H Respiratory 20 20 Rate Blood Pressure [Right] O2 Sat by Pulse 97 Oximetry - Reevaluation(s) Reevaluation #1: I examined the patient's head wound. The wound is unable to be closed due to a small avulsion of skin. A sterile dressing was reapplied. Coban was used to secure the gauze. Patient will be given tetanus. 07/12/21 20:19 Reevaluation #2: I discussed all results with patient. I discussed plan of care with patient. Patient agrees with plan of care and admission. Patient to be admitted to the hospitalist service. 07/12/21 21:20 - Consultations Consultation #1: I discussed the case with neurosurgery, Dr. Davis. Dr. Garcia states that the findings on the head CT are chronic and are not acute. Per neurosurgery the patient is stable from a neurosurgical standpoint and can be discharged home once medically cleared. 07/12/21 19:42 Consultation #2: I discussed the case with GI Dr. Gonzales. Dr. Gonzales wants the patient to be admitted to the hospitalist service and a GI consult placed. Dr. Gonzales also recommended IV Protonix and serial CBCs. 07/12/21 20:33 Consultation #3: Hospitalist consulted for admission. Hospitalist to admit patient. 07/12/21 21:19 ED Medical Decision Making - Lab Data Result diagrams: 07/12/21 16:34 07/12/21 16:34 - Radiology Data Radiology results: report reviewed CT head/brain wo con INDICATION / CLINICAL INFORMATION: 55 years Male; Fall, ams. head injury. TECHNIQUE: Routine CT head without contrast. All CT scans at this location are performed using CT dose reduction for ALARA by means of automated exposure control. COMPARISON: The study is compared with previous CT of 09/05/2018. FINDINGS: BRAIN / INTRACRANIAL CONTENTS: The motion degrades the image quality despite repeat imaging. However, there is extensive edema involving the posterior left scalp. There is relative prominence of the CSF attenuation along the left cerebral convexity which has developed from the previous CT of 09/05/2018 and would be indicative of small hygroma. There is slight midline is shifted toward the right along the frontal region. However, there is no clear CT evidence of acute intracranial hemorrhage. The ventricular system remains appropriate in size and configuration. There is suggestion of mild white matter changes indicative of mild microvascular angiopathy. ORBITS: No significant abnormality of visualized orbits. SINUSES / MASTOIDS: No significant abnormality in the visualized paranasal sinuses or mastoid air cells. CRANIOCERVICAL JUNCTION: No significant abnormality. ADDITIONAL FINDINGS: None. IMPRESSION: 1. The motion degrades image quality despite repeat imaging. However, there has been interval development of mild relative prominence of the CSF attenuation along the left cerebral convexity indicative of small hygroma as detailed above. 2. There is extensive edema involving posterior left scalp without clear CT evidence of acute intracranial hemorrhage CT ABDOMEN AND PELVIS WITH CONTRAST INDICATION / CLINICAL INFORMATION: abd pain. hematemesis. TECHNIQUE: Axial CT images were obtained through the abdomen and pelvis after 100 cc Omnipaque [address] scans at this location are performed using CT dose reduction f or ALARA by means of automated exposure control. COMPARISON: CT abdomen and pelvis with contrast from 05/08/2021. FINDINGS: Motion artifact limits portions of this exam. LOWER CHEST: No significant abnormality. LIVER: No significant abnormality. GALLBLADDER: No significant abnormality. BILE DUCTS: No significant abnormality. PANCREAS: No significant abnormality. SPLEEN: No significant abnormality. ADRENALS: No significant abnormality. RIGHT KIDNEY/URETER: No significant abnormality. LEFT KIDNEY/URETER: No significant abnormality. STOMACH/SMALL BOWEL: There is an uncomplicated small/moderate hiatal hernia that has not significantly changed. No other significant abnormality. COLON: No significant abnormality. APPENDIX: No significant abnormality. PERITONEUM: No free fluid. No free air. No fluid collection. LYMPH NODES: No significant adenopathy. VASCULATURE: There is mild generalized atherosclerosis without other significant abnormalities. URINARY BLADDER: No significant abnormality. REPRODUCTIVE ORGANS: No significant abnormality. ADDITIONAL FINDINGS: None. BONES: No significant abnormality IMPRESSION: Limited exam due to motion artifact without acute findings to explain the pat ient's abdominal pain or hematemesis. - Medical Decision Making Patient is a 55-year-old male who presents emergency room with complaints of nausea, vomiting, hematemesis, abdominal pain, fall, head laceration. Patient was found to be altered with slurred speech. Patient is acutely intoxicated. Patient had labs done which were essentially unremarkable except for elevated blood alcohol. Patient had a abdominal CT for abdominal pain. Patient's abdominal CT essentially unremarkable. Patient's lipase was negative. Patient has a history of pancreatitis. Patient had a head CT for the fall and head injury to rule out intracranial hemorrhage. Patient's head CT shows no acute findings and intracranial hemorrhage. I discussed some of the chronic findings with our neurosurgery team and they indicated that the findings were chronic and were no acute nature and the patient is medically cleared from a neurosurgery standpoint. I then discussed the case with GI and GI recommended admission and IV Protonix. - Differential Diagnosis N/V, hematemesis, abd pain, AMS, head injury, LAC, avulsion, abrasion Critical Care Time: Yes Critical care time in (mins) excluding proc time.: 35 Critical care attestation.: If time is entered above; I have spent that time in minutes in the direct care of this critically ill patient, excluding procedure time. Critical Care Time: 35 minutes ED Disposition Clinical Impression: Gastritis Qualifiers: Gastritis type: alcoholic Chronicity: acute Gastritis bleeding: with bleeding Qualified Code(s): K29.21 - Alcoholic gastritis with bleeding Hematemesis Qualifiers: Nausea presence: with nausea Qualified Code(s): K92.0 - Hematemesis Nausea & vomiting Qualifiers: Vomiting type: unspecified Qualified Code(s): R11.2 - Nausea with vomiting, unspecified Abdominal pain Qualifiers: Abdominal location: epigastric Qualified Code(s): R10.13 - Epigastric pain Acute alcohol intoxication Qualifiers: Complication of substance-induced condition: with unspecified complication Qualified Code(s): F10.929 - Alcohol use, unspecified with intoxication, unspecified Head injury Qualifiers: Encounter type: initial encounter Qualified Code(s): S09.90XA - Unspecified injury of head, initial encounter Altered mental status Qualifiers: Altered mental status type: unspecified Qualified Code(s): R41.82 - Altered mental status, unspecified Scalp avulsion Qualifiers: Encounter type: initial encounter Qualified Code(s): S08.0XXA - Avulsion of scalp, initial encounter Disposition: 09 ADMITTED INPATIENT Is pt being admited?: Yes Does the pt Need Aspirin: No Condition: Critical Time of Disposition: 21:21
[2021-07-12] MEDS ORDERED: LORazepam 2 MG/ML VIAL IV PRN ×2 (16:37)
[2021-07-12 16:45] LABS: Basophils % (Auto) 0.3 % (0.0-1.8); Eosinophils # (Auto) 0.1 K/mm3 (0.0-0.4); Eosinophils % (Auto) 0.6 % (0.0-4.3); Hematocrit 41.7 % (35.5-45.6); Hemoglobin 12.9 gm/dl (11.8-15.2); Lymphocytes # (Auto) 1.9 K/mm3 (1.2-5.4); Lymphocytes % (Auto) 18.2 % (13.4-35.0); Mean Corpuscular HGB Conc 31 % (32-34); Mean Corpuscular Volume 91 fl (84-94); Monocytes # (Auto) 0.6 K/mm3 (0.0-0.8); Monocytes % (Auto) 6.1 % (0.0-7.3); Platelet Count 361 K/mm3 (140-440); Red Blood Count 4.57 M/mm3 (3.65-5.03); Red Cell Distribution Width 16.7 % (13.2-15.2)
[2021-07-12 16:55] LABS: INR 0.96 (0.87-1.13)
[2021-07-12 17:08] LABS: Alanine Aminotransferase 11 units/L (7-56); Albumin 4.1 g/dL (3.9-5); Blood Urea Nitrogen 4 mg/dL (9-20); Calcium 8.4 mg/dL (8.4-10.2); Hemolysis Index 5
[2021-07-12 17:11] LABS: BUN/Creatinine Ratio 7
--- NOTE | 2021-07-12 18:42 | Cat Scan Report ---
CT ABDOMEN AND PELVIS WITH CONTRAST INDICATION / CLINICAL INFORMATION: abd pain. hematemesis. TECHNIQUE: Axial CT images were obtained through the abdomen and pelvis after 100 cc Omnipaque [address] scans at this location are performed using CT dose reduction for ALARA by means of automated exposure control. COMPARISON: CT abdomen and pelvis with contrast from 05/08/2021. FINDINGS: Motion artifact limits portions of this exam. LOWER CHEST: No significant abnormality. LIVER: No significant abnormality. GALLBLADDER: No significant abnormality. BILE DUCTS: No significant abnormality. PANCREAS: No significant abnormality. SPLEEN: No significant abnormality. ADRENALS: No significant abnormality. RIGHT KIDNEY/URETER: No significant abnormality. LEFT KIDNEY/URETER: No significant abnormality. STOMACH/SMALL BOWEL: There is an uncomplicated small/moderate hiatal hernia that has not significantl y changed. No other significant abnormality. COLON: No significant abnormality. APPENDIX: No significant abnormality. PERITONEUM: No free fluid. No free air. No fluid collection. LYMPH NODES: No significant adenopathy. VASCULATURE: There is mild generalized atherosclerosis without other significant abnormalities. URINARY BLADDER: No significant abnormality. REPRODUCTIVE ORGANS: No significant abnormality. ADDITIONAL FINDINGS: None. BONES: No significant abnormality IMPRESSION: Limited exam due to motion artifact without acute findings to explain the patient's abdominal pain or hematemesis. Signer Name: Martinez Jacob MD Signed: 07/12/2021 6:38 PM Workstation Name: [id number]
--- NOTE | 2021-07-12 19:01 | Cat Scan Report ---
CT head/brain wo con INDICATION / CLINICAL INFORMATION: 55 years Male; Fall, ams. head injury. TECHNIQUE: Routine CT head without contrast. All CT scans at this location are performed using CT dos e reduction for ALARA by means of automated exposure control. COMPARISON: The study is compared with previous CT of 09/05/2018. FINDINGS: BRAIN / INTRACRANIAL CONTENTS: The motion degrades the image quality despite repeat imaging. However, there is extensive edema involving the posterior left scalp. There is relative prominence of the CSF attenuation along the left cerebral convexity which has developed from the previous CT of 09/05/2018 and would be indicative of small hygroma. There is slight midline is shifted toward the right along the frontal region. However, there is no clear CT evidence of acute intracranial hemorrhage. The ventricular system remains appropriate in size and configuration. There is suggestion of mild whi te matter changes indicative of mild microvascular angiopathy. ORBITS: No significant abnormality of visualized orbits. SINUSES / MASTOIDS: No significant abnormality in the visualized paranasal sinuses or mastoid air nathaniel ls. CRANIOCERVICAL JUNCTION: No significant abnormality. ADDITIONAL FINDINGS: None. IMPRESSION: 1. The motion degrades image quality despite repeat imaging. However, there has been interval develop ment of mild relative prominence of the CSF attenuation along the left cerebral convexity indicative of small hygroma as detailed above. 2. There is extensive edema involving posterior left scalp without clear CT evidence of acute intracr anial hemorrhage. Signer Name: Bhupinder Wilkerson MD Signed: 07/12/2021 6:56 PM Workstation Name: [id number]
[2021-07-12] MEDS ORDERED: PANTOPRAZOLE 40 MG INJ IV ONE (19:22)
[2021-07-12] MEDS ORDERED: HYDROmorphone 1 MG/1 ML INJ IV ONE ×2 (19:23→23:11)
[2021-07-12] MEDS ORDERED: HYDROmorphone 1 MG/1 ML INJ ONE ×2 (19:24→23:08)
[2021-07-12] MEDS ORDERED: ACETAMINOPHEN 325 MG TAB PO PRN (22:52)
[2021-07-12] MEDS ORDERED: ONDANSETRON 4 MG/2 ML INJ IV PRN (22:52)
[2021-07-12] MEDS ORDERED: MAGNESIUM HYDROXIDE (MOM) ORAL LIQD UDC PO PRN (22:52)
[2021-07-12] MEDS ORDERED: MORPHINE 4 MG/1 ML INJ IV PRN (22:52)
--- NOTE | 2021-07-12 23:08 | History and Physical Report ---
History of Present Illness Date of examination: 07/12/21 Date of admission: 07/12/2021 Chief complaint: Hematemesis Alcohol intoxication History of present illness: 55-year-old male with known history of hypertension, GERD, history of pancreatitis in the past and alcohol dependence presents to the emergency room today complaining of a fall, nausea and vomiting, hematemesis and abdominal pain. Patient sustained a laceration on the back of his head after having a fall. He is not sure whether he lost consciousness. His last alcohol intake was shortly before the fall. Patient complains abdominal discomfort especially in the epigastric region and left upper abdomen. Pain is nonradiating On a scale of 10 pain is 10/10 in severity. Patient denies any fever or chills, no chest pain or shortness of breath. He however indicates that he has had some headache but denies any dizziness no diaphoresis. Upon arrival in the emergency room, patient was alert and oriented x2. He was disoriented to time and situation. Work-up in the emergency room today, lab reveals a sodium level of 134, alcohol level of 0.19. CT of the head shows extensive edema involving posterior left scalp. No evidence of acute intracranial hemorrhage. There were other findings consistent with small hygroma. Past History Past Medical History: GERD, hypertension, other (Low sodium secondary to excessive water intake, low potassium, HERNIA H-PYLORIC, gastritis, esophagitis, daily alcohol use, pancreatitis) Past Surgical History: Other (Left index finger surgery) Social history: smoking (Current daily smoker), alcohol abuse (Drinks alcohol on a daily basis) Family history: no significant family history Medications and Allergies Allergies Allergy/AdvReac Type Severity Reaction Status Date / Time aspirin Allergy Bleeding Verified 07/12/21 19:59 Home Medications Medication Instructions Recorded Confirmed Last Taken Type Famotidine [Acid Controller] 20 mg PO DAILY 01/13/20 01/13/20 Unknown History Ferrous Sulfate [Iron 325 MG] 325 mg PO DAILY 01/13/20 01/13/20 Unknown History Folic Acid [Folvite] 1 mg PO QDAY 01/13/20 01/13/20 Unknown History Multivitamin with Folic Acid [Cvs 400 mcg PO DAILY 01/13/20 01/13/20 Unknown History One Daily Essential Tablet] NIFEdipine [Nifedipine ER] 60 mg PO DAILY 01/13/20 01/13/20 Unknown History Thiamine Mononitrate (Vit B1) 100 gm PO DAILY 01/13/20 01/13/20 Unknown History [Cyto B-1] Ondansetron [Zofran ODT TAB] 4 mg PO Q6HR PRN #30 tab.rapdis 01/26/20 Unknown Rx Methocarbamol [Robaxin] 500 mg PO Q8H PRN #15 tablet 03/03/20 Unknown Rx Pantoprazole [Protonix TAB] 40 mg PO BID 60 Days #30 tablet 07/09/20 Unknown Rx Sucralfate [Carafate] 1 gm PO QID #120 07/09/20 Unknown Rx Pantoprazole [Protonix TAB] 40 mg PO BID 90 Days #180 tablet 08/18/20 Unknown Rx Metoclopramide [Reglan TAB] 10 mg PO TID 10 Days #30 tab 08/19/20 Unknown Rx HYDROcodone/APAP 5-325 [[place] 1 each PO Q6HR PRN #14 tablet 10/15/20 Unknown Rx 5-325 mg TAB] Losartan [Cozaar] 50 mg PO QDAY #30 tablet 10/15/20 Unknown Rx Acetaminophen/Codeine [Tylenol 1 tab PO Q6H #12 tab 10/27/20 Unknown Rx /Codeine # 3 tab] Baclofen 20 mg PO Q12H PRN #20 tablet 11/19/20 Unknown Rx Ibuprofen [Motrin] 600 mg PO Q8H PRN #30 tablet 11/19/20 Unknown Rx traMADoL [Ultram] 50 mg PO Q6HR PRN #12 tablet 11/19/20 Unknown Rx Azithromycin [Zithromax TAB] 500 mg PO QDAY 4 Days #4 tablet 05/08/21 Unknown Rx traMADoL [Ultram] 50 mg PO Q6HR PRN #7 tablet 05/08/21 Unknown Rx Omeprazole 40 mg PO DAILY #30 07/07/21 Unknown Rx Ondansetron [Zofran Odt] 4 mg PO Q8HR #14 tab.rapdis 07/07/21 Unknown Rx Active Meds: Active Medications Acetaminophen (Acetaminophen 325 Mg Tab) 650 mg PO Q4H PRN PRN Reason: Pain MILD(1-3)/Fever >100.5/MURPHY Lorazepam (Lorazepam 2 Mg/Ml Vial) 2 mg IV Q1HR PRN PRN Reason: CIWA-Ar 8-15 Lorazepam (Lorazepam 2 Mg/Ml Vial) 4 mg IV Q1HR PRN PRN Reason: CIWA-Ar 16-25 Lorazepam (Lorazepam 2 Mg/Ml Vial) 4 mg IV Q15MIN PRN PRN Reason: CIWA-Ar >25 Magnesium Hydroxide (Magnesium Hydroxide (Mom) Oral Liqd Udc) 30 ml PO Q4H PRN PRN Reason: Constipation Morphine Sulfate (Morphine 2 Mg/1 Ml Inj) 2 mg IV Q4H PRN PRN Reason: Pain, Moderate (4-6) Morphine Sulfate (Morphine 4 Mg/1 Ml Inj) 4 mg IV Q4H PRN PRN Reason: Pain , Severe (7-10) Ondansetron HCl (Ondansetron 4 Mg/2 Ml Inj) 4 mg IV Q8H PRN PRN Reason: Nausea And Vomiting Pantoprazole Sodium (Pantoprazole 40 Mg Inj) 40 mg IV BID LEA Sodium Chloride (Sodium Chloride 0.9% 10 Ml Flush Syringe) 10 ml IV BID LEA Sodium Chloride (Sodium Chloride 0.9% 10 Ml Flush Syringe) 10 ml IV PRN PRN PRN Reason: LINE FLUSH Review of Systems Constitutional: no fever, no chills Ears, nose, mouth and throat: no nasal congestion, no sore throat Cardiovascular: no chest pain, no palpitations Respiratory: no cough, no shortness of breath Gastrointestinal: nausea, vomiting, hematemesis, no abdominal pain, no diarrhea, no melena Genitourinary Male: no dysuria, no hematuria, no flank pain Musculoskeletal: no neck pain, no low back pain Integumentary: no rash, no pruritis Neurological: no headaches, no confusion Psychiatric: no anxiety, no depression Endocrine: no polyphagia, no polydipsia, no polyuria Exam - Constitutional Vitals: Temp Pulse Resp BP Pulse Ox 98 F 108 H 20 125/99 97 07/12/21 14:37 07/12/21 19:17 07/12/21 19:45 07/12/21 17:03 07/12/21 19:17 General appearance: Present: no acute distress, well-nourished - EENT Eyes: Present: PERRL, EOM intact. Absent: scleral icterus ENT: hearing intact, clear oral mucosa, dentition normal - Neck Neck: Present: supple, normal ROM - Respiratory Respiratory effort: normal Respiratory: bilateral: CTA - Cardiovascular Rhythm: regular Heart Sounds: Present: S1 & S2. Absent: systolic murmur, diastolic murmur, rub, click - Extremities Extremities: no ischemia, pulses intact, pulses symmetrical, No edema, normal temperature, normal color, Full ROM Peripheral Pulses: within normal limits - Abdominal General gastrointestinal: Present: soft, non-tender, non-distended, normal bowel sounds. Absent: mass - Integumentary Integumentary: Present: clear, warm, dry. Absent: rash - Musculoskeletal Musculoskeletal: strength equal bilaterally - Psychiatric Psychiatric: appropriate mood/affect, intact judgment & insight, memory intact, cooperative - Neurologic Neurologic: CNII-XII intact, no focal deficits, moves all extremities - Additional findings Additional findings: Scalp: Dressing over the laceration in the occipital region. Results - Labs CBC & Chem 7: 07/12/21 16:34 07/12/21 16:34 Labs: Abnormal lab results 07/12/21 07/12/21 07/12/21 Range/Units 16:34 16:34 16:34 MCHC 31 L (32-34) % RDW 16.7 H (13.2-15.2) % Seg Neutrophils % 74.8 H (40.0-70.0) % Seg Neutrophils # 7.9 H (1.8-7.7) K/mm3 Sodium 134 L (137-145) mmol/L Chloride 96.3 L (98-107) mmol/L Carbon Dioxide 21 L (22-30) mmol/L BUN 4 L (9-20) mg/dL Creatinine 0.6 L (0.8-1.3) mg/dL Plasma/Serum Alcohol 0.19 H (0-0.07) % Assessment and Plan - Patient Problems (1) Acute alcohol intoxication Current Visit: Yes Status: Acute Qualifiers: Complication of substance-induced condition: with unspecified complication Qualified Code(s): F10.929 - Alcohol use, unspecified with intoxication, uns pecified Plan to address problem: Patient has known history of alcohol dependence. Will place on CIWA protocol. (2) Gastritis Current Visit: Yes Status: Acute Qualifiers: Gastritis type: alcoholic Chronicity: acute Gastritis bleeding: with bleeding Qualified Code(s): K29.21 - Alcoholic gastritis with bleeding Plan to address problem: Possibly secondary to alcohol abuse. Patient placed on proton pump inhibitor. (3) Hematemesis Current Visit: Yes Status: Acute Qualifiers: Nausea presence: with nausea Qualified Code(s): K92.0 - Hematemesis Plan to address problem: Possibly secondary to the gastritis/intractable nausea and vomiting. Continue proton pump inhibitor. Gastroenterology has been consulted for evaluation. (4) Alcohol abuse Current Visit: No Status: Acute Plan to address problem: Counseled on quitting alcohol abuse. Will continue CIWA protocol. (5) Closed head injury Current Visit: No Status: Acute Plan to address problem: Laceration has been dressed in the emergency room. He also received a tetanus shot. (6) HTN (hypertension) Current Visit: No Status: Acute Plan to address problem: Will resume routine home medications and monitor vital signs closely. (7) DVT prophylaxis Current Visit: No Status: Acute Plan to address problem: Patient placed on sequential compression device. (8) Full code status Current Visit: No Status: Acute Plan to address problem: Patient is full code.
[2021-07-12] MEDS ORDERED: TETANUS,DIPH,PERTUSS(ACELL) VACCINE 0.5 ML SYRINGE IM ONE (23:23)
[2021-07-13] MEDS: MORPHINE 2 MG/1 ML INJ IV PRN ×4 (02:33→20:02)
[2021-07-13] MEDS: LORazepam 2 MG/ML VIAL IV PRN (02:48)
[2021-07-13 07:23] LABS: Basophils % (Auto) 0.4 % (0.0-1.8); Hematocrit 37.1 % (35.5-45.6); Hemoglobin 11.6 gm/dl (11.8-15.2); Lymphocytes # (Auto) 1.1 K/mm3 (1.2-5.4); Lymphocytes % (Auto) 11.4 % (13.4-35.0); Mean Corpuscular HGB Conc 31 % (32-34); Mean Corpuscular Volume 92 fl (84-94); Monocytes # (Auto) 0.7 K/mm3 (0.0-0.8); Monocytes % (Auto) 7.5 % (0.0-7.3); Platelet Count 302 K/mm3 (140-440); Red Blood Count 4.03 M/mm3 (3.65-5.03); Red Cell Distribution Width 16.3 % (13.2-15.2)
[2021-07-13 07:32] LABS: BUN/Creatinine Ratio 14; Blood Urea Nitrogen 11 mg/dL (9-20); Calcium 8.7 mg/dL (8.4-10.2); Hemolysis Index 2
[2021-07-13] MEDS: PANTOPRAZOLE 40 MG INJ IV SCH ×2 (08:36→10:28)
--- NOTE | 2021-07-13 12:00 | Progress Note ---
Assessment and Plan Assessment and plan: Acute alcohol intoxication. Gastritis. Hematemesis. EtOH dependency/abuse. Closed head injury Hypertension 07/13/2021. Patient with no active bleeding. Await GI consultation. Continue PPI. Continue CIWA protocol. History Interval history: No new issues overnight Hospitalist Physical - Constitutional Vitals: Temp Pulse Resp BP Pulse Ox 98.1 F 103 H 18 130/92 97 07/13/21 07:28 07/13/21 10:00 07/13/21 07:28 07/13/21 07:28 07/13/21 10:00 General appearance: Present: no acute distress, well-nourished - EENT Eyes: Present: PERRL, EOM intact ENT: hearing intact, clear oral mucosa, dentition normal - Neck Neck: Present: supple, normal ROM - Respiratory Respiratory effort: normal Respiratory: bilateral: CTA - Cardiovascular Rhythm: regular Heart Sounds: Present: S1 & S2. Absent: gallop, rub - Extremities Extremities: no ischemia, No edema, Full ROM - Abdominal General gastrointestinal: soft, non-tender, non-distended, normal bowel sounds - Integumentary Integumentary: Present: clear, warm, dry - Neurologic Neurologic: CNII-XII intact, moves all extremities Results - Labs CBC & Chem 7: 07/13/21 06:47 07/13/21 06:47 Labs: Laboratory Last Values WBC 9.9 K/mm3 (4.5-11.0) 07/13/21 06:47 RBC 4.03 M/mm3 (3.65-5.03) 07/13/21 06:47 Hgb 11.6 gm/dl (11.8-15.2) L 07/13/21 06:47 Hct 37.1 % (35.5-45.6) 07/13/21 06:47 MCV 92 fl (84-94) 07/13/21 06:47 MCH 29 pg (28-32) 07/13/21 06:47 MCHC 31 % (32-34) L 07/13/21 06:47 RDW 16.3 % (13.2-15.2) H 07/13/21 06:47 Plt Count 302 K/mm3 (140-440) 07/13/21 06:47 Lymph % (Auto) 11.4 % (13.4-35.0) L 07/13/21 06:47 [place] % (Auto) 7.5 % (0.0-7.3) H 07/13/21 06:47 Eos % (Auto) 0.0 % (0.0-4.3) 07/13/21 06:47 Baso % (Auto) 0.4 % (0.0-1.8) 07/13/21 06:47 Lymph # (Auto) 1.1 K/mm3 (1.2-5.4) L 07/13/21 06:47 [place] # (Auto) 0.7 K/mm3 (0.0-0.8) 07/13/21 06:47 Eos # (Auto) 0.0 K/mm3 (0.0-0.4) 07/13/21 06:47 Baso # (Auto) 0.0 K/mm3 (0.0-0.1) 07/13/21 06:47 Seg Neutrophils % 80.7 % (40.0-70.0) H 07/13/21 06:47 Seg Neutrophils # 8.0 K/mm3 (1.8-7.7) H 07/13/21 06:47 PT 13.9 Sec. (12.2-14.9) 07/12/21 16:34 INR 0.96 (0.87-1.13) 07/12/21 16:34 Sodium 138 mmol/L (137-145) 07/13/21 06:47 Potassium 4.2 mmol/L (3.6-5.0) 07/13/21 06:47 Chloride 97.8 mmol/L (98-107) L 07/13/21 06:47 Carbon Dioxide 22 mmol/L (22-30) 07/13/21 06:47 Anion Gap 22 mmol/L 07/13/21 06:47 BUN 11 mg/dL (9-20) 07/13/21 06:47 Creatinine 0.8 mg/dL (0.8-1.3) 07/13/21 06:47 Estimated GFR > 60 ml/min 07/13/21 06:47 BUN/Creatinine Ratio 14 % 07/13/21 06:47 Glucose 60 mg/dL (75-100) L 07/13/21 06:47 Calcium 8.7 mg/dL (8.4-10.2) 07/13/21 06:47 Total Bilirubin 0.40 mg/dL (0.1-1.2) 07/12/21 16:34 AST 21 units/L (5-40) 07/12/21 16:34 ALT 11 units/L (7-56) 07/12/21 16:34 Alkaline Phosphatase 123 units/L (35-129) 07/12/21 16:34 Total Protein 7.2 g/dL (6.3-8.2) 07/12/21 16:34 Albumin 4.1 g/dL (3.9-5) 07/12/21 16:34 Albumin/Globulin Ratio 1.3 % 07/12/21 16:34 Lipase 30 units/L (13-60) 07/12/21 18:37 Plasma/Serum Alcohol 0.19 % (0-0.07) H 07/12/21 16:34 [place]/IV: Voiding Method Urinal Active Medications - Current Medications Current Medications: Generic Name Dose Route Start Last Admin Trade Name Freq PRN Reason Stop Dose Admin Acetaminophen 650 mg 07/12/21 22:52 Acetaminophen 325 Mg Tab PO Q4H PRN Pain MILD(1-3)/Fever >100.5/MURPHY Lorazepam 2 mg 07/12/21 16:37 07/13/21 02:48 Lorazepam 2 Mg/Ml Vial IV 2 mg Q1HR PRN Administration CIWA-Ar 8-15 Lorazepam 4 mg 07/12/21 16:37 Lorazepam 2 Mg/Ml Vial IV Q1HR PRN CIWA-Ar 16-25 Lorazepam 4 mg 07/12/21 16:37 Lorazepam 2 Mg/Ml Vial IV Q15MIN PRN CIWA-Ar >25 Magnesium Hydroxide 30 ml 07/12/21 22:52 Magnesium Hydroxide (Mom) Oral Liqd Udc PO Q4H PRN Constipation Morphine Sulfate 2 mg 07/12/21 22:52 07/13/21 08:36 Morphine 2 Mg/1 Ml Inj IV 2 mg Q4H PRN Administration Pain, Moderate (4-6) Morphine Sulfate 4 mg 07/12/21 22:52 Morphine 4 Mg/1 Ml Inj IV Q4H PRN Pain , Severe (7-10) Ondansetron HCl 4 mg 07/12/21 22:52 Ondansetron 4 Mg/2 Ml Inj IV Q8H PRN Nausea And Vomiting Pantoprazole Sodium 40 mg 07/13/21 10:00 07/13/21 10:28 Pantoprazole 40 Mg Inj IV Not Given BID LEA Sodium Chloride 10 ml 07/13/21 10:00 07/13/21 10:28 Sodium Chloride 0.9% 10 Ml Flush Syringe IV 10 ml BID LEA Administration Sodium Chloride 10 ml 07/12/21 22:52 Sodium Chloride 0.9% 10 Ml Flush Syringe IV PRN PRN LINE FLUSH
--- NOTE | 2021-07-13 13:47 | Gastroenterology Consultation ---
History of Present Illness - Reason for Consult Consult date: 07/13/21 Hematemesis Requesting physician: ELLI HEWITT - History of Present Illness The patient is a 55 yo male last seen in 2018 for hematemesis; an EGD showed LA C esophagitis. He was admitted this time for N/V/hematemesis during an EtOH binge. Since admission and hydration, he has had no further emesis. He has had no melena, his hgb >40, and he has not rec'd a transfusion. He does not take chronic PPI therapy, only famotidine. Past History Past Medical History: GERD, hypertension, other (Low sodium secondary to excessive water intake, low potassium, HERNIA H-PYLORIC, gastritis, esophagitis, daily alcohol use, pancreatitis) Past Surgical History: Other (Left index finger surgery) Social history: smoking (Current daily smoker), alcohol abuse (Drinks alcohol on a daily basis) Family history: no significant family history Medications and Allergies Allergies Allergy/AdvReac Type Severity Reaction Status Date / Time aspirin Allergy Bleeding Verified 07/12/21 19:59 Home Medications Medication Instructions Recorded Confirmed Last Taken Type Famotidine [Acid Controller] 20 mg PO DAILY 01/13/20 07/13/21 Unknown History Ferrous Sulfate [Iron 325 MG] 325 mg PO DAILY 01/13/20 07/13/21 Unknown History Folic Acid [Folvite] 1 mg PO QDAY 01/13/20 07/13/21 Unknown History Multivitamin with Folic Acid [Cvs 400 mcg PO DAILY 01/13/20 07/13/21 Unknown History One Daily Essential Tablet] NIFEdipine [Nifedipine ER] 60 mg PO DAILY 01/13/20 07/13/21 Unknown History Thiamine Mononitrate (Vit B1) 100 gm PO DAILY 01/13/20 07/13/21 Unknown History [Cyto B-1] Ondansetron [Zofran ODT TAB] 4 mg PO Q6HR PRN #30 tab.rapdis 01/26/20 07/13/21 Unknown Rx Methocarbamol [Robaxin] 500 mg PO Q8H PRN #15 tablet 03/03/20 07/13/21 Unknown Rx Pantoprazole [Protonix TAB] 40 mg PO BID 60 Days #30 tablet 07/09/20 07/13/21 Unknown Rx Sucralfate [Carafate] 1 gm PO QID #120 07/09/20 07/13/21 Unknown Rx Pantoprazole [Protonix TAB] 40 mg PO BID 90 Days #180 tablet 08/18/20 07/13/21 Unknown Rx Metoclopramide [Reglan TAB] 10 mg PO TID 10 Days #30 tab 08/19/20 07/13/21 Unknown Rx HYDROcodone/APAP 5-325 [[place] 1 each PO Q6HR PRN #14 tablet 10/15/20 07/13/21 Unknown Rx 5-325 mg TAB] Losartan [Cozaar] 50 mg PO QDAY #30 tablet 10/15/20 07/13/21 Unknown Rx Acetaminophen/Codeine [Tylenol 1 tab PO Q6H #12 tab 10/27/20 07/13/21 Unknown Rx /Codeine # 3 tab] Baclofen 20 mg PO Q12H PRN #20 tablet 11/19/20 07/13/21 Unknown Rx Ibuprofen [Motrin] 600 mg PO Q8H PRN #30 tablet 11/19/20 07/13/21 Unknown Rx traMADoL [Ultram] 50 mg PO Q6HR PRN #12 tablet 11/19/20 07/13/21 Unknown Rx Azithromycin [Zithromax TAB] 500 mg PO QDAY 4 Days #4 tablet 05/08/21 07/13/21 U nknown Rx traMADoL [Ultram] 50 mg PO Q6HR PRN #7 tablet 05/08/21 07/13/21 Unknown Rx Omeprazole 40 mg PO DAILY #30 07/07/21 07/13/21 Unknown Rx Ondansetron [Zofran Odt] 4 mg PO Q8HR #14 tab.rapdis 07/07/21 07/13/21 Unknown Rx Active Meds: Active Medications Acetaminophen (Acetaminophen 325 Mg Tab) 650 mg PO Q4H PRN PRN Reason: Pain MILD(1-3)/Fever >100.5/MURPHY Lorazepam (Lorazepam 2 Mg/Ml Vial) 2 mg IV Q1HR PRN PRN Reason: CIWA-Ar 8-15 Last Admin: 07/13/21 02:48 Dose: 2 mg Lorazepam (Lorazepam 2 Mg/Ml Vial) 4 mg IV Q1HR PRN PRN Reason: FROILANWA-Ar 16- Lorazepam (Lorazepam 2 Mg/Ml Vial) 4 mg IV Q15MIN PRN PRN Reason: CIWA-Ar >25 Magnesium Hydroxide (Magnesium Hydroxide (Mom) Oral Liqd Udc) 30 ml PO Q4H PRN PRN Reason: Constipation Morphine Sulfate (Morphine 2 Mg/1 Ml Inj) 2 mg IV Q4H PRN PRN Reason: Pain, Moderate (4-6) Last Admin: 07/13/21 08:36 Dose: 2 mg Morphine Sulfate (Morphine 4 Mg/1 Ml Inj) 4 mg IV Q4H PRN PRN Reason: Pain , Severe (7-10) Ondansetron HCl (Ondansetron 4 Mg/2 Ml Inj) 4 mg IV Q8H PRN PRN Reason: Nausea And Vomiting Pantoprazole Sodium (Pantoprazole 40 Mg Tab) 40 mg PO QDAC LEA Sodium Chloride (Sodium Chloride 0.9% 10 Ml Flush Syringe) 10 ml IV BID LEA Last Admin: 07/13/21 10:28 Dose: 10 ml Sodium Chloride (Sodium Chloride 0.9% 10 Ml Flush Syringe) 10 ml IV PRN PRN PRN Reason: LINE FLUSH I HAVE REVIEWED/RECONCILED MEDICATIONS Review of Systems - Review of Systems All systems: negative (as noted in the HPI.) Exam - Constitutional Vital Signs: Temp Pulse Resp BP Pulse Ox 98.1 F 103 H 18 130/92 97 07/13/21 07:28 07/13/21 10:00 07/13/21 07:28 07/13/21 07:28 07/13/21 10:00 General appearance: no acute distress - EENT Eyes: PERRL, EOM intact ENT: hearing intact, clear oral mucosa, poor dentition, no thrush - Neck Neck: supple, normal ROM - Respiratory Respiratory effort: normal Respiratory: bilateral: CTA - Cardiovascular Rhythm: regular Heart Sounds: Present: S1 & S2 Extremities: no ischemia, No edema - Gastrointestinal General gastrointestinal: Present: soft, non-tender, non-distended - Integumentary Integumentary: Present: clear, warm, dry - Neurologic Neurological: oriented to person, oriented to place - Psychiatric Psychiatric: appropriate mood/affect - Labs CBC & Chem 7: 07/13/21 06:47 07/13/21 06:47 Lab Results: Laboratory Results - last 24 hr 07/12/21 07/12/21 07/12/21 16:34 16:34 16:34 WBC 10.6 RBC 4.57 Hgb 12.9 Hct 41.7 MCV 91 MCH 28 MCHC 31 L RDW 16.7 H Plt Count 361 Lymph % (Auto) 18.2 [place] % (Auto) 6.1 Eos % (Auto) 0.6 Baso % (Auto) 0.3 Lymph # (Auto) 1.9 [place] # (Auto) 0.6 Eos # (Auto) 0.1 Baso # (Auto) 0.0 Seg Neutrophils % 74.8 H Seg Neutrophils # 7.9 H PT 13.9 INR 0.96 Sodium 134 L Potassium 4.0 Chloride 96.3 L Carbon Dioxide 21 L Anion Gap 21 BUN 4 L Creatinine 0.6 L Estimated GFR > 60 BUN/Creatinine Ratio 7 Glucose 76 Calcium 8.4 Total Bilirubin 0.40 AST 21 ALT 11 Alkaline Phosphatase 123 Total Protein 7.2 Albumin 4.1 Albumin/Globulin Ratio 1.3 Lipase Plasma/Serum Alcohol 07/12/21 07/12/21 07/13/21 16:34 18:37 06:47 WBC 9.9 RBC 4.03 Hgb 11.6 L Hct 37.1 MCV 92 MCH 29 MCHC 31 L RDW 16.3 H Plt Count 302 Lymph % (Auto) 11.4 L [place] % (Auto) 7.5 H Eos % (Auto) 0.0 Baso % (Auto) 0.4 Lymph # (Auto) 1.1 L [place] # (Auto) 0.7 Eos # (Auto) 0.0 Baso # (Auto) 0.0 Seg Neutrophils % 80.7 H Seg Neutrophils # 8.0 H PT INR Sodium Potassium Chloride Carbon Dioxide Anion Gap BUN Creatinine Estimated GFR BUN/Creatinine Ratio Glucose Calcium Total Bilirubin AST ALT Alkaline Phosphatase Total Protein Albumin Albumin/Globulin Ratio Lipase 30 Plasma/Serum Alcohol 0.19 H 07/13/21 06:47 WBC RBC Hgb Hct MCV MCH MCHC RDW Plt Count Lymph % (Auto) [place] % (Auto) Eos % (Auto) Baso % (Auto) Lymph # (Auto) [place] # (Auto) Eos # (Auto) Baso # (Auto) Seg Neutrophils % Seg Neutrophils # PT INR Sodium 138 Potassium 4.2 Chloride 97.8 L Carbon Dioxide 22 Anion Gap 22 BUN 11 Creatinine 0.8 Estimated GFR > 60 BUN/Creatinine Ratio 14 Glucose 60 L Calcium 8.7 Total Bilirubin AST ALT Alkaline Phosphatase Total Protein Albumin Albumin/Globulin Ratio Lipase Plasma/Serum Alcohol Assessment and Plan - Patient Problems (1) Hematemesis of fresh blood Current Visit: Yes Status: Acute Plan to address problem: - Given the history of esophagitis and active EtOH/intoxication with N/V, I suspect recurrent disease. - No indication for transfusion or endoscopy at present. - Will convert famotidine to protonix. - Advance diet since N/V has resolved. We will sign off. Please call if needed.
[2021-07-13 17:07] LABS: BUN/Creatinine Ratio 18; Blood Urea Nitrogen 14 mg/dL (9-20); Calcium 8.2 mg/dL (8.4-10.2); Hemolysis Index 4
[2021-07-14] MEDS: MORPHINE 2 MG/1 ML INJ IV PRN ×2 (00:25→07:56)
[2021-07-14] MEDS: LORazepam 2 MG/ML VIAL IV PRN (00:29)
[2021-07-14] MEDS ORDERED: PANTOPRAZOLE 40 MG TAB PO SCH (07:30)
--- NOTE | 2021-07-14 09:09 | Discharge Summary ---
Providers - Providers Date of Admission: 07/12/21 22:54 Date of discharge: 07/14/21 Attending physician: VENKATESH DYKES 07/12/21 23:28 Consult to Physician [CONS] Routine Comment: Dr. Lyles spoke to Dr. Gonzales @ 2023 Consulting Provider: NEREIDA GONZALES Physician Instructions: Reason For Exam: Hematemesis Primary care physician: [employer] Hospitalization Reason for admission: Acute alcohol intoxication, abdominal pain Condition: Critical Hospital course: The patient is a 55 yo male last seen in 2018 for hematemesis; an EGD showed LA C esophagitis. He was admitted this time for N/V/hematemesis during an EtOH binge. The patient was admitted with diagnosis of acute alcohol intoxication, gastritis, hematemesis, EtOH dependency/abuse and closed head injury. Patient sustained a laceration on the back of his head after having a fall. CT scan of the head was negative with exception of a small hygroma and edema of the left posterior scalp. ER physician reported that the wound was unable to be closed due to a small avulsion of skin. A sterile dressing was reapplied. Patient received tetanus. ER physician discussed the case with neurosurgery who reported that the findings on the head CT are chronic and are not acute. Per neurosurgery the patient is stable from a neurosurgical standpoint and can be discharged home once medically cleared. Since admission and hydration, he has had no further emesis. He has had no melena, his hgb >40, and he has not rec'd a transfusion. He does not take chronic PPI therapy, only famotidine. The patient had a stable CIWA score. GI saw the patient in consultation and reported that given he history of esophagitis and active EtOH/intoxication with nausea and vomiting that this was likely recurrent disease. No indication for transfusion or endoscopy at present. The patient will be discharged home with Protonix and should follow-up with PCP or neurosurgery for the head wound. Dedicated discharge time 35 minutes Disposition: HOME / SELF CARE / HOMELESS Final Discharge Diagnosis (Prints w/discharge instructions): Acute alcohol intoxication, alcoholic gastritis, hematemesis, EtOH dependency/abuse, closed head injury, posterior scalp laceration, hypertension Core Measure Documentation - Palliative Care Palliative Care/ Comfort Measures: Not Applicable - Core Measures Any of the following diagnoses?: none Exam - Constitutional Vitals: Temp Pulse Resp BP Pulse Ox 97.9 F 92 H 18 154/110 99 07/14/21 08:00 07/14/21 08:00 07/14/21 08:00 07/14/21 08:00 07/14/21 08:00 General appearance: Present: no acute distress, well-nourished - EENT Eyes: Present: PERRL ENT: hearing intact, clear oral mucosa - Neck Neck: Present: supple, normal ROM - Respiratory Respiratory effort: normal Respiratory: bilateral: CTA - Cardiovascular Heart Sounds: Present: S1 & S2. Absent: rub, click - Extremities Extremities: pulses symmetrical, No edema Peripheral Pulses: within normal limits - Abdominal General gastrointestinal: Present: soft, non-tender, non-distended, normal bowel sounds Male genitourinary: Present: normal - Integumentary Integumentary: Present: clear, warm, dry - Musculoskeletal Musculoskeletal: gait normal, strength equal bilaterally - Psychiatric Psychiatric: appropriate mood/affect, intact judgment & insight - Neurologic Neurologic: CNII-XII intact, moves all extremities Plan Activity: advance as tolerated Weight Bearing Status: Weight Bear as Tolerated Diet: regular Follow up with: PRIMARY CAREMD [Primary Care Provider] - 7 Days DIANE STEWART MD [Staff Physician] - 7 Days MARIZOL SAUER II, MD [Staff Physician] - 7 Days Prescriptions: Pantoprazole [Protonix TAB] 40 mg PO BID 60 Days #30 tablet Acetaminophen/Codeine [Tylenol /Codeine # 3 tab] 1 tab PO Q6H #12 tab
[2021-07-14 12:11] VITALS: BP 150/104
[2021-07-14] MEDS ORDERED: BACLOFEN 10 MG TAB PO ONE (21:04)
== END 2021-07-14 11:45 | disposition home or self-care (01) ==
LOC: ED 14:33 → 4A 22:54
PROVIDERS: ADMIT Internal Medicine Geriatric Medicine; ATTEND Hospitalist
DX: S01.01XA Laceration without foreign body of scalp, initial encounter (principal); K29.70 Gastritis, unspecified, without bleeding; K92.0 Hematemesis; I10 Essential (primary) hypertension; K21.9 Gastro-esophageal reflux disease without esophagitis; F17.210 Nicotine dependence, cigarettes, uncomplicated; F10.129 Alcohol abuse with intoxication, unspecified; R41.82 Altered mental status, unspecified; Z79.899 Other long term (current) drug therapy; Z98.890 Other specified postprocedural states; Z79.82 Long term (current) use of aspirin; W19.XXXA Unspecified fall, initial encounter; Y92.89 Other specified places as the place of occurrence of the external cause; Y93.89 Activity, other specified; Y99.8 Other external cause status
CPT/HCPCS: 36415; 70450; 74177; 80048; 80053; 83690; 85025; 85610; 90471; 90715; 96361; 96374; 96375; 96376; 99291; C9113; G0378; J1170; J2060; J2270; J2405; J7030; Q9967; 80320; Q0162; G0480

== ENCOUNTER 2021-08-08 18:18 | Emergency (ER) | payer MEDICAID ==
[2021-08-08 18:48] VITALS: BP 122/86
[2021-08-08 20:12] LABS: Basophils # (Auto) 0.2 K/mm3 (0.0-0.1); Basophils % (Auto) 2.7 % (0.0-1.8); Eosinophils # (Auto) 0.1 K/mm3 (0.0-0.4); Hemoglobin 13.1 gm/dl (11.8-15.2); Lymphocytes # (Auto) 1.9 K/mm3 (1.2-5.4); Mean Corpuscular HGB Conc 34 % (32-34); Mean Corpuscular Volume 91 fl (84-94); Monocytes # (Auto) 0.6 K/mm3 (0.0-0.8); Monocytes % (Auto) 6.8 % (0.0-7.3); Platelet Count 313 K/mm3 (140-440); Red Blood Count 4.29 M/mm3 (3.65-5.03); Red Cell Distribution Width 15.5 % (13.2-15.2)
[2021-08-08 20:23] LABS: INR 0.96 (0.87-1.13)
[2021-08-08 20:28] LABS: Alanine Aminotransferase 16 units/L (7-56); Albumin 4.6 g/dL (3.9-5); Blood Urea Nitrogen 3 mg/dL (9-20); Calcium 9.2 mg/dL (8.4-10.2); Hemolysis Index 37
[2021-08-08 20:31] LABS: BUN/Creatinine Ratio 4; Bilirubin,Direct < 0.2 mg/dL (0-0.2)
[2021-08-08] MEDS ORDERED: SODIUM CHLORIDE 0.9% 1000 ML 1,000 ML IV ONE (21:26)
[2021-08-08] MEDS ORDERED: ONDANSETRON 4 MG/2 ML INJ IV ONE ×2 (21:26→22:41)
--- NOTE | 2021-08-08 21:32 | Emergency Department Report ---
ED Abdominal Pain HPI - General Chief Complaint: Abdominal Pain Stated Complaint: ABD PAIN/SORE ON HAND Time Seen by Provider: 08/08/21 21:19 Source: patient Mode of arrival: Ambulatory Limitations: No Limitations - History of Present Illness Initial Comments: Patient 56-year-old male who presents for generalized abdominal pain with nausea vomiting x3 days. Patient states history of GERD, [id number] smoker, denies hypertension denies chest pain, shortness of breath there is been no fever no chills. There is no productive cough. As are exacerbated by p.o. intake. Symptoms are relieved by nothing tried. He has been treated in this ED for same multiple occasions. States they do not find anything. Patient rates symptoms at 4/10 at this time. MD Complaint: abdominal pain - Related Data Home Medications Medication Instructions Recorded Confirmed Last Taken Famotidine [Acid Controller] 20 mg PO DAILY 01/13/20 07/13/21 Unknown Ferrous Sulfate [Iron 325 MG] 325 mg PO DAILY 01/13/20 07/13/21 Unknown Folic Acid [Folvite] 1 mg PO QDAY 01/13/20 07/13/21 Unknown Multivitamin with Folic Acid [[facility] 400 mcg PO DAILY 01/13/20 07/13/21 Unknown One Daily Essential Tablet] NIFEdipine [Nifedipine ER] 60 mg PO DAILY 01/13/20 07/13/21 Unknown Thiamine Mononitrate (Vit B1) 100 gm PO DAILY 01/13/20 07/13/21 Unknown [Cyto B-1] Previous Rx's Medication Instructions Recorded Last Taken Type Ondansetron [Zofran ODT TAB] 4 mg PO Q6HR PRN #30 tab.rapdis 01/26/20 Unknown Rx Methocarbamol [Robaxin] 500 mg PO Q8H PRN #15 tablet 03/03/20 Unknown Rx Sucralfate [Carafate] 1 gm PO QID #120 07/09/20 Unknown Rx Pantoprazole [Protonix TAB] 40 mg PO BID 90 Days #180 tablet 08/18/20 Unknown Rx Metoclopramide [Reglan TAB] 10 mg PO TID 10 Days #30 tab 08/19/20 Unknown Rx HYDROcodone/APAP 5-325 [[place] 1 each PO Q6HR PRN #14 tablet 10/15/20 Unknown Rx 5-325 mg TAB] Losartan [Cozaar] 50 mg PO QDAY #30 tablet 10/15/20 Unknown Rx Baclofen 20 mg PO Q12H PRN #20 tablet 11/19/20 Unknown Rx traMADoL [Ultram 50 MG tab] 50 mg PO Q6HR PRN #12 tablet 11/19/20 Unknown Rx Azithromycin [Zithromax TAB] 500 mg PO QDAY 4 Days #4 tablet 05/08/21 Unknown Rx traMADoL [Ultram 50 MG tab] 50 mg PO Q6HR PRN #7 tablet 05/08/21 Unknown Rx Omeprazole 40 mg PO DAILY #30 07/07/21 Unknown Rx Ondansetron [Zofran ODT TAB] 4 mg PO Q8HR #14 tab.rapdis 07/07/21 Unknown Rx Acetaminophen/Codeine [Tylenol 1 tab PO Q6H #12 tab 07/14/21 Unknown Rx /Codeine # 3 tab] Pantoprazole [Protonix TAB] 40 mg PO BID 60 Days #30 tablet 07/14/21 Unknown Rx Dicyclomine [Bentyl] 10 mg PO QID PRN #12 capsule 08/09/21 Unknown Rx Ondansetron [Zofran Odt] 4 mg PO Q8HR #12 tab.rapdis 08/09/21 Unknown Rx Allergies Allergy/AdvReac Type Severity Reaction Status Date / Time aspirin Allergy Bleeding Verified 07/12/21 19:59 ED Review of Systems ROS: Stated complaint: ABD PAIN/SORE ON HAND Other details as noted in HPI Constitutional: denies: chills, fever Eyes: denies: eye pain, eye discharge, vision change ENT: denies: ear pain, throat pain Respiratory: denies: cough, shortness of breath, wheezing Cardiovascular: denies: chest pain, palpitations Endocrine: no symptoms reported Gastrointestinal: abdominal pain, nausea, vomiting. denies: diarrhea, constipation, hematemesis, melena, hematochezia Genitourinary: denies: urgency, dysuria, hematuria Musculoskeletal: denies: back pain, joint swelling, arthralgia Skin: as per HPI Neurological: denies: headache, weakness, paresthesias, vertigo Psychiatric: denies: anxiety, depression Hematological/Lymphatic: denies: easy bleeding, easy bruising ED Past Medical Hx - Past Medical History Hx Hypertension: Yes Hx Heart Attack/AMI: No Hx Congestive Heart Failure: No Hx Diabetes: No Hx Deep Vein Thrombosis: No Hx GERD: Yes Hx Renal Disease: No Hx Sickle Cell Disease: No Hx Kidney Stones: No Hx Asthma: No Hx COPD: No Hx Tuberculosis: No Hx HIV: No Additional medical history: Low sodium secondary to excessive water intake, low potassium, HERNIA H-PYLORIC, gastritis, esophagitis, daily alcohol use, pancreatitis - Surgical History Hx Coronary Stent: No Hx Pacemaker: No Hx Internal Defibrillator: No Additional Surgical History: Left index finger surgery - Social History Smoking Status: Current Every Day Smoker - Medications Home Medications: Home Medications Medication Instructions Recorded Confirmed Last Taken Type Famotidine [Acid Controller] 20 mg PO DAILY 01/13/20 07/13/21 Unknown History Ferrous Sulfate [Iron 325 MG] 325 mg PO DAILY 01/13/20 07/13/21 Unknown History Folic Acid [Folvite] 1 mg PO QDAY 01/13/20 07/13/21 Unknown History Multivitamin with Folic Acid [[facility] 400 mcg PO DAILY 01/13/20 07/13/21 Unknown History One Daily Essential Tablet] NIFEdipine [Nifedipine ER] 60 mg PO DAILY 01/13/20 07/13/21 Unknown History Thiamine Mononitrate (Vit B1) 100 gm PO DAILY 01/13/20 07/13/21 Unknown History [Cyto B-1] Ondansetron [Zofran ODT TAB] 4 mg PO Q6HR PRN #30 tab.rapdis 01/26/20 07/13/21 Unknown Rx Methocarbamol [Robaxin] 500 mg PO Q8H PRN #15 tablet 03/03/20 07/13/21 Unknown Rx Sucralfate [Carafate] 1 gm PO QID #120 07/09/20 07/13/21 Unknown Rx Pantoprazole [Protonix TAB] 40 mg PO BID 90 Days #180 tablet 08/18/20 07/13/21 Unknown Rx Metoclopramide [Reglan TAB] 10 mg PO TID 10 Days #30 tab 08/19/20 07/13/21 Unknown Rx HYDROcodone/APAP 5-325 [[place] 1 each PO Q6HR PRN #14 tablet 10/15/20 07/13/21 Unknown Rx 5-325 mg TAB] Losartan [Cozaar] 50 mg PO QDAY #30 tablet 10/15/20 07/13/21 Unknown Rx Baclofen 20 mg PO Q12H PRN #20 tablet 11/19/20 07/13/21 Unknown Rx traMADoL [Ultram 50 MG tab] 50 mg PO Q6HR PRN #12 tablet 11/19/20 07/13/21 Unknown Rx Azithromycin [Zithromax TAB] 500 mg PO QDAY 4 Days #4 tablet 05/08/21 07/13/21 Unknown Rx traMADoL [Ultram 50 MG tab] 50 mg PO Q6HR PRN #7 tablet 05/08/21 07/13/21 Unkno wn Rx Omeprazole 40 mg PO DAILY #30 07/07/21 07/13/21 Unknown Rx Ondansetron [Zofran ODT TAB] 4 mg PO Q8HR #14 tab.rapdis 07/07/21 07/13/21 Unknown Rx Acetaminophen/Codeine [Tylenol 1 tab PO Q6H #12 tab 07/14/21 Unknown Rx /Codeine # 3 tab] Pantoprazole [Protonix TAB] 40 mg PO BID 60 Days #30 tablet 07/14/21 Unknown Rx Dicyclomine [Bentyl] 10 mg PO QID PRN #12 capsule 08/09/21 Unknown Rx Ondansetron [Zofran Odt] 4 mg PO Q8HR #12 tab.rapdis 08/09/21 Unknown Rx ED Physical Exam - General Limitations: No Limitations General appearance: alert, in no apparent distress - Head Head exam: Present: atraumatic, normocephalic - Eye Eye exam: Present: EOMI Pupils: Present: normal accommodation - ENT ENT exam: Present: mucous membranes moist - Neck Neck exam: Present: normal inspection, full ROM. Absent: tenderness - Respiratory Respiratory exam: Present: normal lung sounds bilaterally. Absent: respiratory distress, wheezes, stridor, chest wall tenderness - Cardiovascular Cardiovascular Exam: Present: regular rate, normal rhythm, normal heart sounds. Absent: systolic murmur, diastolic murmur, rubs, gallop - GI/Abdominal GI/Abdominal exam: Present: soft, tenderness (Bilateral lower abdominal), normal bowel sounds. Absent: distended, guarding, rebound, rigid, bruit, hernia - Rectal Rectal exam: Present: deferred - Extremities Exam Extremities exam: Present: normal inspection, full ROM, normal capillary refill - Back Exam Back exam: Present: normal inspection, full ROM. Absent: CVA tenderness (R), CVA tenderness (L) - Neurological Exam Neurological exam: Present: alert, oriented X3, CN II-XII intact, normal gait - Expanded Neurological Exam Expanded Patient oriented to: Present: person, place, time Speech: Present: fluid speech Motor strength exam: RUE: 5, LUE: 5, RLE: 5, LLE: 5 Best Eye Response ([place]): (4) open spontaneously Best Motor Response ([place]): (6) obeys commands Best Verbal Response ([place]): (5) oriented [place] Total: 15 - Psychiatric Psychiatric exam: Present: normal affect, normal mood - Skin Skin exam: Present: warm, dry, intact, normal color. Absent: rash ED Course Vital Signs 08/08/21 08/08/21 18:47 22:47 Temperature 98.5 F Pulse Rate 88 Respiratory 18 16 Rate Blood Pressure 122/86 O2 Sat by Pulse 96 Oximetry ED Medical Decision Making - Lab Data Result diagrams: 08/08/21 19:31 08/09/21 02:59 Labs 08/08/21 08/08/21 08/08/21 19:31 19:31 19:31 WBC 9.3 RBC 4.29 Hgb 13.1 Hct 39.0 MCV 91 MCH 31 MCHC 34 RDW 15.5 H Plt Count 313 Lymph % (Auto) 20.0 [place] % (Auto) 6.8 Eos % (Auto) 1.0 Baso % (Auto) 2.7 H Lymph # (Auto) 1.9 [place] # (Auto) 0.6 Eos # (Auto) 0.1 Baso # (Auto) 0.2 H Seg Neutrophils % 69.5 Seg Neutrophils # 6.5 PT 13.8 INR 0.96 Sodium 122 L Potassium 4.1 Chloride 80.9 L Carbon Dioxide 26 Anion Gap 19 BUN 3 L Creatinine 0.7 L Estimated GFR > 60 BUN/Creatinine Ratio 4 Glucose 87 Calcium 9.2 Total Bilirubin 0.30 Direct Bilirubin < 0.2 Indirect Bilirubin 0.1 AST 29 ALT 16 Alkaline Phosphatase 111 Total Protein 7.4 Albumin 4.6 Albumin/Globulin Ratio 1.6 Lipase 50 Urine Color Urine Turbidity Urine pH Ur Specific [place] Urine Protein Urine Glucose (UA) Urine Ketones Urine Blood Urine Nitrite Urine Bilirubin Urine Urobilinogen Ur Leukocyte Esterase Urine WBC (Auto) Urine RBC (Auto) 0208/08/21 08/08/21 21:37 23:43 Unknown WBC RBC Hgb Hct MCV MCH MCHC RDW Plt Count Lymph % (Auto) [place] % (Auto) Eos % (Auto) Baso % (Auto) Lymph # (Auto) [place] # (Auto) Eos # (Auto) Baso # (Auto) Seg Neutrophils % Seg Neutrophils # PT INR Sodium 122 L 129 L D Potassium 3.6 3.3 L Chloride 82.3 L 89.8 L Carbon Dioxide 27 28 Anion Gap 16 15 BUN 3 L 3 L Creatinine 0.7 L 0.8 Estimated GFR > 60 > 60 BUN/Creatinine Ratio 4 4 Glucose 86 232 H Calcium 8.7 8.2 L Total Bilirubin 0.40 Direct Bilirubin Indirect Bilirubin AST 24 ALT 15 Alkaline Phosphatase 107 Total Protein 7.2 Albumin 4.1 Albumin/Globulin Ratio 1.3 Lipase Urine Color Colorless Urine Turbidity Clear Urine pH 6.0 Ur Specific [place] 1.001 L Urine Protein <15 mg/dl Urine Glucose (UA) Neg Urine Ketones Neg Urine Blood Neg Urine Nitrite Neg Urine Bilirubin Neg Urine Urobilinogen < 2.0 Ur Leukocyte Esterase Neg Urine WBC (Auto) < 1.0 Urine RBC (Auto) < 1.0 Labs 08/08/21 08/08/21 08/08/21 19:31 19:31 19:31 WBC 9.3 RBC 4.29 Hgb 13.1 Hct 39.0 MCV 91 MCH 31 MCHC 34 RDW 15.5 H Plt Count 313 Lymph % (Auto) 20.0 [place] % (Auto) 6.8 Eos % (Auto) 1.0 Baso % (Auto) 2.7 H Lymph # (Auto) 1.9 [place] # (Auto) 0.6 Eos # (Auto) 0.1 Baso # (Auto) 0.2 H Seg Neutrophils % 69.5 Seg Neutrophils # 6.5 PT 13.8 INR 0.96 Sodium 122 L Potassium 4.1 Chloride 80.9 L Carbon Dioxide 26 Anion Gap 19 BUN 3 L Creatinine 0.7 L Estimated GFR > 60 BUN/Creatinine Ratio 4 Glucose 87 Calcium 9.2 Total Bilirubin 0.30 Direct Bilirubin < 0.2 Indirect Bilirubin 0.1 AST 29 ALT 16 Alkaline Phosphatase 111 Total Protein 7.4 Albumin 4.6 Albumin/Globulin Ratio 1.6 Lipase 50 Urine Color Urine Turbidity Urine pH Ur Specific [place] Urine Protein Urine Glucose (UA) Urine Ketones Urine Blood Urine Nitrite Urine Bilirubin Urine Urobilinogen Ur Leukocyte Esterase Urine WBC (Auto) Urine RBC (Auto) 08/08/21 08/08/21 08/08/21 21:37 23:43 Unknown WBC RBC Hgb Hct MCV MCH MCHC RDW Plt Count Lymph % (Auto) [place] % (Auto) Eos % (Auto) Baso % (Auto) Lymph # (Auto) [place] # (Auto) Eos # (Auto) Baso # (Auto) Seg Neutrophils % Seg Neutrophils # PT INR Sodium 122 L 129 L D Potassium 3.6 3.3 L Chloride 82.3 L 89.8 L Carbon Dioxide 27 28 Anion Gap 16 15 BUN 3 L 3 L Creatinine 0.7 L 0.8 Estimated GFR > 60 > 60 BUN/Creatinine Ratio 4 4 Glucose 86 232 H Calcium 8.7 8.2 L Total Bilirubin 0.40 Direct Bilirubin Indirect Bilirubin AST 24 ALT 15 Alkaline Phosphatase 107 Total Protein 7.2 Albumin 4.1 Albumin/Globulin Ratio 1.3 Lipase Urine Color Colorless Urine Turbidity Clear Urine pH 6.0 Ur Specific [place] 1.001 L Urine Protein <15 mg/dl Urine Glucose (UA) Neg Urine Ketones Neg Urine Blood Neg Urine Nitrite Neg Urine Bilirubin Neg Urine Urobilinogen < 2.0 Ur Leukocyte Esterase Neg Urine WBC (Auto) < 1.0 Urine RBC (Auto) < 1.0 08/09/21 02:59 WBC RBC Hgb Hct MCV MCH MCHC RDW Plt Count Lymph % (Auto) [place] % (Auto) Eos % (Auto) Baso % (Auto) Lymph # (Auto) [place] # (Auto) Eos # (Auto) Baso # (Auto) Seg Neutrophils % Seg Neutrophils # PT INR Sodium 133 L Potassium 3.6 Chloride 94.6 L Carbon Dioxide 27 Anion Gap 15 BUN 3 L Creatinine 0.7 L Estimated GFR > 60 BUN/Creatinine Ratio 4 Glucose 68 L Calcium 8.5 Total Bilirubin Direct Bilirubin Indirect Bilirubin AST ALT Alkaline Phosphatase Total Protein Albumin Albumin/Globulin Ratio Lipase Urine Color Urine Turbidity Urine pH Ur Specific [place] Urine Protein Urine Glucose (UA) Urine Ketones Urine Blood Urine Nitrite Urine Bilirubin Urine Urobilinogen Ur Leukocyte Esterase Urine WBC (Auto) Urine RBC (Auto) - Radiology Data Radiology results: report reviewed, image reviewed CT ABDOMEN AND PELVIS WITH CONTRAST INDICATION / CLINICAL INFORMATION: abd pain. hematemesis. TECHNIQUE: Axial CT images were obtained through the abdomen and pelvis after 100 cc Omnipaque [address] scans at this location are performed using CT dose reduction for ALARA by means of automated exposure control. COMPARISON: CT abdomen and pelvis with contrast from 05/08/2021. FINDINGS: Motion artifact limits portions of this exam. LOWER CHEST: No significant abnormality. LIVER: No significant abnormality. GALLBLADDER: No significant abnormality. BILE DUCTS: No significant abnormality. PANCREAS: No significant abnormality. SPLEEN: No significant abnormality. ADRENALS: No significant abnormality. RIGHT KIDNEY/URETER: No significant abnormality. LEFT KIDNEY/URETER: No significant abnormality. STOMACH/SMALL BOWEL: There is an uncomplicated small/moderate hiatal hernia that has not significantly changed. No other significant abnormality. COLON: No significant abnormality. APPENDIX: No significant abnormality. PERITONEUM: No free fluid. No free air. No fluid collection. LYMPH NODES: No significant adenopathy. VASCULATURE: There is mild generalized atherosclerosis without other significant abnormalities. URINARY BLADDER: No significant abnormality. REPRODUCTIVE ORGANS: No significant abnormality. ADDITIONAL FINDINGS: None. BONES: No significant abnormality IMPRESSION: Limited exam due to motion artifact without acute findings to explain the patient's abdominal pain or hematemesis. Signer Name: Martinez Jacob MD Signed: 07/12/2021 6:38 PM Workstation Name: [id number] Transcribed By: [place] Dictated By: Martinez Jacob MD Electronically Authenticated By: Martinez Jacob MD Signed Date/Time: 07/12/211837 DD/ 33 TD/TT: CT ABDOMEN AND PELVIS WITH CONTRAST INDICATION / CLINICAL INFORMATION: abd pain. TECHNIQUE: Axial CT images were obtained through the abdomen and pelvis after 100 cc Omnipaque [address] scans at this location are performed using CT dose reduction for ALARA by means of automated exposure control. COMPARISON: CT abdomen and pelvis 07/12/2021 FINDINGS: LOWER CHEST: Nonspecific groundglass attenuation posterior left lower lobe could reflect atelectasis or minimal evidence of infection. Moderate hiatal hernia. LIVER: No significant abnormality. GALLBLADDER: No significant abnormality. BILE DUCTS: Not well visualized secondary to motion. SPLEEN: No significant abnormality. PANCREAS: No significant abnormality. ADRENALS: No significant abnormality. RIGHT KIDNEY / URETER: Significant motion artifact. No gross evidence of abnormality. LEFT KIDNEY / URETER: Significant motion artifact. No gross evidence of abnormality. STOMACH / DUODENUM / SMALL BOWEL: With exception of a hiatal hernia, no gross evidence of abnormality. Significant motion artifact. The duodenum and small bowel within the upper abdomen not well visualized secondary to motion. COLON: Descending and sigmoid colon demonstrate no acute findings. Transverse large bowel are blurred from motion with no gross evidence of abnormality. APPENDIX: No significant abnormality. PERITONEUM: No free air or free fluid are present within the abdomen or pelvis. LYMPH NODES: No significant adenopathy. AORTA / ARTERIES: No significant abnormality. IVC / VEINS: No significant abnormality. URINARY BLADDER: No significant abnormality. REPRODUCTIVE ORGANS: Prostate upper limits of normal in size. ADDITIONAL ABDOMINAL/PELVIC FINDINGS: None. SKELETAL SYSTEM: No significant abnormality. IMPRESSION: 1. No acute findings. Moderate motion artifact distorts the upper abdomen. 2. Moderate hiatal hernia. 3. Minimal nonspecific groundglass attenuation posterior left lower lobe differential considerations to include atelectasis and infection. Signer Name: Enmanuel Venegas II, MD Signed: 08/08/2021 10:51 PM Workstation Name: [id number] Transcribed By: CELIO Dictated By: ENMANUEL VENEGAS II, MD Electronically Authenticated By: ENMANUEL VENEGAS II, MD Signed Date/Time: 08/08/212250 DD/ 46 TD/TT: - Medical Decision Making CT Abd Pelvis normal no soft tissue abdnormalitites, no renal stones no gall stones. Patient advises symptoms are improved. Patient tolerating p.o. intake at this time. Patient will be DC'd home in normal condition follow-up chemistry is normal. Patient DC'd home in stable condition at this time with prescriptions. Critical care attestation.: If time is entered above; I have spent that time in minutes in the direct care of this critically ill patient, excluding procedure time. ED Disposition Clinical Impression: Abdominal pain Qualifiers: Abdominal location: generalized Qualified Code(s): R10.84 - Generalized abdominal pain Nausea and vomiting Qualifiers: Vomiting type: unspecified Qualified Code(s): R11.2 - Nausea with vomiting, unspecified Disposition: HOME / SELF CARE / HOMELESS Is pt being admited?: No Does the pt Need Aspirin: No Condition: Stable Instructions: Nausea and Vomiting, Adult, Abdominal Pain, Adult, Rehydration, Adult Additional Instructions: Take medications as prescribed, follow-up with your doctor in 2 to 3 days. Return to emergency department should symptoms worsen. Prescriptions: Dicyclomine [Bentyl] 10 mg PO QID PRN #12 capsule PRN Reason: abdominal spasm Ondansetron [Zofran Odt] 4 mg PO Q8HR #12 tab.rapdis Referrals: HAYLEY ALMENDAREZ MD [Staff Physician] - 3-5 Days Forms: Work/School Release Form(ED) Time of Disposition: 04:43
[2021-08-08 21:59] LABS: Bilirubin,Urine NEG (Negative); Blood,Urine NEG (Negative); Color,Urine Colorless (Yellow); Protein,Urine <15 mg/dL mg/dL (Negative); Urobilinogen,Urine < 2.0 mg/dL (<2.0); WBC,Urine < 1.0 /HPF (0.0-6.0)
[2021-08-08] MEDS ORDERED: D5W/0.9% NACL 1,000 ML IV SCH (22:00)
[2021-08-08 22:06] LABS: RBC,Urine < 1.0 /HPF (0.0-6.0)
[2021-08-08 22:11] LABS: Alanine Aminotransferase 15 units/L (7-56); Albumin 4.1 g/dL (3.9-5); Blood Urea Nitrogen 3 mg/dL (9-20); Calcium 8.7 mg/dL (8.4-10.2); Hemolysis Index 21
[2021-08-08 22:15] LABS: BUN/Creatinine Ratio 4
[2021-08-08] MEDS ORDERED: MORPHINE 4 MG/1 ML INJ IV ONE (22:41)
--- NOTE | 2021-08-08 22:55 | Cat Scan Report ---
CT ABDOMEN AND PELVIS WITH CONTRAST INDICATION / CLINICAL INFORMATION: abd pain. TECHNIQUE: Axial CT images were obtained through the abdomen and pelvis after 100 cc Omnipaque [address] scans at this location are performed using CT dose reduction for ALARA by means of automated exposure control. COMPARISON: CT abdomen and pelvis 07/12/2021 FINDINGS: LOWER CHEST: Nonspecific groundglass attenuation posterior left lower lobe could reflect atelectasis or minimal evidence of infection. Moderate hiatal hernia. LIVER: No significant abnormality. GALLBLADDER: No significant abnormality. BILE DUCTS: Not well visualized secondary to motion. SPLEEN: No significant abnormality. PANCREAS: No significant abnormality. ADRENALS: No significant abnormality. RIGHT KIDNEY / URETER: Significant motion artifact. No gross evidence of abnormality. LEFT KIDNEY / URETER: Significant motion artifact. No gross evidence of abnormality. STOMACH / DUODENUM / SMALL BOWEL: With exception of a hiatal hernia, no gross evidence of abnormality . Significant motion artifact. The duodenum and small bowel within the upper abdomen not well visuali zed secondary to motion. COLON: Descending and sigmoid colon demonstrate no acute findings. Transverse large bowel are blurred from motion with no gross evidence of abnormality. APPENDIX: No significant abnormality. PERITONEUM: No free air or free fluid are present within the abdomen or pelvis. LYMPH NODES: No significant adenopathy. AORTA / ARTERIES: No significant abnormality. IVC / VEINS: No significant abnormality. URINARY BLADDER: No significant abnormality. REPRODUCTIVE ORGANS: Prostate upper limits of normal in size. ADDITIONAL ABDOMINAL/PELVIC FINDINGS: None. SKELETAL SYSTEM: No significant abnormality. IMPRESSION: 1. No acute findings. Moderate motion artifact distorts the upper abdomen. 2. Moderate hiatal hernia. 3. Minimal nonspecific groundglass attenuation posterior left lower lobe differential considerations to include atelectasis and infection. Signer Name: Navin Venegas II, MD Signed: 08/08/2021 10:51 PM Workstation Name: [id number]
[2021-08-09 00:11] LABS: BUN/Creatinine Ratio 4; Blood Urea Nitrogen 3 mg/dL (9-20); Calcium 8.2 mg/dL (8.4-10.2); Hemolysis Index 3
[2021-08-09] MEDS ORDERED: SODIUM CHLORIDE 0.9% 1000 ML 1,000 ML IV ONE (00:38)
[2021-08-09 04:08] LABS: Blood Urea Nitrogen 3 mg/dL (9-20); Calcium 8.5 mg/dL (8.4-10.2); Hemolysis Index 15
[2021-08-09 04:15] LABS: BUN/Creatinine Ratio 4
== END 2021-08-09 04:47 | disposition home or self-care (01) ==
LOC: ED 18:18
DX: R10.84 Generalized abdominal pain (principal); R11.2 Nausea with vomiting, unspecified; I10 Essential (primary) hypertension; K21.9 Gastro-esophageal reflux disease without esophagitis; Z98.890 Other specified postprocedural states; F17.200 Nicotine dependence, unspecified, uncomplicated; Z88.8 Allergy status to other drugs, medicaments and biological substances
CPT/HCPCS: 36415; 74177; 80048; 80053; 80076; 81001; 83690; 85025; 85610; 96361; 96374; 96375; 96376; 99284; J2270; J2405; J7030; J7042; Q9967; J3490; Q0162

== ENCOUNTER 2021-09-02 06:17 | Emergency (ER) | payer MEDICAID ==
[2021-09-02] MEDS ORDERED: PANTOPRAZOLE 80 MG in SODIUM CHLORIDE 0.9% 100 ML IV ONE (06:35)
[2021-09-02] MEDS ORDERED: OCTREOTIDE 500 MCG in SODIUM CHLORIDE 0.9% 100 ML IV ONE (06:36)
--- NOTE | 2021-09-02 06:41 | Emergency Department Report ---
Chief Complaint: GI Bleed Stated Complaint: HEART & STOMACH PAIN Time Seen by Provider: 09/02/21 06:37 - HPI History of Present Illness: This 56-year-old male presents emerged department with chief complaint of epigastric, left upper quadrant abdominal pain left-sided chest pain has been ongoing for the past 4 to 5 days with associated coffee-ground emesis and melena. Patient has history of alcoholism, pancreatitis, peptic ulcer and frequent visits to the ER with similar symptoms. Patient reports he has been drinking heavily and has not eaten anything for the past 4 days. He also reports he has been having some pain the left side of his chest is worse when he moves or coughs. He denies any injuries. - ROS Review of Systems: Patient has any associated fever, chills, night sweats, headache, dizziness, blurry vision, diarrhea, shortness of breath, weakness or any other associated symptoms. - Exam Vital Signs: Vital Signs 09/02/21 06:22 Temperature 98.0 F Pulse Rate 107 H Respiratory 18 Rate Blood Pressure 133/95 O2 Sat by Pulse 98 Oximetry Physical Exam: GENERAL APPEARANCE: Well-developed, well-nourished, no acute distress HEENT: Normocephalic and atraumatic. No scleral icterus. Pupils are equal, round, and reactive to light and accommodation. No conjunctival injection is noted. Oropharynx is clear. Mouth revealed good dentition, no lesions. Tympanic membranes are clear. NECK: Supple. Trachea is midline. No evidence of thyroid enlargement. No lymphadenopathy or tenderness. CHEST: Symmetric. Left-sided chest wall tenderness to palpation. No ecchymosis. No crepitus or deformity LUNGS: Breath sounds are equal and clear bilaterally. No wheezes, rhonchi, or rales. HEART: Regular rate and rhythm with normal S1 and S2. No murmurs, gallops, or rubs. BREASTS: Symmetrical. No skin or nipple retractions. No nipple discharges or masses. ABDOMEN: Soft, flat, and benign. Mild tenderness palpation epigastrium no mass, guarding, or rebound. No organomegaly or hernia. Bowel sounds are present. No CVA tenderness or flank mass. GENITOURINARY: Deferred RECTAL: Deferred EXTREMITIES: No cyanosis, clubbing, or edema. No lower extreme edema, negative Homans sign bilaterally NEUROLOGIC: No focal sensory or motor deficits are noted. Gait is normal. Cranial nerves II through XII are intact. Deep tendon reflexes are intact. PSYCHIATRIC: The patient is awake, alert, and oriented x3. Recent and remote memory is intact. Appropriate mood and affect. SKIN: Warm, dry, and well perfused. Good turgor. No lesions, nodules or rashes are noted. No onychomycosis. LYMPHATICS: No cervical, axillary, or groin adenopathy is noted. MSE screening note: Focused history and physical exam performed. Due to findings the following was ordered: Due to symptoms of GI bleeding labs including coags, type and screen were ordered. EKG and troponins were ordered due to complaint of chest pain as well as chest x-ray. Patient stable in no acute distress. ED Medical Decision Making - Lab Data Result diagrams: 09/02/21 07:16 09/02/21 07:16 ED Disposition for MSE Clinical Impression: Acute epigastric pain, Alcohol abuse, Tobacco abuse, Hiccups, Hyponatremia Disposition: HOME / SELF CARE / HOMELESS Condition: Stable Instructions: Alcohol Use Disorder, Health Risks of Smoking, Alcohol Abuse and Nutrition Additional Instructions: Have a bland diet. Drink water. Stop drinking alcohol. Return for problems. Follow-up with your family doctor or the referral doctor for recheck. You should fluid restrict to some extent, and not drink more than 1500 mL of water per day. Prescriptions: Sucralfate [Carafate] 1 gm PO QID #120 Pantoprazole [Protonix TAB] 40 mg PO BID 60 Days #30 tablet Referrals: CHAPARRITA LOONEY MD [Staff Physician] - 3-5 Days PRIMARY CARE, [Primary Care Provider] - 3-5 Days COLT DE LA CRUZ MD [Staff Physician] - 3-5 Days Forms: Accompanied Note
--- NOTE | 2021-09-02 07:02 | XRay Report ---
CHEST 2 VIEWS INDICATION: GI Bleed. COMPARISON: 07/07/2021 FINDINGS: Support devices: None. Heart: Within normal limits. Lungs/Pleura: No acute air space or interstitial disease. No significant pleural effusion. IMPRESSION: No acute findings. Signer Name: Ambrosio Cronin MD Signed: 09/02/2021 6:57 AM Workstation Name: [id number]
[2021-09-02] MEDS ORDERED: PANTOPRAZOLE 40 MG INJ IV ONE (07:11)
[2021-09-02] MEDS ORDERED: chlorproMAZINE 50 MG/2 ML INJ IM ONE (07:11)
[2021-09-02] MEDS ORDERED: SODIUM CHLORIDE 0.9% 1000 ML 1,000 ML IV ONE (07:11)
--- NOTE | 2021-09-02 07:26 | Emergency Department Report ---
ED Abdominal Pain HPI - General Chief Complaint: GI Bleed Stated Complaint: HEART & STOMACH PAIN Time Seen by Provider: 09/02/21 06:37 Source: patient Mode of arrival: Ambulatory Limitations: No Limitations - History of Present Illness Initial Comments: Patient presents with a weeklong history of vomiting and GI upset. He is describing abdominal pain in the epigastric area that is burning. The pain does not radiate or migrate. Patient has been drinking. He states that he has been binge drinking and is a chronic alcoholic. He does report having vomiting of coffee-ground emesis. He has not vomited any bright red blood. There is no history of sick contact. He has had no travel or trauma. He has not been on antibiotics lately. He states that he just does not feel well and came here for evaluation. Again, he has had symptoms for about a week. He also reports that he has had hiccups for about a week. He is complaining of this upper abdominal pain that radiates into the lower chest. It does not radiate into the back. - Related Data Home Medications Medication Instructions Recorded Confirmed Last Taken Famotidine [Acid Controller] 20 mg PO DAILY 01/13/20 07/13/21 Unknown Ferrous Sulfate [Iron 325 MG] 325 mg PO DAILY 01/13/20 07/13/21 Unknown Folic Acid [Folvite] 1 mg PO QDAY 01/13/20 07/13/21 Unknown Multivitamin with Folic Acid [[facility] 400 mcg PO DAILY 01/13/20 07/13/21 Unknown One Daily Essential Tablet] NIFEdipine [Nifedipine ER] 60 mg PO DAILY 01/13/20 07/13/21 Unknown Thiamine Mononitrate (Vit B1) 100 gm PO DAILY 01/13/20 07/13/21 Unknown [Cyto B-1] Previous Rx's Medication Instructions Recorded Last Taken Type Ondansetron [Zofran ODT TAB] 4 mg PO Q6HR PRN #30 tab.rapdis 01/26/20 Unknown Rx Metoclopramide [Reglan TAB] 10 mg PO TID 10 Days #30 tab 08/19/20 Unknown Rx Losartan [Cozaar] 50 mg PO QDAY #30 tablet 10/15/20 Unknown Rx Ondansetron [Zofran ODT TAB] 4 mg PO Q8HR #14 tab.rapdis 07/07/21 Unknown Rx Dicyclomine [Bentyl] 10 mg PO QID PRN #12 capsule 08/09/21 Unknown Rx Ondansetron [Zofran Odt] 4 mg PO Q8HR #12 tab.rapdis 08/09/21 Unknown Rx Pantoprazole [Protonix TAB] 40 mg PO BID 60 Days #30 tablet 09/02/21 Unknown Rx Sucralfate [Carafate] 1 gm PO QID #120 09/02/21 Unknown Rx Allergies Allergy/AdvReac Type Severity Reaction Status Date / Time aspirin Allergy Bleeding Verified 07/12/21 19:59 ED Review of Systems ROS: Stated complaint: HEART & STOMACH PAIN Other details as noted in HPI Comment: All other systems reviewed and negative Constitutional: denies: fever Eyes: denies: vision change ENT: denies: throat pain Respiratory: denies: cough Cardiovascular: denies: palpitations Endocrine: denies: unexplained weight loss Gastrointestinal: as per HPI Genitourinary: denies: dysuria Musculoskeletal: denies: back pain Skin: denies: rash Neurological: denies: headache Hematological/Lymphatic: denies: easy bruising ED Past Medical Hx - Past Medical History Previous Medical History?: Yes Hx Hypertension: Yes Hx Heart Attack/AMI: No Hx Congestive Heart Failure: No Hx Diabetes: No Hx Deep Vein Thrombosis: No Hx GERD: Yes Hx Renal Disease: No Hx Sickle Cell Disease: No Hx Kidney Stones: No Hx Asthma: No Hx COPD: No Hx Tuberculosis: No Hx HIV: No Additional medical history: Low sodium secondary to excessive water intake, low potassium, HERNIA H-PYLORIC, gastritis, esophagitis, daily alcohol use, pancreatitis - Surgical History Past Surgical History?: Yes Hx Coronary Stent: No Hx Pacemaker: No Hx Internal Defibrillator: No Additional Surgical History: Left index finger surgery - Family History Family history: hypertension - Social History Smoking Status: Current Every Day Smoker (We discussed tobacco cessation) Substance Use Type: Alcohol (Daily) - Medications Home Medications: Home Medications Medication Instructions Recorded Confirmed Last Taken Type Famotidine [Acid Controller] 20 mg PO DAILY 01/13/20 07/13/21 Unknown History Ferrous Sulfate [Iron 325 MG] 325 mg PO DAILY 01/13/20 07/13/21 Unknown History Folic Acid [Folvite] 1 mg PO QDAY 01/13/20 07/13/21 Unknown History Multivitamin with Folic Acid [[facility] 400 mcg PO DAILY 01/13/20 07/13/21 Unknown His tory One Daily Essential Tablet] NIFEdipine [Nifedipine ER] 60 mg PO DAILY 01/13/20 07/13/21 Unknown History Thiamine Mononitrate (Vit B1) 100 gm PO DAILY 01/13/20 07/13/21 Unknown History [Cyto B-1] Ondansetron [Zofran ODT TAB] 4 mg PO Q6HR PRN #30 tab.rapdis 01/26/20 07/13/21 Unknown Rx Metoclopramide [Reglan TAB] 10 mg PO TID 10 Days #30 tab 08/19/20 07/13/21 Unknown Rx Losartan [Cozaar] 50 mg PO QDAY #30 tablet 10/15/20 07/13/21 Unknown Rx Ondansetron [Zofran ODT TAB] 4 mg PO Q8HR #14 tab.rapdis 07/07/21 07/13/21 Unknown Rx Dicyclomine [Bentyl] 10 mg PO QID PRN #12 capsule 08/09/21 Unknown Rx Ondansetron [Zofran Odt] 4 mg PO Q8HR #12 tab.rapdis 08/09/21 Unknown Rx Pantoprazole [Protonix TAB] 40 mg PO BID 60 Days #30 tablet 09/02/21 Unknown Rx Sucralfate [Carafate] 1 gm PO QID #120 09/02/21 Unknown Rx ED Physical Exam - General Limitations: No Limitations, Other (Pulse ox noted and normal) General appearance: alert, in no apparent distress, other (Persistent hiccups) - Head Head exam: Present: atraumatic, normocephalic, normal inspection - Eye Eye exam: Present: normal appearance, PERRL, EOMI. Absent: scleral icterus - ENT ENT exam: Present: mucous membranes dry, normal external ear exam - Neck Neck exam: Present: normal inspection. Absent: meningismus - Respiratory Respiratory exam: Present: normal lung sounds bilaterally. Absent: respiratory distress - Cardiovascular Cardiovascular Exam: Present: normal rhythm, tachycardia - GI/Abdominal GI/Abdominal exam: Present: soft, tenderness (Epigastric). Absent: guarding, rebound, pulsatile mass - Extremities Exam Extremities exam: Present: normal capillary refill - Back Exam Back exam: Absent: CVA tenderness (R), CVA tenderness (L) - Neurological Exam Neurological exam: Present: alert, oriented X3, CN II-XII intact, reflexes normal, other (No asterixis). Absent: motor sensory deficit - Psychiatric Psychiatric exam: Present: normal affect, normal mood - Skin Skin exam: Present: warm, dry ED Course Vital Signs 09/02/21 03 06:22 07:45 Temperature 98.0 F Pulse Rate 107 H Respiratory 18 Rate Blood Pressure 133/95 O2 Sat by Pulse 98 100 Oximetry - Reevaluation(s) Reevaluation #1: 09/02/21 07:27 Labs have been ordered. Further medication has been ordered. Old records reviewed. Reevaluation #2: 09/02/21 08:48 Labs have been reviewed. Medications are now being given. Patient still has hiccups, so further medication was ordered. He should be able to be discharged shortly. There is no ongoing vomiting. ED Medical Decision Making - Lab Data Result diagrams: 09/02/21 07:16 09/02/21 07:16 Rhythm strip: Normal sinus rhythm without ectopy. Monitor observe 10 seconds. - Radiology Data Radiology results: report reviewed - Medical Decision Making Patient presents with reports of GI bleed, but is not anemic. He has had no bleeding here. He does not appear to be septic or toxic. He has no evidence of coagulopathy. I do believe that he probably did have some coffee-ground type emesis and that could have been related to some sort of Jaz-Tee tear. He certainly does not have symptoms suggestive of Boerhaave's. He does not have ongoing vomiting suggestive of peptic ulcer disease although he could have an alcoholic gastritis. Patient be treated symptomatically. Sodium is low due to his alcohol consumption and based on review of labs, he has a history of chronic hyponatremia. Patient does not appear to be septic or toxic. He was treated symptomatically and released. He has been referred for outpatient follow-up. Critical Care Time: No Critical care attestation.: If time is entered above; I have spent that time in minutes in the direct care of this critically ill patient, excluding procedure time. ED Disposition Clinical Impression: Acute epigastric pain, Alcohol abuse, Tobacco abuse, Hiccups, Hyponatremia Disposition: 01 HOME / SELF CARE / HOMELESS Is pt being admited?: No Condition: Stable Instructions: Alcohol Use Disorder, Alcohol Abuse and Nutrition, Health Risks of Smoking Additional Instructions: Have a bland diet. Drink water. Stop drinking alcohol. Return for problems. Follow-up with your family doctor or the referral doctor for recheck. You should fluid restrict to some extent, and not drink more than 1500 mL of water per day. Prescriptions: Sucralfate [Carafate] 1 gm PO QID #120 Pantoprazole [Protonix TAB] 40 mg PO BID 60 Days #30 tablet Referrals: PRIMARY CARE, [Primary Care Provider] - 3-5 Days COLT DE LA CRUZ MD [Staff Physician] - 3-5 Days CHAPARRITA LOONEY MD [Staff Physician] - 3-5 Days Forms: Accompanied Note
[2021-09-02 07:28] LABS: Basophils % (Auto) 0.6 % (0.0-1.8); Eosinophils # (Auto) 0.1 K/mm3 (0.0-0.4); Eosinophils % (Auto) 1.4 % (0.0-4.3); Hemoglobin 14.7 gm/dl (11.8-15.2); Mean Corpuscular HGB Conc 33 % (32-34); Mean Corpuscular Volume 91 fl (84-94); Monocytes # (Auto) 0.7 K/mm3 (0.0-0.8); Monocytes % (Auto) 14.1 % (0.0-7.3); Platelet Count 282 K/mm3 (140-440); Red Blood Count 4.93 M/mm3 (3.65-5.03); Red Cell Distribution Width 14.9 % (13.2-15.2)
[2021-09-02 07:36] LABS: INR 0.9 (0.87-1.13)
[2021-09-02 07:37] LABS: Partial Thromboplastin Time 33.8 Sec. (24.2-36.6)
[2021-09-02 07:51] LABS: Alanine Aminotransferase 25 units/L (7-56); Albumin 4.5 g/dL (3.9-5); BUN/Creatinine Ratio 5; Blood Urea Nitrogen 4 mg/dL (9-20); Calcium 9.6 mg/dL (8.4-10.2); Hemolysis Index 21
[2021-09-02 07:53] LABS: Bilirubin,Direct < 0.2 mg/dL (0-0.2)
[2021-09-02] MEDS ORDERED: HALOPERIDOL LACTATE 5 MG/1 ML INJ IM ONE (08:47)
[2021-09-02 09:57] VITALS: BP 128/83
== END 2021-09-02 09:56 | disposition home or self-care (01) ==
LOC: ED 06:17
DX: R10.13 Epigastric pain (principal); F10.10 Alcohol abuse, uncomplicated; R06.6 Hiccough; E87.1 Hypo-osmolality and hyponatremia; I10 Essential (primary) hypertension; K21.9 Gastro-esophageal reflux disease without esophagitis; Z98.890 Other specified postprocedural states; F17.200 Nicotine dependence, unspecified, uncomplicated; Z91.09 Other allergy status, other than to drugs and biological substances
CPT/HCPCS: 36415; 71046; 80048; 80076; 83690; 84484; 85025; 85610; 85730; 86850; 86900; 86901; 96361; 96365; 96368; 96372; 96375; 99284; C9113; J1630; J3230; J7030; J2501; Q0162; J2354

== ENCOUNTER 2021-09-09 16:53 | Inpatient (IN) | payer MEDICAID ==
[2021-09-09] MEDS ORDERED: LIDOCAINE VISCOUS 2% 15 ML ORAL LIQD PO ONE (18:43)
[2021-09-09] MEDS ORDERED: ALUM-MAG HYDROXIDE-SIMETHICONE 200-200-20MG/5ML ORAL LIQD 30 ML PO ONE (18:43)
--- NOTE | 2021-09-09 19:42 | XRay Report ---
CHEST 2 VIEWS INDICATION / CLINICAL INFORMATION: chest pain. COMPARISON: 09/02/2021 FINDINGS: SUPPORT DEVICES: None. HEART / MEDIASTINUM: No significant abnormality. LUNGS / PLEURA: No significant pulmonary or pleural abnormality. No pneumothorax. ADDITIONAL FINDINGS: No significant additional findings. IMPRESSION: 1. No acute findings. No interval change. Signer Name: Paula Mercado MD Signed: 09/09/2021 7:38 PM Workstation Name: [id number]
[2021-09-09] MEDS ORDERED: HALOPERIDOL LACTATE 5 MG/1 ML INJ IM STA (19:47)
[2021-09-09 19:59] LABS: Basophils % (Auto) 0.7 % (0.0-1.8); Eosinophils % (Auto) 0.6 % (0.0-4.3); Hematocrit 40.4 % (35.5-45.6); Hemoglobin 13.4 gm/dl (11.8-15.2); Lymphocytes # (Auto) 1.2 K/mm3 (1.2-5.4); Lymphocytes % (Auto) 16.4 % (13.4-35.0); Mean Corpuscular HGB Conc 33 % (32-34); Mean Corpuscular Volume 90 fl (84-94); Monocytes # (Auto) 0.6 K/mm3 (0.0-0.8); Monocytes % (Auto) 8.6 % (0.0-7.3); Platelet Count 280 K/mm3 (140-440); Red Blood Count 4.51 M/mm3 (3.65-5.03); Red Cell Distribution Width 14.8 % (13.2-15.2)
[2021-09-09 20:19] LABS: Alanine Aminotransferase 18 units/L (7-56); Albumin 4.3 g/dL (3.9-5); Blood Urea Nitrogen 3 mg/dL (9-20); Calcium 8.9 mg/dL (8.4-10.2); Hemolysis Index 3
[2021-09-09 20:31] LABS: BUN/Creatinine Ratio 4
[2021-09-09] MEDS ORDERED: DEXTROSE 10% *Hypoglycemia IV PRN (20:33)
[2021-09-09] MEDS ORDERED: POTASSIUM CHLORIDE ER 20 MEQ TAB PO ONE (20:34)
[2021-09-09] MEDS ORDERED: chlordiazePOXIDE 25 MG CAP PO PRN (20:40)
[2021-09-09] MEDS ORDERED: LORazepam 2 MG/ML VIAL IV PRN ×2 (20:40)
[2021-09-09] MEDS ORDERED: LORazepam 2 MG TAB PO PRN (20:40)
--- NOTE | 2021-09-09 20:43 | Emergency Department Report ---
ED General Adult HPI - General Chief complaint: Chest Pain Stated complaint: I am having hiccups and heartburn Time Seen by Provider: 09/09/21 19:37 Source: patient, RN notes reviewed, old records reviewed Mode of arrival: Ambulatory Limitations: Other (Alcohol intoxication) - History of Present Illness Initial comments: This patient is a 56-year-old gentleman with a history of esophagitis, alcohol abuse, chronic intracranial hygromas, hyponatremia, who presents to the ER today with a complaint of abdominal cramping, chest tightness, and hiccups for the past 4 days. He denies trauma. He is not homicidal or suicidal. He denies DVT/PE risk factors. He thinks his last alcoholic beverage was earlier on today. -: days(s) Location: chest, abdomen Severity scale (0 -10): 0 Consistency: constant Improves with: none Worsens with: none - Related Data Home Medications Medication Instructions Recorded Confirmed Last Taken Famotidine [Acid Controller] 20 mg PO DAILY 01/13/20 09/09/21 Unknown Ferrous Sulfate [Iron 325 MG] 325 mg PO DAILY 01/13/20 09/09/21 Unknown Folic Acid [Folvite] 1 mg PO QDAY 01/13/20 09/09/21 Unknown Multivitamin with Folic Acid [[facility]vs 400 mcg PO DAILY 01/13/20 09/09/21 Unknown One Daily Essential Tablet] NIFEdipine [Nifedipine ER] 60 mg PO DAILY 01/13/20 09/09/21 Unknown Thiamine Mononitrate (Vit B1) 100 gm PO DAILY 01/13/20 09/09/21 Unknown [Cyto B-1] Previous Rx's Medication Instructions Recorded Last Taken Type Ondansetron [Zofran ODT TAB] 4 mg PO Q6HR PRN #30 tab.rapdis 01/26/20 Unknown Rx Metoclopramide [Reglan TAB] 10 mg PO TID 10 Days #30 tab 08/19/20 Unknown Rx Losartan [Cozaar] 50 mg PO QDAY #30 tablet 10/15/20 Unknown Rx Ondansetron [Zofran ODT TAB] 4 mg PO Q8HR #14 tab.rapdis 07/07/21 Unknown Rx Dicyclomine [Bentyl] 10 mg PO QID PRN #12 capsule 08/09/21 Unknown Rx Ondansetron [Zofran Odt] 4 mg PO Q8HR #12 tab.rapdis 08/09/21 Unknown Rx Pantoprazole [Protonix TAB] 40 mg PO BID 60 Days #30 tablet 09/02/21 Unknown Rx Sucralfate [Carafate] 1 gm PO QID #120 09/02/21 Unknown Rx Allergies Allergy/AdvReac Type Severity Reaction Status Date / Time aspirin Allergy Bleeding Verified 09/09/21 19:23 ED Review of Systems ROS: Stated complaint: HEART HURTING/STOMACH BURNING Other details as noted in HPI Comment: Unobtainable due to pts medical conditions (Patient is intoxicated) Constitutional: denies: fever Cardiovascular: chest pain Gastrointestinal: abdominal pain Neurological: weakness Psychiatric: denies: homicidal thoughts, suicidal thoughts ED Past Medical Hx - Past Medical History Hx Hypertension: Yes Hx Heart Attack/AMI: No Hx Congestive Heart Failure: No Hx Diabetes: No Hx Deep Vein Thrombosis: No Hx GERD: Yes Hx Renal Disease: No Hx Sickle Cell Disease: No Hx Kidney Stones: No Hx Asthma: No Hx COPD: No Hx Tuberculosis: No Hx HIV: No Additional medical history: Low sodium secondary to excessive water intake, low potassium, HERNIA H-PYLORIC, gastritis, esophagitis, daily alcohol use, pancreatitis - Surgical History Hx Coronary Stent: No Hx Pacemaker: No Hx Internal Defibrillator: No Additional Surgical History: Left index finger surgery - Social History Smoking Status: Never Smoker Substance Use Type: None - Medications Home Medications: Home Medications Medication Instructions Recorded Confirmed Last Taken Type Famotidine [Acid Controller] 20 mg PO DAILY 01/13/20 09/09/21 Unknown History Ferrous Sulfate [Iron 325 MG] 325 mg PO DAILY 01/13/20 09/09/21 Unknown History Folic Acid [Folvite] 1 mg PO QDAY 01/13/20 09/09/21 Unknown History Multivitamin with Folic Acid [[facility] 400 mcg PO DAILY 01/13/20 09/09/21 Unknown History One Daily Essential Tablet] NIFEdipine [Nifedipine ER] 60 mg PO DAILY 01/13/20 09/09/21 Unknown History Thiamine Mononitrate (Vit B1) 100 gm PO DAILY 01/13/20 09/09/21 Unknown History [Cyto B-1] Ondansetron [Zofran ODT TAB] 4 mg PO Q6HR PRN #30 tab.rapdis 01/26/20 09/09/21 Unknown Rx Metoclopramide [Reglan TAB] 10 mg PO TID 10 Days #30 tab 08/19/20 09/09/21 Unknown Rx Losartan [Cozaar] 50 mg PO QDAY #30 tablet 10/15/20 09/09/21 Unknown Rx Ondansetron [Zofran ODT TAB] 4 mg PO Q8HR #14 tab.rapdis 07/07/21 09/09/21 Unknown Rx Dicyclomine [Bentyl] 10 mg PO QID PRN #12 capsule 08/09/21 09/09/21 Unknown Rx Ondansetron [Zofran Odt] 4 mg PO Q8HR #12 tab.rapdis 08/09/21 09/09/21 Unknown Rx Pantoprazole [Protonix TAB] 40 mg PO BID 60 Days #30 tablet 09/02/21 09/09/21 Unknown Rx Sucralfate [Carafate] 1 gm PO QID #120 09/02/21 09/09/21 Unknown Rx ED Physical Exam - General Limitations: Other (Intoxication) General appearance: appears intoxicated, anxious - Head Head exam: Present: atraumatic, normocephalic - Eye Eye exam: Present: normal appearance, EOMI. Absent: nystagmus - ENT ENT exam: Present: normal exam, normal orophraynx, mucous membranes moist, normal external ear exam - Neck Neck exam: Present: normal inspection, full ROM. Absent: tenderness, meningismus - Respiratory Respiratory exam: Present: normal lung sounds bilaterally. Absent: respiratory distress, wheezes, rales, rhonchi, stridor, decreased breath sounds - Cardiovascular Cardiovascular Exam: Present: regular rate, normal rhythm, normal heart sounds. Absent: bradycardia, tachycardia, irregular rhythm, systolic murmur, diastolic murmur, rubs, gallop - GI/Abdominal GI/Abdominal exam: Present: soft. Absent: distended, tenderness, guarding, rebound, rigid, pulsatile mass - Rectal Rectal exam: Present: deferred - Extremities Exam Extremities exam: Present: normal inspection, full ROM, other (2+ pulses noted in the bilateral upper and lower extremities. There is no palpable cord. negative Homans sign. Muscular compartments are soft. The pelvis is stable.). Absent: pedal edema, calf tenderness - Back Exam Back exam: Present: normal inspection, full ROM. Absent: tenderness, CVA tenderness (R), CVA tenderness (L), paraspinal tenderness, vertebral tenderness - Neurological Exam Neurological exam: Present: other (No facial droop. Tongue midline. Extraocular movements intact bilaterally. Facial sensation intact to light touch in V1, V2, V3 distribution bilaterally. 5 and a 5 strength in 4 extremities. Sensation intact to light touch in 4 extremities.) - Psychiatric Psychiatric exam: Present: anxious. Absent: homicidal ideation, suicidal id eation - Skin Skin exam: Present: warm, dry, intact, normal color, other (Chronic scar tissue noted to the cranium.). Absent: rash ED Course Vital Signs 09/09/21 09/09/21 16:58 19:19 Temperature 98.2 F 97.9 F Pulse Rate 99 H 79 Respiratory 18 20 Rate Blood Pressure 153/94 Blood Pressure 146/85 [Left] O2 Sat by Pulse 95 100 Oximetry - Reevaluation(s) Reevaluation #1: 09/09/21 20:46 Differential diagnosis, including but not limited to: GERD, gastritis, hiatal hernia, pneumonia, costochondritis, esophagitis, electrolyte derangement, alcohol intoxication Assessment and plan: 56-year-old gentleman, who is not currently tachycardic, tachypneic or hypoxic, who denies DVT and pulmonary embolism risk factors, who is low risk by Wells criteria for pulmonary embolism, negative troponin in the context of 4 days of symptoms, with hiccups, and probable alcohol intoxication. He is found to be hyponatremic, this is likely malnutrition/beer [place] and likely hypovolemic hypovolemia. He is also found to be hypokalemic, and hypoglycemic. He is cooperative, and not homicidal or suicidal, and does not meet criteria for 1013 hold. However, he does not have decision-making capacity. Patient placed on hold status pending clinical sobriety. Start alcohol withdrawal protocol. Replete potassium, feed the patient, as needed dextrose, start D5 half-normal for hyponatremia, which is likely hypovolemic hyponatremia. Patient at this point time does meet criteria for admission and hospitalization secondary to the aforementioned. Chest x-ray unremarkable. Awaiting callback from hospital physician to arrange admission. Reevaluation #2: 09/09/21 20:48 Improved after haloperidol administration 09/09/21 21:16 Dr Valenzuela to admit to [facility] ED Medical Decision Making - Lab Data Result diagrams: 09/09/21 19:02 09/09/21 19:02 Vital Signs 09/09/21 09/09/21 16:58 19:19 Temperature 98.2 F 97.9 F Pulse Rate 99 H 79 Respiratory 18 20 Rate Blood Pressure 153/94 Blood Pressure 146/85 [Left] O2 Sat by Pulse 95 100 Oximetry Lab Results 09/09/21 09/09/21 Range/Units 19:02 19:02 WBC 7.1 (4.5-11.0) K/mm3 RBC 4.51 (3.65-5.03) M/mm3 Hgb 13.4 (11.8-15.2) gm/dl Hct 40.4 (35.5-45.6) % MCV 90 (84-94) fl MCH 30 (28-32) pg MCHC 33 (32-34) % RDW 14.8 (13.2-15.2) % Plt Count 280 (140-440) K/mm3 Lymph % (Auto) 16.4 (13.4-35.0) % [place] % (Auto) 8.6 H (0.0-7.3) % Eos % (Auto) 0.6 (0.0-4.3) % Baso % (Auto) 0.7 (0.0-1.8) % Lymph # (Auto) 1.2 (1.2-5.4) K/mm3 [place] # (Auto) 0.6 (0.0-0.8) K/mm3 Eos # (Auto) 0.0 (0.0-0.4) K/mm3 Baso # (Auto) 0.0 (0.0-0.1) K/mm3 Seg Neutrophils % 73.7 H (40.0-70.0) % Seg Neutrophils # 5.3 (1.8-7.7) K/mm3 Potassium 3.3 L (3.6-5.0) mmol/L Chloride 72.2 L (98-107) mmol/L Carbon Dioxide 26 (22-30) mmol/L Anion Gap 19 mmol/L BUN 3 L (9-20) mg/dL Creatinine 0.7 L (0.8-1.3) mg/dL Estimated GFR > 60 ml/min BUN/Creatinine Ratio 4 % Glucose 59 L (75-100) mg/dL Calcium 8.9 (8.4-10.2) mg/dL Total Bilirubin 0.30 (0.1-1.2) mg/dL AST 34 (5-40) units/L ALT 18 (7-56) units/L Alkaline Phosphatase 137 H (35-129) units/L Troponin T < 0.010 (0.00-0.029) ng/mL Total Protein 6.9 (6.3-8.2) g/dL Albumin 4.3 (3.9-5) g/dL Albumin/Globulin Ratio 1.7 % Lipase 29 (13-60) units/L - EKG Data -: EKG Interpreted by Ny EKG shows normal: sinus rhythm - EKG Data 09/09/21 20:42 The EKG is interpreted at 17: 01 Sinus rhythm, 97 bpm. Normal axis. Motion artifact. Left ventricular hypertrophy. PVCs. Not a STEMI. QTc 4 4 3 ms. Appears unchanged from prior EKG from June 2021 - Radiology Data Radiology results: pending, report reviewed, image reviewed CHEST 2 VIEWS INDICATION / CLINICAL INFORMATION: chest pain. COMPARISON: 09/02/2021 FINDINGS: SUPPORT DEVICES: None. HEART / MEDIASTINUM: No significant abnormality. LUNGS / PLEURA: No significant pulmonary or pleural abnormality. No pneumothorax. ADDITIONAL FINDINGS: No significant additional findings. IMPRESSION: 1. No acute findings. No interval change. Signer Name: Paula Mercado MD Signed: 09/09/2021 6:38 PM Workstation Name: [id number] Critical care attestation.: If time is entered above; I have spent that time in minutes in the direct care of this critically ill patient, excluding procedure time. ED Disposition Clinical Impression: Hypokalemia, Alcohol abuse, Hiccups, Hypoglycemia, Hyponatremia Disposition: ADMITTED INPATIENT Is pt being admited?: Yes Does the pt Need Aspirin: No Condition: Fair Referrals: PRIMARY CARE, [Primary Care Provider] - 3-5 Days
[2021-09-09] MEDS ORDERED: PANTOPRAZOLE 40 MG INJ IV ONE (20:49)
[2021-09-09] MEDS ORDERED: D5W/0.45% NACL 1,000 ML IV SCH (21:00)
[2021-09-09] MEDS: THIAMINE 100 MG, FOLIC ACID 1 MG, MULTIPLE VITAMIN INJ, ADULT 10 ML in SODIUM CHLORIDE ... IV ONE (21:49)
[2021-09-09] MEDS ORDERED: ACETAMINOPHEN 325 MG TAB PO PRN (22:36)
[2021-09-09] MEDS ORDERED: ALBUTEROL 2.5 MG/3 ML NEBU IH PRN (22:36)
[2021-09-09] MEDS ORDERED: HYDROmorphone 1 MG/1 ML INJ IV PRN (22:36)
[2021-09-09] MEDS ORDERED: POTASSIUM CHLORIDE ER 10 MEQ TAB PO ONE (22:41)
--- NOTE | 2021-09-09 22:46 | History and Physical Report ---
History of Present Illness Date of examination: 09/09/21 Date of admission: 09/09/21 Chief complaint: Abdominal cramping Chest pain History of present illness: 56-year-old gentleman with history of esophagitis, alcohol abuse, chronic intracranial hygromas, hyponatremia, who presents to the ER today with a complaint of abdominal cramping, chest tightness, and hiccups for the past 4 days. He denies trauma. Patient drinks 3 bottles of 25 ounce beers every day. He thinks his last alcoholic beverage was earlier on today. In the emergency room patient is found to have sodium of 114, potassium 3.3 and glucose 59. Also plasma alcohol level is 0.01. We will going to admit the patient I put the patient on IV fluid , CIWA protocol. We counseled the patient regarding quit drinking Past History Past Medical History: other (esophagitis, alcohol abuse, chronic intracranial hygromas, hyponatremia, ) Past Surgical History: Other (Left index finger surgery) Social history: other (Never smoking) Family history: no significant family history Medications and Allergies Allergies Allergy/AdvReac Type Severity Reaction Status Date / Time aspirin Allergy Bleeding Verified 09/09/21 19:23 Home Medications Medication Instructions Recorded Confirmed Last Taken Type Famotidine [Acid Controller] 20 mg PO DAILY 01/13/20 09/09/21 Unknown History Ferrous Sulfate [Iron 325 MG] 325 mg PO DAILY 01/13/20 09/09/21 Unknown History Folic Acid [Folvite] 1 mg PO QDAY 01/13/20 09/09/21 Unknown History Multivitamin with Folic Acid [Cvs 400 mcg PO DAILY 01/13/20 09/09/21 Unknown History One Daily Essential Tablet] NIFEdipine [Nifedipine ER] 60 mg PO DAILY 01/13/20 09/09/21 Unknown History Thiamine Mononitrate (Vit B1) 100 gm PO DAILY 01/13/20 09/09/21 Unknown History [Cyto B-1] Ondansetron [Zofran ODT TAB] 4 mg PO Q6HR PRN #30 tab.rapdis 01/26/20 09/09/21 Unknown Rx Metoclopramide [Reglan TAB] 10 mg PO TID 10 Days #30 tab 08/19/20 09/09/21 Un known Rx Losartan [Cozaar] 50 mg PO QDAY #30 tablet 10/15/20 09/09/21 Unknown Rx Ondansetron [Zofran ODT TAB] 4 mg PO Q8HR #14 tab.rapdis 07/07/21 09/09/21 Unknown Rx Dicyclomine [Bentyl] 10 mg PO QID PRN #12 capsule 08/09/21 09/09/21 Unknown Rx Ondansetron [Zofran Odt] 4 mg PO Q8HR #12 tab.rapdis 08/09/21 09/09/21 Unknown Rx Pantoprazole [Protonix TAB] 40 mg PO BID 60 Days #30 tablet 09/02/21 09/09/21 Unknown Rx Sucralfate [Carafate] 1 gm PO QID #120 09/02/21 09/09/21 Unknown Rx Active Meds: Active Medications Acetaminophen (Acetaminophen 325 Mg Tab) 650 mg PO Q4H PRN PRN Reason: Pain MILD(1-3)/Fever >100.5/MURPHY Albuterol (Albuterol 2.5 Mg/3 Ml Nebu) 2.5 mg IH Q3HRT PRN PRN Reason: Shortness Of Breath Albuterol/Ipratropium (Ipratropium/Albuterol Sulfate 3 Ml Ampul.Neb) 1 ampul IH Q6HRT LEA Chlordiazepoxide HCl (Chlordiazepoxide 25 Mg Cap) 50 mg PO Q1HR PRN PRN Reason: NANCY-Johan 8-15 Dextrose (Dextrose 10% *Hypoglycemia) 100 ml IV PRN PRN PRN Reason: Hypoglycemia Famotidine (Famotidine 20 Mg/2 Ml Inj) 20 mg IV BID LEA Hydromorphone HCl (Hydromorphone 1 Mg/1 Ml Inj) 0.5 mg IV Q3H PRN PRN Reason: Pain , Severe (7-10) Dextrose/Sodium Chloride (D5/0.45ns) 1,000 mls @ 125 mls/hr IV DIRECT LEA Thiamine HCl 100 mg/ Folic Acid 1 mg/ Multivitamins/Minerals 10 ml/ Sodium Chloride 1,011.2 mls @ 250 mls/hr IV ONCE ONE Stop: 09/10/21 00:41 Last Admin: 09/09/21 21:49 Dose: 250 mls/hr Lorazepam (Lorazepam 2 Mg Tab) 2 mg PO Q1HR PRN PRN Reason: CIWA-Ar 8-15 Lorazepam (Lorazepam 2 Mg/Ml Vial) 4 mg IV Q1HR PRN PRN Reason: CIWA-Ar 16-25 Lorazepam (Lorazepam 2 Mg/Ml Vial) 4 mg IV Q15MIN PRN PRN Reason: CIWA-Ar >25 Morphine Sulfate (Morphine 2 Mg/1 Ml Inj) 2 mg IV Q4H PRN PRN Reason: Pain, Moderate (4-6) Ondansetron HCl (Ondansetron 4 Mg/2 Ml Inj) 4 mg IV Q8H PRN PRN Reason: Nausea And Vomiting Potassium Chloride (Potassium Chloride Er 20 Meq Tab) 40 meq PO ONCE ONE Stop: 09/09/21 22:42 Sodium Chloride (Sodium Chloride 0.9% 10 Ml Flush Syringe) 10 ml IV BID LEA Sodium Chloride (Sodium Chloride 0.9% 10 Ml Flush Syringe) 10 ml IV PRN PRN PRN Reason: LINE FLUSH Review of Systems Cardiovascular: chest pain Respiratory: cough, other (Hiccups) Gastrointestinal: abdominal pain Exam - Constitutional Vitals: Temp Pulse Resp BP Pulse Ox 97.9 F 79 20 146/85 100 09/09/21 19:19 09/09/21 19:19 09/09/21 19:19 09/09/21 19:19 09/09/21 19:19 General appearance: Present: no acute distress, well-nourished - EENT Eyes: Present: PERRL ENT: hearing intact, clear oral mucosa - Neck Neck: Present: supple, normal ROM - Respiratory Respiratory effort: normal Respiratory: bilateral: diminished - Cardiovascular Heart Sounds: Present: S1 & S2. Absent: rub, click - Extremities Extremities: pulses symmetrical, No edema Peripheral Pulses: within normal limits - Abdominal General gastrointestinal: Present: soft, non-tender, non-distended, normal bowel sounds Male genitourinary: Present: normal - Integumentary Integumentary: Present: clear, warm, dry - Musculoskeletal Musculoskeletal: gait normal, strength equal bilaterally - Psychiatric Psychiatric: appropriate mood/affect, intact judgment & insight - Neurologic Neurologic: CNII-XII intact, moves all extremities HEART Score - HEART Score Troponin: Troponin T < 0.010 ng/mL (0.00-0.029) 09/09/21 19:02 Results - Labs CBC & Chem 7: 09/09/21 19:02 09/09/21 19:02 Labs: Laboratory Last Values WBC 7.1 K/mm3 (4.5-11.0) 09/09/21 19: RBC 4.51 M/mm3 (3.65-5.03) 09/09/21 19:02 Hgb 13.4 gm/dl (11.8-15.2) 09/09/21 19:02 Hct 40.4 % (35.5-45.6) 09/09/21 19:02 MCV 90 fl (84-94) 09/09/21 19:02 MCH 30 pg (28-32) 09/09/21 19:02 MCHC 33 % (32-34) 09/09/21 19:02 RDW 14.8 % (13.2-15.2) 09/09/21 19:02 Plt Count 280 K/mm3 (140-440) 09/09/21 19:02 Lymph % (Auto) 16.4 % (13.4-35.0) 09/09/21 19:02 [place] % (Auto) 8.6 % (0.0-7.3) H 09/09/21 19:02 Eos % (Auto) 0.6 % (0.0-4.3) 09/09/21 19:02 Baso % (Auto) 0.7 % (0.0-1.8) 09/09/21 19:02 Lymph # (Auto) 1.2 K/mm3 (1.2-5.4) 09/09/21 19: [place] # (Auto) 0.6 K/mm3 (0.0-0.8) 09/09/21 19: Eos # (Auto) 0.0 K/mm3 (0.0-0.4) 09/09/21 19:02 Baso # (Auto) 0.0 K/mm3 (0.0-0.1) 09/09/21 19:02 Seg Neutrophils % 73.7 % (40.0-70.0) H 09/09/21 19:02 Seg Neutrophils # 5.3 K/mm3 (1.8-7.7) 09/09/21 19:02 Sodium 114 mmol/L (137-145) L* 09/09/21 19:02 Potassium 3.3 mmol/L (3.6-5.0) L 09/09/21 19:02 Chloride 72.2 mmol/L (98-107) L 09/09/21 19:02 Carbon Dioxide 26 mmol/L (22-30) 09/09/21 19:02 Anion Gap 19 mmol/L 09/09/21 19:02 BUN 3 mg/dL (9-20) L 09/09/21 19:02 Creatinine 0.7 mg/dL (0.8-1.3) L 09/09/21 19:02 Estimated GFR > 60 ml/min 09/09/21 19:02 BUN/Creatinine Ratio 4 % 09/09/21 19:02 Glucose 59 mg/dL (75-100) L 09/09/21 19:02 Calcium 8.9 mg/dL (8.4-10.2) 09/09/21 19:02 Magnesium 1.70 mg/dL (1.7-2.3) 09/09/21 20:05 Total Bilirubin 0.30 mg/dL (0.1-1.2) 09/09/21 19:02 AST 34 units/L (5-40) 09/09/21 19:02 ALT 18 units/L (7-56) 09/09/21 19:02 Alkaline Phosphatase 137 units/L (35-129) H 09/09/21 19:02 Troponin T < 0.010 ng/mL (0.00-0.029) 09/09/21 19:02 Total Protein 6.9 g/dL (6.3-8.2) 09/09/21 19:02 Albumin 4.3 g/dL (3.9-5) 09/09/21 19:02 Albumin/Globulin Ratio 1.7 % 09/09/21 19:02 Lipase 29 units/L (13-60) 09/09/21 19:02 Plasma/Serum Alcohol < 0.01 % (0-0.07) 09/09/21 20:05 - Imaging and Cardiology Chest x-ray: report reviewed Assessment and Plan VTE prophylaxis?: Mechanical Plan of care discussed with patient/family: Yes - Patient Problems (1) Hyponatremia Current Visit: Yes Status: Acute Plan to address problem: Admit the patient to the medical floor. Put the patient on regular diet. D5 half-normal saline at the rate of 125 cc/h. Recheck BMP in the morning. Patient counseled regarding quit drinking. (2) Alcohol abuse Current Visit: Yes Status: Acute Plan to address problem: We counseled the patient regarding quit drinking. Put the patient on banana bag, thiamine and folic acid. We also put the patient on CIWA protocol. (3) Hypokalemia Current Visit: Yes Status: Acute Plan to address problem: Potassium 40 mEq p.o. x1 dose. Recheck BMP in the morning (4) Abdominal pain Current Visit: No Status: Acute Plan to address problem: Regular diet. Pepcid 20 mg IV every 12 hours. Morphine 2 mg IV every 4 hours as needed. We will monitor the patient closely (5) Acute chest pain Current Visit: No Status: Acute Plan to address problem: Initial cardiac enzyme is negative. We will monitor the patient closely. We will repeat the troponin (6) DVT prophylaxis Current Visit: Yes Status: Acute Plan to address problem: SCD for DVT prophylaxis. Pepcid 20 mg IV every 12 hours for GI prophylaxis. Patient is a full code
[2021-09-10] MEDS: ONDANSETRON 4 MG/2 ML INJ IV PRN ×3 (01:00→21:19)
[2021-09-10] MEDS: MORPHINE 2 MG/1 ML INJ IV PRN ×3 (01:00→20:45)
[2021-09-10] MEDS: THIAMINE 100 MG, FOLIC ACID 1 MG, MULTIPLE VITAMIN INJ, ADULT 10 ML in SODIUM CHLORIDE ... IV ONE (02:39)
[2021-09-10 05:11] LABS: Basophils % (Auto) 0.6 % (0.0-1.8); Eosinophils # (Auto) 0.1 K/mm3 (0.0-0.4); Eosinophils % (Auto) 0.7 % (0.0-4.3); Hematocrit 41.3 % (35.5-45.6); Hemoglobin 13.6 gm/dl (11.8-15.2); Lymphocytes # (Auto) 0.9 K/mm3 (1.2-5.4); Lymphocytes % (Auto) 12.2 % (13.4-35.0); Mean Corpuscular HGB Conc 33 % (32-34); Mean Corpuscular Volume 90 fl (84-94); Monocytes # (Auto) 0.7 K/mm3 (0.0-0.8); Monocytes % (Auto) 10.1 % (0.0-7.3); Platelet Count 265 K/mm3 (140-440); Red Blood Count 4.57 M/mm3 (3.65-5.03); Red Cell Distribution Width 14.6 % (13.2-15.2)
[2021-09-10 05:31] LABS: Blood Urea Nitrogen 5 mg/dL (9-20); Calcium 8.7 mg/dL (8.4-10.2); Hemolysis Index 145
[2021-09-10 05:50] LABS: BUN/Creatinine Ratio 7
[2021-09-10] MEDS: IPRATROPIUM/ALBUTEROL SULFATE 3 ML AMPUL.NEB IH SCH ×4 (06:47→23:39)
--- NOTE | 2021-09-10 09:29 | Consultation ---
History of Present Illness - Reason for Consult Consult date: 09/10/21 hyponatremia - History of Present Illness 56-year-old man with history of esophagitis, alcohol abuse, chronic intracranial hygromas present swith abdominal cramping, chest tightness, and hiccups for the past 4 days. Patient drinks 3 bottles of 25 ounce beers every day per report. Found to have sodium of 114 with potassium 3.3. 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 At time of consult, patient is resting and denies any acute issues, but is generally drowsy. Past History Past Medical History: other (esophagitis, alcohol abuse, chronic intracranial hygromas, hyponatremia, ) Past Surgical History: Other (Left index finger surgery) Social history: other (Never smoking) Family history: no significant family history Medications and Allergies Allergies Allergy/AdvReac Type Severity Reaction Status Date / Time aspirin Allergy Bleeding Verified 09/09/21 19:23 Home Medications Medication Instructions Recorded Confirmed Last Taken Type Famotidine [Acid Controller] 20 mg PO DAILY 01/13/20 09/09/21 Unknown History Ferrous Sulfate [Iron 325 MG] 325 mg PO DAILY 01/13/20 09/09/21 Unknown History Folic Acid [Folvite] 1 mg PO QDAY 01/13/20 09/09/21 Unknown History Multivitamin with Folic Acid [Cvs 400 mcg PO DAILY 01/13/20 09/09/21 Unknown History One Daily Essential Tablet] NIFEdipine [Nifedipine ER] 60 mg PO DAILY 01/13/20 09/09/21 Unknown History Thiamine Mononitrate (Vit B1) 100 gm PO DAILY 01/13/20 09/09/21 Unknown History [Cyto B-1] Ondansetron [Zofran ODT TAB] 4 mg PO Q6HR PRN #30 tab.rapdis 01/26/20 09/09/21 Unknown Rx Metoclopramide [Reglan TAB] 10 mg PO TID 10 Days #30 tab 08/19/20 09/09/21 Unknown Rx Losartan [Cozaar] 50 mg PO QDAY #30 tablet 10/15/20 09/09/21 Unknown Rx Ondansetron [Zofran ODT TAB] 4 mg PO Q8HR #14 tab.rapdis 07/07/21 09/09/21 Unknown Rx Dicyclomine [Bentyl] 10 mg PO QID PRN #12 capsule 08/09/21 09/09/21 Unknown Rx Ondansetron [Zofran Odt] 4 mg PO Q8HR #12 tab.rapdis 08/09/21 09/09/21 Unknown Rx Pantoprazole [Protonix TAB] 40 mg PO BID 60 Days #30 tablet 09/02/21 09/09/21 Unknown Rx Sucralfate [Carafate] 1 gm PO QID #120 09/02/21 09/09/21 Unknown Rx Active Meds: Active Medications Acetaminophen (Acetaminophen 325 Mg Tab) 650 mg PO Q4H PRN PRN Reason: Pain MILD(1-3)/Fever >100.5/MURPHY Albuterol (Albuterol 2.5 Mg/3 Ml Nebu) 2.5 mg IH Q3HRT PRN PRN Reason: Shortness Of Breath Last Admin: 09/10/21 04:53 Dose: 2.5 mg Albuterol/Ipratropium (Ipratropium/Albuterol Sulfate 3 Ml Ampul.Neb) 1 ampul IH Q6HRT LEA Last Admin: 09/10/21 06:47 Dose: Not Given Chlordiazepoxide HCl (Chlordiazepoxide 25 Mg Cap) 50 mg PO Q1HR PRN PRN Reason: CIWA-Ar 8-15 Dextrose (Dextrose 10% *Hypoglycemia) 100 ml IV PRN PRN PRN Reason: Hypoglycemia Hydromorphone HCl (Hydromorphone 1 Mg/1 Ml Inj) 0.5 mg IV Q3H PRN PRN Reason: Pain , Severe (7-10) Lorazepam (Lorazepam 2 Mg Tab) 2 mg PO Q1HR PRN PRN Reason: CIWA-Ar 8-15 Lorazepam (Lorazepam 2 Mg/Ml Vial) 4 mg IV Q1HR PRN PRN Reason: CIWA-Ar 16-25 Last Admin: 09/10/21 01:08 Dose: 4 mg Lorazepam (Lorazepam 2 Mg/Ml Vial) 4 mg IV Q15MIN PRN PRN Reason: CIWA-Ar >25 Morphine Sulfate (Morphine 2 Mg/1 Ml Inj) 2 mg IV Q4H PRN PRN Reason: Pain, Moderate (4-6) Last Admin: 09/10/21 09:11 Dose: 2 mg Ondansetron HCl (Ondansetron 4 Mg/2 Ml Inj) 4 mg IV Q8H PRN PRN Reason: Nausea And Vomiting Last Admin: 09/10/21 09:10 Dose: 4 mg Sodium Chloride (Sodium Chloride 0.9% 10 Ml Flush Syringe) 10 ml IV BID LEA Last Admin: 09/10/21 09:11 Dose: 10 ml Sodium Chloride (Sodium Chloride 0.9% 10 Ml Flush Syringe) 10 ml IV PRN PRN PRN Reason: LINE FLUSH Review of Systems ROS unobtainable: due to mental status (patient drowsy, denies any acute concerns but difficult to complete full review of systems) Exam - Vital Signs Vital signs: Vital Signs Temp Pulse Resp BP Pulse Ox 98.2 F 99 H 18 153/94 95 09/09/21 16:58 09/09/21 16:58 09/09/21 16:58 09/09/21 16:58 09/09/21 16:58 - General Appearance General appearance: well-developed, well-nourished, fatigue EENT: ATNC, mucous membranes dry Neck: Present: neck supple Respiratory: Clear to Ascultation Heart: regular, S1S2 Gastrointestinal: Present: normoactive bowel sounds Integumentary: no rash, warm and dry Neurologic: no focal deficit, confused, obtunded Results - Lab Results 09/10/21 04:32 09/10/21 04:32 Most recent lab results Calcium 8.7 mg/dL (8.4-10.2) 09/10/21 04:32 Magnesium 1.70 mg/dL (1.7-2.3) 09/09/21 20:05 Assessment and Plan # Hyponatremia: likely due to alcohol use ("beer drinker potomania"). Sodium has improved 114->125 but concern for overcorrection. - will hold IVF (on D5 1/2NS) for now, check BMP q4 hours as able. If sodium continues to increase, place on D5W or use of DDAVP given risk of overcorrection and ODS. Ideally would not correct sodium to greater than 122meq/L within 24 hours - replete K prn- will also help correction of hyponatremia as per Adrogue formula, especially in setting of alcohol use - alcohol cessation - encourage balanced solute/water intake - no indication for hypertonic saline - defer hyponatremia workup including urine studies as sodium improved with IVF, which will change urine results # Hypokalemia: likely related to alcohol use as well. Mg WNL. Replete prn # Alcohol Abuse: agree with [facility] protocol, alcohol cessation counseling # Abdominal Pain: care per primary, avoid PPI as able given AIN risk and hyponatremia risk
[2021-09-10] MEDS ORDERED: FAMOTIDINE 20 MG/2 ML INJ IV SCH (10:00)
[2021-09-10] MEDS ORDERED: FAMOTIDINE 20 MG TAB PO SCH ×2 (10:00→22:00)
--- NOTE | 2021-09-10 10:56 | Electrocardiograph Report ---
[facility] Test Date: 2021-09-09 Test Time: 17:01:21 Pat Name: WENDI MORENO Department: Room: A374 1 Gender: M Occupational Rehabilitation Aide: selin : 1965 Requested By: MALLY SERRA Order Number: [id number] Reading MD: Huey Francois Measurements Intervals [place] Rate: 97 P: 70 AK: 165 QRS: 78 QRSD: 95 T: 76 QT: 349 QTc: 443 Interpretive Statements Sinus rhythm Ventricular premature complex Aberrant conduction of SV complex(es) LAE, consider biatrial enlargement Nonspecific T abnrm, anterolateral leads Borderline ST elevation, anterior leads Compared to ECG 07/07/2021 13:52:18 Ventricular premature complex(es) now present Aberrant conduction of supraventricular beat(s) now present ST (T wave) deviation now present Electronically Signed On 09-10-2021 10:56:11 EDT by Huey Francois
[2021-09-10 16:22] LABS: BUN/Creatinine Ratio 9; Blood Urea Nitrogen 7 mg/dL (9-20); Calcium 8.5 mg/dL (8.4-10.2); Hemolysis Index 18
[2021-09-10] MEDS ORDERED: DEXTROSE 5% IN WATER 1,000 ML IV SCH (17:00)
--- NOTE | 2021-09-10 17:49 | Progress Note ---
Assessment and Plan Assessment and plan: #Hyponatremia Sodium 125 Discontinued D5W half-normal saline at 125 cc/hour as it likely worsened hyponatremia Nephrology consulted; appreciate recs Discontinue medications that may be associated with hyponatremia Possibly secondary to alcohol dependence. Continue to monitor. Trend with daily BMP. #Alcohol dependence -Continue banana bag, thiamine, and folic acid. Also continue CIWA protocol. - Counseled patient on the importance of ETOH cessation. Assess patient's current ETOH consumption. Assisted with trying to arrange resources for patient to adequately work towards ETOH cessation. Patient expresses understanding. -Time: +10 mins #Abdominal pain Etiology currently unknown. Ordering CT abdomen/pelvis for further assessment. Continue analgesics as needed\ #Hiccups #GERD Starting H2 blockers instead of PPI given increased risk for AIN and worsening hyponatremia #Hypokalemiaresolved -Potassium 3.6 #Advanced care planning -Disease education conducted, care plan discussed, diagnoses discussed, prognosis discussed, and patient acknowledges understanding with care plan -Time: +30 min Disposition Plan: Continue to monitor Total Time Spent with Patient (Minutes): 30 minutes History Interval history: No acute events overnight. Hospitalist Physical - Constitutional Vitals: Temp Pulse Resp BP Pulse Ox 98.5 F 85 18 116/89 97 09/10/21 08:01 09/10/21 13:51 09/10/21 13:51 09/10/21 08:01 09/10/21 13:00 General appearance: Present: no acute distress, well-nourished - EENT Eyes: Present: PERRL, EOM intact ENT: hearing intact, clear oral mucosa - Neck Neck: Present: supple, normal ROM - Respiratory Respiratory effort: normal Respiratory: bilateral: CTA - Cardiovascular Rhythm: regular Heart Sounds: Present: S1 & S2 - Extremities Extremities: no ischemia, pulses intact, pulses symmetrical, No edema, normal temperature, normal color Peripheral Pulses: within normal limits - Abdominal General gastrointestinal: soft, tender, non-distended, normal bowel sounds Localized gastrointestinal: tender: epigastric periumbilical (Negative for guarding or rebound) - Integumentary Integumentary: Present: clear, warm, dry - Psychiatric Psychiatric: appropriate mood/affect, cooperative - Neurologic Neurologic: CNII-XII intact, moves all extremities - Allied Health Allied health notes reviewed: nursing HEART Score - HEART Score Troponin: Troponin T < 0.010 ng/mL (0.00-0.029) 09/09/21 19:02 Results - Labs CBC & Chem 7: 09/10/21 04:32 09/10/21 14:47 Labs: Laboratory Last Values WBC 7.4 K/mm3 (4.5-11.0) 09/10/21 04:32 RBC 4.57 M/mm3 (3.65-5.03) 09/10/21 04:32 Hgb 13.6 gm/dl (11.8-15.2) 09/10/21 04:32 Hct 41.3 % (35.5-45.6) 09/10/21 04:32 MCV 90 fl (84-94) 09/10/21 04:32 MCH 30 pg (28-32) 09/10/21 04:32 MCHC 33 % (32-34) 09/10/21 04:32 RDW 14.6 % (13.2-15.2) 09/10/21 04:32 Plt Count 265 K/mm3 (140-440) 09/10/21 04:32 Lymph % (Auto) 12.2 % (13.4-35.0) L 09/10/21 04:32 [place]ven % (Auto) 10.1 % (0.0-7.3) H 09/10/21 04:32 Eos % (Auto) 0.7 % (0.0-4.3) 09/10/21 04:32 Baso % (Auto) 0.6 % (0.0-1.8) 09/10/21 04:32 Lymph # (Auto) 0.9 K/mm3 (1.2-5.4) L 09/10/21 04:32 Craven # (Auto) 0.7 K/mm3 (0.0-0.8) 09/10/21 04:32 Eos # (Auto) 0.1 K/mm3 (0.0-0.4) 09/10/21 04:32 Baso # (Auto) 0.0 K/mm3 (0.0-0.1) 09/10/21 04:32 Seg Neutrophils % 76.4 % (40.0-70.0) H 09/10/21 04:32 Seg Neutrophils # 5.7 K/mm3 (1.8-7.7) 09/10/21 04:32 Sodium 129 mmol/L (137-145) L 09/10/21 14:47 Potassium 3.5 mmol/L (3.6-5.0) L 09/10/21 14:47 Chloride 87.3 mmol/L (98-107) L 09/10/21 14:47 Carbon Dioxide 28 mmol/L (22-30) 09/10/21 14:47 Anion Gap 17 mmol/L 09/10/21 14:47 BUN 7 mg/dL (9-20) L 09/10/21 14:47 Creatinine 0.8 mg/dL (0.8-1.3) 09/10/21 14:47 Estimated GFR > 60 ml/min 09/10/21 14:47 BUN/Creatinine Ratio 9 % 09/10/21 14:47 Glucose 80 mg/dL (75-100) 09/10/21 14:47 POC Glucose 103 mg/dL (70-105) 09/10/21 16:12 Calcium 8.5 mg/dL (8.4-10.2) 09/10/21 14:47 Magnesium 1.70 mg/dL (1.7-2.3) 09/09/21 20:05 Total Bilirubin 0.30 mg/dL (0.1-1.2) 09/09/21 19:02 AST 34 units/L (5-40) 09/09/21 19:02 ALT 18 units/L (7-56) 09/09/21 19:02 Alkaline Phosphatase 137 units/L (35-129) H 09/09/21 19:02 Troponin T < 0.010 ng/mL (0.00-0.029) 09/09/21 19:02 Total Protein 6.9 g/dL (6.3-8.2) 09/09/21 19:02 Albumin 4.3 g/dL (3.9-5) 09/09/21 19:02 Albumin/Globulin Ratio 1.7 % 09/09/21 19:02 Lipase 29 units/L (13-60) 09/09/21 19:02 Plasma/Serum Alcohol < 0.01 % (0-0.07) 09/09/21 20:05 Galindo/IV: Voiding Method Urinal Active Medications - Current Medications Current Medications: Generic Name Dose Route Start Last Admin Trade Name Freq PRN Reason Stop Dose Admin Acetaminophen 650 mg 09/09/21 22:36 Acetaminophen 325 Mg Tab PO Q4H PRN Pain MILD(1-3)/Fever >100.5/MURPHY Albuterol 2.5 mg 09/09/21 22:36 09/10/21 04:53 Albuterol 2.5 Mg/3 Ml Nebu IH 2.5 mg Q3HRT PRN Administration Shortness Of Breath Albuterol/Ipratropium 1 ampul 09/10/21 02:00 09/10/21 13:51 Ipratropium/Albuterol Sulfate 3 Ml Ampul.Neb IH 1 ampul Q6HRT LEA Administration Chlordiazepoxide HCl 50 mg 09/09/21 20:40 Chlordiazepoxide 25 Mg Cap PO Q1HR PRN CIWA-Ar 8-15 Dextrose 100 ml 09/09/21 20:33 Dextrose 10% *Hypoglycemia IV PRN PRN Hypoglycemia Famotidine 20 mg 09/10/21 22:00 Famotidine 20 Mg/2 Ml Inj IV BID LEA Hydromorphone HCl 0.5 mg 09/09/21 22:36 Hydromorphone 1 Mg/1 Ml Inj IV Q3H PRN Pain , Severe (7-10) Dextrose 1,000 mls @ 42 mls/hr 09/10/21 17:00 D5w IV DIRECT LEA Lorazepam 2 mg 09/09/21 20:40 Lorazepam 2 Mg Tab PO Q1HR PRN CIWA-Ar 8-15 Lorazepam 4 mg 09/09/21 20:40 09/10/21 01:08 Lorazepam 2 Mg/Ml Vial IV 4 mg Q1HR PRN Administration CIWA-Ar 16-25 Lorazepam 4 mg 09/09/21 20:40 Lorazepam 2 Mg/Ml Vial IV Q15MIN PRN CIWA-Ar >25 Morphine Sulfate 2 mg 09/09/21 22:36 09/10/21 09:11 Morphine 2 Mg/1 Ml Inj IV 2 mg Q4H PRN Administration Pain, Moderate (4-6) Ondansetron HCl 4 mg 09/09/21 22:36 09/10/21 09:10 Ondansetron 4 Mg/2 Ml Inj IV 4 mg Q8H PRN Administration Nausea And Vomiting Sodium Chloride 10 ml 09/10/21 10:00 09/10/21 09:11 Sodium Chloride 0.9% 10 Ml Flush Syringe IV 10 ml BID LEA Administration Sodium Chloride 10 ml 09/09/21 22:36 Sodium Chloride 0.9% 10 Ml Flush Syringe IV PRN PRN LINE FLUSH Nutrition/Malnutrition Assess - Dietary Evaluation Nutrition/Malnutrition Findings: Nutrition Notes Start: 09/10/21 15:38 Freq: Status: Active Protocol: Document 09/10/21 15:38 KEKE (Rec: 09/10/21 15:56 KEKE [id number]) Nutrition Notes 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 Current Diet Consistent Carbohydrates Diet (since B 09/10). Labs/Tests 09/10: Na 125, Cl 82.8, BUN 5, Crea 0.7. Pertinent Medications 09/10: Nutritionally unremarkable. Height 6 ft Weight 90 kg [place] Body Weight (kg) 80.90 BMI 26.9 Intake Prior to Admission Poor Weight change and time frame Pt states being unsure if loss body weight recently. Weight Status Overweight Subjective/Other Information RD consult for risk of malnutrition assessment. Pt's PO intake of meals has been Fair (50%), according to ADL notes. Pt shows no signs of concer for risk of malnutrition, according to Physical Assessment [facility]kistory notes. Will reassess PO intake of meals at F/U. Percent of energy/protein needs met: Prescribed Consistent Carbohydrates Diet provides for energy/protein needs (2, 061 Kcal/91 g) during LOS. Burn Absent Trauma Absent GI Symptoms Nausea,Other Food Allergy No Skin Integrity/Comment Assessment WNL. Current % PO Fair (50-74%) Minimum of two criteria No #1 Nutrition Diagnosis No nutrition diagnosis at this time Comments: Will reassess PO intake of meals at F/U. Is patient on ventilator? No Is Patient Ambulatory and/or Out of Bed Yes REE-([place]-ambulatory/OOB) [ 5414.900 NUTR.[id number]] Kcal/Kg value to use for calculation 24 Approximate Energy Requirements Using 2160 kcal/Kg Calculation Used for Recommendations Kcal/kg Additional Notes Protein: 0.8-1 g/Kg ABW; 72-90 g/day. Fluids: 1 ml/Kcal, or as per MD. Nutrition Intervention Follow-Up By: 09/17/21 Additional Comments Continue monitoring food tolerance, %PO intake of meals , and BM.
[2021-09-10 19:57] LABS: BUN/Creatinine Ratio 8; Blood Urea Nitrogen 8 mg/dL (9-20); Calcium 8.5 mg/dL (8.4-10.2); Hemolysis Index 14
[2021-09-10] MEDS: FAMOTIDINE 20 MG/2 ML INJ IV SCH (21:19)
[2021-09-11] MEDS: IPRATROPIUM/ALBUTEROL SULFATE 3 ML AMPUL.NEB IH SCH ×4 (02:37→14:18)
[2021-09-11 06:20] LABS: Blood Urea Nitrogen 4 mg/dL (9-20); Calcium 8.5 mg/dL (8.4-10.2); Hemolysis Index 3
[2021-09-11 06:21] LABS: BUN/Creatinine Ratio 6
[2021-09-11 06:23] VITALS: BP 118/90
[2021-09-11] MEDS: ONDANSETRON 4 MG/2 ML INJ IV PRN (06:59)
[2021-09-11] MEDS: MORPHINE 2 MG/1 ML INJ IV PRN (06:59)
[2021-09-11] MEDS ORDERED: POTASSIUM CHLORIDE ER 20 MEQ TAB PO NR (08:00)
[2021-09-11] MEDS: POTASSIUM CHLORIDE 10 MEQ 10 MEQ/100 ML BAG IV SCH ×4 (08:59→12:46)
[2021-09-11] MEDS: FAMOTIDINE 20 MG/2 ML INJ IV SCH (09:00)
--- NOTE | 2021-09-11 09:40 | Progress Note ---
Assessment and Plan # Hyponatremia: likely due to alcohol use ("beer drinker potomania"). Sodium has improved 114->125 but concern for overcorrection, now at 129->128. - continue to hold NS, continue D5W for now, check BMP q4 hours as able. If sodium stable around 128 later today, can stop D5W and allow for self-correction - replete K prn- will also help correction of hyponatremia as per Adrogue formula, especially in setting of alcohol use - alcohol cessation - encourage balanced solute/water intake - no indication for hypertonic saline - defer hyponatremia workup including urine studies as sodium improved with IVF, which will change urine results # Hypokalemia: likely related to alcohol use as well. Mg WNL. Replete prn # Alcohol Abuse: agree with CIWA protocol, alcohol cessation counseling # Abdominal Pain: care per primary, avoid PPI as able given AIN risk and hyponatremia risk Subjective Date of service: 09/11/21 Interval history: No acute changes this AM, more awake and alert, continues to complain of abdominal pain Objective - Exam Narrative Exam: General appearance: well-developed, well-nourished, fatigue EENT: ATNC, mucous membranes dry Neck: Present: neck supple Respiratory: Clear to Ascultation Heart: regular, S1S2 Gastrointestinal: Present: normoactive bowel sounds Integumentary: no rash, warm and dry Neurologic: no focal deficit, alert but drowsy - Vital Signs Vital signs: Vital Signs - 12hr 09/11/21 09/11/21 09/11/21 02:00 05:08 08:23 Temperature 98.2 F Pulse Rate 79 Pulse Rate [ 74 Anterior] Respiratory 20 Rate Respiratory 18 Rate [Anterior] Blood Pressure 118/90 O2 Sat by Pulse 99 98 Oximetry - Lab 09/10/21 04:32 09/11/21 05:43 Most recent lab results Calcium 8.5 mg/dL (8.4-10.2) 09/11/21 05:43 Magnesium 1.70 mg/dL (1.7-2.3) 09/09/21 20:05 Medications & Allergies - Medications Allergies/Adverse Reactions: Allergies aspirin Allergy (Verified 09/10/21 13:53) Bleeding Home Medications: Home Medications Medication Instructions Recorded Confirmed Last Taken Type Ferrous Sulfate [Iron 325 MG] 325 mg PO DAILY 01/13/20 09/10/21 Unknown History Folic Acid [Folvite] 1 mg PO QDAY 01/13/20 09/10/21 Unknown History Multivitamin with Folic Acid [Cvs 400 mcg PO DAILY 01/13/20 09/10/21 Unknown History One Daily Essential Tablet] NIFEdipine [Nifedipine ER] 60 mg PO DAILY 01/13/20 09/10/21 Unknown History Thiamine Mononitrate (Vit B1) 100 gm PO DAILY 01/13/20 09/10/21 Unknown History [Cyto B-1] Metoclopramide [Reglan TAB] 10 mg PO TID 10 Days #30 tab 08/19/20 09/10/21 Unknown Rx Dicyclomine [Bentyl] 10 mg PO QID PRN #12 capsule 08/09/21 09/10/21 Unknown Rx Ondansetron [Zofran Odt] 4 mg PO Q8HR #12 tab.rapdis 08/09/21 09/10/21 Unknown Rx Pantoprazole [Protonix TAB] 40 mg PO BID 60 Days #30 tablet 09/02/21 09/10/21 Unknown Rx Sucralfate [Carafate] 1 gm PO QID #120 09/02/21 09/10/21 Unknown Rx Ergocalciferol [Vitamin D2] 1 cap PO QWEEK 09/10/21 09/10/21 09/03/21 History Ross-3 Acid Ethyl Esters 1 gm PO QDAY 09/10/21 09/10/21 Unknown History Active Medications: Generic Name Dose Route Start Last Admin Trade Name Freq PRN Reason Stop Dose Admin Acetaminophen 650 mg 09/09/21 22:36 Acetaminophen 325 Mg Tab PO Q4H PRN Pain MILD(1-3)/Fever >100.5/MURPHY Albuterol 2.5 mg 09/09/21 22:36 09/10/21 04:53 Albuterol 2.5 Mg/3 Ml Nebu IH 2.5 mg Q3HRT PRN Administration Shortness Of Breath Albuterol/Ipratropium 1 ampul 09/10/21 02:00 09/11/21 02:37 Ipratropium/Albuterol Sulfate 3 Ml Ampul.Neb IH 1 ampul Q6HRT LEA Administration Chlordiazepoxide HCl 50 mg 09/09/21 20:40 Chlordiazepoxide 25 Mg Cap PO Q1HR PRN CIWA-Ar 8-15 Dextrose 100 ml 09/09/21 20:33 Dextrose 10% *Hypoglycemia IV PRN PRN Hypoglycemia Famotidine 20 mg 09/10/21 22:00 09/11/21 09:00 Famotidine 20 Mg/2 Ml Inj IV 20 mg BID LEA Administration Hydromorphone HCl 0.5 mg 09/09/21 22:36 Hydromorphone 1 Mg/1 Ml Inj IV Q3H PRN Pain , Severe (7-10) Dextrose 1,000 mls @ 42 mls/hr 09/10/21 17:00 09/11/21 08:02 D5w IV 42 mls/hr DIRECT LEA Administration Potassium Chloride 10 meq in 100 mls @ 100 mls/hr 09/11/21 09:00 09/11/21 08:59 Kcl 10meq/100ml IV 09/11/21 12:59 100 mls/hr Q1H LEA Administration Lorazepam 2 mg 09/09/21 20:40 Lorazepam 2 Mg Tab PO Q1HR PRN CIWA-Ar 8-15 Lorazepam 4 mg 09/09/21 20:40 09/10/21 01:08 Lorazepam 2 Mg/Ml Vial IV 4 mg Q1HR PRN Administration CIWA-Ar 16-25 Lorazepam 4 mg 09/09/21 20:40 Lorazepam 2 Mg/Ml Vial IV Q15MIN PRN CIWA-Ar >25 Morphine Sulfate 2 mg 09/09/21 22:36 09/11/21 06:59 Morphine 2 Mg/1 Ml Inj IV 2 mg Q4H PRN Administration Pain, Moderate (4-6) Ondansetron HCl 4 mg 09/09/21 22:36 09/11/21 06:59 Ondansetron 4 Mg/2 Ml Inj IV 4 mg Q8H PRN Administration Nausea And Vomiting Potassium Chloride 40 meq 09/11/21 08:00 09/11/21 07:54 Potassium Chloride Er 20 Meq Tab PO 09/11/21 12:00 40 meq ONCE@0800 NR Administration Sodium Chloride 10 ml 09/10/21 10:00 09/11/21 09:04 Sodium Chloride 0.9% 10 Ml Flush Syringe IV 10 ml BID LEA Administration Sodium Chloride 10 ml 09/09/21 22:36 Sodium Chloride 0.9% 10 Ml Flush Syringe IV PRN PRN LINE FLUSH
--- NOTE | 2021-09-11 09:59 | Cat Scan Report ---
CT ABDOMEN AND PELVIS WITH CONTRAST HISTORY: Evaluate worsening abdominal pain OMNI 350 100 ML COMPARISON: 08/08/2021 TECHNIQUE: Axial CT images were obtained through the abdomen and pelvis after 100 cc of Omnipaque 300 IV contrast. Sagittal and coronal reformatted images. All CT scans at this location are performed us ing CT dose reduction for ALARA by means of automated exposure control. FINDINGS: Comment: Motion artifact limits some of the images. CT ABDOMEN: Lung Bases: Clear. Liver: No significant abnormality. Biliary: No significant abnormality. Spleen: No significant abnormality. Unenlarged. Pancreas: No significant abnormality. Adrenals: No significant abnormality. Kidneys: No significant abnormality. Lymphatics: No lymphadenopathy. Vasculature: No significant abnormality. Bowel/Peritoneum: No significant abnormality. No free air. No free fluid. The appendix is not confide ntly identified. Small hiatal hernia is unchanged. CT PELVIS: : No significant abnormality. Osseous Structures: No significant abnormality. Additional Findings: None IMPRESSION: No significant abnormality. No significant change since 08/08/2019. Signer Name: Bill Roper Jr, MD Signed: 09/11/2021 9:54 AM Workstation Name: [id number]
--- NOTE | 2021-09-11 13:12 | Discharge Summary ---
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 Procedures: None. Hospital course: Patient is a 56-year-old male past medical history of esophagitis, alcohol dependence, chronic intracranial hygromas, chronic hyponatremia (secondary to alcohol dependence) who presented with complaints of abdominal pain, cramping, chest tightness, and hiccups. Patient endorses drinking at least 325 ounce beers every day. The patient's last alcoholic beverage was the same day as presentation. On presentation the patient was hyponatremic to 114. Nephrology was consulted for further management, and it has since increased to 128. Patient was initiated on CIWA protocol due to his alcoholic history, and has been stable since admission. Patient was counseled at length about the importance of alcohol cessation, and he expresses understanding. Patient was initiated on H2 blockers instead of PPI for his hiccups/GERD. Due to continued complaints of abdominal pain, the patient underwent CT abdomen/pelvis with contrast that proved to be unremarkable. Patient's troponin was negative on admission. Patient is medically cleared for discharge. Disposition: 01 HOME / SELF CARE / HOMELESS Final Discharge Diagnosis (Prints w/discharge instructions): Severe hyponatremia, alcohol dependence, abdominal pain/alcoholic gastritis, GERD, hypokalemia Time spent for discharge: 45 min Core Measure Documentation - Palliative Care Palliative Care/ Comfort Measures: Not Applicable - Core Measures Any of the following diagnoses?: none Exam - Constitutional Vitals: Temp Pulse Resp BP Pulse Ox 98.2 F 72 18 118/90 99 09/11/21 05:08 09/11/21 08:00 09/11/21 08:00 09/11/21 05:08 09/11/21 10:00 General appearance: Present: no acute distress, well-nourished - EENT Eyes: Present: PERRL, EOM intact ENT: hearing intact, clear oral mucosa, poor dentition - Neck Neck: Present: supple, normal ROM - Respiratory Respiratory effort: normal Respiratory: bilateral: CTA - Cardiovascular Rhythm: regular Heart Sounds: Present: S1 & S2 - Extremities Extremities: no ischemia, pulses intact, pulses symmetrical, No edema, normal temperature, normal color, Full ROM Peripheral Pulses: within normal limits - Abdominal General gastrointestinal: Present: soft, tender, non-distended, normal bowel sounds Localized gastrointestinal: tender: epigastric periumbilical Male genitourinary: Present: deferred - Rectal Rectal Exam: deferred - Integumentary Integumentary: Present: clear, warm, dry - Musculoskeletal Musculoskeletal: strength equal bilaterally - Psychiatric Psychiatric: appropriate mood/affect, cooperative - Neurologic Neurologic: CNII-XII intact, moves all extremities - Allied Health Allied health notes reviewed: nursing Plan Activity: advance as tolerated Diet: regular Additional Instructions: Patient is a 56-year-old male past medical history of esophagitis, alcohol dependence, chronic intracranial hygromas, chronic hyponatremia (secondary to alcohol dependence) who presented with complaints of abdominal pain, cramping, chest tightness, and hiccups. Patient endorses drinking at least 325 ounce beers every day. The patient's last alcoholic beverage was the same day as presentation. On presentation the patient was hyponatremic to 114. Nephrology was consulted for further management, and it has since increased to 128. Patient was initiated on CIWA protocol due to his alcoholic history, and has been stable since admission. Patient was counseled at length about the importance of alcohol cessation, and he expresses understanding. Patient was initiated on H2 blockers instead of PPI for his hiccups/GERD. Due to continued complaints of abdominal pain, the patient underwent CT abdomen/pelvis with contrast that proved to be unremarkable. Patient's troponin was negative on admission. Patient is medically cleared for discharge. Care Plan Goals: Patient is medically clear for discharge. Assessment: Patient is a 56-year-old male past medical history of esophagitis, alcohol dependence, chronic intracranial hygromas, chronic hyponatremia (secondary to alcohol dependence) who presented with complaints of abdominal pain, cramping, chest tightness, and hiccups. Patient endorses drinking at least 325 ounce beers every day. The patient's last alcoholic beverage was the same day as presentation. On presentation the patient was hyponatremic to 114. Nephrology was consulted for further management, and it has since increased to 128. Patient was initiated on CIWA protocol due to his alcoholic history, and has been stable since admission. Patient was counseled at length about the importance of alcohol cessation, and he expresses understanding. Patient was initiated on H2 blockers instead of PPI for his hiccups/GERD. Due to continued complaints of abdominal pain, the patient underwent CT abdomen/pelvis with contrast that proved to be unremarkable. Patient's troponin was negative on admission. Patient is medically cleared for discharge. Follow up with: CRUZITO FELIX MD [Primary Care Provider] - 3-5 Days SANJAY CHUNG MD [Staff Physician] - 10 Days Prescriptions: Famotidine [Pepcid] 20 mg PO BID #60 tablet
[2021-09-11 14:36] LABS: BUN/Creatinine Ratio 9; Blood Urea Nitrogen 7 mg/dL (9-20); Hemolysis Index 6
[2021-09-11] MEDS ORDERED: FAMOTIDINE 20 MG TAB PO SCH (22:00)
== END 2021-09-11 16:00 | disposition home or self-care (01) | DRG 641 ==
LOC: ED 16:53 → 3A 22:37
PROVIDERS: ADMIT Hospitalist; ATTEND Student in an Organized Health Care Education/Training Program
DX: E87.1 Hypo-osmolality and hyponatremia (principal); E87.6 Hypokalemia; K29.20 Alcoholic gastritis without bleeding; I10 Essential (primary) hypertension; K21.9 Gastro-esophageal reflux disease without esophagitis; E16.2 Hypoglycemia, unspecified; F10.20 Alcohol dependence, uncomplicated; Y90.9 Presence of alcohol in blood, level not specified; Z88.6 Allergy status to analgesic agent; Z79.899 Other long term (current) drug therapy
CPT/HCPCS: 36415; 71046; 74177; 80048; 80053; 80320; 82962; 83690; 83735; 84484; 85025; 93005; 94640; G0378; J3490; J7070; Q0162; C9113; G0480; J1630; J2060; J2270; J2405; J3411; J3480; J7030; Q9967

== ENCOUNTER 2021-11-30 16:26 | Emergency (ER) | payer MEDICAID ==
[2021-11-30 16:41] VITALS: BP 156/91
== END 2021-11-30 22:06 | disposition left against medical advice (07) ==
LOC: ED 16:26
DX: R12 Heartburn (principal); Z53.21 Procedure and treatment not carried out due to patient leaving prior to being seen by health care provider

== ENCOUNTER 2021-12-01 19:56 | Emergency (ER) | payer MEDICAID ==
[2021-12-01 20:43] VITALS: BP 136/90
--- NOTE | 2021-12-02 03:04 | Emergency Department Report ---
ED General Adult HPI - General Chief complaint: Pain General Stated complaint: HICCUPS X 3 DAYS Time Seen by Provider: 12/02/21 02:49 Source: EMS Mode of arrival: Wheelchair Limitations: No Limitations - History of Present Illness Initial comments: 56-year-old male with history of alcohol abuse presents emerged department complaining of the return of his intractable hiccups after running out of his medication. States he has been having recurrent hiccups since running out and this caused him some some discomfort to the chest when he experienced the hiccup motion. Reports no shortness of breath, no presyncope, no palpitation, no nausea, no vomiting, no fever, chills, sweats. - Related Data Home Medications Medication Instructions Recorded Confirmed Last Taken Ferrous Sulfate [Iron 325 MG] 325 mg PO DAILY 01/13/20 09/10/21 Unknown Multivitamin with Folic Acid [[facility]vs 400 mcg PO DAILY 01/13/20 09/10/21 Unknown One Daily Essential Tablet] Thiamine Mononitrate (Vit B1) 100 gm PO DAILY 01/13/20 09/10/21 Unknown [Cyto B-1] Ergocalciferol [Vitamin D2] 1 cap PO QWEEK 09/10/21 09/10/21 09/03/21 Previous Rx's Medication Instructions Recorded Last Taken Type Metoclopramide [Reglan TAB] 10 mg PO TID 10 Days #30 tab 08/19/20 Unknown Rx Dicyclomine [Bentyl] 10 mg PO QID PRN #12 capsule 08/09/21 Unknown Rx Famotidine [Pepcid] 20 mg PO BID #60 tablet 09/11/21 Unknown Rx Baclofen 20 mg PO DAILY #30 12/02/21 Unknown Rx Famotidine [Pepcid] 40 mg PO QHS #30 12/02/21 Unknown Rx Allergies Allergy/AdvReac Type Severity Reaction Status Date / Time aspirin Allergy Bleeding Verified 11/30/21 16:41 ED Review of Systems ROS: Stated complaint: HICCUPS X 3 DAYS Other details as noted in HPI ED Past Medical Hx - Past Medical History Hx Hypertension: Yes Hx Heart Attack/AMI: No Hx Congestive Heart Failure: No Hx Diabetes: No Hx Deep Vein Thrombosis: No Hx GERD: Yes Hx Renal Disease: No Hx Sickle Cell Disease: No Hx Kidney Stones: No Hx Asthma: No Hx COPD: No Hx Tuberculosis: No Hx HIV: No Additional medical history: Low sodium secondary to excessive water intake, low potassium, HERNIA H-PYLORIC, gastritis, esophagitis, daily alcohol use, pancreatitis - Surgical History Hx Coronary Stent: No Hx Pacemaker: No Hx Internal Defibrillator: No Additional Surgical History: Left index finger surgery - Social History Smoking Status: Current Every Day Smoker - Medications Home Medications: Home Medications Medication Instructions Recorded Confirmed Last Taken Type Ferrous Sulfate [Iron 325 MG] 325 mg PO DAILY 01/13/20 09/10/21 Unknown History Multivitamin with Folic Acid [[facility] 400 mcg PO DAILY 01/13/20 09/10/21 Unknown History One Daily Essential Tablet] Thiamine Mononitrate (Vit B1) 100 gm PO DAILY 01/13/20 09/10/21 Unknown History [Cyto B-1] Metoclopramide [Reglan TAB] 10 mg PO TID 10 Days #30 tab 08/19/20 09/10/21 Unknown Rx Dicyclomine [Bentyl] 10 mg PO QID PRN #12 capsule 08/09/21 09/10/21 Unknown Rx Ergocalciferol [Vitamin D2] 1 cap PO QWEEK 09/10/21 09/10/21 09/03/21 History Famotidine [Pepcid] 20 mg PO BID #60 tablet 09/11/21 Unknown Rx Baclofen 20 mg PO DAILY #30 12/02/21 Unknown Rx Famotidine [Pepcid] 40 mg PO QHS #30 12/02/21 Unknown Rx ED Physical Exam - General Limitations: No Limitations ED Course Vital Signs 12/01/21 19:56 Temperature 98.3 F Pulse Rate 101 H Respiratory 18 Rate Blood Pressure 136/90 [Left] O2 Sat by Pulse 98 Oximetry Critical care attestation.: If time is entered above; I have spent that time in minutes in the direct care of this critically ill patient, excluding procedure time. ED Disposition Clinical Impression: Intractable hiccups Disposition: 01 HOME / SELF CARE / HOMELESS Is pt being admited?: No Does the pt Need Aspirin: No Condition: Stable Instructions: Hiccups Additional Instructions: You have been seen and evaluated for intractable hiccups medication has been refilled as you requested please take them as prescribed [place], utilization of your alcohol was may be triggering your hiccups as well. Prescriptions: Baclofen 20 mg PO DAILY #30 Famotidine [Pepcid] 40 mg PO QHS #30 Referrals: [facility] [Provider Group] - 3-5 Days
== END 2021-12-02 04:06 | disposition home or self-care (01) ==
LOC: ED 19:56
DX: R06.6 Hiccough (principal); I10 Essential (primary) hypertension; K21.9 Gastro-esophageal reflux disease without esophagitis; F17.200 Nicotine dependence, unspecified, uncomplicated; Z91.09 Other allergy status, other than to drugs and biological substances; Z79.899 Other long term (current) drug therapy
CPT/HCPCS: 99283

== ENCOUNTER 2022-01-22 02:16 | Inpatient (IN) | payer MEDICAID ==
[2022-01-22] MEDS ORDERED: SODIUM CHLORIDE 0.9% 1000 ML 1,000 ML IV ONE (07:57)
[2022-01-22] MEDS ORDERED: ONDANSETRON 4 MG/2 ML INJ IV ONE (07:57)
[2022-01-22 08:36] LABS: Basophils # (Auto) 0.1 K/mm3 (0.0-0.1); Basophils % (Auto) 1.7 % (0.0-1.8); Eosinophils % (Auto) 0.7 % (0.0-4.3); Hematocrit 38.5 % (35.5-45.6); Hemoglobin 12.6 gm/dl (11.8-15.2); Lymphocytes # (Auto) 0.9 K/mm3 (1.2-5.4); Lymphocytes % (Auto) 17.1 % (13.4-35.0); Mean Corpuscular HGB Conc 33 % (32-34); Mean Corpuscular Volume 90 fl (84-94); Monocytes # (Auto) 0.6 K/mm3 (0.0-0.8); Platelet Count 307 K/mm3 (140-440); Red Cell Distribution Width 15.3 % (13.2-15.2)
[2022-01-22 08:59] LABS: Alanine Aminotransferase 14 units/L (7-56); Albumin 3.9 g/dL (3.9-5); Blood Urea Nitrogen 4 mg/dL (9-20); Calcium 8.1 mg/dL (8.4-10.2); Hemolysis Index 154
[2022-01-22 09:01] LABS: BUN/Creatinine Ratio 6
[2022-01-22] MEDS ORDERED: KETOROLAC 30 MG/1 ML INJ ONE (09:49)
[2022-01-22] MEDS ORDERED: fentaNYL 100 MCG/2 ML INJ IV ONE (09:50)
[2022-01-22] MEDS ORDERED: POTASSIUM CHLORIDE ER 20 MEQ TAB PO NR (10:11)
--- NOTE | 2022-01-22 10:12 | Consultation ---
History of Present Illness - Reason for Consult Consult date: 01/22/22 hyponatremia - History of Present Illness The patient is a 56 YO male with history of Esophagitis, Alcohol abuse, Chronic intracranial hygromas and Hyponatremia who presented to [facility] ED 01/22/22 with a complaint of abdominal cramping, nausea vomiting, and hiccups for the past 3 days. Patient drinks 3 bottles of 25 ounce beers every day. He thinks his last alcoholic beverage was earlier on today. He denies any fever, rash, dizziness, syncope, rash, leg swelling or sob. In the ED patient is found to have sodium of 119, potassium 3.4 and glucose 95. Also plasma alcohol level < 0.01. Patient was started on IV fluids and CIWA protocol. Nephrology consulted for further evaluation of Hyponatremia. Past History Past Medical History: other (See HPI.) Medications and Allergies Allergies Allergy/AdvReac Type Severity Reaction Status Date / Time aspirin Allergy Bleeding Verified 11/30/21 16:41 Home Medications Medication Instructions Recorded Confirmed Last Taken Type Ferrous Sulfate [Iron 325 MG] 325 mg PO DAILY 01/13/20 01/22/22 Unknown History Multivitamin with Folic Acid [[facility] 400 mcg PO DAILY 01/13/20 01/22/22 Unknown History One Daily Essential Tablet] Thiamine Mononitrate (Vit B1) 100 gm PO DAILY 01/13/20 01/22/22 Unknown History [Cyto B-1] Metoclopramide [Reglan TAB] 10 mg PO TID 10 Days #30 tab 08/19/20 01/22/22 Unknown Rx Dicyclomine [Bentyl] 10 mg PO QID PRN #12 capsule 08/09/21 01/22/22 Unknown Rx Ergocalciferol [Vitamin D2] 1 cap PO QWEEK 09/10/21 01/22/22 09/03/21 History Famotidine [Pepcid] 20 mg PO BID #60 tablet 09/11/21 01/22/22 Unknown Rx Baclofen 20 mg PO DAILY #30 12/02/21 01/22/22 Unknown Rx Famotidine [Pepcid] 40 mg PO QHS #30 12/02/21 01/22/22 Unknown Rx Review of Systems All systems: negative Exam - Vital Signs Vital signs: Vital Signs Temp Pulse Resp BP Pulse Ox 97.2 F L 84 16 120/80 99 01/22/22 04:36 01/22/22 04:36 01/22/22 04:36 01/22/22 04:36 01/22/22 04:36 Results - Lab Results 01/22/22 08:12 01/22/22 15:40 Most recent lab results Calcium 8.1 mg/dL (8.4-10.2) L 01/22/22 08:12 Assessment and Plan 1. Acute hyponatremia: Likely 2/2 Etoh abuse + volume depletion. Urine and serum Osm ordered. Appropriate IV fluids. Monitor Sodium level. 2. FEN: Hypokalemia, replete K. Replete Mg. Monitor lytes and volume status. 3. N, V & abd pain: Monitor. 4. EtOH abuse. Subjective: Patient was seen and examined at the bedside. Nurse at the bedside. Examination: General appearance: well-developed, thin built, appears stated age, no distress HEENT: atraumatic, no icterus Neck: trachea midline Respiratory: ctab Heart: S1S2, regular, no murmur Abdomen: soft, bowel sounds heard, NT Integumentary: no obvious rash Neurologic: AO, non-focal Ext: no edema
--- NOTE | 2022-01-22 10:23 | Emergency Department Report ---
ED General Adult HPI - General Chief complaint: Nausea/Vomiting/Diarrhea Stated complaint: N/V X 3DAYS/ETOH PUI?: No Time Seen by Provider: 01/22/22 07:52 Source: patient, EMS Mode of arrival: Ambulatory Limitations: No Limitations - History of Present Illness Initial comments: Nausea vomiting for 3 days ETOH , pt is alcoholic , last sip yesterday , has been having hiccups and nausea for the last 3 days no seizure -: Gradual, days(s) Consistency: intermittent Improves with: none Worsens with: none Associated Symptoms: denies: denies other symptoms, confusion, chest pain, cough - Related Data Home Medications Medication Instructions Recorded Confirmed Last Taken Ferrous Sulfate [Iron 325 MG] 325 mg PO DAILY 01/13/20 09/10/21 Unknown Multivitamin with Folic Acid [[facility]vs 400 mcg PO DAILY 01/13/20 09/10/21 Unknown One Daily Essential Tablet] Thiamine Mononitrate (Vit B1) 100 gm PO DAILY 01/13/20 09/10/21 Unknown [Cyto B-1] Ergocalciferol [Vitamin D2] 1 cap PO QWEEK 09/10/21 09/10/21 09/03/21 Previous Rx's Medication Instructions Recorded Last Taken Type Metoclopramide [Reglan TAB] 10 mg PO TID 10 Days #30 tab 08/19/20 Unknown Rx Dicyclomine [Bentyl] 10 mg PO QID PRN #12 capsule 08/09/21 Unknown Rx Famotidine [Pepcid] 20 mg PO BID #60 tablet 09/11/21 Unknown Rx Baclofen 20 mg PO DAILY #30 12/02/21 Unknown Rx Famotidine [Pepcid] 40 mg PO QHS #30 12/02/21 Unknown Rx Allergies Allergy/AdvReac Type Severity Reaction Status Date / Time aspirin Allergy Bleeding Verified 11/30/21 16:41 ED Review of Systems ROS: Stated complaint: N/V X 3DAYS/ETOH Other details as noted in HPI Constitutional: denies: chills, fever Eyes: denies: eye pain, eye discharge, vision change ENT: denies: ear pain, throat pain Respiratory: denies: cough, shortness of breath, wheezing Cardiovascular: denies: chest pain, palpitations Endocrine: no symptoms reported Gastrointestinal: denies: abdominal pain, nausea, diarrhea Genitourinary: denies: urgency, dysuria Musculoskeletal: denies: back pain, joint swelling, arthralgia Skin: denies: rash, lesions Neurological: denies: headache, weakness, paresthesias Psychiatric: denies: anxiety, depression Hematological/Lymphatic: denies: easy bleeding, easy bruising ED Past Medical Hx - Past Medical History Hx Hypertension: Yes Hx Heart Attack/AMI: No Hx Congestive Heart Failure: No Hx Diabetes: No Hx Deep Vein Thrombosis: No Hx GERD: Yes Hx Renal Disease: No Hx Sickle Cell Disease: No Hx Kidney Stones: No Hx Asthma: No Hx COPD: No Hx Tuberculosis: No Hx HIV: No Additional medical history: Low sodium secondary to excessive water intake, low potassium, HERNIA H-PYLORIC, gastritis, esophagitis, daily alcohol use, pancreatitis - Surgical History Hx Coronary Stent: No Hx Pacemaker: No Hx Internal Defibrillator: No Additional Surgical History: Left index finger surgery - Social History Smoking Status: Current Every Day Smoker - Medications Home Medications: Home Medications Medication Instructions Recorded Confirmed Last Taken Type Ferrous Sulfate [Iron 325 MG] 325 mg PO DAILY 01/13/20 09/10/21 Unknown History Multivitamin with Folic Acid [Cvs 400 mcg PO DAILY 01/13/20 09/10/21 Unknown History One Daily Essential Tablet] Thiamine Mononitrate (Vit B1) 100 gm PO DAILY 01/13/20 09/10/21 Unknown History [Cyto B-1] Metoclopramide [Reglan TAB] 10 mg PO TID 10 Days #30 tab 08/19/20 09/10/21 Unknown Rx Dicyclomine [Bentyl] 10 mg PO QID PRN #12 capsule 08/09/21 09/10/21 Unknown Rx Ergocalciferol [Vitamin D2] 1 cap PO QWEEK 09/10/21 09/10/21 09/03/21 History Famotidine [Pepcid] 20 mg PO BID #60 tablet 09/11/21 Unknown Rx Baclofen 20 mg PO DAILY #30 12/02/21 Unknown Rx Famotidine [Pepcid] 40 mg PO QHS #30 12/02/21 Unknown Rx ED Physical Exam - General Limitations: No Limitations General appearance: alert, in no apparent distress, other (hiccups ) - Head Head exam: Present: atraumatic, normocephalic - Eye Eye exam: Present: normal appearance - ENT ENT exam: Present: mucous membranes moist - Neck Neck exam: Present: normal inspection - Respiratory Respiratory exam: Present: normal lung sounds bilaterally. Absent: respiratory distress - Cardiovascular Cardiovascular Exam: Present: regular rate, normal rhythm. Absent: systolic murmur, diastolic murmur, rubs, gallop - GI/Abdominal GI/Abdominal exam: Present: soft, normal bowel sounds - Rectal Rectal exam: Present: deferred - Extremities Exam Extremities exam: Present: normal inspection - Back Exam Back exam: Present: normal inspection - Neurological Exam Neurological exam: Present: alert, oriented X3 - Psychiatric Psychiatric exam: Present: normal affect, normal mood - Skin Skin exam: Present: warm, dry, intact, normal color. Absent: rash ED Course Vital Signs 01/22/22 04:36 Temperature 97.2 F L Pulse Rate 84 Respiratory 16 Rate Blood Pressure 120/80 [Right] O2 Sat by Pulse 99 Oximetry ED Medical Decision Making - Lab Data Result diagrams: 01/22/22 08:12 01/22/22 08:12 - Radiology Data Radiology results: report reviewed, image reviewed - Medical Decision Making weork up showed hyponatremia ,most likel;y 2ry to his chornic alcohol abuse, but lower than his avarge, no seizure spoke with dr Krishnamurthy , will hydrate him Critical care attestation.: If time is entered above; I have spent that time in minutes in the direct care of this critically ill patient, excluding procedure time. ED Disposition Clinical Impression: Hyponatremia, Hiccough, Hypoglycemia, Alcohol abuse Disposition: ADMITTED INPATIENT Is pt being admited?: Yes Does the pt Need Aspirin: No Condition: Stable Referrals: PRIMARY CARE,MD [Primary Care Provider] - 3-5 Days
[2022-01-22 10:59] LABS: RBC,Urine < 1.0 /HPF (0.0-6.0)
[2022-01-22] MEDS ORDERED: SODIUM CHLORIDE 0.9% 1000 ML 1,000 ML IV SCH (11:00)
[2022-01-22 11:05] LABS: Color,Urine Straw (Yellow)
[2022-01-22 11:06] LABS: Bilirubin,Urine Negative (Negative); Blood,Urine Negative (Negative); PH,Urine 5.5 (5.0-7.0); Protein,Urine <15 mg/dL mg/dL (Negative); Urobilinogen,Urine < 2.0 mg/dL (<2.0)
[2022-01-22] MEDS ORDERED: chlorproMAZINE 25 MG in SODIUM CHLORIDE 0.9% 50 ML IV NR (11:39)
--- NOTE | 2022-01-22 11:50 | History and Physical Report ---
History of Present Illness Date of examination: 01/22/22 Date of admission: 01/22/22 Chief complaint: Abdominal pain, nausea vomiting History of present illness: 56-year-old gentleman with history of esophagitis, alcohol abuse, chronic intracranial hygromas, hyponatremia, who presents to the ER today with a complaint of abdominal cramping, nausea vomiting, and hiccups for the past 3 days. Patient drinks 3 bottles of 25 ounce beers every day. He thinks his last alcoholic beverage was earlier on today. In the emergency room patient is found to have sodium of 119, potassium 3.4 and glucose 95. Also plasma alcohol level is 0.01. We will going to admit the ki ent I put the patient on IV fluid , CIWA protocol. We counseled the patient regarding quit drinking Past History Past Medical History: other (esophagitis, alcohol abuse, chronic intracranial hygromas, hyponatremia, ) Past Surgical History: Other (Left index finger surgery) Social history: other (Never smoking) Family history: no significant family history Medications and Allergies Allergies Allergy/AdvReac Type Severity Reaction Status Date / Time aspirin Allergy Bleeding Verified 11/30/21 16:41 Home Medications Medication Instructions Recorded Confirmed Last Taken Type Ferrous Sulfate [Iron 325 MG] 325 mg PO DAILY 01/13/20 01/22/22 Unknown History Multivitamin with Folic Acid [Cvs 400 mcg PO DAILY 01/13/20 01/22/22 Unknown History One Daily Essential Tablet] Thiamine Mononitrate (Vit B1) 100 gm PO DAILY 01/13/20 01/22/22 Unknown History [Cyto B-1] Metoclopramide [Reglan TAB] 10 mg PO TID 10 Days #30 tab 08/19/20 01/22/22 Unknown Rx Dicyclomine [Bentyl] 10 mg PO QID PRN #12 capsule 08/09/21 01/22/22 Unknown Rx Ergocalciferol [Vitamin D2] 1 cap PO QWEEK 09/10/21 01/22/22 09/03/21 History Famotidine [Pepcid] 20 mg PO BID #60 tablet 09/11/21 01/22/22 Unknown Rx Baclofen 20 mg PO DAILY #30 12/02/21 01/22/22 Unknown Rx Famotidine [Pepcid] 40 mg PO QHS #30 12/02/21 01/22/22 Unknown Rx Active Meds: Active Medications Sodium Chloride (Nacl 0.9% 1000 Ml) 1,000 mls @ 75 mls/hr IV DIRECT LEA Potassium Chloride (Potassium Chloride Er 20 Meq Tab) 40 meq PO ONCE NR Stop: 01/22/22 12:00 Exam - Constitutional Vitals: Temp Pulse Resp BP Pulse Ox 97.2 F L 58 L 11 L 102/75 98 01/22/22 04:36 01/22/22 11:00 01/22/22 11:00 01/22/22 11:00 01/22/22 11:00 HEART Score - HEART Score Troponin: Troponin T < 0.010 ng/mL (0.00-0.029) 01/22/22 08:12 Results - Labs CBC & Chem 7: 01/22/22 08:12 01/23/22 04:00 Labs: Abnormal lab results 01/22/22 01/22/22 Range/Units 08:12 08:12 RDW 15.3 H (13.2-15.2) % [place] % (Auto) 12.0 H (0.0-7.3) % Lymph # (Auto) 0.9 L (1.2-5.4) K/mm3 Sodium 119 L* (137-145) mmol/L Potassium 3.4 L (3.6-5.0) mmol/L Chloride 79.4 L (98-107) mmol/L BUN 4 L (9-20) mg/dL Creatinine 0.7 L (0.8-1.3) mg/dL Calcium 8.1 L (8.4-10.2) mg/dL Amylase 194 H (27-131) units/L Lipase 65 H (13-60) units/L Assessment and Plan -- Hyponatremia, Current Visit: Yes Status: Acute Plan to address problem: Admit the patient to the medical floor. Put the patient on regular diet. D5 normal saline at the rate of 75 cc/h. Recheck BMP in the morning. Patient counseled regarding quit drinking. -- Alcohol abuse Current Visit: Yes Status: Acute Plan to address problem: We counseled the patient regarding quit drinking. Put the patient on banana bag, thiamine and folic acid. We also put the patient on CIWA protocol. -- hypokalemia and hypomagnesemia Current Visit: Yes Status: Acute Plan to address problem: Replete potassium and magnesium. Recheck BMP in the morning --Abdominal pain likely from acute pancreatitis Current Visit: No Status: Acute Plan to address problem: Regular diet. Pepcid 20 mg IV every 12 hours. Morphine 2 mg IV every 4 hours as needed. We will monitor the patient closely -- DVT prophylaxis Current Visit: Yes Status: Acute Plan to address problem: SCD for DVT prophylaxis. Pepcid 20 mg IV every 12 hours for GI prophylaxis. Patient is a full code
[2022-01-22] MEDS ORDERED: THIAMINE MONONITRATE PO SCH (12:15)
[2022-01-22] MEDS ORDERED: NALOXONE 0.4 MG/1 ML INJ IV PRN (12:30)
[2022-01-22] MEDS ORDERED: chlordiazePOXIDE 25 MG CAP PO PRN (12:30)
[2022-01-22] MEDS ORDERED: ACETAMINOPHEN 325 MG TAB PO PRN (12:30)
[2022-01-22] MEDS ORDERED: ONDANSETRON 4 MG/2 ML INJ IV PRN (12:30)
[2022-01-22] MEDS ORDERED: MORPHINE 4 MG/1 ML INJ IV PRN (12:30)
[2022-01-22] MEDS ORDERED: LORazepam 2 MG/ML VIAL IV PRN (13:00)
[2022-01-22] MEDS: ENOXAPARIN 40 MG/0.4 ML INJ SUB-Q SCH (13:35)
[2022-01-22] MEDS: FAMOTIDINE 20 MG TAB PO SCH ×2 (13:35→21:19)
[2022-01-22] MEDS: THIAMINE 100 MG TAB PO SCH (13:35)
[2022-01-22] MEDS: MULTIVITAMINS ,THERAPEUTIC TAB PO SCH (13:35)
[2022-01-22] MEDS ORDERED: MAGNESIUM SULFATE 2 GM/50 ML BAG IV ONE (16:00)
[2022-01-22] MEDS: DEXTROSE 5% IN WATER 1,000 ML IV SCH (19:07)
[2022-01-22] MEDS: oxyCODONE /ACETAMINOPHEN 5-325MG TAB PO PRN (21:26)
[2022-01-23 06:14] LABS: Alanine Aminotransferase 10 units/L (7-56); Albumin 3.5 g/dL (3.9-5); Blood Urea Nitrogen 4 mg/dL (9-20); Calcium 8.4 mg/dL (8.4-10.2); Hemolysis Index 3
[2022-01-23 06:15] LABS: BUN/Creatinine Ratio 6
--- NOTE | 2022-01-23 08:58 | Progress Note ---
Assessment and Plan 1. Acute hyponatremia: Likely 2/2 Etoh abuse + volume depletion. Appropriate IV fluids. Sodium level is better. Monitor Sodium level. 2. FEN: Hypokalemia, replete K. Replete Mg. Monitor lytes and volume status. 3. N, V & abd pain: Monitor. 4. EtOH abuse. Subjective: Patient was seen and examined at the bedside. Doing ok. Examination: General appearance: well-developed, thin built, appears stated age, no distress HEENT: atraumatic, no icterus Neck: trachea midline Respiratory: ctab Heart: S1S2, regular, no murmur Abdomen: soft, bowel sounds heard, NT Integumentary: no obvious rash Neurologic: AO, non-focal Ext: no edema Subjective Date of service: 01/23/22 Objective - Vital Signs Vital signs: Vital Signs - 12hr 01/22/22 01/22/22 01/23/22 21:00 21:26 02:10 Temperature 97.9 F Pulse Rate 64 Respiratory 16 17 Rate Blood Pressure 109/67 O2 Sat by Pulse 100 100 Oximetry 01/23/22 03:21 Temperature 98.0 F Pulse Rate 68 Respiratory 20 Rate Blood Pressure 127/84 O2 Sat by Pulse 98 Oximetry - Lab 01/22/22 08:12 01/23/22 04:00 Most recent lab results Calcium 8.4 mg/dL (8.4-10.2) 01/23/22 04:00 Phosphorus 3.20 mg/dL (2.5-4.5) 01/23/22 04:00 Magnesium 2.00 mg/dL (1.7-2.3) 01/23/22 04:00 Medications & Allergies - Medications Allergies/Adverse Reactions: Allergies aspirin Allergy (Verified 11/30/21 16:41) Bleeding Home Medications: Home Medications Medication Instructions Recorded Confirmed Last Taken Type Ferrous Sulfate [Iron 325 MG] 325 mg PO DAILY 01/13/20 01/22/22 Unknown History Ergocalciferol [Vitamin D2] 1 cap PO QWEEK 09/10/21 01/22/22 09/03/21 History Famotidine [Pepcid] 20 mg PO BID #30 tablet 01/23/22 Unknown Rx Multivitamin Tab [Multiple Vitamin 1 each PO DAILY #30 tablet 01/23/22 Unknown Rx TAB (Theragran)] Potassium Chloride [K-Dur] 20 meq PO Q24HR #14 tablet 01/23/22 Unknown Rx Thiamine [Vitamin B-1] 100 mg PO QDAY #14 tablet 01/23/22 Unknown Rx chlordiazePOXIDE [Librium] 25 mg PO Q8H PRN #7 capsule 01/23/22 Unknown Rx chlorproMAZINE [Thorazine] 10 mg PO Q4H PRN #20 tablet 01/23/22 Unknown Rx oxyCODONE /ACETAMINOPHEN [Percocet 1 tab PO Q6H PRN #7 tablet 01/23/22 Unknown Rx 5/325 mg] Active Medications: Generic Name Dose Route Start Last Admin Trade Name Freq PRN Reason Stop Dose Admin Acetaminophen 650 mg 01/22/22 12:30 Acetaminophen 325 Mg Tab PO Q4H PRN Pain MILD(1-3)/Fever >100.5/MURPHY Bisacodyl 10 mg 01/22/22 12:30 Bisacodyl 10 Mg Rect Supp MA QDAY PRN Constipation unrelieved by MOM Chlordiazepoxide HCl 50 mg 01/22/22 12:30 Chlordiazepoxide 25 Mg Cap PO Q1H PRN CIWA-Johan 8-15 Enoxaparin Sodium 40 mg 01/22/22 14:00 01/22/22 13:35 Enoxaparin 40 Mg/0.4 Ml Inj SUB-Q 40 mg QDAY LEA Administration Ergocalciferol 50,000 unit 01/29/22 10:00 Ergocalciferol (Vit D2) 50,000 Unit Cap PO We LEA Famotidine 20 mg 01/22/22 13:00 01/22/22 21:19 Famotidine 20 Mg Tab PO 20 mg BID LEA Administration Dextrose 1,000 mls @ 100 mls/hr 01/22/22 19:00 01/22/22 19:07 D5w IV 100 mls/hr DIRECT LEA Administration Lorazepam 2 mg 01/22/22 13:00 Lorazepam 2 Mg/Ml Vial IV Q1H PRN CIWA-Ar 8-15 Morphine Sulfate 4 mg 01/22/22 12:30 Morphine 4 Mg/1 Ml Inj IV Q4H PRN Pain , Severe (7-10) Multivitamins 1 each 01/22/22 13:00 01/22/22 13:35 Multivitamins ,Therapeutic Tab PO 1 each DAILY LEA Administration Naloxone HCl 0.1 mg 01/22/22 12:30 Naloxone 0.4 Mg/1 Ml Inj IV Q2MIN PRN Res Rate </= 8 or 02 SAT < 92% Ondansetron HCl 4 mg 01/22/22 12:30 Ondansetron 4 Mg/2 Ml Inj IV Q8H PRN Nausea And Vomiting Oxycodone/Acetaminophen 1 tab 01/22/22 12:30 01/22/22 21:26 Oxycodone /Acetaminophen 5-325mg Tab PO 1 tab Q6H PRN Administration Pain, Moderate (4-6) Sodium Chloride 10 ml 01/22/22 13:00 01/23/22 05:08 Sodium Chloride 0.9% 10 Ml Flush Syringe IV 10 ml BID LEA Administration Sodium Chloride 10 ml 01/22/22 12:30 Sodium Chloride 0.9% 10 Ml Flush Syringe IV PRN PRN LINE FLUSH Thiamine HCl 100 mg 01/22/22 13:00 01/22/22 13:35 Thiamine 100 Mg Tab PO 100 mg QDAY LEA Administration
[2022-01-23] MEDS: MULTIVITAMINS ,THERAPEUTIC TAB PO SCH (08:59)
[2022-01-23] MEDS: oxyCODONE /ACETAMINOPHEN 5-325MG TAB PO PRN (08:59)
[2022-01-23] MEDS: FAMOTIDINE 20 MG TAB PO SCH (09:00)
[2022-01-23] MEDS: THIAMINE 100 MG TAB PO SCH (09:00)
[2022-01-23] MEDS: ENOXAPARIN 40 MG/0.4 ML INJ SUB-Q SCH (09:00)
[2022-01-23] MEDS: POTASSIUM CHLORIDE ER 20 MEQ TAB PO SCH ×2 (10:36→16:02)
[2022-01-23] MEDS: DEXTROSE 5% IN WATER 1,000 ML IV SCH (10:37)
[2022-01-23 12:48] VITALS: BP 124/92
--- NOTE | 2022-01-23 15:56 | Discharge Summary ---
Providers - Providers Date of Admission: 01/22/22 11:56 Date of discharge: 01/23/22 Attending physician: ERIC SERNA 01/22/22 10:26 Consult to Physician [CONS] Stat Comment: Consulting Provider: NANDO HUNTER Physician Instructions: Reason For Exam: hyponatremia Primary care physician: [employer] Hospitalization Condition: Stable Disposition: 01 HOME / SELF CARE / HOMELESS Final Discharge Diagnosis (Prints w/discharge instructions): -- Hyponatremia. --Alcohol abuse. --hypokalemia and hypomagnesemia. --Abdominal pain likely from acute pancreatitis Time spent for discharge: 34 minutes Core Measure Documentation - Palliative Care Palliative Care/ Comfort Measures: Not Applicable - Core Measures Any of the following diagnoses?: none Exam - Constitutional Vitals: Temp Pulse Resp BP Pulse Ox 98.3 F 70 18 124/92 98 01/23/22 12:08 01/23/22 12:08 01/23/22 12:08 01/23/22 12:08 01/23/22 12:08 Plan Activity: advance as tolerated Weight Bearing Status: Weight Bear as Tolerated Diet: low fat, low salt Follow up with: PRIMARY CARE, [Primary Care Provider] - 3-5 Days Prescriptions: Potassium Chloride [K-Dur] 20 meq PO Q24HR #14 tablet chlordiazePOXIDE [Librium] 25 mg PO Q8H PRN #7 capsule PRN Reason: CIWA-Ar 8-15 Multivitamin Tab [Multiple Vitamin TAB (Theragran)] 1 each PO DAILY #30 tablet Famotidine [Pepcid] 20 mg PO BID #30 tablet chlorproMAZINE [Thorazine] 10 mg PO Q4H PRN #20 tablet PRN Reason: Hiccups Thiamine [Vitamin B-1] 100 mg PO QDAY #14 tablet
[2022-01-29] MEDS ORDERED: ERGOCALCIFEROL (VIT D2) 50,000 UNIT CAP PO SCH (10:00)
== END 2022-01-23 17:00 | disposition home or self-care (01) | DRG 439 ==
LOC: ED 02:16 → 3A 11:56
PROVIDERS: ADMIT Internal Medicine; ATTEND Internal Medicine
DX: K85.90 Acute pancreatitis without necrosis or infection, unspecified (principal); E87.1 Hypo-osmolality and hyponatremia; F10.10 Alcohol abuse, uncomplicated; E87.6 Hypokalemia; I10 Essential (primary) hypertension; K21.9 Gastro-esophageal reflux disease without esophagitis; F17.200 Nicotine dependence, unspecified, uncomplicated; E16.2 Hypoglycemia, unspecified; Y90.9 Presence of alcohol in blood, level not specified; E83.42 Hypomagnesemia; Z88.6 Allergy status to analgesic agent
CPT/HCPCS: 36415; 80053; 80320; 81001; 82150; 83690; 83735; 83930; 84100; 84295; 84484; 85025; 99406; G0378; G0480; J1650; J1885; J2270; J2405; J3230; J3475; J7030; J7070; Q0161